=== PATIENT | female | born 2000 | race Caucasian/White ===

== ENCOUNTER 2021-02-17 00:03 | Emergency (ER) | payer OTHER, SELFPAY ==
[2021-02-17 00:04] VITALS: BP 141/77; PULSE 73; RESP 16; TEMP 36.8; O2SAT 99; BMI 32.5
--- NOTE | 2021-02-17 01:02 | CT_ITS ---
STUDY: CT ABDOMEN AND PELVIS WITH CONTRAST REASON FOR EXAM: Female, 20 years old. 3 weeks of abdominal pain, worsening. TECHNIQUE: Transaxial images were obtained from the dome of the diaphragm to the symphysis pubis without oral contrast. IV 100mL Isovue-300 was administered. Sagittal and coronal images were reconstructed. Individualized dose optimization techniques were used for this CT. COMPARISON: None. FINDINGS: Partially visualized lower chest: Lung bases unremarkable. Liver: No concerning lesions. Gallbladder and biliary tree: No visible gallstones. No pericholecystic inflammation. No biliary ductal dilation. Pancreas: No pancreatic lesions or inflammation. Spleen: Normal size, no splenic lesions. Adrenal glands: No concerning masses. Kidneys and ureters: No hydronephrosis or renal stones. No concerning masses. No ureteral dilation. Bowel: Appendix not identified. No evidence of appendicitis. No obstruction or inflammation of the bowel. Urinary bladder: No stones or wall thickening. Reproductive:Normal uterus and ovaries. Vascular: No abdominal aortic aneurysm. Retroperitoneal and peritoneal spaces: No ascites or free air. No retroperitoneal lesions. Osseous: No acute osseous abnormality. Left paracentral disc extrusion with inferior migration narrows the left subarticular zone at L5-S1. Abdominal and pelvic wall: No concerning findings. CT/Abdomen/Pelvis WITH Contrast IMPRESSION: No acute findings. Left paracentral disc extrusion with inferior migration narrows the left subarticular zone at L5-S1. Please correlate for left S1 radiculopathy. Electronically Signed: Arnel Rahman MD at 4:40 EDT Tel , Service support ,
[2021-02-17 01:11] LABS: Bacteria 0 SEEN /hpf (None Seen); Mucous, Urine 0 SEEN /hpf (<or=2+); Red Blood Cells-Urine 0 SEEN /hpf (0-5)
[2021-02-17 01:12] LABS: Absolute Lymphocyte Count 3.12 X10^3/uL (0.83-4.51); Absolute Neutrophil Count 3.3 X10^3/uL (2.0-7.7); Basophil# 0.08 X10^3/uL; Basophil% 1.1 % (0-1); Eosinophil# 0.39 X10^3/uL; Eosinophils% 5.1 % (0-5); Hematocrit 43.4 % (37-47); Hemoglobin 14.3 g/dL (12.0-15.0); Lymphocyte # 3.12 X10^3/ul (0.83-4.51); Lymphocyte % 41.1 % (19-41); Mean Corp Hgb Conc 32.9 g/dL (32-36); Mean Corpuscular Volume 100.2 fL (81-99); Mean Platelet Vol. 9.9 fl (6.2-12.0); Monocyte# 0.74 X10^3/uL; Monocyte% 9.7 % (0-10); NRBC Flagged by Analyzer 0 % (0-5); Neutrophil # 3.26 X10^3/uL (2.7-7.7); Neutrophil % 42.9 % (47-70); Platelet Count 301 K/mm3 (150-450); RBC Distribution Width CV 11.8 % (11.6-14.6); RBC Distribution Width SD 43.9 fl (35.1-43.9); Red Blood Count 4.33 M/mm3 (4.2-5.4); White Blood Count 7.6 K/mm3 (4.4-11.0)
[2021-02-17] MEDS: 0.9% Normal Saline 1,000 ML 1000 ML IV (01:12)
[2021-02-17] MEDS: Morphine 4 MG/ML Syringe IV ×2 (01:12→03:59)
[2021-02-17] MEDS: Ondansetron 4 MG/2 ML Vial IV (01:13)
[2021-02-17 01:18] LABS: Color, Urine Yellow (Yellow); Glucose, Dipstick Normal (Normal); Ketone-Dipstick Negative (Negative); Leukocyte Esterase-Dipstick Negative /ul (Negative); Nitrite-Dipstick Negative (Negative); Occult Blood-Urine 250 /ul (Negative); Protein-Dipstick Negative (Negative); Urine Bilirubin Dipstick Negative (Negative); Urine Clarity Clear (Clear); Urine Urobilinogen Normal (Normal)
[2021-02-17 01:19] LABS: Internal QC Validated? YES +Cl - CLEAR BKGD; Pregnancy, Serum, hCG Quali. NEGATIVE Negative
[2021-02-17 01:25] LABS: AST(SGOT) 18 U/L (15-37); Alanine Aminotransfer ALT/SGPT 27 U/L (13-56); Albumin, Serum 3.6 g/dL (3.2-5.0); Alkaline Phosphatase 63 U/L (45-117); Anion Gap 3 (5-15); BUN 12 mg/dL (7-18); BUN/Creat Ratio 14.4 RATIO (10-20); Calcium,Total 8.8 mg/dL (8.5-10.1); Chloride 111 mmol/L (98-107); Creatinine, Serum 0.84 mg/dL (0.55-1.02); EST Glomerular Filtration Rate 93 mL/min (>60); Est Glom Filt Rate - Afr Amer 113 mL/min (>60); Estimated Creatinine Clearance 93.02 ml/min; Globulin 3.5 g/dL (2.2-4.2); Glucose 91 mg/dL (74-106); Potassium 3.8 mmol/L (3.5-5.1); Protein, Total 7.1 g/dL (6.4-8.2); Sodium Level 143 mmol/L (136-145)
[2021-02-17 01:42] LABS: Squamous Epithelial Cells - UA 0-5 SEEN /hpf (5-10); White Blood Cells 0-5 SEEN /hpf (0-5)
[2021-02-17 04:00] VITALS: BP 133/89; PULSE 75; RESP 18; O2SAT 99
--- NOTE | 2021-02-17 05:31 | US_ITS ---
STUDY: ULTRASOUND TRANSVAGINAL CLINICAL: Female, 20 years old. Pelvic pain -- Possible ovarian torsion TECHNIQUE: Transvaginal COMPARISON: None. FINDINGS: Normal uterine size measuring 6.1 x 4.8 x 3.3 cm in maximal craniocaudal dimension. There are no myometrial masses. Normal endometrial thickness measuring 2 mm. There are no endometrial masses, and there is no fluid in the endometrial cavity. Normal uterine cervix. Normal right ovary, measuring 3.3 x 2.4 x 1.3 cm. There are multiple follicles without a dominant cyst. Normal left ovary, measuring 2.5 x 2.5 x 1.3 cm. There are multiple follicles without a dominant cyst. There is a small amount of free fluid in the pelvis. Polycystic ovary disease: No. US/Transvaginal Non- IMPRESSION: Normal transvaginal pelvic ultrasound. Electronically Signed: [place] MD at 7:52 EDT Tel , Service support ,
[2021-02-17] MEDS: HYDROmorphone 1 MG/ML Syringe 0.5 MG IV (05:51)
--- NOTE | 2021-02-17 06:05 | EDS_ITS ---
HPI HPI - GI History of Present Illness Chief Complaint: Abd Pain Informant: patient Abdominal Pain/Flank Pain Onset: Weeks (2) Context: Gradual Onset Timing: Waxes and wanes Quality: Sharp Location: Diffuse Worsened by: Movement Relieved by: Remaining Still Nausea/Vomiting/Emesis GI Symptom: Positive for Nausea Quality: Negative for Blood streaks, Coffee ground and Hematemesis Diarrhea/Melena/Hematochezia GI Symptom: Negative for Diarrhea, Melena and Hematochezia Narrative Narrative: Patient presents with abdominal pain that has been getting worse over the past 2 weeks. Patient states it has been waxing and waning. Patient states the pain is sharp. Patient states the pain moves around her abdomen. Patient states that currently it is in the right lower quadrant. Patient states it is worse with any movement and better whenever she remains still. Patient admits to some nausea and vomiting. Patient denies any hematemesis or coffee-ground emesis. Patient denies any diarrhea, melena, or hematochezia. Patient denies any dysuria or hematuria. Patient states her last menstrual period was 02/12/2021. [facility] Medical History Bipolar disorder Depression Allergy/AdvReac Type Severity Reaction Status Date / Time Penicillins Allergy Anaphylaxis Verified 02/17/21 00:07 Surgical History History of appendectomy History of tonsillectomy and adenoidectomy Social History Smoking Status: Current every day smoker tobacco type: cigarettes ROS ROS ED Constitutional Constitutional ED: Denies chills or fever(s) Eyes Eyes: Denies blurry vision or change in vision ENT ENT ED: Denies rhinorrhea or sore throat Cardiovascular Cardiovascular: Denies chest pain or palpitations Respiratory/Chest Respiratory/Chest: Denies cough or dyspnea Gastrointestinal Gastrointestinal: Reports abdominal pain, nausea and vomiting Genitourinary Genitourinary ED: Denies dysuria or hematuria Musculoskeletal Musculoskeletal: Reports back pain; Denies neck pain Integumentary Denies abscess or rash Neurologic Neurologic: Reports weakness; Denies headache(s) Allergic/Immunologic Allergic/Immunologic ED: Denies mouth swelling or urticaria EXAM Physical Exam Const Vital Signs: 02/17/21 00:04 02/17/21 04:00 02/17/21 06:10 Temperature 98.2 F Temperature Source Oral Pulse Rate 73 75 78 Respiratory Rate 16 18 18 Blood Pressure 141/77 H 133/89 H 128/65 H Blood Pressure Mean 98 103 86 Pulse Ox 99 99 97 Oxygen Delivery Method Room Air Room Air Room Air 02/17/21 08:42 Temperature Temperature Source Pulse Rate 78 Respiratory Rate 18 Blood Pressure Blood Pressure Mean Pulse Ox 97 Oxygen Delivery Method Positive well nourished, well developed and obese General Appearance ED: well developed Nutritional Appearance: obese HEENT Reports moist mucous membranes Neck supple and no JVD Resp normal respiratory effort and clear to auscultation bilaterally Cardio regular rate, regular rhythm and no murmurs GI normal to inspection, nondistended, normoactive bowel sounds and non-distended Auscultation: normoactive bowel sounds Palpation: soft and tender RLQ; Negative for guarding or rebound tenderness present Extremity normal to inspection General Extremety ED: Negative for edema or tenderness General Extremity: Negative for edema Neuro oriented x3, CN's II-XII intact bilaterally and no sensory deficits noted Sensorium / Orientation: alert Motor Exam: strength 5/5 throughout Psych mental status grossly normal Skin no rashes or lesions noted MDM MDM MDM Narrative Medical decision making narrative: Patient was given IV fluids, morphine, and Zofran initially. CBC and comprehensive metabolic profile were within normal limits. Serum hCG was negative. Urinalysis does not show any evidence of urinary tract infection. Patient was given a repeat dose of morphine here. CT scan of the abdomen and pelvis was obtained. There is no acute intra-abdominal pathology. This was interpreted by the radiologist and reviewed by myself. On reevaluation, patient was still complaining of persistent pain. Because of this, ultrasound of the pelvis was obtained to rule out ovarian torsion. There is no acute abnormality. There is no ovarian torsion. This was interpreted by the radiologist and reviewed by myself. Patient was given a dose of Toradol. Patient was instructed to follow-up with her primary care physician in 3 to 5 days. Patient understood and was agreeable with the plan. All questions were answered. Lab Data Attestation: I reviewed the patient's lab results. Labs: Laboratory Results - last 24 hr 02/17/21 02/17/21 02/17/21 00:50 00:50 00:50 WBC 7.6 RBC 4.33 Hgb 14.3 Hct 43.4 MCV 100.2 H MCH 33.0 H MCHC 32.9 RDW Std Deviation 43.9 RDW Coeff of Al 11.8 Plt Count 301 MPV 9.9 Immature Gran % (Auto) 0.100 Neut % (Auto) 42.9 L Lymph % (Auto) 41.1 H [place] % (Auto) 9.7 Eos % (Auto) 5.1 H Baso % (Auto) 1.1 H Absolute Neuts (auto) 3.3 Absolute Lymphs (auto) 3.12 Nucleated RBC % 0 Sodium 143 Potassium 3.8 Chloride 111 H Carbon Dioxide 29.0 Anion Gap 3 L BUN 12 Creatinine 0.84 Estim Creat Clear Calc 93.02 Est GFR (MDRD) Af Amer 113 Est GFR (MDRD) Non-Af 93 BUN/Creatinine Ratio 14.4 Glucose 91 Calcium 8.8 Total Bilirubin 0.50 AST 18 ALT 27 Alkaline Phosphatase 63 Total Protein 7.1 Albumin 3.6 Globulin 3.5 Albumin/Globulin Ratio 1.0 Serum , Qual NEGATIVE Urine Color Urine Clarity Urine pH Ur Specific [place] Urine Protein Urine Glucose (UA) Urine Ketones Urine Occult Blood Urine Nitrite Urine Bilirubin Urine Urobilinogen Ur Leukocyte Esterase Urine RBC Urine WBC Ur Squamous Epith Cells Urine Bacteria Urine Mucus 02/17/21 00:50 WBC RBC Hgb Hct MCV MCH MCHC RDW Std Deviation RDW Coeff of Al Plt Count MPV Immature Gran % (Auto) Neut % (Auto) Lymph % (Auto) [place] % (Auto) Eos % (Auto) Baso % (Auto) Absolute Neuts (auto) Absolute Lymphs (auto) Nucleated RBC % Sodium Potassium Chloride Carbon Dioxide Anion Gap BUN Creatinine Estim Creat Clear Calc Est GFR (MDRD) Af Amer Est GFR (MDRD) Non-Af BUN/Creatinine Ratio Glucose Calcium Total Bilirubin AST ALT Alkaline Phosphatase Total Protein Albumin Globulin Albumin/Globulin Ratio Serum , Qual Urine Color Yellow Urine Clarity Clear Urine pH 7.0 Ur Specific [place] 1.010 Urine Protein Negative Urine Glucose (UA) Normal Urine Ketones Negative Urine Occult Blood 250 H Urine Nitrite Negative Urine Bilirubin Negative Urine Urobilinogen Normal Ur Leukocyte Esterase Negative Urine RBC 0 SEEN Urine WBC 0-5 SEEN Ur Squamous Epith Cells 0-5 SEEN Urine Bacteria 0 SEEN Urine Mucus 0 SEEN Radiography Diagnostic Testing: Radiology Impression Abdomen/Pelvis CT 02/17/21 01:02 IMPRESSION: No acute findings. Left paracentral disc extrusion with inferior migration narrows the left subarticular zone at L5-S1. Please correlate for left S1 radiculopathy. Electronically Signed: Arnel Rahman MD at 4:40 EDT Tel , Service support , Transvaginal US 02/17/21 05:31 IMPRESSION: Normal transvaginal pelvic ultrasound. Electronically Signed: [place] MD at 7:52 EDT Tel , Service support , Discharge Plan Triage Chief Complaint: Abd Pain ED Provider: Herb Gillette Dx/Rx/DC Orders Clinical Impression: Abdominal pain in female patient Instructions: ED Abdominal Pain Unkn Cause Fem Primary Care Provider: Care Physician,No Primary Referrals: Tarik Carbajal MD [STAFF PHYSICIAN] - 3-5 Days Care Physician,No Primary [Primary Care Provider] - Disposition Disposition: Home, Self Care Discharge Date/Time: 02/17/21 08:58
[2021-02-17 06:10] VITALS: BP 128/65; PULSE 78; RESP 18; O2SAT 97
--- NOTE | 2021-02-17 07:19 | ED.RN ---
pt requesting more pain meds, pt attempting to cry, no tears noted. provider aware.
[2021-02-17] MEDS: Ketorolac 30 MG/ML Syringe IV (08:38)
[2021-02-17 08:42] VITALS: PULSE 78; RESP 18; O2SAT 97
== END 2021-02-17 08:58 | disposition home or self-care (01) ==
PROVIDERS: Emergency Provider Emergency Medicine
DX: R10.31 Right lower quadrant pain (principal); R11.2 Nausea with vomiting, unspecified; E66.9 Obesity, unspecified; F31.9 Bipolar disorder, unspecified; F17.210 Nicotine dependence, cigarettes, uncomplicated
CPT/HCPCS: 74177; 76830; 80053; 81001; 84703; 85025; 93976; 96361; 96374; 96375; 96376; 99283; Q9967; A4216; J2405

== ENCOUNTER → 2022-03-08 | Outpatient (CLI) | payer MEDICAID, SELFPAY ==
[2022-03-08 16:02] LABS: Erythrocyte Sedimentation Rate 3 mm/hr (0-30)
[2022-03-08 16:33] LABS: Vitamin B12 472 pg/mL (211-911)
[2022-03-08 16:40] LABS: ALB/GLOB Ratio 1.2 RATIO (0.9-2.4); AST(SGOT) 26 U/L (15-37); Alanine Aminotransfer ALT/SGPT 37 U/L (13-56); Albumin, Serum 3.8 g/dL (3.2-5.0); Alkaline Phosphatase 48 U/L (45-117); Anion Gap 8 (5-15); BUN 12 mg/dL (7-18); BUN/Creat Ratio 14.9 RATIO (10-20); Calcium,Total 9.4 mg/dL (8.5-10.1); Chloride 107 mmol/L (98-107); EST Glomerular Filtration Rate 97 mL/min (>60); Est Glom Filt Rate - Afr Amer 117 mL/min (>60); Free T3 3.4 pg/mL (2.18-3.98); Globulin 3.3 g/dL (2.2-4.2); Glucose 80 mg/dL (74-106); LDH 244 U/L (84-246); Potassium 3.7 mmol/L (3.5-5.1); Protein, Total 7.1 g/dL (6.4-8.2); Sodium Level 140 mmol/L (136-145); T4 Free Direct 1.14 ng/dL (0.76-1.46); Thyroid Stim Hormone (TSH) 0.64 uIU/mL (0.358-3.74)
[2022-03-11 14:08] LABS: Anti-Centromere B Ab <0.2 AI (0.0-0.9); Anti-Chromatin <0.2 AI (0.0-0.9); Anti-Jo <0.2 AI (0.0-0.9); Anti-Scleroderma-70 AB <0.2 AI (0.0-0.9); RNP Ab <0.2 AI (0.0-0.9); SJOGREN'S Anti-SS-A test < 0.2 AI (0.0-0.9); SJOGREN'S Anti-SS-B test < 0.2 AI (0.0-0.9); Smith Ab <0.2 AI (0.0-0.9)
[2022-03-11 15:08] LABS: Endomysial Antibody IgA Negative (Negative)
[2022-03-12 08:37] LABS: Anti-dsDNA Ab <1 IU/mL (0-9); Vitamin D 1,25-Dihydroxy 34.6 pg/mL (24.8-81.5)
[2022-03-12 09:06] LABS: Immunoglobulin A 39 mg/dL (87-352); t-Transglutaminase IgA <2 U/mL (0-3)
[2022-03-16 17:07] LABS: Alpha-1-Globulins 0.3 g/dL (0.0-0.4); Alpha-2-Globulins 0.8 g/dL (0.4-1.0); Cytoplasmic Ab (C-ANCA) <1:20 titer (Neg:<1:20); Gamma Globulin 0.8 g/dL (0.4-1.8); Immunoglobulin E 10 IU/mL (6-495); Immunoglobulin G 805 mg/dL (586-1602); Immunoglobulin M 95 mg/dL (26-217)
[2022-03-17 08:38] LABS: Immunoglobulin A 39 mg/dL (87-352); Perinuclear Ab (P-ANCA) <1:20 titer (Neg:<1:20)
== END | disposition home or self-care (01) ==
LOC: LAB 15:20
PROVIDERS: Visit Provider Internal Medicine Gastroenterology
DX: R11.0 Nausea (principal)
CPT/HCPCS: 36415; 80053; 82607; 82652; 82784; 82785; 83516; 83615; 84165; 84439; 84443; 84481; 85652; 86225; 86235; 86255; 86256; 86334

== ENCOUNTER 2022-04-16 09:51 | Outpatient (CLI) | payer MEDICAID, SELFPAY ==
--- NOTE | 2022-04-16 09:58 | NM_ITS ---
CLINICAL: 21-year-old female with history of chronic nausea. RADIONUCLIDE HEPATOBILIARY SCINTIGRAPHY COMPARISON: None available FINDINGS: Following the intravenous administration of 5.4 mCi of 99m Tc Mebrofenin, hepatobiliary images reveal: 1. Relatively prompt and homogeneous radiopharmaceutical concentration is noted by a normal sized liver. No parenchymal defects are identified. 2. Gallbladder activity is identified at 10 minutes post radiopharmaceutical administration. 3. Small intestinal tract is observed at 45 minutes following tracer injection. 4. Washout of the radiopharmaceutical by the hepatic parenchyma appears qualitatively normal. Cholecystokinin (0.02 ug/kg) was administered intravenously over a 30-minute period. The post CCK gallbladder ejection fraction calculated at 21 minutes following Cholecystokinin administration was noted to be 85.0 % (normal greater than 35%). During 30 minutes of post CCK imaging, there is no scintigraphic evidence of reflux of the radiotracer into the common hepatic duct or refilling of the gallbladder. NM/Hepatobilliary Img w/Pharm Int IMPRESSION: 1. NORMAL 99m Tc Mebrofenin hepatobiliary imaging examination with Cholecystokinin. A. A gallbladder ejection fraction calculated to be greater than 35% following the administration of Cholecystokinin makes the probability of functional hepatobiliary disease (gallbladder and/or sphincter of Oddi dyskinesia) and/or organic hepatobiliary disease (chronic acalculous cholecystitis and/or cystic duct syndrome) to be low. (Kush Landa et al, Journal of Nuclear Medicine 32:1695, 1991). Electronically Signed: Hnag Mcmahan, at 20:24 EST ,
== END 2022-04-16 23:59 | disposition home or self-care (01) ==
LOC: NM 09:53
PROVIDERS: Referring Provider Internal Medicine Gastroenterology; Visit Provider Internal Medicine Gastroenterology
DX: R11.0 Nausea (principal)
CPT/HCPCS: 78227; A9537; J2805

== ENCOUNTER 2022-05-22 15:12 | Emergency (ER) | payer MEDICAID, SELFPAY ==
[2022-05-22 15:13] VITALS: BP 143/81; PULSE 81; RESP 15; TEMP 36.1; O2SAT 100; BMI 37.8
--- NOTE | 2022-05-22 15:29 | ED.VIS.GI ---
HPI HPI - GI History of Present Illness Chief Complaint: Abd Pain Narrative Narrative: 21-year-old female states that she is a at 8 weeks gestation presents with abdominal pain, nausea, and vomiting that she has had since Friday, over the last 5 days. She states that she felt feverish and had chills. She was nauseated the entire time but yesterday had vomiting and was unable to keep down any food or liquids. She did have an ultrasound that did show that she was at 8 weeks gestation with an intrauterine . She denies any problems with pelvic pain or cramping, or vaginal bleeding and mainly complains of pain in the epigastrium radiating towards the left. No problems with urination. She did states that she began having solid stool which had blood in it. She does not take any blood thinners. [facility] Medical History Allergies Back problem Bipolar disorder control counseling Chronic neck pain Chronic thoracic back pain Depression Epigastric pain GERD (gastroesophageal reflux disease) Intertrigo Macromastia Nausea Shoulder pain UTI (urinary tract infection) Home Medications bqpysoc-pakzyhhrw-[id number] 333 mg-133 mg-5 mg tablet tab PO 01/03/22 [History Last Taken Unknown] drospirenone 3 mg-ethinyl estradiol 0.02 mg tablet (Loryna (28)) 1 tab PO DAILY 01/03/22 [History Last Taken Unknown] omeprazole 20 mg capsule,delayed release 20 mg PO DAILY 01/03/22 [History Last Taken Unknown] pantoprazole 40 mg tablet,delayed release 40 mg PO DAILY 01/03/22 [History Last Taken Unknown] prenat.vits,alphonse,zsx-celk-dvyqp 1 tab PO DAILY 01/03/22 [History Last Taken Unknown] hydroxyzine HCl 25 mg tablet 75 mg PO QHS PRN nausea and vomiting 04/11/22 [History Last Taken Unknown] prazosin 1 mg capsule 1 mg PO QHS 04/11/22 [History Last Taken Unknown] dicyclomine 20 mg tablet 20 mg PO TID PRN abdominal pain #20 tabs 05/22/22 [Rx Last Taken Unknown] Allergy/AdvReac Type Severity Reaction Status Date / Time Penicillins Allergy Anaphylaxis Verified 05/22/22 15:13 Family History Other Heart disease Surgical History History of appendectomy History of tonsillectomy and adenoidectomy [place] teeth removed Social History Smoking Status: Current some day smoker tobacco type: cigarettes alcohol intake: never substance use type: does not use additional social history: Does Take Aspirin As Needed Does Take Ibuprofen As Needed ROS ROS ED ROS Narrative Constitutional: No fever, positive chills. HEENT: No sore throat. No neck pain. No loss of vision. No rhinorrhea. Cardiovascular: No chest pain. No palpitations. No pedal edema. Respiratory: No cough, no shortness of breath. Abdominal: Positive abdominal pain. Positive nausea. Yesterday had multiple episodes of vomiting. Diarrhea that his blood tinged/bloody. Genitourinary: No dysuria. No hematuria. No vaginal bleeding or pelvic pain. Musculoskeletal: No myalgias. No arthralgias. Neurologic: No headaches. No dizziness. No lightheadedness. Skin: No rash. No change in color. Psychiatric: No depression. No anxiety. EXAM Physical Exam Narrative Exam Narrative: Afebrile. Vital signs noted. HEENT: Normocephalic. Atraumatic. PERRL, EOMI. Neck soft and supple. No point tenderness or step off. Cardiovascular: Regular rate and rhythm. No murmurs, rubs, or gallops appreciated. Respiratory: No tachypnea. Lungs clear to auscultation bilaterally. Gastrointestinal: Abdomen soft, minimal diffuse tenderness, but concentrated in epigastrium, with normoactive bowel sounds. No rebound or guarding. No pain over McBurney's point. Negative Bradford sign. Neurological: Awake. Alert. Nonfocal, nonlateralizing. Skin: No rash. Normal color. No pallor. Musculoskeletal: No pedal edema. Full range of motion extremities. Const Vital Signs: 05/22/22 15:13 Temperature 97.0 F L Temperature Source Temporal Pulse Rate 81 Respiratory Rate 15 Blood Pressure 143/81 H Blood Pressure Mean 101 Pulse Ox 100 Oxygen Delivery Method Room Air MDM MDM MDM Narrative Medical decision making narrative: Patient is not tachycardic or febrile. Pulse ox 100% on room air. I do feel that she may have more of a gastrointestinal component to a viral syndrome/upper respiratory infection. I will obtain CBC, CMP, and lipase to make sure that she does not have a pancreatitis. I will also obtain a UA. She will be bolused normal saline 1 L intravenously and administered ondansetron. I do not feel that CT imaging is indicated. She has a nonsurgical abdomen. CBC was obtained she has a normal white count of 7.5, hemoglobin normal at 14.0, hematocrit 41.8. Platelet count normal at 234. Electrolyte panel shows normal BUN of 9 with a creatinine of 0.66. Urinalysis shows 0-5 WBCs. There is 2+ bacteria. However, given her history of this will be sent for culture to look for asymptomatic bacteriuria. Currently, I do not feel that antibiotics are indicated. She is resting comfortably on the cot. She states she has ondansetron at home. I will give her a Bentyl tablet here for her abdominal cramping and a prescription written for #20. I do feel that her reported rectal bleeding may be secondary to an internal hemorrhoid. She can use [id number] remedies, but I suggested that she follow-up with her primary care provider. I feel she can be discharged safely home with follow-up. Return instructions to the emergency department were reviewed. Disposition is discharged home in stable condition. Lab Data Attestation: I reviewed the patient's lab results. Labs: Laboratory Results - last 24 hr 05/22/22 05/22/22 05/22/22 15:35 15:35 15:45 WBC 7.5 RBC 4.41 Hgb 14.0 Hct 41.8 MCV 94.8 MCH 31.7 MCHC 33.5 RDW Std Deviation 40.7 RDW Coeff of Al 11.7 Plt Count 274 MPV 10.1 Immature Gran % (Auto) 0.300 Neut % (Auto) 67.4 Lymph % (Auto) 22.9 [place] % (Auto) 8.6 Eos % (Auto) 0.3 Baso % (Auto) 0.5 Absolute Neuts (auto) 5.1 Absolute Lymphs (auto) 1.73 Nucleated RBC % 0 Sodium 137 Potassium 4.3 Chloride 105 Carbon Dioxide 27.0 Anion Gap 5 BUN 9 Creatinine 0.66 Estim Creat Clear Calc 117.41 Est GFR (MDRD) Af Amer 145 Est GFR (MDRD) Non-Af 120 BUN/Creatinine Ratio 13.5 Glucose 85 Calcium 9.2 Total Bilirubin 1.10 H AST 15 ALT 22 Alkaline Phosphatase 31 L Total Protein 6.8 Albumin 3.5 Globulin 3.3 Albumin/Globulin Ratio 1.1 Lipase 55 L Urine Color Yellow Urine Clarity Sl. Cloudy Urine pH 5.0 Ur Specific [place] 1.020 Urine Protein 15 H Urine Glucose (UA) Normal Urine Ketones 5 H Urine Occult Blood 25 H Urine Nitrite Negative Urine Bilirubin Negative Urine Urobilinogen Normal Ur Leukocyte Esterase 25 H Urine RBC 0-5 SEEN Urine WBC 0-5 SEEN Ur Squamous Epith Cells 0-5 SEEN Urine Bacteria 2+ Urine Mucus 0 SEEN Discharge Plan Triage Chief Complaint: Abd Pain ED Provider: Salvatore Snyder Dx/Rx/DC Orders Clinical Impression: Abdominal pain, Nausea and vomiting, Blood in stool Instructions: ED Abdominal Pain Unkn Cause Fem, ED Vomiting (Adult) Prescriptions: New dicyclomine 20 mg tablet 20 mg PO TID PRN (Reason: abdominal pain) Qty: 20 0RF No Action pantoprazole 40 mg tablet,delayed release (DR/EC) 40 mg PO DAILY omeprazole 20 mg capsule,delayed release(DR/EC) 20 mg PO DAILY drospirenone-ethinyl estradiol [Loryna (28)] 3-0.02 mg tablet 1 tab PO DAILY odoqwtw-qyazeuvuc-tkny 333-133-5 mg tablet PO prenat.vits,alphonse,wva-nbte-srdew Tablet 1 tab PO DAILY prazosin 1 mg capsule 1 mg PO QHS hydroxyzine HCl 25 mg tablet 75 mg PO QHS PRN (Reason: nausea and vomiting) Primary Care Provider: Mi Cee Referrals: Mi Cee PA [Primary Care Provider] - 1-2 Days if not improving Disposition Disposition: Home, Self Care
[2022-05-22 15:47] LABS: Absolute Lymphocyte Count 1.73 X10^3/uL (0.83-4.51); Absolute Neutrophil Count 5.1 X10^3/uL (2.0-7.7); Basophil# 0.04 X10^3/uL; Basophil% 0.5 % (0-1); Eosinophil# 0.02 X10^3/uL; Eosinophils% 0.3 % (0-5); Hematocrit 41.8 % (37-47); Lymphocyte # 1.73 X10^3/ul (0.83-4.51); Lymphocyte % 22.9 % (19-41); Mean Corp Hgb Conc 33.5 g/dL (32-36); Mean Corpuscular Hgb 31.7 pg (27.0-32.0); Mean Corpuscular Volume 94.8 fL (81-99); Mean Platelet Vol. 10.1 fl (6.2-12.0); Monocyte# 0.65 X10^3/uL; Monocyte% 8.6 % (0-10); NRBC Flagged by Analyzer 0 % (0-5); Neutrophil # 5.08 X10^3/uL (2.7-7.7); Neutrophil % 67.4 % (47-70); Platelet Count 274 K/mm3 (150-450); RBC Distribution Width CV 11.7 % (11.6-14.6); RBC Distribution Width SD 40.7 fl (35.1-43.9); Red Blood Count 4.41 M/mm3 (4.2-5.4); White Blood Count 7.5 K/mm3 (4.4-11.0)
[2022-05-22] MEDS: Ondansetron 4 MG/2 ML Vial IV (15:47)
[2022-05-22] MEDS: 0.9% Normal Saline 1,000 ML 1000 ML IV (15:47)
[2022-05-22 15:48] LABS: Mucous, Urine 0 SEEN /hpf (<or=2+)
[2022-05-22 15:49] LABS: Color, Urine Yellow (Yellow); Glucose, Dipstick Normal (Normal); Ketone-Dipstick 5 mg/dl (Negative); Leukocyte Esterase-Dipstick 25 /ul (Negative); Nitrite-Dipstick Negative (Negative); Occult Blood-Urine 25 /ul (Negative); Protein-Dipstick 15 mg/dl (Negative); Urine Bilirubin Dipstick Negative (Negative); Urine Clarity Sl. Cloudy (Clear); Urine Urobilinogen Normal (Normal)
[2022-05-22 15:57] LABS: ALB/GLOB Ratio 1.1 RATIO (0.9-2.4); AST(SGOT) 15 U/L (15-37); Alanine Aminotransfer ALT/SGPT 22 U/L (13-56); Albumin, Serum 3.5 g/dL (3.2-5.0); Alkaline Phosphatase 31 U/L (45-117); Anion Gap 5 (5-15); BUN 9 mg/dL (7-18); BUN/Creat Ratio 13.5 RATIO (10-20); Calcium,Total 9.2 mg/dL (8.5-10.1); Chloride 105 mmol/L (98-107); Creatinine, Serum 0.66 mg/dL (0.55-1.02); EST Glomerular Filtration Rate 120 mL/min (>60); Est Glom Filt Rate - Afr Amer 145 mL/min (>60); Estimated Creatinine Clearance 117.41 ml/min; Globulin 3.3 g/dL (2.2-4.2); Glucose 85 mg/dL (74-106); Lipase 55 U/L (73-393); Potassium 4.3 mmol/L (3.5-5.1); Protein, Total 6.8 g/dL (6.4-8.2); Sodium Level 137 mmol/L (136-145)
[2022-05-22 16:08] LABS: Bacteria 2+ /hpf (None Seen); Red Blood Cells-Urine 0-5 SEEN /hpf (0-5); Squamous Epithelial Cells - UA 0-5 SEEN /hpf (5-10); White Blood Cells 0-5 SEEN /hpf (0-5)
[2022-05-22] MEDS: Dicyclomine 10 MG Capsule 20 MG PO (16:26)
== END 2022-05-22 16:54 | disposition home or self-care (01) ==
PROVIDERS: Emergency Provider Emergency Medicine; Visit Provider Emergency Medicine
DX: O99.891 Other specified diseases and conditions complicating pregnancy (principal); O21.9 Vomiting of pregnancy, unspecified; O99.611 Diseases of the digestive system complicating pregnancy, first trimester; O99.331 Smoking (tobacco) complicating pregnancy, first trimester; R10.9 Unspecified abdominal pain; F17.210 Nicotine dependence, cigarettes, uncomplicated; K92.1 Melena; Z3A.08 8 weeks gestation of pregnancy
CPT/HCPCS: 99281; 80053; 81001; 83690; 85025; 87086; 87088; 96361; 96374; 99282; A4216; J2405

== ENCOUNTER 2024-06-10 05:14 | Day surgery (SDC) | payer MEDICAID, SELFPAY ==
[2024-05-24 13:36] LABS: Hematocrit 41.8 % (37-47); Hemoglobin 14.1 g/dL (12.0-15.0); Mean Corp Hgb Conc 33.7 g/dL (32-36); Mean Corpuscular Hgb 31.9 pg (27.0-32.0); Mean Corpuscular Volume 94.6 fL (81-99); Mean Platelet Vol. 10.4 fl (6.2-12.0); Platelet Count 305 K/mm3 (150-450); RBC Distribution Width CV 11.4 % (11.6-14.6); RBC Distribution Width SD 39.4 fl (35.1-43.9); Red Blood Count 4.42 M/mm3 (4.2-5.4)
[2024-05-24 14:04] LABS: Anion Gap 6 (5-15); BUN 8 mg/dL (7-18); BUN/Creat Ratio 11.6 RATIO (10-20); Calcium,Total 9.1 mg/dL (8.5-10.1); Chloride 110 mmol/L (98-107); Creatinine, Serum 0.69 mg/dL (0.55-1.02); EST Glomerular Filtration Rate 113 mL/min (>60); Est Glom Filt Rate - Afr Amer 136 mL/min (>60); Glucose 88 mg/dL (74-106); Potassium 3.8 mmol/L (3.5-5.1); Sodium Level 141 mmol/L (136-145)
[2024-05-24 14:09] LABS: Amphetamine Urine VISTA NEGATIVE (<1000 ng/mL); Barbiturate Urine VISTA NEGATIVE (< 200 ng/mL); Benzodiazepine Urine VISTA NEGATIVE (< 200 ng/mL); Cocaine Urine VISTA NEGATIVE (< 300 ng/mL); Ecstacy Urine VISTA NEGATIVE (< 500 ng/mL); Methadone Urine VISTA NEGATIVE (< 300 ng/mL); PCP Urine VISTA NEGATIVE (< 25 ng/mL); THC Urine VISTA NEGATIVE (< 50 ng/mL); Vista UDS pH Range 5
[2024-05-31 09:06] LABS: Cotinine Screen Blood 3.3 ng/mL (.); Nicotine Blood <1.0 ng/mL (.)
[2024-06-10] VITALS (14 sets, daily range): BP systolic 81–139; BP diastolic 40–66; PULSE 66–105; RESP 16; TEMP 36.2–37.1; O2SAT 93–99; BMI 45.7
[2024-06-10] MEDS: 0.9% Normal Saline (1000mL) 1,000 ML 15 ML IV (06:18)
--- NOTE | 2024-06-10 06:48 | PRE.ANES_ITS ---
ASA Classification* ASA Classification ASA Classification: 3 (increased BMI) Assessment & Plan Anesthesia* Anesthesia Assessment Anesthesia Assessment: Discussed sedation and/or anesthesia options, risks, benefits, and alternatives with patient/parents/legal guardian/POA. Questions invited. The patient/parents/legal guardian/POA seems to understand and agrees to proceed with anesthesia plan. Reviewed the physical assessment, medical history, allergy history and patient home medications list prior to surgery/procedure/anesthetic and documented any changes. Performed airway and anesthesia risk assessments. Anesthesia Type Anesthesia Type: General Anesthesia Focused Assessment* Temperature: 97.7 F Pulse Rate: 105 Blood Pressure: 139/63 Respiratory Rate: 16 Pulse Ox: 99 Airway Assessment Mouth opens: >3 cm Mallampati Score: II Focused Labs Anesthesia Preop lab: CBC WBC 4.0 K/mm3 (4.4-11.0) L 05/24/24 12:27 RBC 4.42 M/mm3 (4.2-5.4) 05/24/24 12:27 Hgb 14.1 g/dL (12.0-15.0) 05/24/24 12:27 Hct 41.8 % (37-47) 05/24/24 12:27 Plt Count 305 K/mm3 (150-450) 05/24/24 12:27 CHEMISTRY Potassium 3.8 mmol/L (3.5-5.1) 05/24/24 12:27 Sodium 141 mmol/L (136-145) 05/24/24 12:27 BUN 8 mg/dL (7-18) 05/24/24 12:27 Creatinine 0.69 mg/dL (0.55-1.02) 05/24/24 12:27 Glucose 88 mg/dL (74-106) 05/24/24 12:27 TSH 0.64 uIU/mL (0.358-3.74) 03/08/22 15:25 COAG Pre-Assessment Diagnosis/Proposed Procedure Planned Operative Procedure(s): BILAT BREAST REDUCTION Anesthesia History Anesthesia History - delinquency counselor: Anesthesia History - delinquency counselor Hx Hospitalization No 06/04/24 10:52 Any Problems With Anesthesia No 06/04/24 10:52 Cholinesterase deficiency No 06/04/24 10:52 You/Your Family Experience No 06/04/24 10:52 fever (hyperthermia) with Relationship Recent Exposure to Contagious No 06/10/24 06:07 Disease Does patient have nerve No 06/04/24 10:52 stimulator Patient instructed to have device shut off --Does patient have Pacemaker No 06/10/24 06:07 or ICD? When Was Last Pacemaker Check QUESTION #4 FULL TEXT: You/Your Family Experience fever (hyperthermia) with Anesthesia Last Oral Intake Last Oral intake: Last Oral Intake NPO since 00:00 06/10/24 06:07 Meds taken in AM with sips of water? Meds patient instructed to take am of surgery PONV PONV - delinquency counselor: PONV - delinquency counselor Female Yes 06/04/24 10:52 HX of Motion Sickness No 06/04/24 10:52 HX of N/V After Surgery No 06/04/24 10:52 Non-Smoker Yes 06/04/24 10:52 Duration of Surgery greater Yes 06/04/24 10:52 than 60 minutes Number of Risk Factors 3 06/04/24 10:52 PONV Score Moderate Risk 06/04/24 10:52 Height & Weight Height & Weight: Anesthesia: Height & Weight Height 5 ft 06/10/24 06:07 Weight: 106.141 kg 06/10/24 06:07 Body Mass Index (BMI) 45.7 06/10/24 06:07 Respiratory Assessment Respiratory Assessment - delinquency counselor: Respiratory Tract Infection Hx - delinquency counselor Hx Respiratory Tract Infection No 06/04/24 10:52 STOP Sleep Apnea STOP Sleep Apnea - delinquency counselor: STOP Sleep Apnea - delinquency counselor Hx Hypertension No 06/04/24 10:52 Hx Sleep Apnea No 06/04/24 10:52 CPAP BIPAP Do you snore loudly (louder No 06/04/24 10:52 than talking or can be heard Do you often feel tired/ No 06/04/24 10:52 fatigued/ sleepy during daytime? Has anyone observed you stop No 06/04/24 10:52 breathing during sleep? STOP Results Negative 06/04/24 10:52 QUESTION #5 FULL TEXT : Do you snore loudly (louder than talking or can be heard through closed doors)? 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 Specify any problems Hx of Preganancy in last 3 No 06/04/24 10:52 Months Nurse Filling Out Transfusion DSCHRIBER 06/04/24 10:52 & Questions: Date: 06/04/24 06/04/24 10:52 Time: 10:53 06/04/24 10:52 Patient unable to answer at this time (ie. confused, unrespo /Reproduction History /Reproductive History - delinquency counselor: /Reproductive Hx- delinquency counselor Hx Now No 06/04/24 10:52 Gestational Age (in weeks): EDC: Hx Hx Para Hx Section SAB No 06/04/24 10:52 Active Medications Active Medications: Current Medications Generic Name Dose Route Start Last Admin Trade Name Freq PRN Reason Stop Dose Admin Clindamycin Phosphate 900 mg in 50 mls @ 75 mls/hr 06/10/24 07:30 Cleocin IV 06/10/24 08:09 PREOP ONE Sodium Chloride 1,000 mls @ 15 mls/hr 06/10/24 06:00 06/10/24 06:18 IV 06/15/24 19:19 15 mls/hr .Q48H SIMONE Administration Protocol PFSH Medical History Borderline personality disorder Marijuana use Back pain Former smoker Asthma Shortness of breath on exertion Leg cramps History of gastroesophageal reflux (GERD) Chronic pain in left shoulder Chronic pain in right shoulder Striae Gave to child recently Intertrigo Chronic thoracic back pain Chronic neck pain Macromastia GERD (gastroesophageal reflux disease) Back problem Allergies Nausea Depression Home Medications ?Medication ?Instructions ?Recorded ?Last Taken ?Type trazodone 100 mg tablet 100 mg PO QHS 05/04/24 06/09/24 History hydroxyzine pamoate 25 mg capsule 25 mg PO Q6H PRN PRN anxiety 06/04/24 Unknown History oxycodone-acetaminophen 5 mg-325 1 tab PO TID PRN pain 3 days #8 06/08/24 Unknown Rx mg tablet (Percocet) tab-caps sulfamethoxazole 800 1 tab PO BID #14 tabs 06/08/24 Unknown Rx mg-trimethoprim 160 mg tablet (Bactrim DS) Allergy/AdvReac Type Severity Reaction Status Date / Time Penicillins Allergy Anaphylaxis Verified 06/10/24 06:06 Seasonal Allergies: Uncoded Allergy Other Verified 06/10/24 06:06 Family History Mother Heart disease Surgical History History of lumbar laminectomy History of tubal ligation Hx of section [place] teeth removed History of tonsillectomy and adenoidectomy History of appendectomy Social History Smoking Status: Former smoker how long ago did patient quit smoking: quit 1 year ago alcohol intake: never substance use type: does not use additional social history: Does Take Aspirin As Needed Does Take Ibuprofen As Needed denies vaping, denies edibles Uses marijuana-last used 3 weeks ago. Review of Systems (Anesthesia) ROS Narrative System reviewed and no additional complaints, except as documented.
--- NOTE | 2024-06-10 07:17 | PCM.HP.BLA ---
History and Physical Date of Admission: 06/10/24 The pt is examined and there are no changes to the H&P dated 06/07/24. Informed consent obtained Pt marked in the pre-op area. Pt for bilateral breast reduction. Assessment & Plan Assessment/Plan (1) Macromastia: (2) Breast asymmetry: (3) Chronic pain in left shoulder: (4) Chronic pain in right shoulder: PLAN: Plan Pt for bilateral breast reduction
--- NOTE | 2024-06-10 07:30 | BR_PTH ---
PATIENT: IVY CIFUENTES LOC[place] [facility] [place][id number] AGE/SX: 23/F ROOM: RE06/10/[address]: Dr. Glo Lopes MD : [id number] BED: DIS: 06/10/2024 SPEC #: [id number] RECD: 06/10/24 13:21 STATUS: ERNST REArlen #: [id number] CL: 06/10/24 07:[address]: Glo Lopes DEPT: SURGICAL PATHOLOGY RECD BY: Megha Rankin ENTERED: 06/11/24 07:15 SP TYPE: MAMOPLASTY OTHR DR: JENNIFER Torrez Tissues: A - Left breast, NOS B - Right breast, NOS Procedures: Surgery Specimen Level IV HEADER OPERATION: Bilateral breast reduction PRE-OP DIAGNOSIS: Macromastia, breast asymmetry, chronic pain in left and right shoulders TISSUE SUBMITTED: A- Left breast tissue - 270gm, B- Right breast tissue - 500gm MICROSCOPIC DIAGNOSIS A. Left breast tissue, breast reduction mammoplasty: Fragments of benign breast tissue. Skin- no pathologic diagnosis. B. Right breast tissue, breast reduction mammoplasty: Fragments of benign breast tissue. Skin- no pathologic diagnosis. 06/14/2024 MICROSCOPIC DESCRIPTION Slides are reviewed. GROSS DESCRIPTION A - Received in fixative is one container labeled with the patient's name and designated Left breast tissue - 270gm. The specimen consists of multiple pieces of fibroadipose tissue with a few of the pieces showing johnson-white skin measuring in aggregate 17.0 x 15.0 x 5.0 cm. No skin lesion is identified. Sections reveal yellow adipose cut surfaces mixed with scant fibrous areas. No mass lesion is identified. Stained Glass Installer sections are submitted in six cassettes. Cassette 1 contains the skin piece. B - Received in fixative is one container labeled with the patient's name and designated Right breast tissue - 500gm. The specimen consists of multiple pieces of fibroadipose tissue with a few of the pieces showing johnson-white skin and measuring in aggregate 21.0 x 18.0 x 5.0 cm. No skin lesion is identified. Sections reveal yellow adipose cut surfaces mixed with scant fibrous areas. No mass lesion is identified. Stained Glass Installer sections are submitted in six cassettes. Cassette 1 contains the skin piece. / BARRERA: TC:5 06/11/2024 CPT:23537t2
[2024-06-10] MEDS: Clindamycin 900 MG/50 ML BAG 75 MG IV (07:45)
[2024-06-10] MEDS: Methylene Blue 1% 100 MG/10 ML VIAL (08:23)
[2024-06-10] MEDS: EPINEPHrine Nasal 0.1% 30 ML Bottle (08:23)
[2024-06-10] MEDS: Gentamicin 80 MG/2 ML Vial (08:23)
[2024-06-10] MEDS: Bupivacaine 0.25% 30 ML Vial (12:29)
--- NOTE | 2024-06-10 12:44 | EX.PCM.DISCH ---
Discharge Instructions Dressing / Incision Additional Dressing/Incision Instructions:: Follow the instructions given in the office. Use the incentive spirometer during the day. Keep your back elevated (recliner position). Follow Up Care Please Follow Up With: Glo Lopes MD When: Next week Test Results: Test results from this visit will be discussed in further detail at your follow-up appointment, if applicable. Discharge Plan Admission Attending Provider: Glo Lopes Primary Care Provider: Mi Cee Instructions Print Language: Citizen Of [place] Discharge Orders/Prescriptions Prescriptions: No Action trazodone 100 mg tablet 100 mg PO QHS sulfamethoxazole-trimethoprim [Bactrim DS] 800-160 mg tablet 1 tab PO BID Qty: 14 0RF oxycodone-acetaminophen [Percocet] 5-325 mg tablet 1 tab PO TID PRN (Reason: pain) 3 Days Qty: 8 0RF hydroxyzine pamoate 25 mg capsule 25 mg PO Q6H PRN PRN (Reason: anxiety) Referrals / Follow Up: Mi Cee PA [Primary Care Provider] - Disposition Disposition (needs filled in before D/C Order can be placed): Home, Self Care
--- NOTE | 2024-06-10 12:47 | OP.PCM_ITS ---
Problems Associated Problem List Diagnoses (1) Breast asymmetry: (2) Breast ptosis: (3) Chronic pain in left shoulder: (4) Chronic pain in right shoulder: (5) Macromastia: Operative Report (Standard) Operative Information Date of Procedure: 06/10/24 Pre-Operative Diagnosis: Bilateral breast hypertrophy, chronic neck and back pain Post-Operative Diagnosis: Same Surgery/Procedure Performed: Bilateral breast reduction (L?270 g; R?500 g) sandblaster glass: Yes Director Of Residential Services: Coco Ramirez Tasks completed by cardiovascular physician assistant: Closing and Retracting Type of Anesthesia: General RN Documented Start/Stop Times: Operation Date: 06/10/24 07:30 Case Time Into Pre-Op 06/10/24 05:56 Out of Pre-Op 06/10/24 07:26 Anesthesia Start 06/10/24 07:30 Into Room 06/10/24 07:30 Procedure Start 06/10/24 08:23 Procedure End 06/10/24 12:37 Anesthesia End 06/10/24 12:45 Out of Room 06/10/24 12:45 Procedure Start Time: 08:23 Procedure Stop Time: 12:37 Select all DRAINS/GRAFTS/IMPLANTS that apply: None Estimated Blood Loss: 50 cc Specimen collected: Yes Description of specimen(s) removed: Bilateral breast tissue Description of surgery: The patient is a 23-year-old female who presents for bilateral breast reduction. The procedure been thoroughly reviewed with her including the expected pre-, intra-, postoperative course. The potential risk and complications of surgery have been reviewed which include but are not exclusive of bleeding, infection, pain, numbness, asymmetry, scar tissue, skin necrosis, inability to breast-feed, further breast growth in the future, DVT, and even . She is marked in the preop holding area prior to surgery. Informed consent is obtained. The patient is brought to the operating room and placed on the operating room table under a general anesthetic in supine position. The breast and chest are prepped and draped in usual sterile fashion. Care is taken to pad all pressure points, apply a warming blanket, sequential compression stockings, and Quiñonez catheter. We initially began with incising the premarked incisions. The pedicle was then de-epithelialized. Following this, the medial and lateral inferior aspects of the breast are removed using argon coagulation. The pedicle is then from the upper flap and dissection continued cephalad maintaining the upper flap at least 2 cm in thickness. The pedicle is then trimmed in order to allow it to comfortably fit beneath the upper flap. Meticulous hemostasis is performed after irrigation with antibiotic solution. The breast is then infolded and tacked together using silk suture and skin clips. With a satisfactory size and shape noted, would begin to close the wounds. A few Vicryl sutures are placed in the subcutaneous tissue. A 3 oh STRATAFIX suture is used to approximate skin and tissue layers in 3 layers. Approximately 5 cm above the inframammary crease, the nipple areola is brought out through an opening. It is tacked in place initially with interrupted nylon suture. All skin edges are then approximated with a running subcuticular strata fix suture. The identical procedure was performed on the opposite side. All tissue is passed off and weighed during the procedure to be sent to pathology. 1/4% plain Marcaine is injected along the incisions. The incisions are then dressed with Xeroform, and fluff gauze. She is also placed in a surgery bra. She tolerated the procedure well was taken to the recovery area in an awake and stable condition. Needle and sponge counts are correct. Surgical Findings: As above Complications Complications: No Admit VTE Documentation VTE Mechan Device Prophylaxis: SCD's
--- NOTE | 2024-06-10 12:49 | PCM.POST.ANE ---
Anesthesia: Postop Eval I Current Vital Signs Temperature: 98.6 F Pulse Rate: 99 Blood Pressure: 107/62 Respiratory Rate: 16 Pulse Ox: 97 Oxygen Delivery Method: Room Air Assessment Airway patent: Yes Spontaneous unlabored respirations: Yes Mental status: Awake and Calm nausea: Yes Vomiting: No Anesthesia Complication: No Fluid Hydration Crystalloid volume administer (ml): 1,700 Total IV fluid infused: 1,700 Progress Note Anesthesia document: Postop Eval 1 completed: Yes
--- NOTE | 2024-06-10 13:27 | POSTOPAN2_ITS ---
Anesthesia Postop Eval I Sum Postop Eval Completion status Anesthesia document: Postop Eval 1 completed: Yes Anesthesia Postop Eval I Summary Anesthesia Postop Eval I Summary: Anesthesia Postop Eval I: Assessment Summary Airway patent Yes 06/10/24 12:53 [email or web address] Spontaneous unlabored Yes 06/10/24 12:53 [email or web address].[email or web address] respirations Mental status Awake,Calm 06/10/24 12:53 [email or web address] nausea Yes 06/10/24 12:53 [email or web address].GDOTT Vomiting No 06/10/24 12:53 [email or web address].GDOTT Anesthesia Postop Eval I: Fluid Summary Crystalloid volume administer 1,700 06/10/24 12:53 [email or web address].GDOTT (ml) Colloids volume administered ( ml) Blood Product volume administered (ml) Total IV fluid infused 1,700 06/10/24 12:53 [email or web address].GDOTT Anesthesia Postop Eval I: Summary Notes Anesthesia Complication No 06/10/24 12:53 [email or web address].[email or web address] Anesthesia Complication Comment: Post-operative progress note Anesthesia: Postop Eval II Evaluation Mental status: Awake Pain Level: 2 nausea: Yes Vomiting: No
--- NOTE | 2024-06-10 13:27 | PCM.POSTANE2 ---
Anesthesia Postop Eval I Sum Postop Eval Completion status Anesthesia document: Postop Eval 1 completed: Yes Anesthesia Postop Eval I Summary Anesthesia Postop Eval I Summary: Anesthesia Postop Eval I: Assessment Summary Airway patent Yes 06/10/24 12:53 E LEARNING [email or web address].[email or web address] Spontaneous unlabored Yes 06/10/24 12:53 E LEARNING DEVELOPER.GDOTT respirations Mental status Awake,Calm 06/10/24 12:53 E LEARNING DEVELOPER.[email or web address] nausea Yes 06/10/24 12:53 E LEARNING DEVELOPER.GDOTT Vomiting No 06/10/24 12:53 E LEARNING DEVELOPER.GDOTT Anesthesia Postop Eval I: Fluid Summary Crystalloid volume administer 1,700 06/10/24 12:53 E LEARNING DEVELOPER.GDOTT (ml) Colloids volume administered ( ml) Blood Product volume administered (ml) Total IV fluid infused 1,700 06/10/24 12:53 E LEARNING DEVELOPER.GDOTT Anesthesia Postop Eval I: Summary Notes Anesthesia Complication No 06/10/24 12:53 E LEARNING DEVELOPER.GDOTT Anesthesia Complication Comment: Post-operative progress note Anesthesia: Postop Eval II Evaluation Mental status: Awake Pain Level: 2 nausea: Yes Vomiting: No
== END 2024-06-10 16:21 | disposition home or self-care (01) ==
LOC: SDC 05:14 → AC 05:15
PROVIDERS: Referring Provider Plastic Surgery; Visit Provider Plastic Surgery
PROC: 0H0U0ZZ Alteration of Left Breast, Open Approach (ICD-10-PCS; CPT 19318; principal; 2024-06-10 07:15)
DX: N62 Hypertrophy of breast (principal); G89.29 Other chronic pain; M25.512 Pain in left shoulder; N64.81 Ptosis of breast; M54.9 Dorsalgia, unspecified; M25.511 Pain in right shoulder
CPT/HCPCS: 19318; 00402; 80323; 36415; 80048; 80307; 85027; 88305; G0480; J2405

== ENCOUNTER 2024-11-25 19:51 | Emergency (ER) | payer MEDICAID, SELFPAY ==
[2024-11-25 19:51] VITALS: BP 142/84; PULSE 82; RESP 14; TEMP 36.1; O2SAT 98; BMI 39.7
--- OUTSIDE RECORDS SUMMARY | 2024-11-25 22:28 | XMS RPT_ITS | CCD ---
Author Organization [facility] Care Team Providers Care [employer] Name Role Phone Unavailable Primary Care Provider UnavailJessy Moss Attending Unavailable [facility] Unavailable Care Physician, No Primary Primary Care Provider Unavailable Care Physician, No Primary Referring Provider Un available Friend, Dr. Hickey Attending Provider Dr. Clay Flood Attending Provider JENNIFER Khoury Primary Care Provider [phone] JENNIFER Khoury Referring Provider [phone] Dominick Khoury PA-C Unavailable [phone] [facility] Unavailable Room Service Attendant/Gynecology Prov. Unavailable Un available NANCY CHAMBERS DO Unavailable [phone] Gastroenterology Provider Unavailable Unavai anthony Psychiatry Provider Unavailable Unavailable Friend, Dr. Hickey Unavailable [phone] Romy Nolan LPN Unavailable Amanda Adorno MA Unavailable Unavailable Erik Hess PA-C Unavailable Jemima Victoria MA Unavailable Unavailable Manisha Torres LPN Unavailable Unavailable Lucy LE, Eva Irizarry Unavailable Unavaila juliana Fragoso LPN Shruti Unavailable Unavailable Nancy Ortega PA-C Unavailable Manisha Adams MA Unavailable Unavailable Karlee Landers CNM Unavailable Unavailable Unavailable Plastic Surgery Provider Unavailable Unavail able Unavailable Primary Care Provider UnavailNIR Paniagua Attending Unavailable DOMINICK KHOURY Referring Unavailable Bariatric Provider Unavailable Unavailable and Reconstructive Surgery, Mantoloking Plastic Unavailable Queta PT, Jolie Unavailable Unavailable Unavailable Primary Care Provider Unavailabl e BAKDALIEH, YAHYA Attending Unavailable BAKDALIEH, YAHYA Referring Unavailable BAKDALIEH, YAHYA Attending Unavailable BAKDALIEH, YAHYA Referring Unavailable BAKDALIEH, YAHYA Attending Unavailable CEE MUNIZ Referring Unavailable BAKDALIEH, YAHYA Attending Unavailable BAKDALIEH, YAHYA Referring Unavailable BAKDALIEH, YAHYA Attending Unavailable BAKDALIEH, YAHYA Referring Unavailable BAKDALIEH, YAHYA Attending Unavailable BAKDALIEH, YAHYA Referring Unavailable BAKDALIEH, YAHYA Attending Unavailable BAKDALIEH, YAHYA Referring Unavailable BAKDALIEH, YAHYA Attending Unavailable BAKDALIEH, YAHYA Referring Unavailable BAKDALIEH, YAHYA Attending Unavailable BAKDALIEH, YAHYA Referring Unavailable BAKDALIEH, YAHYA Attending Unavailable BAKDALIEH, YAHYA Referring Unavailable BAKDALIEH, YAHYA Attending Unavailable BAKDALIEH, YAHYA Attending Unavailable BAKDALIEH, YAHYA Referring Unavailable BAKDALIEH, YAHYA Attending Unavailable BAKDALIEH, YAHYA Referring Unavailable BAKDALIEH, YAHYA Attending Unavailable BAKDALIEH, YAHYA Referring Unavailable BAKDALIEH, YAHYA Attending Unavailable BAKDALIEH, YAHYA Referring Unavailable BAKDALIEH, YAHYA Attending Unavailable BAKDALIEH, YAHYA Referring Unavailable BAKDALIEH, YAHYA Attending Unavailable BAKDALIEH, YAHYA Referring Unavailable BAKDALIEH, YAHYA Attending Unavailable BAKDALIEH, YAHYA Referring Unavailable BAKDALIEH, YAHYA Attending Unavailable BAKDALIEH, YAHYA Referring Unavailable Ghazoul, Glo Attending Unavailable Khoury, Dominick Referring Unavailable Khoury, Dominick Primary Care Unavailable Ghazoul, Glo Attending Unavailable Khoury, Dominick Referring Unavailable Khoury, Dominick Primary Care Unavailable Friend, Ruperto Attending Unavailable Khoury, Dominick Referring Unavailable Khoury, Dominick Primary Care Unavailable Ghazoul, Glo Attending Unavailable Khoury, Dominick Referring Unavailable Khoury, Dominick Primary Care Unavailable Ghazoul, Glo Attending Unavailable Khoury, Dominick Referring Unavailable Khoury, Dominick Primary Care Unavailable Ghaz[place], Glo Attending Unavailable Khoury, Dominick Referring Unavailable Khoury, Dominick Primary Care Unavailable Ghaz[place], Glo Attending Unavailable Khoury, Dominick Referring Unavailable Khoury, Dominick Primary Care Unavailable Ghazoul, Glo Attending Unavailable Khoury, Dominick Referring Unavailable Khoury, Dominick Primary Care Unavailable Ghazoul, Glo Attending Unavailable Khoury, Dominick Referring Unavailable Khoury, Dominick Primary Care Unavailable Ghaz[place], Glo Attending Unavailable Khoury, Dominick Referring Unavailable Khoury, Dominick Primary Care Unavailable Ghaz[place], Glo Attending Unavailable Ghazoul, Glo Referring Unavailable Khoury, Dominick Primary Care Unavailable Ghaz[place], Glo Consulting Unavailable Ghazoul, Glo Attending Unavailable Khoury, Dominick Primary Care Unavailable Ghazoul, Glo Referring Unavailable Pain Management Provider Unavailable Unavail able Kelsie Reid LPN Unavailable Unavailabl e Khoury, Dominick Primary Care Provider JAYSHREE WELLINGTON, JASON Alejandra Attending UnavailMELVIN De La Garza Attending Unavailable NICK MILLER Referring Unavailable KHOURY, DOMINICK PAC Consulting Unavailable MELVIN MELLO Admitting Unavailable MELVIN MELLO Primary Care Unavailable PROVIDER, UNKNOWN Consulting Unavailable WILEY VANCE Primary Care Unavailable WILEY VANCE Attending Unavailable KHOURY, DOMINICK PAC Consulting Unavailable KHOURY, DOMINICK PAC Referring Unavailable WILEY VANCE Admitting Unavailable PROVIDER, UNKNOWN Consulting Unavailable CLIFTON, NICHOLE T Admitting Unavailable CLIFTON, NICHOLE T Primary Care Unavailable CLIFTON, NICHOLE T Attending Unavailable KHOURY, DOMINICK PAC Consulting Unavailable PROVIDER, UNKNOWN Consulting Unavailable KHOURY, DOMINICK PAC Referring Unavailable KHOURY, DOMINICK PAC Consulting Unavailable MELVIN MELLO Admitting Unavailable MELVIN MELLO Primary Care Unavailable MELVIN MELLO Attending Unavailable PROVIDER, UNKNOWN Consulting Unavailable NATTY PHILLIPS MD Admitting Unavailable NATTY PHILLIPS MD Primary Care Unavailable NATTY PHILLIPS MD Attending Unavailable KHOURY, ODMINICK PAC Consulting Unavailable KHOURY, DOMINICK PAC Referring Unavailable PROVIDER, UNKNOWN Consulting Unavailable MELVIN MELLO III (HIST) Referring Unavailable ANGELICA ROMERO Admitting Unavailable ARMEN GODWIN Consulting Unavailable TERRIE HORTA Attending Unavailable KHOURY, DOMINICK Primary Care Unavailable LULÚ EDMONDS Attending Unavailable KHOURY, DOMINICK Primary Care Unavailable LULÚ EDMONDS Referring Unavailable KHOURY, DOMINICK Primary Care Unavailable TATO ARMEN Admitting Unavailable ALEXANDRA GODWINN Attending Unavailable ALEXANDRA GODWINN Referring Unavailable KHOURY, DOMINICK Primary Care Unavailable CONRY, ARMEN Attending Unavailable KHOURY, DOMINICK Primary Care Unavailable Allergies Allergy Classification Reported Allergen(s) Allergy Type Date of Onset Reaction(s) Facility (15 sources) Penicillins Drug allergy (disorder) 1 [facility] ([place]) Repository (2 sources) Penicillins Allergy to substance 2 Anaphylaxis [facility] Work Phone: (20 sources) Penicillin V Drug Allergy [facility]; [place] (1 source) Penicillins Propensity to adverse reactions 6 [facility], [facility] (1 source) Seasonal Allergies: Uncoded; Translations: [Seasonal Allergies: Uncoded] Propensity to adverse reactions (disorder) 5 [facility] Repository (6 sources) Penicillin G; Translations: [PENICILLIN G] Drug Allergy 1 [facility] (1 source) Amoxicillin Drug Allergy [facility] Repository (1 source) Penicillin Drug Allergy [facility] Repository Medications Current Medications Medication Drug Class(es) Dates Sig (Normalized) Sig (Original) acetaminophen 325 mg oral tablet (4 sources) Start: 10-24-2024 End: 11-23-2024 take 2 tablets by mouth every six hours as needed acetaminophen (TYLENOL) 325 mg tablet Take 2 tablets by mouth every 6 hours as needed for pain. 100 tablet 10/24/2024 11/23/2024 Active Gdixplm-Iglfbwebf-D inc (2 sources) Start: 01-03-2022 Calcium-Magnesium- Zinc Active TABLET PO January 02, 2022 11:00pm dicyclomine hydrochloride 20 mg oral tablet (1 source) Anticholinergic Start: 05-22-2022 take 20 mg by mouth three times daily Dicyclomine Active 20 MG PO THREE TIMES A DAY May 22, 2022 4:22pm doxycycline hyclate 100 mg oral capsule (1 source) Tetracycline-class Drug Start: 10-24-2024 End: 11-03-2024 take 1 capsule by mouth twice daily doxycycline hyclate (VIBRAMYCIN) 100 mg capsule Take 1 capsule by mouth two times a day for 10 days. 20 capsule 10/24/2024 11/03/2024 Active Drospirenone-Ethiny l Estradiol (20 sources) Progestin, Estrogen Start: 01-03-2022 Drospirenone-Ethin yl Estradiol (Loryna (28)) 3-0.02 mg tablet Active 1 TABLET PO DAILY January 02, 2022 11:00pm take 1 tablet by mouth once adrian y Loryna 3-0.02 MG Oral Tablet ; 1 daily (3- 0.02 MG) Status: Inactive hydrOXYzine pamoate 25 mg oral capsule (20 sources) Antihistamine Start: 09-06-2024 hydrOXYzine pa moate 25 mg capsule ; 1 (one) capsule every 6 hours an needed for anxiety for 0 days Quantity: 90 {Capsule} Refills: 1 Ordered: 06-Sep-2024 ANÍBAL Khoury Start: 06-Sep-2024 Start: 12-08-2023 hydrOXYzine pa moate 25 mg capsule ; 1 (one) capsule every 6 hours an needed for anxiety for 0 days Quantity: 90 {Capsule} Refills: 1 Ordered: 08-Dec-2023 ANÍBAL Khoury Start: 08-Dec-2023 Start: 02-25-2023 hydrOXYzine pa moate 25 mg capsule ; 1 (one) capsule every 6 hours an needed for anxiety for 0 days Quantity: 90 {Capsule} Refills: 1 Ordered: 17-Oct-2023 ANÍBAL Khoury Start: 17-Oct-2023 Start: 04-11-2022 take 75 mg by mouth at bedtime Hydroxyzine Hcl Active 75 MG PO AT BEDTIME April 11, 2022 12:00am take 1 capsule by mo [facility] every eight hours as needed hydrOXYzine pamoate (VISTARIL) 25 mg capsule Take 25 mg by mouth three times a day as needed for anxiety. Active take 1 tablet by teto four times daily as needed for anxiety hydrOXYzine (ATARAX) 50 MG tablet Take 1 tablet by mouth 4 times daily as needed for Anxiety. Active Comment on above: new script, tay skelton to 25mg lidocaine 0.04 mg/mg medicated patch (4 sources) Antiarrhythmic, Amide Local Anesthetic Start: apply 1 dose transdermal route once daily lidocaine (SALONPAS) 4 % patch Apply 1 patch as directed once daily. 5 patch 10/06/2024 Active meloxicam 15 mg oral tablet (13 sources) Nonsteroidal Anti-inflammatory Drug Start: take 1 tablet by mouth once daily Meloxicam (MOBIC) 15 MG tablet Take 1 tablet by mouth daily. 30 tablet 12/31/2023 Active methocarbamol 500 mg oral tablet (5 sources) Muscle Relaxant Start: End: take 1 tablet by mouth three times daily methocarbamol (ROBAXIN) 500 mg tablet Take 1 tablet by mouth three times a day. 21 tablet 11/04/2024 Active Multiple Vitamins-Minerals (MULTIVITAMIN ADULT, MINERALS, PO) (1 source) Start: Multiple Vitamins-Minerals (MULTIVITAMIN ADULT, MINERALS, PO) naloxone 4 mg/actuation nasal spray (NARCAN) (4 sources) Start: naloxone 4 mg/actuation nasal spray (NARCAN) Use 1 spray in one nostril as needed for overdose. May repeat every 2 to 3 min in alternating nostrils until medical assistance is available 2 each 10/06/2024 Active omeprazole 20 mg delayed release oral capsule (20 sources) Proton Pump Inhibitor Start: take 20 mg by mouth once daily Omeprazole Active 20 MG PO DAILY January 02, 2022 11:00pm take 1 tablet by mouth once adrian y Omeprazole 20 MG Oral Tablet Delayed Release ; 1 daily (20 MG) Status: Inactive oxyCODONE hydrochloride 5 mg oral tablet (3 sources) Opioid Agonist Start: 11-23-2024 End: 11-30-2024 take 1 tablet by mouth every six hours as needed for pain oxyCODONE IR (ROXICODONE) 5 mg immediate release tablet Indications: Status post discectomy Take 1 tablet by mouth every 6 hours as needed for pain for up to 7 days. 28 tablet 11/23/2024 11/30/2024 Active Start: 11-04-2024 End: 11-11-2024 take 1 tablet by mouth every six hours as needed for pain oxyCODONE IR (ROXICODONE) 5 mg immediate release tablet Indications: Status post discectomy Take 1 tablet by mouth every 6 hours as needed for pain for up to 7 days. 28 tablet 11/04/2024 11/11/2024 Active Start: 10-24-2024 End: 10-31-2024 take 1 tablet by mouth every six hours as needed for pain oxyCODONE IR (ROXICODONE) 5 mg immediate release tablet Indications: Status post discectomy Take 1 tablet by mouth every 6 hours as needed for pain for up to 7 days. 28 tablet 10/24/2024 10/31/2024 Active predniSONE 20 mg oral tablet (20 sources) Start: 09-21-2024 predniSONE 20 mg tablet ; 1 (one) Tablet as directed for 0 days Quantity: 20 {Tablet} Refills: 0 Ordered: 21-Sep-2024 ANÍBAL Khoury Start: 21-Sep-2024 Comments: Take 3tabs qd for 3 days thenTake 2tabs qd for 3 days thenTake 1tab qd for 3 days thenTake 1/2tab qd for 4 days. Start: 03-19-2024 End: 03-30-2024 predniSONE 20 mg tablet ; 1 (one) Tablet as directed for 0 days Quantity: 20 {Tablet} Refills: 0 Ordered: 30-Mar-2024 REY Ayala Start: 19-Mar-2024 End: 30-Mar-2024 Status: Inactive Comments: Take 3tabs qd for 3 days thenTake 2tabs qd for 3 days thenTake 1tab qd for 3 days thenTake 1/2tab qd for 4 days. Comment on above: Take 3tabs qd for 3 days thenTake 2tabs qd for 3 days thenTake 1tab qd for 3 days thenTake 1/2tab qd for 4 days. Prenat.Vits,Prabhakar,Min-Iro n-Folic (2 sources) Start: take 1 tablet by mouth once daily Prenat.Vits,Prabhakar,Min -Iron-Folic Active 1 TABLET PO DAILY January 02, 2022 11:00pm tiZANidine 4 mg oral tablet (13 sources) Central alpha-2 Adrenergic Agonist Start: take 0.5 tablet by mouth twice daily as needed for muscle spasms tiZANidine (ZANAFLEX) 4 MG tablet Take 0.5 tablets by mouth 2 times daily as needed for Muscle spasms. 30 tablet 1 12/31/2023 Active traZODone hydrochloride 100 mg oral tablet (20 sources) Serotonin Reuptake Inhibitor Start: 5 traZODone 100 mg tablet ; 1 (one) tablet daily at bedtime for 0 days Quantity: 30 {Tablet} Refills: 2 Ordered: 06-Aug-2024 ANÍBAL Khoury Start: 06-Aug-2024 Start: 08-03-2024 traZODone 100 mg tablet ; 1 (one) tablet daily at bedtime for 0 days Quantity: 30 {Tablet} Refills: 2 Ordered: 03-Aug-2024 ANÍBAL Khoury Start: 03-Aug-2024 Start: 04-23-2024 traZODone 100 mg tablet ; 1 (one) tablet daily at bedtime for 0 days Quantity: 30 {Tablet} Refills: 2 Ordered: 23-Apr-2024 ANÍBAL Khoury Start: 23-Apr-2024 Start: 03-25-2024 traZODone 50 m g tablet ; 1 (one) tablet daily at bedtime for 0 days Quantity: 30 {Tablet} Refills: 0 Ordered: 25-Mar-2024 REY Ayala Start: 25-Mar-2024 Completed/Discontinued Medications Medication Drug Class(es) Dates Sig (Normalized) Sig (Original) azithromycin 250 mg oral tablet (20 sources) Macrolide Antimicrobial Start: 09-02-2022 End: 09-07-2022 Azithromycin 250 MG Oral Tablet ; 2 (two) Tablet on day 1 then 1 tab daily on days 2-5 for 5 days Quantity: 6 {Tablet} Refills: 0 Ordered: 02-Sep-2022 ANÍBAL Hess Start: 02-Sep-2022 End: 07-Sep-2022 Status: Inactive benzonatate 200 mg oral capsule (20 sources) Non-narcotic Antitussive Start: 06-06-2023 End: 10-17-2023 benzonatate 200 mg capsule ; 1 (one) capsule three times daily, as needed for 0 days Quantity: 30 {Capsule} Refills: 0 Ordered: 17-Oct-2023 GENESIS Adorno Start: 06-Jun-2023 End: 17-Oct-2023 Status: Inactive Comments: Medication taken as needed. Comment on above: Medication taken as needed. Calcium Magnesium Zinc 333-133-5 MG Oral Tablet (20 sources) take 3 tablets by mouth once daily Calcium Magnesium Zinc 333-133-5 MG Oral Tablet ; 3 daily (333-133-5 MG) Status: Inactive cefdinir 300 mg oral capsule (17 sources) Cephalosporin Antibacterial Start: 08-06-2024 End: 08-16-2024 cefdinir 300 mg capsule ; 1 Capsule 2 times per day for 10 days Quantity: 20 {Capsule} Refills: 0 Ordered: 06-Aug-2024 ANÍBAL Khoury Start: 06-Aug-2024 End: 16-Aug-2024 Status: Inactive cetirizine hydrochloride 10 mg oral tablet (20 sources) Histamine-1 Receptor Antagonist Start: 09-16-2023 End: 10-17-2023 Allergy Relief (cetirizine) 10 mg tablet ; 1 (one) Tablet daily for 90 days Quantity: 90 {Tablet} Refills: 3 Ordered: 17-Oct-2023 GENESIS Adorno Start: 16-Sep-2023 End: 17-Oct-2023 Status: Inactive Start: 08-16-2022 take 1 tablet by teto th once daily Allergy Relief Cetirizine 10 MG Oral Tablet ; 1 (one) Tablet daily for 90 days Quantity: 90 {Tablet} Refills: 3 Ordered: 16-Aug-2022 GENESIS Adams Start: 16-Aug-2022 doxylamine succinate 25 mg oral tablet (20 sources) take 1 tablet by mouth at bedtime Sleep Aid 25 MG Oral Tablet ; 1 at bedtime (25 MG) Status: Inactive famotidine 20 mg oral tablet (20 sources) Histamine-2 Receptor Antagonist Start: 3 End: famotidine 20 mg tablet ; 1 (one) Tablet twice a day for 30 days Quantity: 60 {Tablet} Refills: 3 Ordered: 17-Oct-2023 GENESIS Adorno Start: 01-Nov-2022 End: 17-Oct-2023 Status: Inactive melatonin 5 mg sublingual tablet (20 sources) take 1 mg under the tongue once daily melatonin 5 mg sublingual tablet ; daily (5 mg) Status: Inactive ondansetron 8 mg oral tablet (20 sources) Serotonin-3 Receptor Antagonist Start: 2 End: 3 take 1 tablet by mouth every eight hours as needed ondansetron HCL 8 mg tablet ; 1 (one) Tablet every eight hours, as needed for 15 days Quantity: 45 {Tablet} Refills: 3 Ordered: 17-Feb-2023 NIKOLE Torres Start: 17-May-2022 End: 17-Feb-2023 Status: Inactive Comments: Medication taken as needed. Start: 07-23-2021 End: 07-27-2021 take 1 tablet by mouth three times daily as needed Ondansetron HCl 4 MG Oral Tablet ; 1 (one) Tablet three times daily, as needed for 0 days Quantity: 15 {Tablet} Refills: 0 Ordered: 27-Jul-2021 REY Ayala Start: 23-Jul-2021 End: 27-Jul-2021 Status: Inactive Comments: Medication taken as needed. Comment on above: Medication taken as needed. pantoprazole 40 mg delayed release oral tablet (20 sources) Proton Pump Inhibitor Start: 2 End: 2 take 1 tablet by mouth once daily Pantoprazole Sodium 40 MG Oral Tablet Delayed Release ; 1 (one) Tablet daily for 0 days Quantity: 90 {Tablet} Refills: 0 Ordered: 20-May-2022 GENESIS Adams Start: 31-Dec-2021 End: 20-May-2022 Status: Inactive prazosin 1 mg oral capsule (20 sources) alpha-Adrenergic Esther Start: 2 End: 2 take 1 capsule by mouth once daily Prazosin HCl 1 MG Oral Capsule ; 1 (one) Capsule daily for 0 days Quantity: 30 {Capsule} Refills: 1 Ordered: 20-May-2022 GENESIS Adams Start: 01-Jan-2022 End: 20-May-2022 Status: Inactive Oral Tablet (20 sources) take 1 tablet by mouth once daily Oral Tablet ; 1 daily Status: Inactive vits no.179-ferrous fumarate 28 mg-folic acid 800 mcg tablet (20 sources) Start: 3 End: 3 vits no.179-ferrous fumarate 28 mg-folic acid 800 mcg tablet ; 1 (one) Tablet daily for 90 days Quantity: 90 {Tablet} Refills: 1 Ordered: 17-Feb-2023 NIKOLE Torres Start: 16-Aug-2022 End: 17-Feb-2023 Status: Inactive vitamin b6 100 mg oral tablet (20 sources) take 1 tablet by mouth once daily Vitamin B6 100 MG Oral Tablet ; 1 daily (100 MG) Status: Inactive Problems Active Problems Problem Classification Problem Date Documented Da te Episodic/Chronic Abdominal pain (20 sources) Abdominal pain; Translations: [Unspecified abdominal pain] 08-13-2022 Episodic Allergic reactions (20 sources) Allergic condition; Translations: [Allergy, unspecified, initial encounter] 02-17-2023 Episodic Complications of surgical procedures or medical care (1 source) Complication of surgical and medical care, unspecified, initial encounter; Translations: [Adverse effect of treatment, initial encounter] Onset: 5 Episodic Diseases of white blood cells (20 sources) Leukopenia; Translations: [Decreased white blood cell count, unspecified] 09-09-2023 Chronic Disorders of teeth and jaw (20 sources) Temporomandibular joint disorder; Translations: [Unspecified temporomandibular joint disorder, unspecified side] 02-17-2023 Episodic Esophageal disorders (2 sources) Gastroesophageal reflux disease; Translations: [Gastro-esophageal reflux disease without esophagitis] Chronic Gastrointestinal hemorrhage (20 sources) Rectal hemorrhage; Translations: [Hemorrhage of anus and rectum] 12-19-2022 Episodic Comment on above: severe constipation, seen at ED x 2 w/o any dx Genitourinary symptoms and ill-defined conditions (20 sources) Urinary symptoms ; Translations: [Unspecified symptoms and signs involving the genitourinary system] 07-29-2023 Episodic Headache; including migraine (20 sources) Headache; Translations: [Headache] 02-17-2023 Episodic Hypertension complicating ; childbirth and the puerperium (20 sources) Elevated blood pressure; Translations: [Unspecified maternal hypertension, unspecified trimester] 02-17-2023 Chronic Hypertension complicating ; childbirth and the puerperium (20 sources) Hypertension AND/OR vomiting complicating childbirth AND/OR puerperium; Translations: [Gestational [-induced] hypertension without significant proteinuria, unspecified trimester] 02-17-2023 Episodic Comment on above: GHTN, normal labs, 3 9+ weeks Immunizations and screening for infectious disease (20 sources) Immunization due; Translations: [Encounter for immunization] 12-19-2022 Episodic Malaise and fatigue (20 sources) Fatigue; Translations: [Other fatigue] 12-06-2021 Episodic Menstrual disorders (20 sources) Missed period; Translations: [Irregular menstruation, unspecified] 01-11-2022 Chronic Miscellaneous mental health disorders (20 sources) Dream anxiety disorder; 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 Miscellaneous mental health disorders (20 sources) depression; Translations: [ depression] 02-18-2023 Episodic Mood disorders (20 sources) Bipolar disorder; Translations: [Bipolar disorder, unspecified] 02-17-2023 Chronic Nausea and vomiting (20 sources) Nausea; Translations: [Nausea] 12-31-2021 Episodic Nonmalignant breast conditions (20 sources) Large breast; Translations: [Hypertrophy of breast] Onset: Episodic Nutritional deficiencies (20 sources) Vitamin D deficiency; Translations: [Vitamin D deficiency, unspecified] 09-09-2023 Chronic Other complications of (20 sources) Gastroesophageal reflux disease in ; Translations: [Diseases of the digestive system complicating , unspecified trimester] 02-17-2023 Episodic Other complications of (20 sources) Hyperthyroidism in ; Translations: [Endocrine, nutritional and metabolic diseases complicating , unspecified trimester] 02-17-2023 Episodic Other complications of (20 sources) Nausea and vomiting; Translations: [Vomiting of , unspecified] 08-13-2022 Episodic Other complications of (20 sources) Anxiety; Translations: [Other mental disorders complicating the puerperium] 02-25-2023 Episodic Other complications of (20 sources) Vomiting of , unspecified; Translations: [Unspecified vomiting of , unspecified as to episode of care or not applicable] 03-14-2023 Episodic Other complications of (20 sources) Other mental disorders complicating the puerperium; Translations: [Mental disorders of mother, condition or complication] 04-23-2024 Episodic Other ear and sense organ disorders (20 sources) Bilateral earache; Translations: [Otalgia, bilateral] 10-30-2022 Episodic Other gastrointestinal disorders (20 sources) History of rectal bleeding; Translations: [Personal history of other diseases of the digestive system] 02-18-2023 Episodic Comment on above: Episodes of rectal b leeding thought to be related to severe constipation and hemorrhoids during early . Was seen in ED on a couple of occasions with no other diagnosis. Other infections; including parasitic (1 source) Personal history of other infectious and parasitic diseases 09-21-2024 Episodic Other inflammatory condition of skin (2 sources) Intertrigo; Translations: [Erythema intertrigo] Episodic Other inflammatory condition of skin (2 sources) Erythema intertrigo; Translations: [Other specified erythematous conditions] Episodic Other injuries and conditions due to external causes (20 sources) Injury of left ankle; Translations: [Unspecified injury of left ankle, initial encounter] 03-30-2024 Episodic Other nervous system disorders (3 sources) Other chronic pain; Translations: [Other chronic pain] Onset: 4 Chronic Other non-traumatic joint disorders (2 sources) Shoulder pain; Translations: [Pain in unspecified shoulder] Episodic Other non-traumatic joint disorders (2 sources) Pain in unspecified shoulder; Translations: [Pain in joint, shoulder region] Episodic Other non-traumatic joint disorders (2 sources) Pain in left shoulder; Translations: [Pain in left shoulder] Onset: 5 Episodic Other non-traumatic joint disorders (2 sources) Pain in right shoulder; Translations: [Pain in right shoulder] Onset: 5 Episodic Other nutritional; endocrine; and metabolic disorders (20 sources) Morbid obesity; Translations: [Morbid (severe) obesity due to excess calories] 10-17-2023 Chronic Other nutritional; endocrine; and metabolic disorders (5 sources) Obese class II; Translations: [Obesity, Class II, BMI 35-39.9] Onset: 5 10-05-2024 Chronic Other and delivery including normal (20 sources) Primigravida; Translations: [Encounter for supervision of normal first , first trimester] 06-13-2022 Episodic Other screening for suspected conditions (not mental disorders or infectious disease) (20 sources) Patient encounter status; Translations: [Encounter for other general counseling and advice on contraception] Onset: 12-31-2021 Episodic Comment on above: Patient conceived wh ile on control and does not desire more pregnancies Other upper respiratory infections (20 sources) Sore throat symptom; Translations: [Acute pharyngitis, unspecified] 12-31-2021 Episodic Otitis media and related conditions (20 sources) Otitis media of right ear; Translations: [Otitis media, unspecified, right ear] 09-02-2022 Episodic Residual codes; unclassified (20 sources) Daytime somnolence; Translations: [Other hypersomnia] 04-23-2024 Chronic Residual codes; unclassified (20 sources) Gestation period, 16 weeks; Translations: [16 weeks gestation of ] 08-13-2022 Episodic Residual codes; unclassified (20 sources) Gestation period, 35 weeks; Translations: [35 weeks gestation of ] 12-19-2022 Episodic Residual codes; unclassified (20 sources) Gestation period, 37 weeks; Translations: [37 weeks gestation of ] 12-19-2022 Episodic Residual codes; unclassified (20 sources) Gestation period, 38 weeks; Translations: [38 weeks gestation of ] 12-19-2022 Episodic Residual codes; unclassified (20 sources) Gestation period, 39 weeks; Translations: [39 weeks gestation of ] 02-17-2023 Episodic Residual codes; unclassified (20 sources) Up-to-date with immunizations; Translations: [Personal history of other drug therapy] 02-17-2023 Episodic Comment on above: had childhood vaccin es Residual codes; unclassified (20 sources) Gestation period, 32 weeks; Translations: [32 weeks gestation of ] 11-01-2022 Episodic Residual codes; unclassified (20 sources) Gestation period, 29 weeks; Translations: [29 weeks gestation of ] 10-11-2022 Episodic Residual codes; unclassified (20 sources) Gestation period, 24 weeks; Translations: [24 weeks gestation of ] 09-12-2022 Episodic Residual codes; unclassified (20 sources) Gestation period, 20 weeks; Translations: [20 weeks gestation of ] 08-13-2022 Episodic Residual codes; unclassified (20 sources) Gestation period, 11 weeks; Translations: [11 weeks gestation of ] 06-11-2022 Episodic Residual codes; unclassified (20 sources) Gestation period, 8 weeks; Translations: [8 weeks gestation of ] 05-17-2022 Episodic Residual codes; unclassified (20 sources) Insomnia; Translations: [Insomnia, unspecified] 03-09-2024 Episodic Residual codes; unclassified (1 source) History of lumbar discectomy; Translations: [Other specified postprocedural states] 10-05-2024 Episodic Residual codes; unclassified (2 sources) Other specified postprocedural states; Translations: [Other specified postprocedural states] Onset: 4 Episodic Residual codes; unclassified (2 sources) H/O Spinal surgery; Translations: [Other specified postprocedural states] 11-04-2024 Episodic Spondylosis; intervertebral disc disorders; other back problems (20 sources) Chronic thoracic back pain; Translations: [Pain in thoracic spine] Onset: 6 Resolved: 5 Episodic Substance-related disorders (1 source) Nicotine dependence, unspecified, uncomplicated; Translations: [Nicotine dependence, unspecified, uncomplicated] Onset: 4 Chronic Unclassified (20 sources) deliveries 02-17-2023 Comment on above: 1. Unclassified (20 sources) Number of Children 02-17-2023 Comment on above: 1. Unclassified (20 sources) Number of Pregnancies 02-17-2023 Comment on above: 1. Unclassified (20 sources) Fatigue - The onset of the fatigue has been gradual and has been occurring in a persistent pattern for 1 month. The course has been constant. The fatigue occurs all the time, interferes with work/school and interferes with normal daily activities. The symptoms have been associated with abdominal pain, excessive sleeping, headache, history of psychiatric illness (bipolar disorder - patient currently on a wait list to see psych and start medication) and trouble concentrating, while the symptoms have not been associated with chest pain, chills, cough, depression, dyspnea, fever, insomnia, lymphadenopathy, nasal stuffiness, runny nose or sore throat. Note for Fatigue: pt states she had light period last cycle- 2 tests most recent 2 days ago. Both tests negative. Complains of nausea associated with fatigue. States nausea is constant and gets worse at night. Abdominal pain is lower and epigastrium. Bowel movements have been normal and soft. She has been taking pantoprazole daily.pt also has a complaint of tingling in her fingers in both hands. states these symptoms started about a month ago as well.She denies any new stressors at this time.Patient also reports that she is interested in a breast reduction. She reports that her right breast is significantly larger and that she gets chronic back pain. 12-06-2021 Unclassified (2 sources) New Patient; Translations: [New Patient] Onset: Unclassified (1 source) Follow up for chronic condition - The patient is here for follow-up of anxiety. 10-17-2023 Unclassified (1 source) Follow up for chronic condition - The patient is here for follow-up of anxiety. The patient always takes the prescribed medications. No side effects noted. The patient has an active lifestyle but no regular exercise program. The patient's dietary compliance is fairly good usually adhering to recommendations. The patient states that weight is unchanged. Note for Chronic condition follow-up: Pt is struggling to lose weight Pt said she has tried everything 10-17-2023 Unclassified (1 source) Follow up for chronic condition - The patient is here for follow-up of anxiety. The patient always takes the prescribed medications. No side effects noted. The patient has an active lifestyle but no regular exercise program. The patient's dietary compliance is fairly good usually adhering to recommendations. The patient states that there is no recent angina or dyspnea, there are no vision changes or weakness, weight is unchanged and in general mood has improved (Patient feels that she is under more stress with her relationship right now, but that she has good control of her anxiety. She mainly uses the hydroxyzine at night to help her sleep and finds that this works well.). Note for Chronic condition follow-up: Pt is struggling to lose weight Pt said she has tried everything 10-17-2023 Unclassified (20 sources) Follow up for chronic condition - The patient is here for follow-up of anxiety. The patient always takes the prescribed medications. No side effects noted. The patient has an active lifestyle but no regular exercise program. The patient's dietary compliance is fairly good usually adhering to recommendations. The patient states that there is no recent angina or dyspnea, there are no vision changes or weakness, weight is unchanged and in general mood has improved (Patient feels that she is under more stress with her relationship right now, but that she has good control of her anxiety. She mainly uses the hydroxyzine at night to help her sleep and finds that this works well.). Note for Chronic condition follow-up: Patient reports that she has been trying to lose weight for some time and has been having a very hard time. She reports trying many diets over the years without much success. She states that she needs to lose 30 lbs by December to be approved for breast reduction surgery. 10-17-2023 Unclassified (1 source) Ankle pain - The ankle pain has been occurring in a persistent pattern for 4 days (She was walking through a corn maze with her daughter on her shoulders when she stepped on uneven ground and twisted her ankle). The course has been without change. The pain is characterized as a mild to moderate sharp stabbing. The pain is in the left ankle and is described as being located in the posterior ankle (will have a bruised pain that goes down from her ankle to the great toe.). The pain is aggravated by physical activity (the more physically active she is the worse the pain becomes). Relieving factors include rest. There have been no previous diagnostic tests. Note for Ankle pain: She sprained her left ankle back in 6th grade.She took prescription 600mg of Ibuprofen (from back in 2018), this did not seem to help her pain. 03-30-2024 Unclassified (20 sources) Ankle pain - The onset of the ankle pain has been sudden following an incident not at work (Patient was walking in a corn maze with her daughter when she twisted her left ankle) and has been occurring in a persistent pattern for 4 days. The course has been without change. The pain is characterized as a mild to moderate sharp stabbing. The pain is in the left ankle and is described as being located in the anterior ankle (will have a bruised pain that goes down from her ankle to the great toe.). The pain is aggravated by physical activity (the more physically active she is the worse the pain becomes). Relieving factors include rest and medication (Ibuprofen). There have been no previous diagnostic tests. 03-30-2024 Unclassified (1 source) Low back pain, unspecified; Translations: [Low back pain, unspecified] Onset: 4 Unclassified (2 sources) Low back pain, unspecified; Translations: [Low back pain, unspecified] Onset: 4 Viral infection (20 sources) Measles; Translations: [Varicella] 02-17-2023 Episodic Comment on above: 2 MMR, positive tite r childhood, had 2 vac cines Past or Other Problems Problem Classification Problem Date Documented Date Episodic/Chronic Residual codes; unclassified (5 sources) Pain; Translations: [Pain, unspecified] Onset: 09-30-2024 Resolved: 10-06-2024 09-30-2024 Episodic Unclassified (20 sources) Post- visit - The patient is here for a scheduled follow-up visit after an emergent . There were no complications. The patient feels well with no complaints, is sleeping well and has good energy level. There are no urinary problems. There are no bowel problems. Perineum/wound: abdominal wound healing well. There is no lochia. The patient is formula feeding the infant. There are no feeding difficulties. Menstruation: has not resumed. Patient states that sexual activity has not resumed. The patient's current method of control is condoms (pt does want to get her tubes tied, wanted referral). The patient has resumed routine exercise and resumed physical activity. Patient states that she is coping/adjusting to motherhood well and family is interacting well with . 02-18-2023 Unclassified (20 sources) Headache - The headache has been occurring for 4 days. The course has been constant and increasing in severity. The headache is characterized as a dull ache and deep pain (pt said it gets worse with lights and sounds). The headache is experienced any time of the day (no diurnal variation). The headache is described as being located in the entire head and the back of head. The symptoms are aggravated by noise and bright light. The symptoms have been associated with blurring of vision (pt said she is having some dizziness), flashing lights and jaw claudication (pt said it is more jaw pain). 01-10-2023 Unclassified (20 sources) Post- visit - The patient is here for a scheduled follow-up visit after an emergent . There were no complications. The patient feels well with no complaints, is sleeping well and has good energy level. There are no urinary problems. Bowel problems include constipation (getting better). Perineum/wound: abdominal wound healing well. Lochia is moderate. The patient is formula feeding (pumping but dumping and using formula) the . There are no feeding difficulties. Note for Post- visit: not but she is leaking and wants to know how to make it stopbp still high at home 155/76, 160/100wants back on control hari 01-01-2023 Unclassified (20 sources) visit - The patient is here for a 39 week visit. 12-20-2022 Unclassified (20 sources) visit - The patient is here for a 38 week visit. 12-15-2022 Unclassified (20 sources) visit - The patient is here for a 37 week visit. 12-06-2022 Unclassified (20 sources) Jaw pain - The jaw pain has been occurring for 2 weeks. The course has been constant (pt said certain times are worse). The pain is characterized as a moderate stabbing and sharp pain. The pain affects the right side of jaw . It is relieved by rest (pt said leaving her jaw hang open helps it) . There has been associated facial pain (pt said the right side) and headache . Note for Jaw pain: pt said it started in her ear and then went to her jaw 12-05-2022 Unclassified (20 sources) visit - The patient is here for a 35 week visit. 11-22-2022 Unclassified (20 sources) visit - The patient is here for a 32 week visit. 11-01-2022 Unclassified (20 sources) Ear pain - The onset of the pain has been acute and has been occurring in an intermittent pattern for 1 week. The course has been increasing. The pain is described as a moderate pressure and plugged. The pain is described as being located in the inner ear. The pain is felt in both ears (worse in the right). The symptoms have been associated with decreased hearing, inability to 'pop' ear drum and runny nose (Patient has environmental allergies for which she has been taking cetirizine daily), while the symptoms have not been associated with chills, fever, non-purulent discharge from ear, protrusion of ear, purulent discharge from ear, sore throat, cough, tinnitus or vertigo. Medical History includes seasonal allergies, but there is no history of ear infections or recurrent sinusitis. Note for Ear pain: Patient is currently 32 weeks 10-30-2022 Unclassified (20 sources) visit - The patient is here for a 29 week visit. 10-11-2022 Unclassified (20 sources) Ear pain - The onset of the pain has been acute and has been occurring in a persistent pattern for 2 weeks. The course has been constant. The pain is described as a moderate sharp pain, pressure and plugged. The pain is described as being located in the inner ear. The pain is felt in the right ear. There has been no associated fever, runny nose or cough. 09-02-2022 Unclassified (20 sources) visit - The patient is here for a 20 week (4) visit. 08-13-2022 Unclassified (20 sources) visit - The patient is here for a 16 week (4) visit. 07-16-2022 Unclassified (20 sources) visit - The patient is here for a scheduled follow-up visit. Note for visit: 11 weeks, 4 days 06-11-2022 Unclassified (20 sources) Bloody stools - The onset of the bloody stools has been acute , and they have been occurring in a persistent pattern for 4 days. The course has been increasing. The bloody stools are characterized as blood mixed in stools, blood streaking of toilet paper and bloody toilet bowl water. The symptoms have been associated with abdominal pain, dizziness, nausea, painful bowel movements and straining on bowel movements but have not been associated with vomiting, constipation or diarrhea. Note for Bloody stools: Pt is 8 weeks . Initially started after she had a strenuous BM - lots of blood in the toilet bowl. Getting worse - last BM was 20 min ago and even more blood. No blood other than with BMs. Significant abd pain since this started - no improvement of this with BMs. 05-20-2022 Unclassified (20 sources) visit (initial) - The patient suspects she is due to a positive home test, missed menses and morning sickness. Last menstrual period: Date: (has date in January for not exact). - (1) Parity - (0) Abortions - (0). The patient complains of nausea, vomiting, fatigue, abdominal cramps and pelvic pain. Previous evaluation/treatment includes: ultrasound (at [facility] 05/06/22). Habits include caffeine use. 05-17-2022 Unclassified (20 sources) nightmares - pt states she has had nightmares for many years - when she was as young as 13 years oldShe was diagnosed at a young age with bipolar disorder and PTSD.Patient stopped taking her medication for both conditions when she turned 19 and moved out on her own.pt said her depression is much worse which seems to make these worse - nightmares were gone for a time but have returned over the last 3-4 months she has very vivid dreams and will wake up startled, sometimes she struggles to go back to sleep after this, other times she does not.She reports that she will wake 1-4 times a night depending on these nightmares. pt has tried melatonin, this does not helppt got hydroxyzine from the hospital, these do help her relax to sleep, but do not help with the nightmarespt has not tried Benadryl because she said it stays in her system too long and feels the affects for dayspt did say years ago she was on prazosin and it helped her sleep and her nightmares 01-01-2022 Unclassified (20 sources) Sore throat - The onset of the sore throat has been gradual and has been occurring in a persistent pattern for 3 days. The course has been without change. The sore throat is described as mild to moderate. The sore throat was not precipitated by exposure to a person with strep pharyngitis or exposure to a person with a viral illness. Symptoms include sore throat (clearing her throat and has post nasal drainage), fever (yesterday morning was 101.4 F), headache (constant), runny nose (had yesterday morning) and ear pain (if she sleeps on her side that ear will ache some), but do not include nasal congestion or cough. The symptoms are aggravated by coughing, eating, swallowing and talking. Medical history includes seasonal allergies (gets allergy shots) and tonsillectomy, but does not include recurrent sinusitis or recurrent strep pharyngitis. Note for Sore throat: Has tried Ibuprofen, Aleve, Aspirin.Has vomited three times since yesterday morning.would like a refill of pantoprazole (been taking this as needed). Also taking omeprazole OTC daily.Patient has also received a letter from the psych service she was referred to that they are unable to take new patients at this time. 12-31-2021 Unclassified (20 sources) Well adult female - The patient feels well with minor complaints, has good energy level (most days) and is sleeping well. The first day of the last menstrual period was : (10/13-10/23). The current method of contraception is: Depo-Provera shot (Did not tolerate well) and oral contraceptives (Has tried several different formulations). The patient has a balanced diet. The patient exercises none (light activity). The patient sleeps 7 (8) hours per night. Note for Well adult female: Patient presents today with a complaint of moodiness and mood swings since starting her current OCP about six months ago. She reports that there will be times where she cries for no reason or finds herself becoming very irritable. She noticed this change very suddenly after starting her current OCP. She reports having similar issues with other brands of OCP in the past. She denies any new stressors around the time she started this OCP.She has been previously diagnosed with bipolar disorder and was recently in an inpatient psychiatric facility for 5 days. She is currently set up to see both a counselor and psychiatric services through [facility]. She noted less mood swings when she was in the facility and off her control for those 5 days. 11-01-2021 Unclassified (20 sources) Abdominal pain - The onset of the abdominal pain has been sudden and has been occurring in an intermittent pattern for 2 days. The course has been increasing. The pain is described as a moderate sharp pain and cramping. The pain is located in the epigastrium and upper abdomen and radiates to the back. The symptoms have no aggravating factors but are relieved by nothing (states sleeping on back helps). The symptoms have been associated with nausea and vomiting (Vomited once yesterday), while the symptoms have not been associated with bloating, bloody stools, constipation, diarrhea or heartburn. Note for Abdominal pain: LMP one month ago. Due to start tomorrow.Patient has been taking 20 mg omeprazole daily. 10-04-2021 Unclassified (20 sources) Abdominal pain - The abdominal pain has been occurring in a persistent (was intermittent until two days ago then became more of a constant pain) pattern for 8 days. The course has been increasing. The pain is described as a mild (mild to moderate) sharp pain (at times will be a cramp that moves across her upper abdomen). The pain is located in the left upper quadrant and radiates to the right upper quadrant. The symptoms are aggravated by lying down but have no relieving factors. The symptoms have been associated with nausea, while the symptoms have not been associated with bloating, chest pain, fever or vomiting (had dry heaves). Note for Abdominal pain: Patient was seen for viral illness about 4 days ago. She has been taking OTC pain relievers. 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 Patient is wondering if symptoms could be due to a . She is currently taking an OCP. Denies any missed doses. Last period was the start of this month. Will be due to start again July 31. 07-27-2021 Unclassified (20 sources) Cold Symptoms - Symptoms include sore throat, dry cough, chills, general malaise (and weak) and headache, but do not include nasal congestion, runny nose, ear pain, ear fullness, productive cough, wheezing, fever or facial pain. The onset was gradual 4 day(s) ago. The symptoms occur constantly. The patient describes this as moderate in severity and worsening. Current treatment includes rest, acetaminophen and NSAIDs. Risk factors do not include smoking (pt just quit 2 months ago). The patient has not been exposed to an individual with a cough, an individual with an upper respiratory infection, an individual with similar symptoms, an individual with strep or secondhand smoke. Medical history includes seasonal allergies and tonsillectomy, but patient denies history of recurrent sinusitis, recurrent strep pharyngitis, asthma or recurrent ear infections. Note for Upper respiratory infection: w movement or exercise or after she eats she gets extremely tiredno appetitePatient received an influenza vaccine this year, but has not been vaccinated for COVID 07-23-2021 Unclassified (20 sources) Cold Symptoms - Symptoms include sneezing, nasal congestion, runny nose, sore throat, dry cough, fever (101F yesterday), chills, general malaise, headache and facial pain, but do not include ear pain, productive cough or wheezing. The onset was gradual 8 day(s) ago. The symptoms occur constantly. The patient describes this as moderate in severity and worsening. Current treatment includes non-prescription cold medication, cough suppressants and acetaminophen. The patient has been exposed to an individual with similar symptoms (daughter and boyfriend - daughter tested positive for COVID this morning.). Medical history includes seasonal allergies and tonsillectomy, but patient denies history of recurrent sinusitis, recurrent strep pharyngitis or recurrent ear infections. 06-06-2023 Unclassified (20 sources) Pre-operative clearance - Surgical procedure(s) planned: other (Left lumbar 5- sacral 1 laminotomy, discectomy). Date of procedure: (07/22/23) Surgeon: () and Location of procedure: ([facility]) There have been no problems with general anesthesia or blood/blood products. Prosthetics include eye glasses. Note for Pre-operative clearance: Patient reports that she is feeling well at this time.She is requesting a refill of hydroxyzine for her anxiety. She reports that this medication is working well for her. 07-11-2023 Unclassified (20 sources) UTI - Symptoms include dark urine and abdominal pain, but do not include dysuria, urinary frequency, urinary urgency, malodorous urine, flank pain or back pain. The pain is located in the suprapubic area. There is no radiation. The patient describes the pain as stinging. Onset was sudden 1 week(s) ago. There is no known event that preceded symptom onset. The symptoms occur constantly. The patient describes this as mild and unchanged. Associated symptoms include urinary hesitancy (Patient reports that she feels she has to push hard to urinate), but do not include fever, chills, nausea or vomiting. Note for UTI: pt had surgery the on her back - Left lumbar 5- sacral 1 laminotomy, discectomy 07-29-2023 Unclassified (20 sources) Fatigue - The onset of the fatigue has been gradual and has been occurring in a persistent pattern for years. The course has been constant. The fatigue occurs all the time and interferes with normal daily activities (at times). The symptoms have been associated with history of psychiatric illness, while the symptoms have not been associated with abdominal pain, arthralgia, chest pain, chills, cough, depression, dyspnea, edema, excessive sleeping, fever, headache, insomnia, lymphadenopathy, muscle weakness, myalgia, nasal stuffiness, runny nose, sore throat or trouble concentrating. Note for Fatigue: Patient is unsure if she snores. She reports that her sister told her years ago that she did, but no one has since. She reports that she does wake up with headaches most days and wakes up feeling like she did not get any rest.She is interested in having labs drawn to look for possible causes of fatigue. 09-02-2023 Unclassified (1 source) Insect Bite/Sting - The insect causing the bite/sting is thought to be a bee. 10-24-2023 Unclassified (20 sources) Insomnia - The patient typically requires hours to fall asleep (1-3 hours). Symptoms are exacerbated by emotional stress (Patient reports some stress at home with her toddler. She states that her toddler has been fighting sleep at night, which makes it very difficult for her to have a consistent bedtime.). Symptoms are not relieved by sleep medication (Patient was taking hydroxyzine before bed to help turn her mind off. She found this was working well before, but is no longer working for her.) or cool/quiet/dark bedroom. Current treatment includes good sleep hygiene (Apart from not having a scheduled bedtime). Symptoms include difficulty falling asleep, while symptoms do not include difficulty staying asleep, daytime sleepiness, anxiety upon awakening or sleeping at inappropriate times. Onset was gradual 1 month(s) ago (1-2 months ago). The symptoms occur 7 time(s) a week. The insomnia has been unchanged. Associated symptoms do not include snoring, alcohol abuse, drug abuse, nightmares or sleepwalking. 03-09-2024 Unclassified (20 sources) Back pain - The onset of the back pain has been sudden and has been occurring in a persistent pattern for 1 day (Started last night). The course has been constant. The pain is characterized as a dull ache, stabbing and shooting. The pain is located in the lower back (pt said the right side) and radiates to the lateral aspect of right leg. There are no precipitating factors. The symptoms are aggravated by nothing (Pt said any movement) and are relieved by nothing (Patient has tried ice, heat, and Ibuprofen without significant relief). The pain has been associated with hip pain and leg weakness (Pt said last night not now), while there has been no associated dysuria, flank pain, incontinence of stool, incontinence of urine or trauma. Note for Back pain: Patient has been undergoing PT for her back and has a follow up with pain management in the next 1-2 weeks. 03-19-2024 Unclassified (20 sources) Insomnia - The patient typically requires 3 hours to fall asleep (45 minutes to 3 hours). Symptoms are exacerbated by emotional stress and financial stress, while symptoms are not exacerbated by job stress. Symptoms are relieved by sleep medication, but are not relieved by cool/quiet/dark bedroom or stress management. Current treatment includes good sleep hygiene, meditation, antidepressants and trazodone. Since diagnosis the disease has been unchanged. Symptoms include difficulty falling asleep, unrefreshing sleep and daytime sleepiness, while symptoms do not include difficulty staying asleep. Onset was gradual 3 year(s) ago. The symptoms occur 7 time(s) a week. The insomnia has been decreasing (Patient does feel that the trazodone has been helping). Associated symptoms do not include snoring, alcohol abuse, drug abuse, nocturnal leg cramps, nightmares or sleepwalking. By report there is fair compliance with treatment (Patient reports that she remembers to take her medication most nights) and fair symptom control (Patient feels that her medication helps, but does not fully resolve the issue.). Note for Insomnia: Patient reports that her night typically looks like her putting her daughter down for bed at 8:30-9:00. She will go to be herself at 9:30. She will have to get up multiple times during the night to help her daughter. She will sometimes spend 30-60 minutes getting back to sleep after these wakings. She will then be up for the day at 9:00 am when her daughter also gets up for the day. 04-23-2024 Unclassified (1 source) Cold Symptoms - Symptoms include sneezing, nasal congestion, runny nose, ear fullness, sore throat, dry cough, productive cough, chills, general malaise and headache, but do not include fever. The onset was gradual 3 day(s) ago. The symptoms occur constantly. The patient describes this as moderate in severity and unchanged. Current treatment includes non-prescription cold medication. Risk factors do not include smoking. Medical history includes tonsillectomy, but patient denies history of seasonal allergies, recurrent sinusitis, recurrent strep pharyngitis, asthma or recurrent ear infections. 05-05-2024 Unclassified (20 sources) Cold Symptoms - Symptoms include sneezing, nasal congestion, runny nose, ear fullness, sore throat, dry cough, productive cough, chills, general malaise and headache, but do not include fever. The onset was gradual 3 day(s) ago. The symptoms occur constantly. The patient describes this as moderate in severity and unchanged. Current treatment includes non-prescription cold medication. Risk factors do not include smoking. Medical history includes tonsillectomy, but patient denies history of seasonal allergies, recurrent sinusitis, recurrent strep pharyngitis, asthma or recurrent ear infections. 05-05-2024 Unclassified (20 sources) Pre-operative clearance - Surgical procedure(s) planned: other (breast reduction). Date of procedure: (06/10/2024) Surgeon: (Dr.Teresa Lopes) and Location of procedure: ([facility]) There have been no problems with general anesthesia or blood/blood products. Note for Pre-operative clearance: Patient reports that she is feeling well at this time. She had labs completed with the surgeon to be reviewed today. 06-07-2024 Unclassified (17 sources) Cold Symptoms - Symptoms include sneezing, nasal congestion, runny nose, ear pain (pt said both ears), sore throat, dry cough, headache and facial pain, but do not include wheezing, fever, chills or general malaise. The onset was gradual 10 day(s) ago. The symptoms occur constantly. The patient describes this as mild and unchanged. Current treatment includes non-prescription cold medication (dayquil), NSAIDs and home remedies. The patient has been exposed to an individual with similar symptoms. Medical history includes seasonal allergies and tonsillectomy, but patient denies history of recurrent sinusitis, recurrent strep pharyngitis or recurrent ear infections. 08-06-2024 Unclassified (1 source) Back pain - The onset of the back pain has been gradual and has been occurring in a persistent pattern for 2 weeks. The course has been constant. The pain is characterized as stabbing and burning. The pain is located in the lower back and radiates to the right thigh and left thigh. There are no precipitating factors. The symptoms are aggravated by exertion and are relieved by lying down (on stomach). The pain has been associated with back stiffness and history of back surgery. Note for Back pain: Patient states she has a history of back problems but these past 2 weeks have been the worst. 09-21-2024 Unclassified (13 sources) Back pain - The onset of the back pain has been gradual and has been occurring in a persistent pattern for 2 weeks. The course has been constant. The pain is characterized as stabbing and burning. The pain is located in the lower back and radiates to the right thigh and left thigh. The pain is precipitated by nothing (Patient denies any recent injury). The symptoms are aggravated by exertion and are relieved by lying down (on stomach). The pain has been associated with back stiffness and history of back surgery (Patient had a discectomy in July 2023. She reports having chronic, mild, aching pain since before her surgery that do not improve significantly with surgery.), while there has been no associated abdominal pain, bladder dysfunction, fever, flank pain, hip pain, incontinence of stool, incontinence of urine, leg weakness or paresthesias in leg. Note for Back pain: Patient states she has a history of back problems but these past 2 weeks have been the worse. She has completed physical therapy in the past and continues to use her PT exercises daily at home. 09-21-2024 Unclassified (1 source) History of lumbar discectomy 10-05-2024 Unclassified (1 source) Low back pain, unspecified; Translations: [Low back pain, unspecified] Onset: 12-12-2023 Results Test Name Value Interpretation Reference Range Facility [facility] 11-04-2024 [facility] Office Visit ([facility] ) IVY CREWS ([id number]) 2 F Date Time Provider Department 11/04/24 2:00 PM [facility] During your visit today, we recorded the following information about you: Weight Height 99.8 kg 1.626 m Dionna Zuniga MA 11/04/2024 3:11 PM Signed 23 y/o female presents to office for a routine post op after a lumbar microdiscectomy on 10/24/2024. Patient presents for suture removal. The wound is well healed without signs of infection.The sutures were removed. Armen Godwin MD 11/04/2024 3:11 PM Signed Armen Godwin MD Orthopaedic Spine Surgery [address] [place] [address], [address], [place] [address] FAX: [phone] Spine Surgery Post-op Follow-up Service Date: 11/04/2024 Surgery Date: 10/24/2024 Surgery(ies): Revision R L4-5 discectomy Pre-operative Symptoms: Right sided radicular pain, right ankle weakness HPI: Ivy Crews is seen for 2 week post operative follow up. She is doing well. Radicular pain has improved, but not resolved. Numbness has improved. Endorses continued pain in the lumbar spine. Strength has improved. ALLERGIES Allergen Reactions Penicillin G Hives Current Outpatient Medications Medication Sig Dispense Refill oxyCODONE IR (ROXICODONE) 5 mg immediate release tablet Take 1 tablet by mouth every 6 hours as needed for pain for up to 7 days. 28 tablet 0 methocarbamol (ROBAXIN) 500 mg tablet Take 1 tablet by mouth three times a day. 21 tablet 0 acetaminophen (TYLENOL) 325 mg tablet Take 2 tablets by mouth every 6 hours as needed for pain. 100 tablet 0 lidocaine (SALONPAS) 4 % patch Apply 1 patch as directed once daily. 5 patch 0 naloxone 4 mg/actuation nasal spray (NARCAN) Use 1 spray in one nostril as needed for overdose. May repeat every 2 to 3 min in alternating nostrils until medical assistance is available 2 each 0 hydrOXYzine pamoate (VISTARIL) 25 mg capsule Take 25 mg by mouth three times a day as needed for anxiety. traZODone (DESYREL) 100 mg tablet Take 100 mg by mouth daily at bedtime. No current facility-administered medications for this visit. Physical Examination: Vital Signs: Ht 162.6 cm (5' 4) Wt 99.8 kg (220 lb) BMI 37.76 kg/m? General Appearance: Well nourished, well developed, and no apparent distress. Incision: Clean, dry, and intact. No active drainage. No erythema. Sensory: Sensation intact to light touch in L1-S1 dermatomes. Altered in right L5 dermatome. Motor: Lower Extremities Right Left Psoas (L2) 5 5 Quadriceps (L3) 5 5 Dorsiflexion (L4) 5 5 EHL (L5) 5 5 Plantarflexion (S1) 5 5 Long Tract Signs: No clonus. No Hoffmanns. Reflexes: Symmetric, non-brisk. Imaging No new imaging. Assessment 23 year old female who presents 2 weeks status-post revision right L4-5 microdiscectomy: recovering well. Plan Suture removed at today's visit. Pain medication refills provided. Continue with activity restrictions. Follow-up in 4 weeks. Advised to call the office if symptoms worsen or new symptoms develop. Patient expressed understanding and is in agreement with plan. Armen Godwin MD Orthopaedic Spine Surgery This note was generated all or in part using [employer] voice recognition software and [employer] Dictation software. Please excuse any minor errors in spelling, grammar, or punctuation. Allergies As of Date: 11/04/2024 Noted Allergy Reaction PENICILLIN G 04/12/2011 Comments: Hives Date Reviewed: 11/04/2024 Reviewed by: Dionna Zuniga MA - Fully Assessed Reason for Visit: Post Op [174] Cmt: Sx 10/24/24 Visit Diagnosis:Status post discectomy [Z98.890] Order(s):oxyCODONE IR (ROXICODONE) 5 mg immediate release tabletTake 1 tablet by mouth every 6 hours as needed for pain for up to 7 days.Disp: 28 tabletRfl: 0 methocarbamol (ROBAXIN) 500 mg tabletTake 1 tablet by mouth three times a day.Disp: 21 tabletRfl: 0 Prescriptions as of 11/04/2024 - oxyCODONE IR (ROXICODONE) 5 mg immediate release tablet Take 1 tablet by mouth every 6 hours as needed for pain for up to 7 days. - methocarbamol (ROBAXIN) 500 mg tablet Take 1 tablet by mouth three times a day. - acetaminophen (TYLENOL) 325 mg tablet Take 2 tablets by mouth every 6 hours as needed for pain. - lidocaine (SALONPAS) 4 % patch Apply 1 patch as directed once daily. - naloxone 4 mg/actuation nasal spray (NARCAN) Use 1 spray in one nostril as needed for overdose. May repeat every 2 to 3 min in alternating nostrils until medical assistance is available - hydrOXYzine pamoate (VISTARIL) 25 mg capsule Take 25 mg by mouth three times a day as needed for anxiety. - traZODone (DESYREL) 100 mg tablet Take 100 mg by mouth daily at bedtime. Problem List As Of Date 11/04/2024 Noted Resolved Intractable pain [R52] 09/30/2024 10/06/2024 Lumbar radiculopathy [M54.16] 10/01/2024 10/06/2024 Spinal stenosis (more content not included)... [facility] CNPCorrie 10-29-2024 CNPN Telephone (ORSchedulize) IVY CREWS ([id number]) 2 F Date Time Provider Department 10/29/24 ARMEN GODWIN [facility] During your visit today, we recorded the following information about you: Dionna Zuniga MA 10/29/2024 8:48 AM Signed LVM for Ivy to complete xrays prior to her appointment on 11/04/2024 Allergies As of Date: 10/29/2024 Noted Allergy Reaction PENICILLIN G 04/12/2011 Comments: Hives Date Reviewed: 10/24/2024 Reviewed by: Geovanna Baker, RN - Fully Assessed Prescriptions as of 10/29/2024 - oxyCODONE IR (ROXICODONE) 5 mg immediate release tablet Take 1 tablet by mouth every 6 hours as needed for pain for up to 7 days. - acetaminophen (TYLENOL) 325 mg tablet Take 2 tablets by mouth every 6 hours as needed for pain. - methocarbamol (ROBAXIN) 500 mg tablet Take 1 tablet by mouth three times a day. - doxycycline hyclate (VIBRAMYCIN) 100 mg capsule Take 1 capsule by mouth two times a day for 10 days. - lidocaine (SALONPAS) 4 % patch Apply 1 patch as directed once daily. - naloxone 4 mg/actuation nasal spray (NARCAN) Use 1 spray in one nostril as needed for overdose. May repeat every 2 to 3 min in alternating nostrils until medical assistance is available - hydrOXYzine pamoate (VISTARIL) 25 mg capsule Take 25 mg by mouth three times a day as needed for anxiety. - traZODone (DESYREL) 100 mg tablet Take 100 mg by mouth daily at bedtime. Problem List As Of Date 10/29/2024 Noted Resolved Intractable pain [R52] 09/30/2024 10/06/2024 Lumbar radiculopathy [M54.16] 10/01/2024 10/06/2024 Spinal stenosis, lumbar region with neurogenic *10/03/2024 10/06/2024 Obesity, Class II, BMI 35-39.9 [E66.812] 10/05/2024 Lumbar radiculopathy [M54.16] 10/24/2024 Encounter Status:Closed by DIONNA ZUNIGA on 10/29/24 [facility] ANES POSTPROC EVALon 025 ANES POSTPROC EVAL HNO ID: [id number] Author: ANTOINE REYNAGA DO Service: ? Author Type: Anesthesiologist Type: Anesthesia Postprocedure Evaluation Filed: 10/24/2024 16:16 Note Text: POST ANESTHESIA EVALUATION NOTE : 2001 Procedure Summary Date: 10/24/24 Room / Location: OR 05 / MR OR Anesthesia Start: 1232 Anesthesia Stop: 1426 Procedure: Revision R L4-5 microdisc (Right: Spine Lumbar) Diagnosis: Lumbar radiculopathy (Lumbar radiculopathy [M54.16]) Surgeons: Armen Godwin MD Responsible Provider: Antoine Reynaga DO Anesthesia Type: general ASA Status: 2 Anesthesia Type: general Airway Type: ETT Last Vitals Vitals Value Taken Time BP 114/59 10/24/24 1615 Temp 36.9 ?C (98.4 ?F) 10/24/24 1445 Pulse 80 10/24/24 1614 Resp 12 10/24/24 1545 SpO2 98 % 10/24/24 1614 Vitals shown include unfiled device data. Post Anesthesia Patient Status Patient Evaluation: PACU. PACU/ICU Patient Condition: stable. Anticipated Disposition: inpatient floor planned admission. Neurological Status: aware and responsive. Pulmonary Status: breathing comfortably on supplemental oxygen Airway Control: returned to baseline unsupported. Cardiovascular Status: stable. Pain Management: clinically adequate Postoperative Hydration: acceptable. Intraoperative Events: no significant anesthesia events Post Operative Nausea/Vomiting Status: no significant post operative nausea or vomiting Recommendation: continue current plan of care. Anesthesia Observations No Documentation SIGNATURE: Antoine Reynaga DO PATIENT NAME: Ivy Crews DATE: October 24, 2024 TIME: 4:16 PM CSN: [id number] [facility] ANES PRE-OPon 10-24-2024 ANES PRE-OP HNO ID: [id number] Author: ANTOINE REYNAGA DO Service: ? Author Type: Anesthesiologist Type: Anesthesia Preprocedure Evaluation Filed: 10/24/2024 11:27 Note Text: ANESTHESIOLOGY DAY OF SURGERY NOTE : 2001 Procedure Information Date/Time: 10/24/24 1200 Procedure: Revision R L4-5 microdisc (Right: Spine Lumbar) Location: MR OR 05 / MR OR Surgeons: Armen Godwin MD Estimated body mass index is 37.76 kg/m? as calculated from the following: Height as of this encounter: 162.6 cm (5' 4). Weight as of this encounter: 99.8 kg (220 lb). Most recent hematocrit and potassium results: Hematocrit 40.9 10/24/2024 Potassium 4.2 10/06/2024 Relevant Problems No relevant active problems I - PHYSICAL EVALUATION AIRWAY Patient intubated: No. Tracheostomy tube not present Mallampati: II. TM distance: <3 FB. Neck ROM: full ROM without neurological symptoms. Mouth opening: adequate. Short neck: no. Thick neck: no Additional exam findings: no II - ANESTHESIA PLAN ASA Score: 2 Anesthetic Plan: general Airway type: ETT The patient is not a current smoker. NPO Status: adequate Beta Esther Administration of chronic beta esther medication planned. Monitoring Plan Monitoring plan: standard ASA. Post Procedure Analgesic Plan Postoperative analgesic plan: parenteral or oral opioids and multimodal analgesia. Informed Consent Anesthetic risks, benefits, alternatives, personnel and consent discussed: yes. Patient / Responsible Alliance Party agrees to proceed: yes Patient / Surrogate agrees to blood products: Yes DNR status not reviewed with patient and/or family prior to surgery. Significant changes in the patient condition since the History and Physical, not otherwise documented in primary service progress note: no. Vitals Value Taken Time BP 93/66 10/24/24 0947 Pulse 93 10/24/24 0947 Resp 18 10/24/24 0947 Temp 37 ?C (98.6 ?F) 10/24/24 0947 SpO2 96 % 10/24/24 0947 Facility-Administered Medications as of 10/24/2024 Medication Dose Route Frequency [Transfer Hold] traZODone 100 mg tab(s) (DESYREL) 100 mg ORAL AT BEDTIME [Transfer Hold] hydrOXYzine pamoate 25 mg cap(s) (VISTARIL) 25 mg ORAL TID PRN [Transfer Hold] NaCl 0.9% iv flush bag 20 mL INTRAVENOUS PRN [Transfer Hold] clavlnf-ywamsiapm-stqi min D3 500 mg-5 mcg (200 unit) 2 tablet 2 tablet ORAL BID [Transfer Hold] senna 17.2 mg tab(s) (SENOKOT) 17.2 mg ORAL AT BEDTIME [Transfer Hold] acetaminophen 1,000 mg tab(s) (TYLENOL) 1,000 mg ORAL q 8 H [Transfer Hold] oxyCODONE IR 5-10 mg tab(s) (ROXICODONE) 5-10 mg ORAL q 4 H PRN [Transfer Hold] morphine 2 mg injection 2 mg INTRAVENOUS q 2 H PRN [Transfer Hold] diphenhydrAMINE 25 mg injection (BENADRYL) 25 mg INTRAVENOUS q 6 H PRN ceFAZolin iv piggyback 2 g in D5W (iso-osmotic) 100 mL (ANCEF) 2 g INTRAVENOUS ONCE tranexamic acid (CYKLOKAPRON) in NaCl 0.7% 1,000 mg 100 mL 1,000 mg INTRAVENOUS ONCE Outpatient Medications as of 10/24/2024 Medication Sig hydrOXYzine pamoate (VISTARIL) 25 mg capsule Take 25 mg by mouth three times a day as needed for anxiety. traZODone (DESYREL) 100 mg tablet Take 100 mg by mouth daily at bedtime. ibuprofen (MOTRIN) 800 mg tablet TK 1 T PO TID WF OR MILK PRN methylPREDNISolone (MEDROL, USAMA,) 4 mg Dose-Pack Take as prescribed oxyCODONE-acetaminophe n (PERCOCET) 5-325 mg tablet Take 1 tablet by mouth every 8 hours as needed for pain for up to 5 days. for pain. lidocaine (SALONPAS) 4 % patch Apply 1 patch as directed once daily. (Patient not taking: Reported on 10/19/2024) naloxone 4 mg/actuation nasal spray (NARCAN) Use 1 spray in one nostril as needed for overdose. May repeat every 2 to 3 min in alternating nostrils until medical assistance is available (Patient not taking: Reported on 10/19/2024) I have interviewed and examined the patient. I have reviewed the medical record and/or the pre-anesthesia evaluation, pertinent labs, and test results. This contains updated information obtained within 48 hours of Surgery/Procedure. SIGNATURE: Antoine Reynaga DO PATIENT NAME: Ivy Crews DATE: October 24, 2024 TIME: 11:27 AM CSN: [id number] [facility] BRIEF OP NOTon 10-24-2024 BRIEF OP NOT HNO ID: [id number] Author: ARMEN GODWIN MD Service: Orthopaedic Surgery Author Type: Physician Type: Brief Op Note Filed: 10/24/2024 14:24 Note Text: Orthopaedic Surgery Brief Operative Note Log ID: [id number] Surgery/Procedure Date: 10/24/2024 Incision/Procedure Start Time: 1:06 PM Incision Close/Procedure End Time: 2:08 PM Surgeon(s)/Procedurali st(s) and Customs Investigator(s): Surgeons and Role: * Armen Godwin MD - Primary No Additional Staff Procedure(s): Revision right L4-5 microdiscectomy Anesthesia: General Pre-Op/Pre-Procedure Diagnosis: Lumbar radiculopathy, lumbar disc recurrent herniatio Post-Op/Post-Procedure Diagnosis: Same Fluids: 800 mL Estimated Blood Loss: 25 ml Quiñonez: None Specimens: None Drains: None Findings: See operative report. Complications: None Special medications: 2 g Ancef/1 g TXA/1 g Vancomycin powder Assessment: 23 year old female status-post: revision right L4-5 discectomy. Post op plan: Pain control. Neuro checks Q4H. Activity: No bending, twisting, or lifting >15 lbs. Immobilization: LSO brace when upright and ambulatory. Dressing(s): Aquacel - maintain until POD #5. Drain(s): None. PT/OT: Evaluation AND recommendations, home as at last visit. DVT PPx: SCDs. No chemoprophylaxis. Antibiotics: Ancef 2 g Q8H for 24 hours if remains inpatient overnight, okay to discharge before completing. Quiñonez: None. Imaging: None. Anticipated Length of Stay/Disposition: Discharge to home today vs tomorrow. Armen Godwin MD Orthopaedic Spine Surgery [facility] Bacteria Spec Anaerobe Culto n 10-24-2024 Bacteria identified Anaer cx Nom (Unsp spec) CULTURE, ANAEROBE: Anaerobe culture reviewed, negative at day 5. [facility] Comment on above: Performed By: #### [phone] ####[facility] LABORATORYCLIA [id number] [place] [address] [place] Bacteria Wnd Culton 10-25-19 Bacteria identified Cx Nom (Wound) CULTURE, WOUND: No growth 3 days GRAM STAIN: Rare Polymorphonuclear leukocytes No organisms seen [facility] Comment on above: Performed By: #### 6 462-6 635-3 ####[facility] LABORATORYCLIA [id number] [place] [address] [place] Basic metabolic 2000 panelon 10-24-2024 Anion gap [Moles/Vol] 7 mmol/L Normal 5-16 [facility] Comment on above: Order Comment: Speci men Type: BLOOD SPECIMENOrdering Facility: [facility] Address: [address] [place] [address] Performed By: #### 2 4321-2 ####[facility] LABORATORYCLIA [id number] [place] [id number] [place] Calcium [Mass/Vol] 9.5 mg/dL Normal 8.5-10.5 [facility] Comment on above: Order Comment: Speci men Type: BLOOD SPECIMENOrdering Facility: [facility] Address: [address] [place] [address] Performed By: #### 2 4321-2 ####[facility] LABORATORYCLIA [id number] [place] [address] [place] Chloride [Moles/Vol] 107 mmol/L Normal 98-107 [facility] Comment on above: Order Comment: Speci men Type: BLOOD SPECIMENOrdering Facility: [facility] Address: [address] [place] [address] Performed By: #### 2 4321-2 ####[facility]ORATORYCLIA [id number] [place] [address] [place] CO2 [Moles/Vol] 26 mmol/L Normal 21-32 [facility] Comment on above: Order Comment: Speci men Type: BLOOD SPECIMENOrdering Facility: [facility] Address: [address] [place] [address] Performed By: #### 2 4321-2 ####[facility] LABORATORYCLIA [id number] [place] [address] [place] Creatinine [Mass/Vol] 0.68 mg/dL Normal 0.51-0.95 [facility] Comment on above: Order Comment: Speci men Type: BLOOD SPECIMENOrdering Facility: [facility] Address: [address] [place] [address] Result Comment: Holley ents receiving either N-Acetylcysteine (NAC) or Metamizole prior to venipuncture, may have falsely depressed results. Performed By: #### 2 4321-2 ####[facility] LABORATORYCLIA [id number] [place] [address] [place] Creatinine and Glomerular filtration rate.predicted panel (S/P/Bld) 126 mL/min/1.73m??? Normal >=60 [facility] Comment on above: Order Comment: Wilver akhtar Type: BLOOD SPECIMENOrdering Facility: [facility] Address: [address] [place] [address] Result Comment: Jacque mated Glomerular Filtration Rate (eGFR) is calculated using the 2020 CKD-EPI creatinine equation. This equation utilizes serum creatinine, sex, and age as parameters. The creatinine assay has traceable calibration to isotope dilution-mass spectrometry. Refer to KDIGO guidelines for clinical interpretation. In patients with unstable renal function, e.g. those with acute kidney injury, the eGFR may not accurately reflect actual GFR. Performed By: #### 2 4321-2 ####[facility]ORATORYCLIA [id number] [place] [address] [place] Glucose [Mass/Vol] 113 mg/dL High 70-100 [facility] Comment on above: Order Comment: Wilver akhtar Type: BLOOD SPECIMENOrdering Facility: [facility] Address: [address] [place] [address] Result Comment: The [place] Diabetes [employer] (ADA) provides guidance for cutoff values for fasting glucose and random glucose. The ADA defines fasting as no caloric intake for at least 8 hours. Fasting plasma glucose results between 100 to 125 mg/dL indicate increased risk for diabetes (prediabetes). Fasting plasma glucose results greater than or equal to 126 mg/dL meet the criteria for diagnosis of diabetes. In the absence of unequivocal hyperglycemia, results should be confirmed by repeat testing. In a patient with classic symptoms of hyperglycemia or hyperglycemic crisis, random plasma glucose results greater than or equal to 200 mg/dL meet the criteria for diagnosis of diabetes. Reference: Standards of Medical Care in Diabetes 2016, [place] [employer]. Diabetes Care. 2016.39(Suppl 1). Results may be falsely elevated after the administration of Sulfapyridine. Results may be falsely depressed after the administration of Sulfasalazine. Performed By: #### 2 4321-2 ####[facility] LABORATORYCLIA [id number] [place] [id number] [place] Potassium [Moles/Vol] 3.8 mmol/L Normal 3.5-5.1 [facility] Comment on above: Order Comment: Speci men Type: BLOOD SPECIMENOrdering Facility: [facility] Address: [address] [place] [address] Performed By: #### 2 4321-2 ####[facility]ORATORYCLIA [id number] [place] [id number] [place] Sodium [Moles/Vol] 140 mmol/L Normal 136-145 [facility] Comment on above: Order Comment: Speci men Type: BLOOD SPECIMENOrdering Facility: [facility] Address: [address] [place] [address] Performed By: #### 2 4321-2 ####[facility]ORATORYCLIA [id number] [place] [address] [place] Urea nitrogen [Mass/Vol] 10 mg/dL Normal 7-26 [facility] Comment on above: Order Comment: Speci men Type: BLOOD SPECIMENOrdering Facility: [facility] Address: [address] [place] [address] Performed By: #### 2 4321-2 ####[facility]ORATORYCLIA [id number] [place] [address] [place] Anion gap [Moles/Vol] 4 mmol/L Low 5-16 [facility] Comment on above: Order Comment: Speci men Type: BLOOD SPECIMENOrdering Facility: [facility] Address: [address] [place] [address] Performed By: #### 2 4321-2 ####[facility]ORATORYCLIA [id number] [place] [address] [place] Calcium [Mass/Vol] 9.7 mg/dL Normal 8.5-10.5 [facility] Comment on above: Order Comment: Speci men Type: BLOOD SPECIMENOrdering Facility: [facility] Address: [address] [place] [address] Performed By: #### 2 4321-2 ####[facility]ORATORYCLIA [id number] [place] [address] [place] Chloride [Moles/Vol] 110 mmol/L High 98-107 [facility] Comment on above: Order Comment: Speci men Type: BLOOD SPECIMENOrdering Facility: [facility] Address: [address] [place] [address] Performed By: #### 2 4321-2 ####[facility]ORATORYCLIA [id number] [place] [address] [place] CO2 [Moles/Vol] 26 mmol/L Normal 21-32 [facility] Comment on above: Order Comment: Speci men Type: BLOOD SPECIMENOrdering Facility: [facility] Address: [address] [place] [address] Performed By: #### 2 4321-2 ####[facility]ORATORYCLIA [id number] [place] [address] [place] Creatinine [Mass/Vol] Normal [facility] Comment on above: Order Comment: Speci men Type: BLOOD SPECIMENOrdering Facility: [facility] Address: [address] [place] [address] Result Comment: Unab le to assay due to interference from hemolysis. Suggest reorder as clinically indicated. Performed By: #### 2 4321-2 ####[facility]ORATORYCLIA [id number] [address] [place] Creatinine and Glomerular filtration rate.predicted panel (S/P/Bld) Normal [facility] Comment on above: Order Comment: Speci men Type: BLOOD SPECIMENOrdering Facility: [facility] Address: [address] [place] [address] Result Comment: Jacque mated Glomerular Filtration Rate (eGFR) is calculated using the 2020 CKD-EPI creatinine equation. This equation utilizes serum creatinine, sex, and age as parameters. The creatinine assay has traceable calibration to isotope dilution-mass spectrometry. Refer to KDIGO guidelines for clinical interpretation. In patients with unstable renal function, e.g. those with acute kidney injury, the eGFR may not accurately reflect actual GFR. Performed By: #### 2 4321-2 ####[facility]ORATORYCLIA [id number] [place] [address] [place] Glucose [Mass/Vol] 95 mg/dL Normal 70-100 [facility] Comment on above: Order Comment: Wilver akhtar Type: BLOOD SPECIMENOrdering Facility: [facility] Address: [address] [place] [address] Result Comment: The [place] Diabetes Association (ADA) provides guidance for cutoff values for fasting glucose and random glucose. The ADA defines fasting as no caloric intake for at least 8 hours. Fasting plasma glucose results between 100 to 125 mg/dL indicate increased risk for diabetes (prediabetes). Fasting plasma glucose results greater than or equal to 126 mg/dL meet the criteria for diagnosis of diabetes. In the absence of unequivocal hyperglycemia, results should be confirmed by repeat testing. In a patient with classic symptoms of hyperglycemia or hyperglycemic crisis, random plasma glucose results greater than or equal to 200 mg/dL meet the criteria for diagnosis of diabetes. Reference: Standards of Medical Care in Diabetes 2016, [place] [employer]. Diabetes Care. 2016.39(Suppl 1). Results may be falsely elevated after the administration of Sulfapyridine. Results may be falsely depressed after the administration of Sulfasalazine. Performed By: #### 2 4321-2 ####[facility]ORATORYCLIA [id number] [place] [address] [place] Potassium [Moles/Vol] Normal [facility] Comment on above: Order Comment: Wilver akhtar Type: BLOOD SPECIMENOrdering Facility: [facility] Address: [address] [place] [address] Result Comment: Unab le to assay due to interference from hemolysis. Suggest reorder as clinically indicated. &XA&NOTIFIED KEVARISTO, HEMOLYZED K,BUN,AND ECREA Performed By: #### 2 4321-2 ####[facility]ORATORYCLIA [id number] [place] [address] [place] Sodium [Moles/Vol] 140 mmol/L Normal 136-145 [facility] Comment on above: Order Comment: Wilver akhtar Type: BLOOD SPECIMENOrdering Facility: [facility] Address: [address] [place] [address] Performed By: #### 2 4321-2 ####[facility]ORATORYCLIA [id number] [place] [id number] [place] Urea nitrogen [Mass/Vol] Normal [facility] Comment on above: Order Comment: Speci men Type: BLOOD SPECIMENOrdering Facility: [facility] Address: [address] [place] [address] Result Comment: Unab le to assay due to interference from hemolysis. Suggest reorder as clinically indicated. Performed By: #### 2 4321-2 ####[facility]ORATORYCLIA [id number] [address] [place] CBC panel Auto (Bld)on 10-24 Erythrocyte distribution width (RBC) [Ratio] 12.3 % Normal 11.5-15.0 [facility] Comment on above: Order Comment: Speci men Type: BLOOD SPECIMENOrdering Facility: [facility] Address: [address] [place] [address] Performed By: #### 5 8410-2 ####[facility]ORATORYCLIA [id number] [address] [place] Hematocrit (Bld) [Volume fraction] 40.9 % Normal 36.0-46.0 [facility] Comment on above: Order Comment: Speci men Type: BLOOD SPECIMENOrdering Facility: [facility] Address: [address] [place] [address] Performed By: #### 5 8410-2 ####[facility]ORATORYCLIA [id number] [address] [place] Hemoglobin (Bld) [Mass/Vol] 14.1 g/dL Normal 11.5-15.5 [facility] Comment on above: Order Comment: Speci men Type: BLOOD SPECIMENOrdering Facility: [facility] Address: [address] [place] [address] Performed By: #### 5 8410-2 ####[facility]ORATORYCLIA [id number] [place] [id number] [place] MCH (RBC) [Entitic mass] 31.2 pg Normal 26.0-34.0 [facility] Comment on above: Order Comment: Speci men Type: BLOOD SPECIMENOrdering Facility: [facility] Address: [address] [place], [place] [address] Performed By: #### 5 8410-2 ####[facility]ORATORYCLIA [id number] [place] [address] [place] MCHC (RBC) [Mass/Vol] 34.5 g/dL Normal 30.5-36.0 [facility] Comment on above: Order Comment: Speci men Type: BLOOD SPECIMENOrdering Facility: [facility] Address: [address] [place] [address] Performed By: #### 5 8410-2 ####[facility]ORATORYCLIA [id number] [place] [address] [place] MCV (RBC) [Entitic vol] 90.5 fL Normal 80.0-100.0 [facility] Comment on above: Order Comment: Speci men Type: BLOOD SPECIMENOrdering Facility: [facility] Address: [address] [place] [address] Performed By: #### 5 8410-2 ####[facility]ORATORYCLIA [id number] [place] [address] [place] Nucleated RBC (Bld) [#/Vol] 10*3/uL Normal <0.01 [facility] Comment on above: Order Comment: Speci men Type: BLOOD SPECIMENOrdering Facility: [facility] Address: [address] [place] [address] Performed By: #### 5 8410-2 ####[facility]ORATORYCLIA [id number] [place] [address] [place] Platelet mean volume (Bld) [Entitic vol] 10.2 fL Normal 9.0-12.7 [facility] Comment on above: Order Comment: Speci men Type: BLOOD SPECIMENOrdering Facility: [facility] Address: [address] [place] [address] Performed By: #### 5 8410-2 ####[facility]ORATORYCLIA [id number] [place] [id number] [place] Platelets (Bld) [#/Vol] 300 10*3/uL Normal 150-400 [facility] Comment on above: Order Comment: Speci men Type: BLOOD SPECIMENOrdering Facility: [facility] Address: [address] [place] [address] Performed By: #### 5 8410-2 ####[facility]ORATORYCLIA [id number] [place] [id number] [facility] [place] RBC (Bld) [#/Vol] 4.52 10*6/uL Normal 3.90-5.20 [facility] Comment on above: Order Comment: Speci men Type: BLOOD SPECIMENOrdering Facility: [facility] Address: [address] [place] [address] Performed By: #### 5 8410-2 ####[facility]ORATORYCLIA [id number] [address] WBC (Bld) [#/Vol] 4.92 10*3/uL Normal 3.70-11.00 [facility] Comment on above: Order Comment: Speci men Type: BLOOD SPECIMENOrdering Facility: [facility] Address: [address] [place] [address] Performed By: #### 5 8410-2 ####[facility]ORATORYCLIA [id number] [place] [id number] [facility] [place] CNDSon 10-24-2024 CNDS HNO ID: [id number] Author: ARMEN GODIWN MD Service: Orthopaedic Surgery Author Type: Physician Type: Discharge Summary Filed: 10/25/2024 07:11 Note Text: Orthopaedic Surgery Discharge Summary Admission Date: 10/24/2024 Discharge Date: 10/24/2024 Attending Physician: Armen Godwin MD Admitting Diagnosis: Lumbar radiculopathy, recurrent disc herniation Discharge Diagnosis: Same as admitting Additional Diagnoses: ACTIVE PROBLEM LIST Obesity, Class II, Bmi 35-39.9 Lumbar Radiculopathy Surgeries During Hospitalization: Revision right L4-5 discectomy Consultations: None Hospital Course: The patient is a 23 year old female who has been followed by Dr. Armen Godwin MD. It was determined she would benefit from surgery. The procedure, its risks, benefits, and potential complications were discussed in detail with the patient or POA prior to surgery. Understanding of all topics was conveyed by the patient or POA, and consent was given for surgery. The patient was electively admitted to [facility] on 10/24/2024. Surgery was scheduled and on 10/24/2024 she underwent a revision right L4-5 discectomy. The procedure was tolerated well and she was sent to the post operative recovery room in stable condition, where she also did well. She was subsequently sent to her hospital room for postoperative management. Once on the floor her postoperative course was unremarkable and she did well. Her diet was advanced which she tolerated. Her pain was well controlled. She remained afebrile with stable vital signs throughout her stay. She was stable for discharge on POD #0. Complete and comprehensive discharge instructions were provided to the patient as well as necessary prescriptions. The patient had no further questions and was advised to call with any questions, concerns, or problems. Hemodynamics: Patient was hemodynamically stable postoperatively. Relevant Labs Included: Recent Labs 10/24/24 1626 10/24/24 1041 WBC -- 4.92 HB -- 14.1 HCT -- 40.9 PLT -- 300 NA 140 140 K 3.8 -- CHLOR 107 110* CO2 26 26 BUN 10 -- CREAT 0.68 -- GLUC 113* 95 CA 9.5 9.7 Discharge Antibiotics: None. The patient received 24 hours of antibiotic coverage tarun-operatively. DVT Prophylaxis: Sequential Compression Devices Complications: Continued throughout the hospital course without complications. Patient Condition @ Discharge: Stable Discharge Disposition: Home with Self Care The patient was instructed to follow-up in: Future Appointments Date Time Provider Department Center 10/26/2024 2:15 PM Lulú Edmonds, PHARMACY AFFAIRS ASSISTANT.MARY ANNE Acosta Highest Readmission Risk Score: 3 The 30 day readmissions risk score is derived from an internally validated risk model which evaluates patient level characteristics, utilization history, medication orders and lab results up until the day of discharge. Patients with a score of 39 or above are considered highest risk for readmission. Specific patient level drivers will be listed at the bottom of the summary. The 30 day readmissions risk score is derived from an internally validated risk model which evaluates patient level characteristics, utilization history, medication orders and lab results up until the day of discharge. Patients with a score of 40 or above are considered highest risk for readmission. Specific patient level drivers will be listed at the bottom of the summary. Discharge Medications: Medication List START taking these medications acetaminophen 325 mg tablet Commonly known as: TYLENOL Take 2 tablets by mouth every 6 hours as needed for pain. doxycycline hyclate 100 mg capsule Commonly known as: VIBRAMYCIN Take 1 capsule by mouth two times a day for 10 days. methocarbamol 500 mg tablet Commonly known as: ROBAXIN Take 1 tablet by mouth three times a day. oxyCODONE IR 5 mg immediate release tablet Commonly known as: ROXICODONE Take 1 tablet by mouth every 6 hours as needed for pain for up to 7 days. CONTINUE taking these medications hydrOXYzine pamoate 25 mg capsule Commonly known as: VISTARIL lidocaine 4 % patch Commonly known as: SALONPAS Apply 1 patch as directed once daily. naloxone 4 mg/actuation nasal spray Use 1 spray in one nostril as needed for overdose. May repeat every 2 to 3 min in alternating nostrils until medical assistance is available traZODone 100 mg tablet Commonly known as: DESYREL STOP taking these medications ibuprofen 800 mg tablet Commonly known as: MOTRIN methylPREDNISolone 4 mg Dose-Pack Commonly known as: MEDROL (USAMA) oxyCODONE-acetaminophe n 5-325 mg tablet Commonly known as: PERCOCET Where to Get Your Medications These medications were sent to [facility] [address] [place] [id number] [address] [facility] [phone] [place] [address] acetaminophen 325 mg tablet (more content not included)... Normal [facility] HCG Preg Ur Qlon 10-24-2024 HCG ( test) Ql (U) Negative Normal Negative [facility] Comment on above: Order Comment: Speci men Type: URINE SPECIMENOrdering Facility: [facility] Address: [address] [place], [place] [address] [address] Result Comment: This test is intended to aid in the early detection of . Very dilute urine samples, as indicated by a low specific gravity, may not contain telephone service representative levels of hCG. This test detects intact hCG only. This test does not reliably detect hCG degradation products, including free-beta subunit and beta-core fragment. Therefore, this test may show reduced reactivity in urine after 8 weeks gestation. A number of conditions other than , including trophoblastic disease and certain non-trophoblastic neoplasms cause elevated levels of hCG. As with any assay employing mouse antibodies, the possibility exists for interference by human anti-mouse antibodies (HAMA) in the specimen. The test provides a presumptive diagnosis for . Performed By: #### 2 106-3 ####[facility] LABORATORYCLIA [id number] [place] [address] [place] HISTORY PHYSICALon HISTORY PHYSICAL HNO ID: [id number] Author: ARMEN GODWIN MD Service: Orthopaedic Surgery Author Type: Physician Type: H&P Filed: 10/24/2024 10:27 Note Text: Orthopaedic Surgery History and Physical Chief Complaint: Lumbar back pain with radiation to the right lower extremity Date: October 24, 2024 Time: 10:27 AM History of Present Illness Ivy Crews is a 23 year old female who presents with persistent right sided lumbar radiculopathy status-post microdiscectomy. She had excellent relief of symptoms immediately postoperatively and for the few days following, but unfortunately upon presenting to her 2-week follow-up was found to have continued symptoms. These were very similar to the preoperative state. Denies any left-sided symptoms. Repeat MRI was obtained with findings as below. She presents today as a planned admission for revision discectomy. Review of Systems A 10-point review of systems was completed and is otherwise non-contributory to the patient's presenting condition. History No past medical history on file. PAST SURGICAL HISTORY Procedure Laterality Date ADENOIDECTOMY HX APPENDECTOMY TONSILLECTOMY HX HPV Vaccine(1 - 3-dose series) Never done Meningococcal B Vaccine(1 of 2 - Standard) Never done GC (Gonorrhea) Screening (18-) Never done Depression Screening Never done Anxiety Screening Never done Hepatitis C Screening Never done HIV Screening Never done Chlamydia Screening () Never done Cervical Cancer Screening Never done Covid-19 Vaccine( season) Never done Influenza Vaccine(Season Ended) due on 01/31/2025 DTaP,Tdap,Td Vaccine(7 - Td or Tdap) due on 11/22/2032 Hepatitis B Vaccine Completed A review of the patient's history was completed and is otherwise non-contributory to the patient's presenting condition. Medications ibuprofen (MOTRIN) 800 mg tabletTK 1 T PO TID WF OR MILK PRNDisp: Rfl: methylPREDNISolone (MEDROL, USAMA,) 4 mg Dose-PackTake as prescribedDisp: 21 tabletRfl: 0 oxyCODONE-acetaminophe n (PERCOCET) 5-325 mg tabletTake 1 tablet by mouth every 8 hours as needed for pain for up to 5 days. for pain.Disp: 15 tabletRfl: 0 lidocaine (SALONPAS) 4 % patchApply 1 patch as directed once daily.Disp: 5 patchRfl: 0 (Patient not taking: Reported on 10/19/2024) naloxone 4 mg/actuation nasal spray (NARCAN)Use 1 spray in one nostril as needed for overdose. May repeat every 2 to 3 min in alternating nostrils until medical assistance is availableDisp: 2 eachRfl: 0 (Patient not taking: Reported on 10/19/2024) hydrOXYzine pamoate (VISTARIL) 25 mg capsuleTake 25 mg by mouth three times a day as needed for anxiety.Disp: Rfl: traZODone (DESYREL) 100 mg tabletTake 100 mg by mouth daily at bedtime.Disp: Rfl: Allergies Penicillin G Family History No family history on file. Social History Employer And Job Title: None on file Years Of Education Completed: Not specified Marital Status: Single Social History Tobacco Use Smoking status: Never Smokeless tobacco: Never Substance Use Topics Alcohol use: No Drug use: No Physical Examination Vitals There were no vitals taken for this visit. General Alert and oriented. NAD. Skin No rashes or lesions. Appropriate skin turgor. Cardiovascular RRR. Peripheral pulses symmetric. Pulmonary Non-labored breathing on room air. Symmetric chest expansion. GI/Abdomen Abdomen soft, non-tender, and non-distended. Neuro CN II-XII grossly intact. Psych Appropriate mood and affect. Spine Inspection: Well-healing posterior midline lumbar incision. Palpation: Appropriate incisional tenderness to palpation. Sensation: Sensation intact to light touch in C5-T1 and L1-S1 dermatomes, decreased in the right L4-5 dermatomes. Motor: Upper Extremities Right Left Deltoid (C5) 5 5 Biceps (C6) 5 5 Triceps (C7) 5 5 Surgical Nurse Practitioner (C8) 5 5 Interossei (T1) 5 5 Lower Extremities Right Left Psoas (L2) 5 5 Quadriceps (L3) 5 5 Dorsiflexion (L4) 4 5 EHL (L5) 4 5 Plantarflexion (S1) 5 5 Reflexes: Triceps, biceps, and brachioradialis reflexes 2+ bilaterally. Quadriceps and Achilles reflexes 2+ bilaterally. Special Tests: Appiah's absent, Babinski down-going, clonus absent. Components of the patient's physical examination not noted above were not contributory to the present assessment. Labs CBC, BMP, and Hcg pending. Imaging MRI of the lumbar spine post-op demonstrates continued right L4-5 disc herniation with extruded component that has actually increased in size as compared to prior imaging. Post-op changes of right L4 and L3 hemilaminotomy. Assessment Ivy Crews is a 23 year old female with persistent radiculopathy status-post microdiscectomy. Had a long discussion with Ivy regarding treatment options. We did discuss that given her prior discectomies and typical recovery with persistent symptoms on the left side during prior procedure plan was for a top-down (more content not included)... [facility] OPERATIVE NOon 10-24-2024 OPERATIVE NO HNO ID: [id number] Author: ARMEN GODWIN MD Service: Orthopaedic Surgery Author Type: Physician Type: Operative Report Filed: 10/24/2024 14:43 Note Text: Orthopaedic Surgery Operative Report Patient Name: Ivy Crews Log ID: [id number] Surgery/Procedure Date: 10/24/2024 Incision/Procedure Start Time: 1:06 PM Incision Close/Procedure End Time: 2:08 PM Surgeon(s): Armen Godwin MD Customs Investigator(s): Surgeons and Role: * Armen Godwin MD - Primary No Additional Staff Pre-Op/Pre-Procedure Diagnosis: History of right L4-5 microdiscectomy Recurrent right L4-5 disc herniation with extruded component Lumbar radiculopathy Post-Op/Post-Procedure Diagnosis: Same Anesthesia: General Procedure(s) in Summary: Revision right L4-5 microdiscectomy Microscope for microsurgical technique Instrumentation: None Operative Procedure: The patient was identified in the preoperative holding area. Consent and surgical level were verified. The risks, benefits, and alternatives of surgery were reviewed, and the patient accepted and desired to proceed. All questions were answered, and no guarantees were given or implied. The patient voiced an understanding of the surgical plan and postoperative care. The patient was brought into the operating theater where anesthesia was induced. Line access was performed. The patient was positioned prone. Care was taken to pad all bony prominences from the head, upper extremities, trunk, and lower extremities. The patient was prepped and draped in the standard surgical fashion. A time-out was performed with the attending physicians present from both Anesthesia and Surgery, as well as the nursing staff members. Images were reviewed and surgical level and plan confirmed. Antibiotics were administered, and we proceeded with the surgery. The prior surgical incision was sharply opened with 10-blade scalpel. There was egress of seroma fluid which was clear in nature. Culture was obtained. Fascia was found to be intact and was opened with scissors and pick-ups by removing the prior sutures. The plan of deep dissection was again found on the right along the spinous processes and the lamina of L3-5. Prior caudal hemilaminotomy at L3 and cephalad hemilaminotomy at L4 were visualized. The hemilaminotomy site at L4 was found to have a free disc fragment effacing the dura, which was easily removed with pituitary rongeur. The dura was visualized as were the traversing L4 (cephalad) and L5 (caudad) nerve roots. The level was again localized by placement of a [place] #4 at the L4-5 disc level. The hemilaminotomy at L4 was then extended more caudally with a combination of high speed martínez and Kerrison rongeurs. The L5 nerve root was identified and retracted medially. A large disc fragment was identified ventral to the root and was carefully freed with nerve hook and removed with pituitary rongeur. An annulotomy was made in the L4-5 disc space to widen the already existing annular defect. Nerve hook was used to free and remove multiple remaining fragments. After this a nerve hook was again easily passed on the lateral side of the L5 nerve root and ventral to the dura. Valsalva was performed and there was no egress of CSF. Hemostasis was achieved with combination of bipolar cautery and Floseal. Copious irrigation was then undertaken at this point in time including normal saline and a Betadine saline solution. vancomycin powder was placed. The wound was then closed in layers. Deep fascial layer was with interrupted vicryl suture and over sewn with #1 V-lock suture. The space was closed down with 0 Vicryl followed by 2-0 inverted Vicryl dermal stitches and a running 2-0 nylon for skin closure. Soft dressings were then applied, and the patient was awoken from anesthesia without complication. Antibiotics/Special Medications: 2 g Ancef/1 g TXA/1 g Vancomycin (powder) DVT Prophylaxis: Sequential compression devices Fluids: 800 mL Estimated Blood Loss: 25 mL Quiñonez: None Specimens: None Drains: None Complications: None Outcome: Stable to PACU Level of Involvement of Attending: Scrubbed for entirety of procedure Armen Godwin MD Orthopaedic Spine Surgery [facility] XR VERIFY LEVEL [id number]-GFki 10-24-2024 XR VERIFY LEVEL L-SPINE-NB * * *Final Report* * * DATE OF EXAM: Oct 24 2024 1:24PM [id number] [id number] - XR VERIFY LEVEL L-SPINE-NB / PROCEDURE REASON: Other * * * * Physician Interpretation * * * * INTRAOPERATIVE FLUOROSCOPIC EXAMINATION DATE: 10/24/24 COMPARISON: none HISTORY: localization ENCOUNTER: Not applicable TECHNIQUE: Images from fluoroscopic examination of the lumbar spine during operative procedure were submitted for interpretation. Fluoroscopic Radiation Summary: Plane A, Air Kerma: 0.0 mGy Dose Area Product (DAP): Fluoro time: min:sec RESULT: Examination is limited due to fluoroscopic technique. 2 fluoroscopic image(s) Probe overlies the posterior inferior L4 level/superior aspect L4/5 disc space, discussed verbally with agreement with Dr Godwin at time of report IMPRESSION: Localization films Please refer to operative notes for full details. Matzo Forming Machine Operator: DASHAWN Transcribe Date/Time: Oct 24 2024 1:25P Dictated by : SIA AGOSTO MD This examination was interpreted and the report reviewed and electronically signed by: SIA AGOSTO MD on Oct 24 2024 1:28PM EST [id number] [facility] Maria Esther 10-20-2024 MARK Telephone ([facility]) IVY CREWS ([id number]) 2 F Date Time Provider Department 10/20/24 ARMEN GODWIN [facility] During your visit today, we recorded the following information about you: Mary Hutchinson LPN 10/20/2024 2:06 PM Addendum Returned call to patient, left message with direct number to return call. Mary Hutchinson LPN Patient returned call, she stated that she spoke with Dr. Godwin yesterday and would like to proceed with surgery. Explained to patient that Dr. Godwin is in the OR today, but I will send him a message letting him know. Notified patient that I will be out of the office starting tomorrow, and will not return until 10/28/24, but someone should get back to her before then. Patient voiced understanding. NIKOLE Solis Keegan, MD 10/20/2024 4:46 PM Signed Orthopaedic Spine Surgery Progress Note Patient was seen and examined by Lulú Edmonds CNP yesterday for 2-week post-op visit. She initially reported excellent relief of symptoms following surgery and was discharged the following day, but unfortunately had recurrence of symptoms. Due to continued pain and weakness a new MRI of the lumbar spine was obtained. This demonstrated continued right L4-5 disc herniation with extruded component that had increased in size as compared to the prior imaging study despite right sided L3 AND L4 hemilaminotomies and prior removal of extruded fragments. I personally spoke with Ivy yesterday evening and today reviewing these findings. We discussed conservative care versus revision microdiscectomy. She would like to proceed with surgery. Due to childcare constraints she is unable to do so until this weekend. We will plan for direct admission on Tuesday 10/24 with planning revision right L4-5 microdiscectomy on Tuesday 10/24 or Wednesday 10/25 pending OR availability. All questions were answered via the phone. Coordinated direct admission with bed control this evening. Patient will be called on 10/24 when bed available. Armen Godwin MD Orthopaedic Spine Surgery Allergies As of Date: 10/20/2024 Noted Allergy Reaction PENICILLIN G 04/12/2011 Comments: Hives Date Reviewed: 10/19/2024 Reviewed by: Donald Ramirez RT(R) - Fully Assessed Reason for Visit: Returning Patient's Call [[id number]] Prescriptions as of 10/20/2024 - ibuprofen (MOTRIN) 800 mg tablet TK 1 T PO TID WF OR MILK PRN - methylPREDNISolone (MEDROL, USAMA,) 4 mg Dose-Pack Take as prescribed - oxyCODONE-acetaminophe n (PERCOCET) 5-325 mg tablet Take 1 tablet by mouth every 8 hours as needed for pain for up to 5 days. for pain. - lidocaine (SALONPAS) 4 % patch Apply 1 patch as directed once daily. - naloxone 4 mg/actuation nasal spray (NARCAN) Use 1 spray in one nostril as needed for overdose. May repeat every 2 to 3 min in alternating nostrils until medical assistance is available - hydrOXYzine pamoate (VISTARIL) 25 mg capsule Take 25 mg by mouth three times a day as needed for anxiety. - traZODone (DESYREL) 100 mg tablet Take 100 mg by mouth daily at bedtime. Problem List As Of Date 10/20/2024 Noted Resolved Intractable pain [R52] 09/30/2024 10/06/2024 Lumbar radiculopathy [M54.16] 10/01/2024 10/06/2024 Spinal stenosis, lumbar region with neurogenic *10/03/2024 10/06/2024 Obesity, Class II, BMI 35-39.9 [E66.812] 10/05/2024 Encounter Status:Closed by MARY HUTCHINSON on 10/20/24 [facility] CNOVon 10-19-2024 CNOV Office Visit ([facility] ) IVY CREWS ([id number]) 2 F Date Time Provider Department 10/19/24 10:45 AM LULÚ EDMONDS During your visit today, we recorded the following information about you: Pulse Weight Height 87/minute 98.4 kg 1.626 m Lulú Edmonds APRN.E MERCHANT 10/19/2024 12:01 PM Signed Lulú Edmonds APRN Orthopaedic Spine Surgery [address] [place] [address], [address], [place] [address] FAX: [phone] Spine Surgery Post-op Follow-up Service Date: 10/19/2024 Surgery Date: 10/05/24 Surgery(ies): Right L4-5 microdiscectomy Pre-operative Symptoms: lumbar radiculopathy HPI: Ivy Crews is seen for 14 day post operative follow up. She continues to experience pain, numbness, and weakness in her right lower leg. Overall she has experienced minimal relief since surgery. ALLERGIES Allergen Reactions Penicillin G Hives Current Outpatient Medications Medication Sig Dispense Refill ibuprofen (MOTRIN) 800 mg tablet TK 1 T PO TID WF OR MILK PRN hydrOXYzine pamoate (VISTARIL) 25 mg capsule Take 25 mg by mouth three times a day as needed for anxiety. traZODone (DESYREL) 100 mg tablet Take 100 mg by mouth daily at bedtime. lidocaine (SALONPAS) 4 % patch Apply 1 patch as directed once daily. (Patient not taking: Reported on 10/19/2024) 5 patch 0 naloxone 4 mg/actuation nasal spray (NARCAN) Use 1 spray in one nostril as needed for overdose. May repeat every 2 to 3 min in alternating nostrils until medical assistance is available (Patient not taking: Reported on 10/19/2024) 2 each 0 No current facility-administered medications for this visit. Physical Examination: Vital Signs: Pulse 87 Ht 162.6 cm (5' 4.02) Wt 98.4 kg (217 lb) SpO2 97% BMI 37.23 kg/m? General Appearance: Well nourished, well developed, and no apparent distress. Incision: Clean, dry, and intact. No active drainage. No erythema. Sensory: Sensation intact to light touch in C5-T1 and L1-S1 dermatomes. Mildly diminished over L5-S1 dermatone along right leg. Motor: Upper Extremities Right Left Lower Extremities Right Left Psoas (L2) 5 5 Quadriceps (L3) 4 5 Dorsiflexion (L4) 4 5 EHL (L5) 4 5 Plantarflexion (S1) 4 5 Long Tract Signs: No clonus. Reflexes: Symmetric, non-brisk. Imaging No results found for this or any previous visit (from the past 36 hours). Assessment 23 year old female who presents post-op status-post Right L4-5 microdiscectomy : recovering but with persistent radicular symptoms and weakness in right leg. Plan PM will start on medrol dose pack and refill percoset Recommend updating MRI of lumbar spine due to persistent pain and weakness Follow-up once MRI is completed . Advised to call the office if symptoms worsen or new symptoms develop. Patient expressed understanding and is in agreement with plan. Lulú Edmonds APRN Allergies As of Date: 10/19/2024 Noted Allergy Reaction PENICILLIN G 04/12/2011 Comments: Hives Date Reviewed: 10/19/2024 Reviewed by: La Franks MA - Fully Assessed Reason for Visit: Post Op [174] Primary Visit Diagnosis:Radiculopath y of lumbar region [M54.16] Other Visit Diagnoses:Adverse effect of treatment, initial encounter [T88.9XXA] Spinal stenosis of lumbar region without neurogenic claudication [M48.061] Order(s):MRI LUMBAR SPINE WO IVCON [[id number]] Order #: [id number] FUTURE methylPREDNISolone (MEDROL, USAMA,) 4 mg Dose-PackTake as prescribedDisp: 21 tabletRfl: 0 oxyCODONE-acetaminophe n (PERCOCET) 5-325 mg tabletTake 1 tablet by mouth every 8 hours as needed for pain for up to 5 days. for pain.Disp: 15 tabletRfl: 0 Prescriptions as of 10/19/2024 - ibuprofen (MOTRIN) 800 mg tablet TK 1 T PO TID WF OR MILK PRN - methylPREDNISolone (MEDROL, USAMA,) 4 mg Dose-Pack Take as prescribed - oxyCODONE-acetaminophe n (PERCOCET) 5-325 mg tablet Take 1 tablet by mouth every 8 hours as needed for pain for up to 5 days. for pain. - lidocaine (SALONPAS) 4 % patch Apply 1 patch as directed once daily. - naloxone 4 mg/actuation nasal spray (NARCAN) Use 1 spray in one nostril as needed for overdose. May repeat every 2 to 3 min in alternating nostrils until medical assistance is available - hydrOXYzine pamoate (VISTARIL) 25 mg capsule Take 25 mg by mouth three times a day as needed for anxiety. - traZODone (DESYREL) 100 mg tablet Take 100 mg by mouth daily at bedtime. Problem List As Of Date 10/19/2024 Noted Resolved Intractable pain [R52] 09/30/2024 10/06/2024 Lumbar radiculopathy [M54.16] 10/01/2024 10/06/2024 Spinal stenosis, lumbar region with neurogenic *10/03/2024 10/06/2024 Obesity, Class II, BMI 35-39.9 [E66.812] 10/05/2024 Prescriptions ordered this encounter Disp Refills Start End METHYLPREDNISOLONE 4 MG TABLETS IN A* 21 t* 0 10/19/2024 10/25/2024 Sig: Take as prescribed OXYCODONE-ACETAMINOPHE N 5 MG-325 MG * 15 (more content not included)... Normal [facility] MRI LUMBAR SPINE WO IVCONon 10-19-2024 MRI LUMBAR SPINE WO IVCON * * *Final Report* * * DATE OF EXAM: Oct 19 2024 1:31PM RVM [id number] - MRI LUMBAR SPINE WO IVCON / PROCEDURE REASON: multiple diagnoses * * * * Physician Interpretation * * * * RESULT: EXAMINATION: MRI LUMBAR SPINE WO IVCON CLINICAL HISTORY: Radiculopathy of lumbar region. Spinal stenosis of lumbar region without neurogenic claudication. TECHNIQUE: Routine lumbosacral spine MR protocol without gadolinium. MQ: [id number] COMPARISON: MRI lumbar spine 10/01/2024 RESULT: Counting reference: Lumbosacral junction. For the purposes of this report, L4-5 is considered the level of the iliac crest and assume there are 5 lumbar-type vertebrae. Anatomic variant: None. Localizer images: No additional findings. Alignment: Alignment is anatomic. Bone marrow signal/fracture: No evidence of pathologic marrow infiltration. No evidence of prior fracture. Moderate disc space height loss at L5-S1 mild disc space height loss from L3 to L5 with disc desiccation. Conus: The conus is within normal limits of signal intensity and morphology. Paraspinal soft tissues: There is a fluid collection within the subcutaneous soft tissues extending from L3 to L5 measuring 5 cm in transverse dimension, 6 cm in craniocaudal dimension, 3.5 cm in AP dimension most consistent with a postoperative seroma. Lower thoracic spine: Visualized lower thoracic canal and foramina are patent. L1-L2: Canal and foramina are patent. L2-L3: Canal and foramina are patent L3-L4: There are postoperative changes of a right laminotomy. There is mild disc bulge with mild narrowing of the spinal canal and mild narrowing of the neural foramina. L4-L5: There is a large right subarticular disc extrusion with 15 mm of caudal migration that impinges on the right L5 nerve root. Overall there is moderate stenosis of the spinal canal with moderate narrowing of the right neural foramen. The left neural foramen is also moderately narrowed. This level appears worsened from the prior examination. L5-S1: Postoperative changes of a left laminotomy are suggested. There is a left subarticular disc extrusion with caudal migration that abuts the traversing left S1 nerve root sleeve. Overall the spinal canal is patent. There is moderate to severe stenosis of both neural foramina due to disc bulge impinging on the exiting L5 nerve roots. Sacrum and iliac wings: The visualized sacrum and iliac wings are within normal limits. IMPRESSION: Postoperative changes of a right laminotomy at L3-L4 and a left laminotomy at L5-S1. At L4-L5 there is worsening right subarticular disc extrusion with 16 mm of caudal migration that impinges on the right L5 nerve root. Anatomic Lumbar Variant: None. L4-5 is considered the level of the iliac crest and assume there are 5 lumbar-type vertebrae. Transcribe Date/Time: Oct 19 2024 1:44P Dictated by: VERNON PACHECO MD This examination was interpreted and the report reviewed and electronically signed by: VERNON PACHECO MD on Oct 19 2024 1:50PM EST Thank you for allowing us to participate in the care of your patient. Should there be any questions regarding this interpretation, please call . If you are unable to reach us at the number above, please feel free to contact [facility] at [phone]. [id number] Normal [facility] Basic metabolic 2000 panelon 10-06-2024 Anion gap [Moles/Vol] 5 mmol/L Normal 5-16 [facility] Comment on above: Order Comment: Speci men Type: BLOOD SPECIMENOrdering Facility: [facility] Address: [address] [place] [address] Performed By: #### 2 4321-2 ####[facility] LABORATORYCLIA [id number] [place] [address] [place] Calcium [Mass/Vol] 9.0 mg/dL Normal 8.5-10.5 [facility] Comment on above: Order Comment: Speci men Type: BLOOD SPECIMENOrdering Facility: [facility] Address: [address] [place] [address] Performed By: #### 2 4321-2 ####[facility] LABORATORYCLIA [id number] [place] [address] [place] Chloride [Moles/Vol] 108 mmol/L High 98-107 [facility] Comment on above: Order Comment: Speci men Type: BLOOD SPECIMENOrdering Facility: [facility] Address: [address] [place] [address] Performed By: #### 2 4321-2 ####[facility] LABORATORYCLIA [id number] [place] [id number] [place] CO2 [Moles/Vol] 26 mmol/L Normal 21-32 [facility] Comment on above: Order Comment: Speci men Type: BLOOD SPECIMENOrdering Facility: [facility] Address: [address] [place] [address] Performed By: #### 2 4321-2 ####[facility] LABORATORYCLIA [id number] [place] [address] [place] Creatinine [Mass/Vol] 0.57 mg/dL Normal 0.51-0.95 [facility] Comment on above: Order Comment: Wilver akhtar Type: BLOOD SPECIMENOrdering Facility: [facility] Address: [address] [place] [address] Result Comment: Holley ents receiving either N-Acetylcysteine (NAC) or Metamizole prior to venipuncture, may have falsely depressed results. Performed By: #### 2 4321-2 ####[facility] LABORATORYCLIA [id number] [address] [facility] Creatinine and Glomerular filtration rate.predicted panel (S/P/Bld) 132 mL/min/1.73m??? Normal >=60 [facility] Comment on above: Order Comment: Wilver akhtar Type: BLOOD SPECIMENOrdering Facility: [facility] Address: [address] [place] [address] Result Comment: Jacque mated Glomerular Filtration Rate (eGFR) is calculated using the 2020 CKD-EPI creatinine equation. This equation utilizes serum creatinine, sex, and age as parameters. The creatinine assay has traceable calibration to isotope dilution-mass spectrometry. Refer to KDIGO guidelines for clinical interpretation. In patients with unstable renal function, e.g. those with acute kidney injury, the eGFR may not accurately reflect actual GFR. Performed By: #### 2 4321-2 ####[facility] LABORATORYCLIA [id number] [place] [address] [place] Glucose [Mass/Vol] 201 mg/dL High 70-100 [facility] Comment on above: Order Comment: Wilver akhtar Type: BLOOD SPECIMENOrdering Facility: [facility] Address: [address] [place] [address] Result Comment: The [place] Diabetes [employer] (ADA) provides guidance for cutoff values for fasting glucose and random glucose. The ADA defines fasting as no caloric intake for at least 8 hours. Fasting plasma glucose results between 100 to 125 mg/dL indicate increased risk for diabetes (prediabetes). Fasting plasma glucose results greater than or equal to 126 mg/dL meet the criteria for diagnosis of diabetes. In the absence of unequivocal hyperglycemia, results should be confirmed by repeat testing. In a patient with classic symptoms of hyperglycemia or hyperglycemic crisis, random plasma glucose results greater than or equal to 200 mg/dL meet the criteria for diagnosis of diabetes. Reference: Standards of Medical Care in Diabetes 2016, [place] [employer]. Diabetes Care. 2016.39(Suppl 1). Results may be falsely elevated after the administration of Sulfapyridine. Results may be falsely depressed after the administration of Sulfasalazine. Performed By: #### 2 4321-2 ####[facility] LABORATORYCLIA [id number] [place] [address] [place] Potassium [Moles/Vol] 4.2 mmol/L Normal 3.5-5.1 [facility] Comment on above: Order Comment: Speci men Type: BLOOD SPECIMENOrdering Facility: [facility] Address: [address] [place] [address] Performed By: #### 2 4321-2 ####[facility] LABORATORYCLIA [id number] [place] [address] [place] Sodium [Moles/Vol] 139 mmol/L Normal 136-145 [facility] Comment on above: Order Comment: Speci men Type: BLOOD SPECIMENOrdering Facility: [facility] Address: [address] [place] [address] Performed By: #### 2 4321-2 ####[facility] LABORATORYCLIA [id number] [place] [address] [place] Urea nitrogen [Mass/Vol] 8 mg/dL Normal 7-26 [facility] Comment on above: Order Comment: Speci men Type: BLOOD SPECIMENOrdering Facility: [facility] Address: [address] [place] [address] Performed By: #### 2 4321-2 ####[facility] LABORATORYCLIA [id number] [place] [address] [place] CBC W Auto Differential pane l (Bld)on 10-06-2024 Basophils (Bld) [#/Vol] 10*3/uL Normal <0.11 [facility] Comment on above: Order Comment: Speci men Type: BLOOD SPECIMENOrdering Facility: [facility] Address: [address] [place] [address] Performed By: #### 5 7021-8 ####[facility] LABORATORYCLIA [id number] [address] [place] Basophils/100 WBC (Bld) 0.1 % Normal [facility] Comment on above: Order Comment: Speci men Type: BLOOD SPECIMENOrdering Facility: [facility] Address: [address] [place] [address] Performed By: #### 5 7021-8 ####[facility] LABORATORYCLIA [id number] [address] [place] Differential cell count method Nom (Bld) Auto Normal [facility] Comment on above: Order Comment: Speci men Type: BLOOD SPECIMENOrdering Facility: [facility] Address: [address] [place] [address] Performed By: #### 5 7021-8 ####[facility] LABORATORYCLIA [id number] [place] [address] [place] Eosinophils (Bld) [#/Vol] 10*3/uL Normal <0.46 [facility] Comment on above: Order Comment: Speci men Type: BLOOD SPECIMENOrdering Facility: [facility] Address: [address] [place] [address] Performed By: #### 5 7021-8 ####[facility] LABORATORYCLIA [id number] [address] [place] Eosinophils/100 WBC (Bld) 0.0 % Normal [facility] Comment on above: Order Comment: Speci men Type: BLOOD SPECIMENOrdering Facility: [facility] Address: [address] [place] [address] Performed By: #### 5 7021-8 ####[facility] LABORATORYCLIA [id number] [address] [place] Erythrocyte distribution width (RBC) [Ratio] 13.2 % Normal 11.5-15.0 [facility] Comment on above: Order Comment: Speci men Type: BLOOD SPECIMENOrdering Facility: [facility] Address: [address] [place] [address] Performed By: #### 5 7021-8 ####[facility] LABORATORYCLIA [id number] [address] [place] Hematocrit (Bld) [Volume fraction] 37.3 % Normal 36.0-46.0 [facility] Comment on above: Order Comment: Speci men Type: BLOOD SPECIMENOrdering Facility: [facility] Address: [address] [place] [address] Performed By: #### 5 7021-8 ####[facility] LABORATORYCLIA [id number] [place] [address] [place] Hemoglobin (Bld) [Mass/Vol] 12.8 g/dL Normal 11.5-15.5 [facility] Comment on above: Order Comment: Speci men Type: BLOOD SPECIMENOrdering Facility: [facility] Address: [address] [place] [address] Performed By: #### 5 7021-8 ####[facility] LABORATORYCLIA [id number] [address] [place] Immature granulocytes (Bld) [#/Vol] 0.07 10*3/uL Normal <0.10 [facility] Comment on above: Order Comment: Speci men Type: BLOOD SPECIMENOrdering Facility: [facility] Address: [address] [place] [address] Performed By: #### 5 7021-8 ####[facility] LABORATORYCLIA [id number] [address] [place] Immature granulocytes/100 WBC (Bld) 0.4 % Normal [facility] Comment on above: Order Comment: Speci men Type: BLOOD SPECIMENOrdering Facility: [facility] Address: [address] [place] [address] Performed By: #### 5 7021-8 ####[facility] LABORATORYCLIA [id number] [address] [place] Lymphocytes (Bld) [#/Vol] 0.92 10*3/uL Low 1.00-4.00 [facility] Comment on above: Order Comment: Speci men Type: BLOOD SPECIMENOrdering Facility: [facility] Address: [address] [place] [address] Performed By: #### 5 7021-8 ####[facility] LABORATORYCLIA [id number] [place] [address] [place] Lymphocytes/100 WBC (Bld) 5.9 % Normal [facility] Comment on above: Order Comment: Speci men Type: BLOOD SPECIMENOrdering Facility: [facility] Address: [address] [place] [address] Performed By: #### 5 7021-8 ####[facility] LABORATORYCLIA [id number] [place] [address] [place] MCH (RBC) [Entitic mass] 31.9 pg Normal 26.0-34.0 [facility] Comment on above: Order Comment: Speci men Type: BLOOD SPECIMENOrdering Facility: [facility] Address: [address] [place] [address] Performed By: #### 5 7021-8 ####[facility] LABORATORYCLIA [id number] [place] [address] [place] MCHC (RBC) [Mass/Vol] 34.3 g/dL Normal 30.5-36.0 [facility] Comment on above: Order Comment: Speci men Type: BLOOD SPECIMENOrdering Facility: [facility] Address: [address] [place] [address] Performed By: #### 5 7021-8 ####[facility] LABORATORYCLIA [id number] [place] [address] [place] MCV (RBC) [Entitic vol] 93.0 fL Normal 80.0-100.0 [facility] Comment on above: Order Comment: Speci men Type: BLOOD SPECIMENOrdering Facility: [facility] Address: [address] [place] [address] Performed By: #### 5 7021-8 ####[facility] LABORATORYCLIA [id number] [place] [id number] [place] Monocytes (Bld) [#/Vol] 1.19 10*3/uL High <0.87 [facility] Comment on above: Order Comment: Speci men Type: BLOOD SPECIMENOrdering Facility: [facility] Address: [address] [place] [address] Performed By: #### 5 7021-8 ####[facility] LABORATORYCLIA [id number] [place] [address] [place] Monocytes/100 WBC (Bld) 7.6 % Normal [facility] Comment on above: Order Comment: Speci men Type: BLOOD SPECIMENOrdering Facility: [facility] Address: [address] [place] [address] Performed By: #### 5 7021-8 ####[facility] LABORATORYCLIA [id number] [place] [address] [place] Neutrophils (Bld) [#/Vol] 13.41 10*3/uL High 1.45-7.50 [facility] Comment on above: Order Comment: Speci men Type: BLOOD SPECIMENOrdering Facility: [facility] Address: [address] [place] [address] Performed By: #### 5 7021-8 ####[facility] LABORATORYCLIA [id number] [place] [id number] [place] Neutrophils/100 WBC (Bld) 86.0 % Normal [facility] Comment on above: Order Comment: Speci men Type: BLOOD SPECIMENOrdering Facility: [facility] Address: [address] [place] [address] Performed By: #### 5 7021-8 ####[facility] LABORATORYCLIA [id number] [place] [id number] [place] Nucleated RBC (Bld) [#/Vol] 10*3/uL Normal <0.01 [facility] Comment on above: Order Comment: Speci men Type: BLOOD SPECIMENOrdering Facility: [facility] Address: [address] [place] [address] Performed By: #### 5 7021-8 ####[facility] LABORATORYCLIA [id number] [address] [place] Nucleated RBC/100 WBC (Bld) [Ratio] 0.0 /[address] [facility] Comment on above: Order Comment: Speci men Type: BLOOD SPECIMENOrdering Facility: [facility] Address: [address] [place] [address] Performed By: #### 5 7021-8 ####[facility] LABORATORYCLIA [id number] [place] [address] [place] Platelet mean volume (Bld) [Entitic vol] 10.0 fL Normal 9.0-12.7 [facility] Comment on above: Order Comment: Speci men Type: BLOOD SPECIMENOrdering Facility: [facility] Address: [address] [place] [address] Performed By: #### 5 7021-8 ####[facility] LABORATORYCLIA [id number] [place] [address] [place] Platelets (Bld) [#/Vol] 205 10*3/uL Normal 150-400 [facility] Comment on above: Order Comment: Speci men Type: BLOOD SPECIMENOrdering Facility: [facility] Address: [address] [place] [address] Performed By: #### 5 7021-8 ####[facility] LABORATORYCLIA [id number] [place] [address] [place] RBC (Bld) [#/Vol] 4.01 10*6/uL Normal 3.90-5.20 [facility] Comment on above: Order Comment: Speci men Type: BLOOD SPECIMENOrdering Facility: [facility] Address: [address] [place] [address] Performed By: #### 5 7021-8 ####[facility] LABORATORYCLIA [id number] [address] [place] WBC (Bld) [#/Vol] 15.60 10*3/uL High 3.70-11.00 [facility] Comment on above: Order Comment: Speci men Type: BLOOD SPECIMENOrdering Facility: [facility] Address: [address] [place] [address] Performed By: #### 5 7021-8 ####[facility] LABORATORYCLIA [id number] [address] CNDSon 10-06-2024 CNDS HNO ID: [id number] Author: TERRIE HORTA MD Service: Hospital Medicine Author Type: Physician Type: Discharge Summary Filed: 10/06/2024 12:25 Note Text: DISCHARGE SUMMARY PATIENT NAME: Ivy Crews ADMISSION DATE: 09/30/2024 DISCHARGE DATE: 10/06/2024 ATTENDING PHYSICIAN: Terrie Horta MD Code Status: Full Code Highest Readmission Risk Score: 4 The 30 day readmissions risk score is derived from an internally validated risk model which evaluates patient level characteristics, utilization history, medication orders and lab results up until the day of discharge. Patients with a score of 39 or above are considered highest risk for readmission. Specific patient level drivers will be listed at the bottom of the summary. CONSULTING TEAMS DURING HOSPITALIZATION: Ortho CHIEF COMPLAINT: Intractable back pain FINAL DIAGNOSIS: Right sided lumbar radiculopathy OPERATIONS/PROCEDURES DURING HOSPITALIZATION: Right L4-5 microdiscectomy HOSPITAL COURSE: Patient is a 23-year-old female past medical history of anxiety depression obesity presented with intractable back pain secondary to L4-5 paracentral disc extrusion with lateral recess stenosis compression of L5 nerve root causing acute right sided lumbar radiculopathy underwent microdiscectomy. Postop. Uncomplicated. Pain reasonably controlled. Tolerating p.o. well. Afebrile. Leukocytosis suspected reactive. Repeat CBC in a couple days to follow the trend. Patient has been cleared by Ortho for discharge follow-up as an outpatient for further recommendation discharged on Oxy IR, Flexeril, Lidoderm patch for pain control no anti-inflammatory. 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 cyclobenzaprine 5 mg tablet Commonly known as: FLEXERIL Take 1 tablet by mouth three times a day as needed for up to 7 days. lidocaine 4 % patch Commonly known as: SALONPAS Apply 1 patch as directed once daily. naloxone 4 mg/actuation nasal spray Use 1 spray in one nostril as needed for overdose. May repeat every 2 to 3 min in alternating nostrils until medical assistance is available oxyCODONE IR 10 mg Tab Commonly known as: ROXICODONE Take 1 tablet by mouth every 4 hours as needed for up to 7 days. senna-docusate 8.6-50 mg per tablet Commonly known as: SENNA-S Take 1 tablet by mouth two times a day as needed for up to 10 days. CONTINUE taking these medications hydrOXYzine pamoate 25 mg capsule Commonly known as: VISTARIL traZODone 100 mg tablet Commonly known as: DESYREL Where to Get Your Medications These medications were sent to [facility] [address] [place] [address] [id number] - [address] [facility] - [phone] [facility] [address] [facility] [address] bisacodyl EC 5 mg EC tablet cyclobenzaprine 5 mg tablet lidocaine 4 % patch naloxone 4 mg/actuation nasal spray oxyCODONE IR 10 mg Tab senna-docusate 8.6-50 mg per tablet FUTURE APPOINTMENTS: Follow Up with PCP: JENNIFER Torrez Follow Up with Ortho The patient's risk for 30-day readmission is determined using the following contributing factors: Predictive Model Details 4% (Low) Factor Value Calculated 10/06/2024 05:24 -96% Hospital Unit MR 5B MED/SURG [facility] READMISSION RISK Model 19% Current Age 23 -14% Admissions (365d) 1 -11% Diagnosis Count 3 -9% [facility]365d) [facility] App[facility]ments (365d) 0 -6% Observations (365d) 0 -5% RDW (Max) 13.2 -4% Admissions (60d) 1 TIME OF CARE: Discharge Management: I personally spent greater than 30 minutes involved in the discharge management of this patient. SIGNATURE: Terrie Horta MD DATE: October 06, 2024 TIME: 12:[address] [facility] THERAPY NTon 10-06-2024 THERAPY NT HNO ID: [id number] Author: YOLETTE SUH OTR/L Service: ? Author Type: Occupational Therapist Type: Therapy (PT/OT/Speech/Resp) Filed: 10/06/2024 10:14 Note Text: Occupational Therapy Evaluation Summary SERVICE DATE: 10/06/2024 SERVICE TIME: 931 to 0948 ROOM: [place] [address] OT 6 Clicks Score: 24 DISCHARGE RECOMMENDATIONS Home Recommended Discharge Disposition Comments: Pt is at baseline for all ADLs. Denies concerns for home going. Does not require continued skilled OT. OT signing off Anticipated Discharge Needs: Other: See Comment (None) Recommended Discharge Equipment: No equipment needs anticipated ASSESSMENT Response to Therapy Interventions: Good Participation in Activities Pt is at baseline for all ADLs PRECAUTIONS Spine CURRENT HOSPITAL COURSE Admitted for intractable bakc pain, required R L4-[address] 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 Baseline Cognition: Oriented to self, Oriented to place, Oriented to time, Oriented to situation SUBJECTIVE Pt agreeable and pleasant COGNITION Responsiveness: Alert, Awake Follows Commands: 3-step Commands THERAPY DIAGNOSIS No Skilled Need TREATMENT INTERVENTIONS Evaluation Skilled Treatment Time (minutes): 16 TRAINING AND EDUCATION PROVIDED Benefits of In-Hospital Mobility, Lower Extremity Dressing, Precautions/Restrictio ns, Role of Occupational Therapy, Safety/Judgment THERAPEUTIC SKILLS USED Assessment of Tolerance Including Vitals Response to Activity, Therapeutic Use of Self FUNCTIONAL STATUS Activities of Daily Living Assist Level Additional Information Feeding Modified Independent Grooming Modified Independent Bathing Upper Body Modified Independent Bathing Lower Body Modified Independent Dressing Upper Body Modified Independent Dressing Lower Body Modified Independent, Additional Information Donned/doff pants. Educated over director teen post use. Educated to meche LLE first Toileting Modified Independent Mobility Assist Level Additional Information Bed Mobility Sit to Stand Modified Independent Stand to Sit Modified Independent Bed to Chair Toilet/Commode Shower Functional Mobility Modified Independent, Additional Information Functional Mobility Device: None Pt able to mobilize from chair to bathroom to hallway back to chair (~ 40 ft) with mod I throughout. Denied increased pain throughout Hand Dominance: Right Range of Motion: WFL Except (NT due to spine) Strength: WFL Except (NT due to spine) GOALS Patient will demonstrate understanding of importance of mobility during hospital stay and resolve all self-care, cognitive and/or coping needs identified. Progress Toward Goals: Progressing as expected Rehab Potential: Good PLAN OT Frequency: Discontinue Therapy Services Reasons Therapy Services Discontinued: No skilled needs Treatment Interventions: Education SIGNATURE: MAURO Holley/Leandro PATIENT NAME: Ivy Crews DATE: October 06, 2024 TIME: 10:14 AM [facility] ANES POSTPROC EVALon 025 ANES POSTPROC EVAL HNO ID: [id number] Author: MATTHIAS BURGESS DO Service: ? Author Type: Anesthesiologist Type: Anesthesia Postprocedure Evaluation Filed: 10/05/2024 12:54 Note Text: POST ANESTHESIA EVALUATION NOTE : 2001 Procedure Summary Date: 10/05/24 Room / Location: MR OR / MR OR Anesthesia Start: 914 Anesthesia Stop: 1128 Procedure: Right L4-5 microdiscectomy (Right: Spine Lumbar) Diagnosis: Lumbar radiculopathy (Lumbar radiculopathy [M54.16]) Surgeons: Armen Godwin MD Responsible Provider: Matthias Burgess DO Anesthesia Type: general ASA Status: 2 Anesthesia Type: general Airway Type: ETT Last Vitals Vitals Value Taken Time BP 126/60 10/05/24 1215 Temp 36.7 ?C (98.1 ?F) 10/05/24 1215 HR SpO2 83 10/05/24 1230 Resp 16 10/05/24 1215 SpO2 95 % 10/05/24 1230 Vitals shown include unfiled device data. Post Anesthesia Patient Status Patient Evaluation: PACU. PACU/ICU Patient Condition: stable. Anticipated Disposition: inpatient floor planned admission. Neurological Status: aware and responsive. Pulmonary Status: breathing comfortably on room air Airway Control: returned to baseline unsupported. Cardiovascular Status: stable. Pain Management: clinically adequate - multimodal analgesia pain management approach Postoperative Hydration: acceptable. Intraoperative Events: no significant anesthesia events Post Operative Nausea/Vomiting Status: no significant post operative nausea or vomiting Recommendation: further care per PACU/ICU/floor team. Anesthesia Observations No Documentation SIGNATURE: Matthias Burgess DO PATIENT NAME: Ivy Crews DATE: October 05, 2024 TIME: 12:54 PM CSN: [id number] [facility] ANES PRE-OPon 10-05-2024 ANES PRE-OP HNO ID: [id number] Author: MATTHIAS BURGESS DO Service: ? Author Type: Anesthesiologist Type: Anesthesia Preprocedure Evaluation Filed: 10/05/2024 09:12 Note Text: ANESTHESIOLOGY DAY OF SURGERY NOTE : 2001 Procedure Information Date/Time: 10/05/24 09 Procedure: Right L4-5 microdiscectomy (Right: Spine Lumbar) Location: MR OR 09 / MR OR Surgeons: Armen Godwin MD Estimated body mass index is 37.39 kg/m? as calculated from the following: Height as of this encounter: 162.6 cm (5' 4). Weight as of this encounter: 98.8 kg (217 lb 13 oz). Most recent hematocrit and potassium results: Hematocrit 40.3 10/05/2024 Potassium 3.9 10/05/2024 Relevant Problems ANESTHESIA (within normal limits) CARDIO (within normal limits) ENDO (within normal limits) GI (within normal limits) -RENAL (within normal limits) NEURO-PSYCH (within normal limits) PULMONARY (within normal limits) I - PHYSICAL EVALUATION AIRWAY Patient intubated: No. Tracheostomy tube not present Mallampati: I. TM distance: <3 FB. Neck ROM: full ROM without neurological symptoms. Mouth opening: adequate. Short neck: no. Thick neck: no DENTAL Dental findings: teeth intact. II - ANESTHESIA PLAN ASA Score: 2 Anesthetic Plan: general Airway type: ETT NPO Status: adequate Beta Esther Monitoring Plan Monitoring plan: standard ASA. Post Procedure Analgesic Plan Postoperative analgesic plan: parenteral or oral opioids and multimodal analgesia. Informed Consent Anesthetic risks, benefits, alternatives, personnel and consent discussed: yes. Patient / Responsible Alliance Party agrees to proceed: yes Patient / Surrogate agrees to blood products: blood products not planned Vitals Value Taken Time BP 106/71 10/05/24 0904 Pulse 98 10/05/24 0910 Resp 20 10/05/24 0903 Temp 37.1 ?C (98.7 ?F) 10/05/24 0903 SpO2 97 % 10/05/24 0910 Vitals shown include unfiled device data. Facility-Administered Medications as of 10/05/2024 Medication Dose Route Frequency [Transfer Hold] HYDROmorphone 1 mg injection (DILAUDID) 1 mg INTRAVENOUS q 3 H PRN [Transfer Hold] ceFAZolin iv piggyback 2 g in D5W (iso-osmotic) 100 mL (ANCEF) 2 g INTRAVENOUS ONCE [Transfer Hold] bisacodyl EC 10 mg tab(s) (DULCOLAX) 10 mg ORAL DAILY PRN [COMPLETED] lactated ringers 500 mL iv bolus 500 mL INTRAVENOUS ONCE [Transfer Hold] senna-docusate 8.6-50 mg 1 tablet (SENNA-S) 1 tablet ORAL BID PRN [Transfer Hold] acetaminophen 1,000 mg tab(s) (TYLENOL) 1,000 mg ORAL q 8 H [COMPLETED] keTORolac 10 mg tab(s) (Toradol) 10 mg ORAL BID [Transfer Hold] hydrOXYzine pamoate 25 mg cap(s) (VISTARIL) 25 mg ORAL TID PRN [Transfer Hold] traZODone 100 mg tab(s) (DESYREL) 100 mg ORAL AT BEDTIME [Transfer Hold] lidocaine 4 % 1 patch (SALONPAS) 1 patch TRANSDERMAL DAILY AT 9 PM And [Transfer Hold] lidocaine patch - REMOVE OTHER DAILY And [Transfer Hold] lidocaine - VERIFY PATCH OTHER q 8 H [Transfer Hold] ondansetron (PF) 4 mg injection (ZOFRAN) 4 mg INTRAVENOUS q 6 H PRN [Transfer Hold] oxyCODONE IR 10 mg tab(s) (ROXICODONE) 10 mg ORAL q 4 H PRN [Transfer Hold] cyclobenzaprine 5 mg tab(s) (FLEXERIL) 5 mg ORAL TID PRN [Transfer Hold] NaCl 0.9% iv flush bag 20 mL INTRAVENOUS PRN [Transfer Hold] aluminum-magnesium hydroxide-simethicone 200-200-20 mg/5 mL 30 mL 30 mL ORAL DAILY PRN No current outpatient medications on file as of 10/05/2024. I have interviewed and examined the patient. I have reviewed the medical record and/or the pre-anesthesia evaluation, pertinent labs, and test results. This contains updated information obtained within 48 hours of Surgery/Procedure. SIGNATURE: Matthias Burgess DO PATIENT NAME: Ivy Crews DATE: October 05, 2024 TIME: 9:12 AM CSN: [id number] [facility] BRIEF OP NOTon 10-05-2024 BRIEF OP NOT HNO ID: [id number] Author: ARMEN GODWIN MD Service: Orthopaedic Surgery Author Type: Physician Type: Brief Op Note Filed: 10/05/2024 11:06 Note Text: Orthopaedic Surgery Brief Operative Note Log ID: [id number] Surgery/Procedure Date: 10/05/2024 Incision/Procedure Start Time: 9:50 AM Incision Close/Procedure End Time: Surgeon(s)/Procedurali st(s) and Customs Investigator(s): Surgeons and Role: * Armen Godwin MD - Primary Physician Customs Investigator: Tatiana Calero PA-C Heating Fixture Tender: Jose David Maravilla SA Procedure(s): Right L4-5 microdiscectomy Anesthesia: General Pre-Op/Pre-Procedure Diagnosis: Lumbar radiculopathy, lumbar disc herniation Post-Op/Post-Procedure Diagnosis: Same Fluids: 900 mL Estimated Blood Loss: 25 mL Quiñonez: None Specimens: None Drains: None Findings: See operative report. Complications: None Special medications: 2 g Ancef Assessment: 23 year old female status-post: right L4-5 microdiscectomy. Post op plan: Pain control. Neuro checks Q4H. Activity: No bending, twisting, or lifting >15 lbs. Immobilization: None. Dressing(s): Gauze AND Tegaderm - maintain until POD #5. Drain(s): None. PT/OT: Evaluation AND recommendations. DVT PPx: SCDs. No chemoprophylaxis until POD #2. Antibiotics: Ancef 2 g Q8H for 24 hours. Quiñonez: None. Imaging: None. Anticipated Length of Stay/Disposition: 0-1 days/Home. Follow-up: 2 weeks post-op. Armen Godwin MD Orthopaedic Spine Surgery Normal [facility] Basic metabolic 2000 panelon 10-05-2024 Anion gap [Moles/Vol] 4 mmol/L Low 5-16 [facility] Comment on above: Order Comment: Speci men Type: BLOOD SPECIMENOrdering Facility: [facility] Address: [address] [place] [address] Performed By: #### 2 4321-2 ####[facility] LABORATORYCLIA [id number] [place] [address] [place] Calcium [Mass/Vol] 9.2 mg/dL Normal 8.5-10.5 [facility] Comment on above: Order Comment: Speci men Type: BLOOD SPECIMENOrdering Facility: [facility] Address: [address] [place] [address] Performed By: #### 2 4321-2 ####[facility] LABORATORYCLIA [id number] [place] [address] [place] Chloride [Moles/Vol] 104 mmol/L Normal 98-107 [facility] Comment on above: Order Comment: Speci men Type: BLOOD SPECIMENOrdering Facility: [facility] Address: [address] [place] [address] Performed By: #### 2 4321-2 ####[facility] LABORATORYCLIA [id number] [place] [address] [place] CO2 [Moles/Vol] 29 mmol/L Normal 21-32 [facility] Comment on above: Order Comment: Wilver akhtar Type: BLOOD SPECIMENOrdering Facility: [facility] Address: [address] [place] [address] Performed By: #### 2 4321-2 ####[facility] LABORATORYCLIA [id number] [place] [address] [place] Creatinine [Mass/Vol] 0.71 mg/dL Normal 0.51-0.95 [facility] Comment on above: Order Comment: Wilver men Type: BLOOD SPECIMENOrdering Facility: [facility] Address: [address] [place] [address] Result Comment: Holley ents receiving either N-Acetylcysteine (NAC) or Metamizole prior to venipuncture, may have falsely depressed results. Performed By: #### 2 4321-2 ####[facility] LABORATORYCLIA [id number] [address] Creatinine and Glomerular filtration rate.predicted panel (S/P/Bld) 123 mL/min/1.73m??? Normal >=60 [facility] Comment on above: Order Comment: Wilver akhtar Type: BLOOD SPECIMENOrdering Facility: [facility] Address: [address] [place] [address] Result Comment: Jacque mated Glomerular Filtration Rate (eGFR) is calculated using the 2020 CKD-EPI creatinine equation. This equation utilizes serum creatinine, sex, and age as parameters. The creatinine assay has traceable calibration to isotope dilution-mass spectrometry. Refer to KDIGO guidelines for clinical interpretation. In patients with unstable renal function, e.g. those with acute kidney injury, the eGFR may not accurately reflect actual GFR. Performed By: #### 2 4321-2 ####[facility] LABORATORYCLIA [id number] [place] [address] [place] Glucose [Mass/Vol] 108 mg/dL High 70-100 [facility] Comment on above: Order Comment: Wilver akhtar Type: BLOOD SPECIMENOrdering Facility: [facility] Address: [address] [place] [id number] Result Comment: The [place] [employer] (ADA) provides guidance for cutoff values for fasting glucose and random glucose. The ADA defines fasting as no caloric intake for at least 8 hours. Fasting plasma glucose results between 100 to 125 mg/dL indicate increased risk for diabetes (prediabetes). Fasting plasma glucose results greater than or equal to 126 mg/dL meet the criteria for diagnosis of diabetes. In the absence of unequivocal hyperglycemia, results should be confirmed by repeat testing. In a patient with classic symptoms of hyperglycemia or hyperglycemic crisis, random plasma glucose results greater than or equal to 200 mg/dL meet the criteria for diagnosis of diabetes. Reference: Standards of Medical Care in Diabetes 2016, [place] [employer]. Diabetes Care. 2016.39(Suppl 1). Results may be falsely elevated after the administration of Sulfapyridine. Results may be falsely depressed after the administration of Sulfasalazine. Performed By: #### 2 4321-2 ####[facility]ORATORYCLIA [id number] [place] [address] [place] Potassium [Moles/Vol] 3.9 mmol/L Normal 3.5-5.1 [facility] Comment on above: Order Comment: Speci men Type: BLOOD SPECIMENOrdering Facility: [facility] Address: [address] [id number] Performed By: #### 2 4321-2 ####[facility]ORATORYCLIA [id number] [place] [address] [place] Sodium [Moles/Vol] 137 mmol/L Normal 136-145 [facility] Comment on above: Order Comment: Speci men Type: BLOOD SPECIMENOrdering Facility: [facility] Address: [address] [place] [address] Performed By: #### 2 4321-2 ####[facility]ORATORYCLIA [id number] [place] [address] [place] Urea nitrogen [Mass/Vol] 9 mg/dL Normal 7-26 [facility] Comment on above: Order Comment: Speci men Type: BLOOD SPECIMENOrdering Facility: [facility] Address: [address] [place] [address] Performed By: #### 2 4321-2 ####[facility]ORATORYCLIA [id number] [place] [id number] [place] CBC W Auto Differential pane l (Bld)on 10-05-2024 Basophils (Bld) [#/Vol] 10*3/uL Normal <0.11 [facility] Comment on above: Order Comment: Speci men Type: BLOOD SPECIMENOrdering Facility: [facility] Address: [address] [place] [address] Performed By: #### 5 7021-8 ####[facility]ORATORYCLIA [id number] [place] [address] [place] Basophils/100 WBC (Bld) 0.2 % Normal [facility] Comment on above: Order Comment: Speci men Type: BLOOD SPECIMENOrdering Facility: [facility] Address: [address] [place] [address] Performed By: #### 5 7021-8 ####[facility]ORATORYCLIA [id number] [address] [facility] Differential cell count method Nom (Bld) Auto Normal [facility] Comment on above: Order Comment: Speci men Type: BLOOD SPECIMENOrdering Facility: [facility] Address: [address] [place] [address] Performed By: #### 5 7021-8 ####[facility]ORATORYCLIA [id number] [place] [address] [place] Eosinophils (Bld) [#/Vol] 0.25 10*3/uL Normal <0.46 [facility] Comment on above: Order Comment: Speci men Type: BLOOD SPECIMENOrdering Facility: [facility] Address: [address] [place] [address] Performed By: #### 5 7021-8 ####[facility]ORATORYCLIA [id number] [address] [place] Eosinophils/100 WBC (Bld) 2.5 % Normal [facility] Comment on above: Order Comment: Speci men Type: BLOOD SPECIMENOrdering Facility: [facility] Address: [address] [place] [address] Performed By: #### 5 7021-8 ####[facility]ORATORYCLIA [id number] [place] [address] [place] Erythrocyte distribution width (RBC) [Ratio] 13.2 % Normal 11.5-15.0 [facility] Comment on above: Order Comment: Speci men Type: BLOOD SPECIMENOrdering Facility: [facility] Address: [address] [place] [address] Performed By: #### 5 7021-8 ####[facility]ORATORYCLIA [id number] [place] [address] [place] Hematocrit (Bld) [Volume fraction] 40.3 % Normal 36.0-46.0 [facility] Comment on above: Order Comment: Speci men Type: BLOOD SPECIMENOrdering Facility: [facility] Address: [address] [place] [address] Performed By: #### 5 7021-8 ####[facility]ORATORYCLIA [id number] [place] [address] [place] Hemoglobin (Bld) [Mass/Vol] 13.5 g/dL Normal 11.5-15.5 [facility] Comment on above: Order Comment: Speci men Type: BLOOD SPECIMENOrdering Facility: [facility] Address: [address] [place] [address] Performed By: #### 5 7021-8 ####[facility]ORATORYCLIA [id number] [address] [place] Immature granulocytes (Bld) [#/Vol] 0.04 10*3/uL Normal <0.10 [facility] Comment on above: Order Comment: Speci men Type: BLOOD SPECIMENOrdering Facility: [facility] Address: [address] [place] [address] Performed By: #### 5 7021-8 ####[facility]ORATORYCLIA [id number] [place] [address] [place] Immature granulocytes/100 WBC (Bld) 0.4 % Normal [facility] Comment on above: Order Comment: Speci men Type: BLOOD SPECIMENOrdering Facility: [facility] Address: [address] [place] [address] Performed By: #### 5 7021-8 ####[facility]ORATORYCLIA [id number] [place] [address] [place] Lymphocytes (Bld) [#/Vol] 2.11 10*3/uL Normal 1.00-4.00 [facility] Comment on above: Order Comment: Speci men Type: BLOOD SPECIMENOrdering Facility: [facility] Address: [address] [place] [address] Performed By: #### 5 7021-8 ####[facility]ORATORYCLIA [id number] [address] [place] Lymphocytes/100 WBC (Bld) 21.4 % Normal [facility] Comment on above: Order Comment: Speci men Type: BLOOD SPECIMENOrdering Facility: [facility] Address: [address] [place] [address] Performed By: #### 5 7021-8 ####[facility]ORATORYCLIA [id number] [place] [address] [place] MCH (RBC) [Entitic mass] 31.3 pg Normal 26.0-34.0 [facility] Comment on above: Order Comment: Speci men Type: BLOOD SPECIMENOrdering Facility: [facility] Address: [address] [place] [address] Performed By: #### 5 7021-8 ####[facility]ORATORYCLIA [id number] [place] [address] [place] MCHC (RBC) [Mass/Vol] 33.5 g/dL Normal 30.5-36.0 [facility] Comment on above: Order Comment: Speci men Type: BLOOD SPECIMENOrdering Facility: [facility] Address: [address] [place] [address] Performed By: #### 5 7021-8 ####[facility]ORATORYCLIA [id number] [place] [address] [place] MCV (RBC) [Entitic vol] 93.5 fL Normal 80.0-100.0 [facility] Comment on above: Order Comment: Speci men Type: BLOOD SPECIMENOrdering Facility: [facility] Address: [address] [place] [address] Performed By: #### 5 7021-8 ####[facility]ORATORYCLIA [id number] [place] [address] [place] Monocytes (Bld) [#/Vol] 0.93 10*3/uL High <0.87 [facility] Comment on above: Order Comment: Speci men Type: BLOOD SPECIMENOrdering Facility: [facility] Address: [address] [place] [address] Performed By: #### 5 7021-8 ####[facility]ORATORYCLIA [id number] [address] [place] Monocytes/100 WBC (Bld) 9.4 % Normal [facility] Comment on above: Order Comment: Speci men Type: BLOOD SPECIMENOrdering Facility: [facility] Address: [address] [place] [address] Performed By: #### 5 7021-8 ####[facility]ORATORYCLIA [id number] [place] [address] [place] Neutrophils (Bld) [#/Vol] 6.51 10*3/uL Normal 1.45-7.50 [facility] Comment on above: Order Comment: Speci men Type: BLOOD SPECIMENOrdering Facility: [facility] Address: [address] [place] [address] Performed By: #### 5 7021-8 ####[facility]ORATORYCLIA [id number] [place] [address] [place] Neutrophils/100 WBC (Bld) 66.1 % Normal [facility] Comment on above: Order Comment: Speci men Type: BLOOD SPECIMENOrdering Facility: [facility] Address: [address] [place] [address] Performed By: #### 5 7021-8 ####[facility]ORATORYCLIA [id number] [place] [id number] [place] Nucleated RBC (Bld) [#/Vol] 10*3/uL Normal <0.01 [facility] Comment on above: Order Comment: Speci men Type: BLOOD SPECIMENOrdering Facility: [facility] Address: [address] [place] [address] Performed By: #### 5 7021-8 ####[facility]ORATORYCLIA [id number] [place] [address] [place] Nucleated RBC/100 WBC (Bld) [Ratio] 0.0 /[address] [facility] Comment on above: Order Comment: Speci men Type: BLOOD SPECIMENOrdering Facility: [facility] Address: [address] [place] [address] Performed By: #### 5 7021-8 ####[facility]ORATORYCLIA [id number] [place] [address] [place] Platelet mean volume (Bld) [Entitic vol] 10.1 fL Normal 9.0-12.7 [facility] Comment on above: Order Comment: Speci men Type: BLOOD SPECIMENOrdering Facility: [facility] Address: [address] [place] [address] Performed By: #### 5 7021-8 ####[facility]ORATORYCLIA [id number] [place] [address] [place] Platelets (Bld) [#/Vol] 193 10*3/uL Normal 150-400 [facility] Comment on above: Order Comment: Speci men Type: BLOOD SPECIMENOrdering Facility: [facility] Address: [address] [place] [address] Performed By: #### 5 7021-8 ####[facility]ORATORYCLIA [id number] [place] [id number] [place] RBC (Bld) [#/Vol] 4.31 10*6/uL Normal 3.90-5.20 [facility] Comment on above: Order Comment: Speci men Type: BLOOD SPECIMENOrdering Facility: [facility] Address: [address] [place], [place] [address] Performed By: #### 5 7021-8 ####[facility] LABORATORYCLIA [id number] [place] [id number] [place] WBC (Bld) [#/Vol] 9.86 10*3/uL Normal 3.70-11.00 [facility] Comment on above: Order Comment: Speci men Type: BLOOD SPECIMENOrdering Facility: [facility] Address: [address] [place], [place] [address] Performed By: #### 5 7021-8 ####[facility] LABORATORYCLIA [id number] [place] [id number] [facility] OPERATIVE NOon 10-05-2024 OPERATIVE NO HNO ID: [id number] Author: ARMEN GODWIN MD Service: Orthopaedic Surgery Author Type: Physician Type: Operative Report Filed: 10/20/2024 11:43 Note Text: Orthopaedic Surgery Operative Report Patient Name: vIy Crews Log ID: [id number] Surgery/Procedure Date: 10/05/2024 Incision/Procedure Start Time: 9:50 AM Incision Close/Procedure End Time: 11:09 AM Surgeon(s): Armen Godwin MD Customs Investigator(s): Surgeons and Role: * Armen Godwin MD - Primary Physician Customs Investigator: Tatiana Calero PA-C Heating Fixture Tender: Jose David Maravilla SA No qualified resident was available to assist in this procedure. Tatiana Calero PA-C assisted in all aspects of the case including positioning, prepping, draping, exposure, and decompression. Pre-Op/Pre-Procedure Diagnosis: Lumbar disc herniation Lumbar radiculopathy Post-Op/Post-Procedure Diagnosis: Same Anesthesia: General Procedure(s) in Summary: Right L4-5 hemilaminotomy and microdiscectomy Use of operating microscope Instrumentation: None Operative Procedure: The patient was identified in the preoperative holding area. Consent and surgical level were verified. The risks, benefits, and alternatives of surgery were reviewed, and the patient accepted and desired to proceed. All questions were answered, and no guarantees were given or implied. The patient voiced an understanding of the surgical plan and postoperative care. The patient was brought into the operating theater where anesthesia was induced. Line access was performed. The patient was positioned prone. Care was taken to pad all bony prominences from the head, upper extremities, trunk, and lower extremities. The patient was prepped and draped in the standard surgical fashion. A time-out was performed with the attending physicians present from both Anesthesia and Surgery, as well as the nursing staff members. Images were reviewed and surgical level and plan confirmed. Antibiotics were administered, and we proceeded with the surgery. Intraoperative fluoroscopy was used to verify the correct position at the L4-5 levels. The skin was marked, and a small incision was made midline. Dissection was carried out to the fascia which was incised off midline. Dissection was carried out down to the level of the L4 lamina on the right side. The v belt skiver retractor was secured in the wound, and the operating microscope was brought into the field for decompression and microdiscectomy. The remainder of the surgical procedure was conducted under the microscope. Given multiple prior microdiscectomies and scarring on MRI as well as overlap of L3 and L4 lamina I elected to work from cephalad to caudal.Next, the right L3 and L4 lamina was identified and a hemilaminotomy was performed at each (cephalad on L4 and caudal on L3) until the ligamentum flavum was clearly identified. This was then resected using curette and Kerrison rongeur to reveal the thecal sac and its contents, as well as the traversing nerve root. A medial facetectomy was performed. A foraminotomy was achieved with Kerrison rongeurs at this level. The descending nerve and dural sac was retracted medially. The disc was noted to be very tough and fibrous in nature. No annulotomy was made, and free disc was removed at the L4-5 levels. X-ray was again used to confirm the correct level. Bart elevator was used to depress the fibrous tissue ventrally to decompress the thecal sac and traversing nerve root. Once this was completed, a nerve hook could easily be passed along the nerve root and along the medial side of the thecal sac without any residual neural compression. Copious irrigation was then undertaken at this point in time including normal saline and a Betadine saline solution. A deep drain was placed, followed by Vanc powder. The wound was then closed in layers. Deep fascial layer was with interrupted vicryl suture. The space was closed down with 0 Vicryl followed by 2-0 inverted Vicryl dermal stitches and a running subcuticular monocryl was used for skin closure. Soft dressings were then applied, and the patient was awoken from anesthesia without complication. Antibiotics/Special Medications: 2 g Ancef DVT Prophylaxis: Sequential compression devices Fluids: 900 mL Estimated Blood Loss: 25 mL Quiñonez: None Specimens: None Drains: None Complications: None Outcome: Stable to PACU Level of Involvement of Attending: Scrubbed for entirety of procedure Armen Godwin MD Orthopaedic Spine Surgery [facility] THERAPY NTon 10-05-2024 THERAPY NT HNO ID: [id number] Author: JOSH ULLOA OTR/Leandro Service: Occupational Therapy Author Type: Occupational Therapist Type: Therapy (PT/OT/Speech/Resp) Filed: 10/05/2024 09:50 Note Text: OCCUPATIONAL THERAPY MISSED VISIT SERVICE DATE: 10/05/2024 SERVICE TIME: 948 ROOM: MR SURGERY POOL (MR SURGERY) Patient not seen due to Test / Procedure (Pt to undergo right L4-5 microdiscectomy today.). SIGNATURE: REJI Kaur PATIENT NAME: Ivy Crews DATE: October 05, 2024 TIME: 9:49 AM [facility] XR VERIFY LEVEL [id number] 10-05-2024 XR VERIFY LEVEL L-SPINE-NB * * *Final Report* * * DATE OF EXAM: Oct 05 2024 10:02AM [id number] - XR VERIFY LEVEL L-SPINE-NB / PROCEDURE REASON: Other * * * * Physician Interpretation * * * * XR VERIFY LEVEL L-SPINE-NB Ordering Physician: ARMEN GODWIN 10/05/2024 10:02 AM LUMBAR SPINE LOCALIZATION Clinical Statement: Surgical localization FINDINGS: 2 C-arm images of the lumbar spine were obtained. The images reveal a surgical marking device positioned at the L4 level at the level of the right pedicle. IMPRESSION: The surgical marking device is positioned at the right pedicle of L4. Matzo Forming Machine Operator: PSCB Transcribe Date/Time: Oct 05 2024 10:10A Dictated by : MELVIN BHATIA MD This examination was interpreted and the report reviewed and electronically signed by: MELVIN BHATIA MD on Oct 05 2024 10:12AM EST [id number] Normal [facility] Basic metabolic 2000 panelon 10-04-2024 Anion gap [Moles/Vol] 9 mmol/L Normal 5-16 [facility] Comment on above: Order Comment: Speci men Type: BLOOD SPECIMEN [facility] Address: [address] [place] [address] Performed By: #### 2 4321-2 #### [facility] CLIA [id number] [address] [place] [address] [place] Calcium [Mass/Vol] 9.6 mg/dL Normal 8.5-10.5 [facility] Comment on above: Order Comment: Speci men Type: BLOOD SPECIMEN [facility] Address: [address] [place], [place] [address] Performed By: #### 2 4321-2 #### [facility] CLIA [id number] [address] [place] [address] [place] Chloride [Moles/Vol] 103 mmol/L Normal 98-107 [facility] Comment on above: Order Comment: Speci men Type: BLOOD SPECIMEN [facility] Address: [address] [place] [address] Performed By: #### 2 4321-2 #### [facility] CLIA [id number] [address] [place] [address] [place] CO2 [Moles/Vol] 25 mmol/L Normal 21-32 [facility] Comment on above: Order Comment: Speci men Type: BLOOD SPECIMEN [facility] Address: [address] [place] [address] Performed By: #### 2 4321-2 #### [facility] CLIA [id number] [address] [place] [address] [place] Creatinine [Mass/Vol] 0.64 mg/dL Normal 0.51-0.95 [facility] Comment on above: Order Comment: Wilver akhtar Type: BLOOD SPECIMEN [facility] Address: [address] [place] [address] Result Comment: Holley ents receiving either N-Acetylcysteine (NAC) or Metamizole prior to venipuncture, may have falsely depressed results. Performed By: #### 2 4321-2 #### [facility] CLIA [id number] [address] [place] [address] [facility] Creatinine and Glomerular filtration rate.predicted panel (S/P/Bld) 128 mL/min/1.73m??? Normal >=60 [facility] Comment on above: Order Comment: Wilver akhtar Type: BLOOD SPECIMEN [facility] Address: [address] [place] [address] Result Comment: Jacque mated Glomerular Filtration Rate (eGFR) is calculated using the 2020 CKD-EPI creatinine equation. This equation utilizes serum creatinine, sex, and age as parameters. The creatinine assay has traceable calibration to isotope dilution-mass spectrometry. Refer to KDIGO guidelines for clinical interpretation. In patients with unstable renal function, e.g. those with acute kidney injury, the eGFR may not accurately reflect actual GFR. Performed By: #### 2 4321-2 #### [facility] CLIA [id number] [address] [place] [address] [place] Glucose [Mass/Vol] 98 mg/dL Normal 70-100 [facility] Comment on above: Order Comment: Wilevr akhtar Type: BLOOD SPECIMEN Ordering Facility: [facility] Address: [address] [place] [address] Result Comment: The [place] [employer] (ADA) provides guidance for cutoff values for fasting glucose and random glucose. The ADA defines fasting as no caloric intake for at least 8 hours. Fasting plasma glucose results between 100 to 125 mg/dL indicate increased risk for diabetes (prediabetes). Fasting plasma glucose results greater than or equal to 126 mg/dL meet the criteria for diagnosis of diabetes. In the absence of unequivocal hyperglycemia, results should be confirmed by repeat testing. In a patient with classic symptoms of hyperglycemia or hyperglycemic crisis, random plasma glucose results greater than or equal to 200 mg/dL meet the criteria for diagnosis of diabetes. Reference: Standards of Medical Care in Diabetes 2016, [place] [employer]. Diabetes Care. 2016.39(Suppl 1). Results may be falsely elevated after the administration of Sulfapyridine. Results may be falsely depressed after the administration of Sulfasalazine. Performed By: #### 2 4321-2 #### [facility] CLIA [id number] [address] [place] [address] [place] Potassium [Moles/Vol] Normal [facility] Comment on above: Order Comment: Wilver akhtar Type: BLOOD SPECIMEN Ordering Facility: [facility] Address: [address] [place] [address] Result Comment: Unab le to assay due to interference from hemolysis. Suggest reorder as clinically indicated.notified robert Performed By: #### 2 4321-2 #### [facility] CLIA [id number] [address] [place] [address] [place] Sodium [Moles/Vol] 137 mmol/L Normal 136-145 [facility] Comment on above: Order Comment: Wilver akhtar Type: BLOOD SPECIMEN Ordering Facility: [facility] Address: [address] [place] [address] Performed By: #### 2 4321-2 #### [facility] CLIA [id number] [address] [place] [address] [place] Urea nitrogen [Mass/Vol] 8 mg/dL Normal 7-26 [facility] Comment on above: Order Comment: Wilver akhtar Type: BLOOD SPECIMEN Ordering Facility: [facility] Address: [address] [place] [address] Performed By: #### 2 4321-2 #### [facility] CLIA [id number] [address] [place] [address] [place] CBC W Auto Differential pane l (Bld)on 10-04-2024 Basophils (Bld) [#/Vol] 0.04 10*3/uL Normal <0.11 [facility] Comment on above: Order Comment: Speci men Type: BLOOD SPECIMEN Ordering Facility: [facility] Address: [facility] [place] [address] Performed By: #### 2 4321-2 #### [facility] CLIA [id number] [address] [place] [address] [place] Basophils/100 WBC (Bld) 0.3 % Normal [facility] Comment on above: Order Comment: Speci men Type: BLOOD SPECIMEN Ordering Facility: [facility] Address: [address] [place] [address] Performed By: #### 2 4321-2 #### [facility] CLIA [id number] [address] [place] [address] [facility] [place] Differential cell count method Nom (Bld) Auto Normal [facility] Comment on above: Order Comment: Speci men Type: BLOOD SPECIMEN Ordering Facility: [facility] Address: [address] [place] [address] Performed By: #### 2 4321-2 #### [facility] CLIA [id number] [address] [place] [address] [place] Eosinophils (Bld) [#/Vol] 0.12 10*3/uL Normal <0.46 [facility] Comment on above: Order Comment: Speci men Type: BLOOD SPECIMEN Ordering Facility: [facility] Address: [address] [place] [address] Performed By: #### 2 4321-2 #### [facility] CLIA [id number] [address] [place] [address] [place] Eosinophils/100 WBC (Bld) 0.8 % Normal [facility] Comment on above: Order Comment: Speci men Type: BLOOD SPECIMEN Ordering Facility: [facility] Address: [address] [place] [address] Performed By: #### 2 4321-2 #### [facility] CLIA [id number] [address] [place] [address] [place] Erythrocyte distribution width (RBC) [Ratio] 12.4 % Normal 11.5-15.0 [facility] Comment on above: Order Comment: Speci men Type: BLOOD SPECIMEN Ordering Facility: [facility] Address: [address] [place] [address] Performed By: #### 2 4321-2 #### [facility] CLIA [id number] [address] [place] [address] [place] Hematocrit (Bld) [Volume fraction] 44.1 % Normal 36.0-46.0 [facility] Comment on above: Order Comment: Speci men Type: BLOOD SPECIMEN Ordering Facility: [facility] Address: [address] [place] [address] Performed By: #### 2 4321-2 #### [facility] CLIA [id number] [address] [place] [address] [place] Hemoglobin (Bld) [Mass/Vol] 15.0 g/dL Normal 11.5-15.5 [facility] Comment on above: Order Comment: Speci men Type: BLOOD SPECIMEN Ordering Facility: [facility] Address: [address] [place] [address] Performed By: #### 2 4321-2 #### [facility] CLIA [id number] [address] [place] [address] [place] Immature granulocytes (Bld) [#/Vol] 0.07 10*3/uL Normal <0.10 [facility] Comment on above: Order Comment: Speci men Type: BLOOD SPECIMEN Ordering Facility: [facility] Address: [address] [place] [address] Performed By: #### 2 4321-2 #### [facility] CLIA [id number] [address] [place] [address] [place] Immature granulocytes/100 WBC (Bld) 0.5 % Normal [facility] Comment on above: Order Comment: Speci men Type: BLOOD SPECIMEN Ordering Facility: [facility] Address: [address] [place] [address] Performed By: #### 2 4321-2 #### [facility] CLIA [id number] [address] [place] [address] [place] Lymphocytes (Bld) [#/Vol] 1.92 10*3/uL Normal 1.00-4.00 [facility] Comment on above: Order Comment: Speci men Type: BLOOD SPECIMEN Ordering Facility: [facility] Address: [address] [place] [address] Performed By: #### 2 4321-2 #### [facility] CLIA [id number] [address] [place] [address] [place] Lymphocytes/100 WBC (Bld) 13.4 % Normal [facility] Comment on above: Order Comment: Speci men Type: BLOOD SPECIMEN Ordering Facility: [facility] Address: [address] [place] [address] Performed By: #### 2 4321-2 #### [facility] CLIA [id number] [address] [place] [address] [place] MCH (RBC) [Entitic mass] 31.7 pg Normal 26.0-34.0 [facility] Comment on above: Order Comment: Speci men Type: BLOOD SPECIMEN Ordering Facility: [facility] Address: [address] [place] [address] Performed By: #### 2 4321-2 #### [facility] CLIA [id number] [address] [place] [address] [place] MCHC (RBC) [Mass/Vol] 34.0 g/dL Normal 30.5-36.0 [facility] Comment on above: Order Comment: Speci men Type: BLOOD SPECIMEN Ordering Facility: [facility] Address: [address] [place] [address] Performed By: #### 2 4321-2 #### [facility] CLIA [id number] [address] [place] [address] [place] MCV (RBC) [Entitic vol] 93.2 fL Normal 80.0-100.0 [facility] Comment on above: Order Comment: Speci men Type: BLOOD SPECIMEN Ordering Facility: [facility] Address: [address] [place] [address] Performed By: #### 2 4321-2 #### [facility] CLIA [id number] [address] [place] [address] [place] Monocytes (Bld) [#/Vol] 0.51 10*3/uL Normal <0.87 [facility] Comment on above: Order Comment: Speci men Type: BLOOD SPECIMEN Ordering Facility: [facility] Address: [address] [place] [address] Performed By: #### 2 4321-2 #### [facility] CLIA [id number] [address] [place] [address] [place] Monocytes/100 WBC (Bld) 3.5 % Normal [facility] Comment on above: Order Comment: Speci men Type: BLOOD SPECIMEN Ordering Facility: [facility] Address: [address] [place] [address] Performed By: #### 2 4321-2 #### [facility] CLIA [id number] [address] [place] [address] [place] Neutrophils (Bld) [#/Vol] 11.71 10*3/uL High 1.45-7.50 [facility] Comment on above: Order Comment: Speci men Type: BLOOD SPECIMEN Ordering Facility: [facility] Address: [address] [place] [address] Performed By: #### 2 4321-2 #### [facility] CLIA [id number] [address] [place] [address] [place] Neutrophils/100 WBC (Bld) 81.5 % Normal [facility] Comment on above: Order Comment: Speci men Type: BLOOD SPECIMEN Ordering Facility: [facility] Address: [address] [place] [address] Performed By: #### 2 4321-2 #### [facility] CLIA [id number] [address] [place] [address] [place] Nucleated RBC (Bld) [#/Vol] 10*3/uL Normal <0.01 [facility] Comment on above: Order Comment: Speci men Type: BLOOD SPECIMEN Ordering Facility: [facility] Address: [address] [place] [address] Performed By: #### 2 4321-2 #### [facility] CLIA [id number] [address] [place] [address] [place] Nucleated RBC/100 WBC (Bld) [Ratio] 0.0 /[address] [facility] Comment on above: Order Comment: Speci men Type: BLOOD SPECIMEN Ordering Facility: [facility] Address: [address] [place] [address] Performed By: #### 2 4321-2 #### [facility] CLIA [id number] [address] [place] [address] [place] Platelet mean volume (Bld) [Entitic vol] 9.6 fL Normal 9.0-12.7 [facility] Comment on above: Order Comment: Speci men Type: BLOOD SPECIMEN Ordering Facility: [facility] Address: [address] [place] [address] Performed By: #### 2 4321-2 #### [facility] CLIA [id number] [address] [place] [address] [place] Platelets (Bld) [#/Vol] 204 10*3/uL Normal 150-400 [facility] Comment on above: Order Comment: Speci men Type: BLOOD SPECIMEN Ordering Facility: [facility] Address: [address] [place] [address] Performed By: #### 2 4321-2 #### [facility] CLIA [id number] [address] [place] [address] [place] RBC (Bld) [#/Vol] 4.73 10*6/uL Normal 3.90-5.20 [facility] Comment on above: Order Comment: Speci men Type: BLOOD SPECIMEN Ordering Facility: [facility] Address: [address] [place] [address] Performed By: #### 2 4321-2 #### [facility] CLIA [id number] [address] [place] [address] [place] WBC (Bld) [#/Vol] 14.37 10*3/uL High 3.70-11.00 [facility] Comment on above: Order Comment: Wilver akhtar Type: BLOOD SPECIMEN Ordering Facility: [facility] Address: [address] [place] [address] Performed By: #### 2 4321-2 #### [facility] CLIA [id number] [address] [place] [address] [place] HCG Preg Ur Qlon 10-04-2024 HCG ( test) Ql (U) Negative Normal Negative [facility] Comment on above: Order Comment: Wilver akhtar Type: URINE SPECIMENOrdering Facility: [facility] Address: [address] [place] [address] Result Comment: This test is intended to aid in the early detection of . Very dilute urine samples, as indicated by a low specific gravity, may not contain telephone service representative levels of hCG. This test detects intact hCG only. This test does not reliably detect hCG degradation products, including free-beta subunit and beta-core fragment. Therefore, this test may show reduced reactivity in urine after 8 weeks gestation. A number of conditions other than , including trophoblastic disease and certain non-trophoblastic neoplasms cause elevated levels of hCG. As with any assay employing mouse antibodies, the possibility exists for interference by human anti-mouse antibodies (HAMA) in the specimen. The test provides a presumptive diagnosis for . Performed By: #### 2 106-3 ####[facility] [id number] [address] [place] HCG QUALITATIVEon 10-04-2024 HCG, QUALITATIVE Negative Normal Negative [facility] Comment on above: Order Comment: Ijeomai hermilo Type: BLOOD SPECIMEN Ordering Facility: [facility] Address: [address] [place] [address] Performed By: #### 2 4321-2 #### [facility] CLIA [id number] [address] [place] [address] [place] Lactate (Bld) [Moles/Vol]on 10-04-2024 Lactate [Moles/Vol] 1.7 mmol/L Normal 0.4-2.0 [facility] Comment on above: Order Comment: Wilver akhtar Type: BLOOD SPECIMEN Ordering Facility: [facility] Address: [address] [place] [address] Performed By: #### 2 4321-2 #### [facility] CLIA [id number] [address] [place] [address] [facility] Lactate [Moles/Vol] 2.6 mmol/L High 0.4-2.0 [facility] Comment on above: Order Comment: Wilver akhtar Type: BLOOD SPECIMEN Ordering Facility: [facility] Address: [address] [place] [address] Performed By: #### 2 4321-2 #### [facility] CLIA [id number] [address] [place] [address] Procalcitonin SerPl-mCncon 0 10-04-2024 Procalcitonin [Mass/Vol] 0.12 ng/mL Normal 0.00-0.50 [facility] Comment on above: Order Comment: Wilver akhtar Type: BLOOD SPECIMEN Ordering Facility: [facility] Address: [address] [place] [address] Result Comment: PCT Concentration Interpretation PCT <=0.1 ng/mL: Normal range for healthy adults PCT >0.1 ng/mL and <0.5 ng/mL: Systemic infection (sepsis) is possible and may require antibiotic treatment, but other conditions are known to elevate PCT as well. PCT >0.5 ng/mL: Should be considered at risk for developing severe sepsis or septic shock. PCT >2.0 ng/mL: Important systemic inflammatory response. Almost exclusively indicates episode of severe bacterial sepsis or septic shock. Performed By: #### 2 4321-2 #### [facility] CLIA [id number] [address] [place] [address] [place] Urinalysis complete panel (U )on 10-04-2024 Bacteria LM.HPF (Urine sed) [#/Area] Rare Abnormal None Seen [facility] Comment on above: Order Comment: Speci men Type: BLOOD SPECIMEN Ordering Facility: [facility] Address: [address] [place] [address] Performed By: #### 2 4321-2 #### [facility] CLIA [id number] [address] [place] [address] [place] Bilirubin Ql (U) Negative Normal Negative [facility] Comment on above: Order Comment: Speci men Type: BLOOD SPECIMEN Ordering Facility: [facility] Address: [address] [place] [address] Performed By: #### 2 4321-2 #### [facility] CLIA [id number] [address] [place] [address] [place] Clarity (Unsp spec) Clear Normal Clear [facility] Comment on above: Order Comment: Speci men Type: BLOOD SPECIMEN Ordering Facility: [facility] Address: [address] [place] [address] Performed By: #### 2 4321-2 #### [facility] CLIA [id number] [address] [place] [address] [place] Color (U) Yellow Normal Yellow [facility] Comment on above: Order Comment: Speci men Type: BLOOD SPECIMEN Ordering Facility: [facility] Address: [address] [place] [address] Performed By: #### 2 4321-2 #### [facility] CLIA [id number] [address] [place] [address] [place] Epithelial cells LM.HPF (Urine sed) [#/Area] Few Normal [facility] Comment on above: Order Comment: Speci men Type: BLOOD SPECIMEN Ordering Facility: [facility] Address: [address] [place] [address] Performed By: #### 2 4321-2 #### [facility] CLIA [id number] [address] [place] [address] [place] Glucose Test strip (U) [Mass/Vol] Negative Normal Negative [facility] Comment on above: Order Comment: Speci men Type: BLOOD SPECIMEN Ordering Facility: [facility] Address: [address] [place] [address] Performed By: #### 2 4321-2 #### [facility] CLIA [id number] [address] [place], [place] [address] [facility] [place] Hemoglobin Ql (U) Negative Normal Negative [facility] Comment on above: Order Comment: Speci men Type: BLOOD SPECIMEN Ordering Facility: [facility] Address: [address] [place] [address] Performed By: #### 2 4321-2 #### [facility] CLIA [id number] [address] [place] [address] [place] Ketones Ql (U) Negative Normal Negative [facility] Comment on above: Order Comment: Speci men Type: BLOOD SPECIMEN Ordering Facility: [facility] Address: [address] [place] [address] Performed By: #### 2 4321-2 #### [facility] CLIA [id number] [address] [place] [address] [place] Leukocyte esterase Test strip Ql (U) Negative Normal Negative [facility] Comment on above: Order Comment: Speci men Type: BLOOD SPECIMEN Ordering Facility: [facility] Address: [address] [place] [address] Performed By: #### 2 4321-2 #### [facility] CLIA [id number] [address] [place] [address] [place] Nitrite Ql (U) Negative Normal Negative [facility] Comment on above: Order Comment: Speci men Type: BLOOD SPECIMEN Ordering Facility: [facility] Address: [address] [place] [address] Performed By: #### 2 4321-2 #### [facility] CLIA [id number] [address] [place], [place] [address] [place] pH (U) 6.0 [pH] Normal 5.0-8.0 [facility] Comment on above: Order Comment: Speci men Type: BLOOD SPECIMEN Ordering Facility: [facility] Address: [address] [place] [address] Performed By: #### 2 4321-2 #### [facility] CLIA [id number] [address] [place] [address] [place] Protein (U) [Mass/Vol] Negative Normal Negative [facility] Comment on above: Order Comment: Speci men Type: BLOOD SPECIMEN Ordering Facility: [facility] Address: [address] [place] [address] Performed By: #### 2 4321-2 #### [facility] CLIA [id number] [address] [place] [address] [place] RBC LM.HPF (Urine sed) [#/Area] 0-3 /HPF Normal 0-3 /HPF [facility] Comment on above: Order Comment: Speci men Type: BLOOD SPECIMEN Ordering Facility: [facility] Address: [address] [place] [address] Performed By: #### 2 4321-2 #### [facility] CLIA [id number] [address] [place] [address] [facility] Specific gravity (U) [Rel density] 1.015 Normal 1.005-1.030 [facility] Comment on above: Order Comment: Speci men Type: BLOOD SPECIMEN Ordering Facility: [facility] Address: [address] [place] [address] Performed By: #### 2 4321-2 #### [facility] CLIA [id number] [address] [place] [address] Urobilinogen Ql (U) Negative Normal Negative [facility] Comment on above: Order Comment: Speci men Type: BLOOD SPECIMEN Ordering Facility: [facility] Address: [address] [place] [address] Performed By: #### 2 4321-2 #### [facility] CLIA [id number] [address] [place] [address] [place] WBC LM.HPF (Urine sed) [#/Area] 0-5 /HPF Normal 0-5 /HPF [facility] Comment on above: Order Comment: Speci men Type: BLOOD SPECIMEN Ordering Facility: [facility] Address: [facility] [place] [address] Performed By: #### 2 4321-2 #### [facility] CLIA [id number] [address] [place] [address] [place] XR ABDOMEN 1V SUPINEon 10-04 XR ABDOMEN 1V SUPINE * * *Final Report* * * DATE OF EXAM: Oct 04 2024 6:55AM [id number] [id number] - XR ABDOMEN 1V SUPINE / PROCEDURE REASON: Nausea/Vomiting * * * * Physician Interpretation * * * * XR ABDOMEN 1V SUPINE Ordering Physician: JACKY BURNETT 10/04/2024 6:55 AM ABDOMEN Clinical Statement: Nausea and vomiting FINDINGS: 3 images of the abdomen and pelvis were obtained. There were no prior studies available for comparison. There is no abnormal gaseous distention. There is a moderate to large amount of stool in the rectal vault. There is moderate stool in the remaining colon. IMPRESSION: No abnormal gaseous distention. There is moderate stool in the colon with a moderate to large amount in the rectal vault [employer] Operator: PSCB Transcribe Date/Time: Oct 04 2024 7:18A Dictated by : MELVIN BHATIA MD This examination was interpreted and the report reviewed and electronically signed by: MELVIN BHATIA MD on Oct 04 2024 7:19AM EST [id number] Normal [facility] XR CHEST 1V FRONTAL PORTon 0 10-04-2024 XR CHEST 1V FRONTAL PORT * * *Final Repo rt* * * DATE OF EXAM: Oct 04 2024 6:55AM [id number] [id number] - XR CHEST 1V FRONTAL PORT / PROCEDURE REASON: Sepsis * * * * Physician Interpretation * * * * EXAMINATION: CHEST RADIOGRAPH (PORTABLE SINGLE VIEW AP) Exam Date/Time: 10/04/2024 6:55 AM CLINICAL HISTORY: Sepsis MQ: [id number] Comparison: 08/30/2019 RESULT: Lines, tubes, and devices: None. Lungs and pleura: The costophrenic angles are clear. No acute infiltrates or congestion is seen. There is no pneumothorax. Cardiomediastinal silhouette: The heart and mediastinum show no acute abnormalities. Other: There are no acute osseous findings. IMPRESSION: No acute abnormalities. [employer] Operator: DASHAWN Transcribe Date/Time: Oct 04 2024 7:19A Dictated by : MELVIN BHATIA MD This examination was interpreted and the report reviewed and electronically signed by: MELVIN BHATIA MD on Oct 04 2024 7:20AM EST [id number] Normal [facility] STAPHYLOCOCCUS AUREUS AND MR SA SCREEN, PCR, NASALon 10-03-2024 S. aureus and MRSA panel JORDAN+probe (Nose) Not detected Normal Not Detected [facility] Comment on above: Order Comment: Specsekou akhtar Type: BLOOD SPECIMEN Ordering Facility: [facility] Address: [address] [place] [address] Performed By: #### 5 7021-8 #### [facility] CLIA [id number] [address] [place] [address] [place] THERAPY NTon 10-03-2024 THERAPY NT HNO ID: [id number] Author: NAYAN HERNANDEZ OTR/L Service: Occupational Therapy Author Type: Occupational Therapist Type: Therapy (PT/OT/Speech/Resp) Filed: 10/03/2024 07:25 Note Text: OCCUPATIONAL THERAPY MISSED VISIT SERVICE DATE: 10/03/2024 SERVICE TIME: 724 ROOM: [id number] Patient not seen due to Clinical Appropriateness (Per charting pt is considering surgical options, will continue to follow). SIGNATURE: REJI Roberts PATIENT NAME: Ivy Crews DATE: October 03, 2024 TIME: 7:[address] [facility] Basic metabolic 2000 panelon 10-02-2024 Anion gap [Moles/Vol] mmol/L Low 5-16 [facility] Comment on above: Order Comment: Wilver akhtar Type: BLOOD SPECIMEN Ordering Facility: [facility] Address: [address] [place] [address] Performed By: #### 5 7021-8 #### [facility] CLIA [id number] [address] [place], [place] [address] [place] Calcium [Mass/Vol] 8.5 mg/dL Normal 8.5-10.5 [facility] Comment on above: Order Comment: Speci men Type: BLOOD SPECIMEN Ordering Facility: [facility] Address: [address] [place] [address] Performed By: #### 5 7021-8 #### [facility] CLIA [id number] [address] [place] [address] [place] Chloride [Moles/Vol] 109 mmol/L High 98-107 [facility] Comment on above: Order Comment: Speci men Type: BLOOD SPECIMEN Ordering Facility: [facility] Address: [address] [place] [address] Performed By: #### 5 7021-8 #### [facility] CLIA [id number] [address] [place] [address] [place] CO2 [Moles/Vol] 30 mmol/L Normal 21-32 [facility] Comment on above: Order Comment: Speci men Type: BLOOD SPECIMEN Ordering Facility: [facility] Address: [address] [place] [address] Performed By: #### 5 7021-8 #### [facility] CLIA [id number] [address] [place] [address] [place] Creatinine [Mass/Vol] 0.70 mg/dL Normal 0.51-0.95 [facility] Comment on above: Order Comment: Speci men Type: BLOOD SPECIMEN Ordering Facility: [facility] Address: [address] [place] [address] Result Comment: Holley ents receiving either N-Acetylcysteine (NAC) or Metamizole prior to venipuncture, may have falsely depressed results. Performed By: #### 5 7021-8 #### [facility] CLIA [id number] [address] [place] [address] [place] Creatinine and Glomerular filtration rate.predicted panel (S/P/Bld) 126 mL/min/1.73m??? Normal >=60 [facility] Comment on above: Order Comment: Speci men Type: BLOOD SPECIMEN Ordering Facility: [facility] Address: [address] [place] [address] Result Comment: Jacque mated Glomerular Filtration Rate (eGFR) is calculated using the 2020 CKD-EPI creatinine equation. This equation utilizes serum creatinine, sex, and age as parameters. The creatinine assay has traceable calibration to isotope dilution-mass spectrometry. Refer to KDIGO guidelines for clinical interpretation. In patients with unstable renal function, e.g. those with acute kidney injury, the eGFR may not accurately reflect actual GFR. Performed By: #### 5 7021-8 #### [facility] CLIA [id number] [address] [place] [address] [place] Glucose [Mass/Vol] 140 mg/dL High 70-100 [facility] Comment on above: Order Comment: Wilver akhtar Type: BLOOD SPECIMEN Ordering Facility: [facility] Address: [address] [place] [address] Result Comment: The [place] [employer] (ADA) provides guidance for cutoff values for fasting glucose and random glucose. The ADA defines fasting as no caloric intake for at least 8 hours. Fasting plasma glucose results between 100 to 125 mg/dL indicate increased risk for diabetes (prediabetes). Fasting plasma glucose results greater than or equal to 126 mg/dL meet the criteria for diagnosis of diabetes. In the absence of unequivocal hyperglycemia, results should be confirmed by repeat testing. In a patient with classic symptoms of hyperglycemia or hyperglycemic crisis, random plasma glucose results greater than or equal to 200 mg/dL meet the criteria for diagnosis of diabetes. Reference: Standards of Medical Care in Diabetes 2016, [place] [employer]. Diabetes Care. 2016.39(Suppl 1). Results may be falsely elevated after the administration of Sulfapyridine. Results may be falsely depressed after the administration of Sulfasalazine. Performed By: #### 5 7021-8 #### [facility] CLIA [id number] [address] [place] [address] [place] Potassium [Moles/Vol] 4.6 mmol/L Normal 3.5-5.1 [facility] Comment on above: Order Comment: Wilver akhtar Type: BLOOD SPECIMEN Ordering Facility: [facility] Address: [address] [place] [id number] Performed By: #### 5 7021-8 #### [facility] CLIA [id number] [address] [place], [place] [address] [place] Sodium [Moles/Vol] 140 mmol/L Normal 136-145 [facility] Comment on above: Order Comment: Speci men Type: BLOOD SPECIMEN Ordering Facility: [facility] Address: [address] [place] [address] Performed By: #### 5 7021-8 #### [facility] CLIA [id number] [address] [place] [address] [place] Urea nitrogen [Mass/Vol] 13 mg/dL Normal 7-26 [facility] Comment on above: Order Comment: Speci men Type: BLOOD SPECIMEN Ordering Facility: [facility] Address: [address] [place] [address] Performed By: #### 5 7021-8 #### [facility] CLIA [id number] [address] [place] [address] [place] CBC W Auto Differential pane l (Bld)on 10-02-2024 Basophils (Bld) [#/Vol] 0.03 10*3/uL Normal <0.11 [facility] Comment on above: Order Comment: Speci men Type: BLOOD SPECIMEN Ordering Facility: [facility] Address: [address] [place] [address] Performed By: #### 5 7021-8 #### [facility] CLIA [id number] [address] [place] [address] [place] Basophils/100 WBC (Bld) 0.3 % Normal [facility] Comment on above: Order Comment: Speci men Type: BLOOD SPECIMEN Ordering Facility: [facility] Address: [address] [place] [address] Performed By: #### 5 7021-8 #### [facility] CLIA [id number] [address] [place] [address] [place] Differential cell count method Nom (Bld) Auto Normal [facility] Comment on above: Order Comment: Speci men Type: BLOOD SPECIMEN Ordering Facility: [facility] Address: [address] [place] [address] Performed By: #### 5 7021-8 #### [facility] CLIA [id number] [address] [place] [address] [place] Eosinophils (Bld) [#/Vol] 0.05 10*3/uL Normal <0.46 [facility] Comment on above: Order Comment: Speci men Type: BLOOD SPECIMEN Ordering Facility: [facility] Address: [address] [place] [address] Performed By: #### 5 7021-8 #### [facility] CLIA [id number] [address] [place] [address] [place] Eosinophils/100 WBC (Bld) 0.6 % Normal [facility] Comment on above: Order Comment: Speci men Type: BLOOD SPECIMEN Ordering Facility: [facility] Address: [address] [place] [address] Performed By: #### 5 7021-8 #### [facility] CLIA [id number] [address] [place] [address] [place] Erythrocyte distribution width (RBC) [Ratio] 13.2 % Normal 11.5-15.0 [facility] Comment on above: Order Comment: Speci men Type: BLOOD SPECIMEN Ordering Facility: [facility] Address: [address] [place] [address] Performed By: #### 5 7021-8 #### [facility] CLIA [id number] [address] [place] [address] [place] Hematocrit (Bld) [Volume fraction] 42.3 % Normal 36.0-46.0 [facility] Comment on above: Order Comment: Speci men Type: BLOOD SPECIMEN Ordering Facility: [facility] Address: [address] [place] [address] Performed By: #### 5 7021-8 #### [facility] CLIA [id number] [address] [place] [address] [place] Hemoglobin (Bld) [Mass/Vol] 13.9 g/dL Normal 11.5-15.5 [facility] Comment on above: Order Comment: Speci men Type: BLOOD SPECIMEN Ordering Facility: [facility] Address: [address] [place] [address] Performed By: #### 5 7021-8 #### [facility] CLIA [id number] [address] [place] [address] [place] Immature granulocytes (Bld) [#/Vol] 0.06 10*3/uL Normal <0.10 [facility] Comment on above: Order Comment: Speci men Type: BLOOD SPECIMEN Ordering Facility: [facility] Address: [address] [place] [address] Performed By: #### 5 7021-8 #### [facility] CLIA [id number] [address] [place] [address] [place] Immature granulocytes/100 WBC (Bld) 0.7 % Normal [facility] Comment on above: Order Comment: Speci men Type: BLOOD SPECIMEN Ordering Facility: [facility] Address: [address] [place] [address] Performed By: #### 5 7021-8 #### [facility] CLIA [id number] [address] [place] [address] [place] Lymphocytes (Bld) [#/Vol] 4.08 10*3/uL High 1.00-4.00 [facility] Comment on above: Order Comment: Speci men Type: BLOOD SPECIMEN Ordering Facility: [facility] Address: [address] [place] [address] Performed By: #### 5 7021-8 #### [facility] CLIA [id number] [address] [place] [address] [place] Lymphocytes/100 WBC (Bld) 45.2 % Normal [facility] Comment on above: Order Comment: Speci men Type: BLOOD SPECIMEN Ordering Facility: [facility] Address: [address] [place] [address] Performed By: #### 5 7021-8 #### [facility] CLIA [id number] [address] [place] [address] [place] MCH (RBC) [Entitic mass] 31.2 pg Normal 26.0-34.0 [facility] Comment on above: Order Comment: Speci men Type: BLOOD SPECIMEN Ordering Facility: [facility] Address: [address] [place] [address] Performed By: #### 5 7021-8 #### [facility] CLIA [id number] [address] [place] [address] [place] MCHC (RBC) [Mass/Vol] 32.9 g/dL Normal 30.5-36.0 [facility] Comment on above: Order Comment: Speci men Type: BLOOD SPECIMEN Ordering Facility: [facility] Address: [address] [place] [address] Performed By: #### 5 7021-8 #### [facility] CLIA [id number] [address] [place] [address] [place] MCV (RBC) [Entitic vol] 95.1 fL Normal 80.0-100.0 [facility] Comment on above: Order Comment: Speci men Type: BLOOD SPECIMEN Ordering Facility: [facility] Address: [address] [place] [address] Performed By: #### 5 7021-8 #### [facility] CLIA [id number] [address] [place] [address] [place] Monocytes (Bld) [#/Vol] 0.85 10*3/uL Normal <0.87 [facility] Comment on above: Order Comment: Speci men Type: BLOOD SPECIMEN Ordering Facility: [facility] Address: [address] [place] [address] Performed By: #### 5 7021-8 #### [facility] CLIA [id number] [address] [place] [address] Monocytes/100 WBC (Bld) 9.4 % Normal [facility] Comment on above: Order Comment: Speci men Type: BLOOD SPECIMEN Ordering Facility: [facility] Address: [address] [place], [place] [address] Performed By: #### 5 7021-8 #### [facility] CLIA [id number] [address] [place], [place] [address] [place] Neutrophils (Bld) [#/Vol] 3.95 10*3/uL Normal 1.45-7.50 [facility] Comment on above: Order Comment: Speci men Type: BLOOD SPECIMEN Ordering Facility: [facility] Address: [address] [place] [address] Performed By: #### 5 7021-8 #### [facility] CLIA [id number] [address] [place], [place] [address] [place] Neutrophils/100 WBC (Bld) 43.8 % Normal [facility] Comment on above: Order Comment: Speci men Type: BLOOD SPECIMEN Ordering Facility: [facility] Address: [address] [place] [address] Performed By: #### 5 7021-8 #### [facility] CLIA [id number] [address] [place] [address] [place] Nucleated RBC (Bld) [#/Vol] 10*3/uL Normal <0.01 [facility] Comment on above: Order Comment: Speci men Type: BLOOD SPECIMEN Ordering Facility: [facility] Address: [address] [place] [address] Performed By: #### 5 7021-8 #### [facility] CLIA [id number] [address] [place] [address] [place] Nucleated RBC/100 WBC (Bld) [Ratio] 0.0 /[address] [facility] Comment on above: Order Comment: Speci men Type: BLOOD SPECIMEN Ordering Facility: [facility] Address: [address] [place] [address] Performed By: #### 5 7021-8 #### [facility] CLIA [id number] [address] [place] [address] [place] Platelet mean volume (Bld) [Entitic vol] 10.0 fL Normal 9.0-12.7 [facility] Comment on above: Order Comment: Speci men Type: BLOOD SPECIMEN Ordering Facility: [facility] Address: [address] [place] [address] Performed By: #### 5 7021-8 #### [facility] CLIA [id number] [address] [place], [place] [address] [facility] Platelets (Bld) [#/Vol] 230 10*3/uL Normal 150-400 [facility] Comment on above: Order Comment: Speci men Type: BLOOD SPECIMEN Ordering Facility: [facility] Address: [address] [place] [address] Performed By: #### 5 7021-8 #### [facility] CLIA [id number] [address] [place], [place] [address] [facility] RBC (Bld) [#/Vol] 4.45 10*6/uL Normal 3.90-5.20 [facility] Comment on above: Order Comment: Speci men Type: BLOOD SPECIMEN Ordering Facility: [facility] Address: [address] [place] [address] Performed By: #### 5 7021-8 #### [facility] CLIA [id number] [address] [place] [address] [place] WBC (Bld) [#/Vol] 9.02 10*3/uL Normal 3.70-11.00 [facility] Comment on above: Order Comment: Speci men Type: BLOOD SPECIMEN Ordering Facility: [facility] Address: [address] [place] [address] Performed By: #### 5 7021-8 #### [facility] CLIA [id number] [address] [place], [place] [address] [facility] THERAPY NTon 10-02-2024 THERAPY NT HNO ID: [id number] Author: MOUNIKA SHEARER OTR/Leandro Service: Occupational Therapy Author Type: Occupational Therapist Type: Therapy (PT/OT/Speech/Resp) Filed: 10/02/2024 15:20 Note Text: OCCUPATIONAL THERAPY MISSED VISIT SERVICE DATE: 10/02/2024 SERVICE TIME: 1519 ROOM: [place] [address] Patient not seen due to Clinical Appropriateness (Pt now considering inpatient surgical options. Will continue to assess/follow patient.). SIGNATURE: Mounika Shearer, OTR/L PATIENT NAME: Ivy Crews DATE: October 02, 2024 TIME: 3:20 PM [facility] THERAPY NT HNO ID: [id number] Author: ALYX PAGAN, PT, DPT Service: Physical Therapy Author Type: Physical Therapist Type: Therapy (PT/OT/Speech/Resp) Filed: 10/02/2024 11:22 Note Text: PHYSICAL THERAPY MISSED VISIT SERVICE DATE: 10/02/2024 SERVICE TIME: ROOM: [place] [address] Patient not seen due to Test / Procedure (Pt is agreeable now for surgery, Hold PT until post operative). SIGNATURE: Alyx Pagan, PT, DPT PATIENT NAME: Ivy Crews DATE: October 02, 2024 TIME: 11:[address] [facility] Basic metabolic 2000 panelon 10-01-2024 Anion gap [Moles/Vol] 7 mmol/L Normal 5-16 [facility] Comment on above: Order Comment: Speci men Type: BLOOD SPECIMEN Ordering Facility: [facility] Address: [address] [place] [address] Performed By: #### 2 4321-2 #### [facility] CLIA [id number] [address] [place] [address] [place] Calcium [Mass/Vol] 9.8 mg/dL Normal 8.5-10.5 [facility] Comment on above: Order Comment: Speci men Type: BLOOD SPECIMEN Ordering Facility: [facility] Address: [address] [place] [address] Performed By: #### 2 4321-2 #### [facility] CLIA [id number] [address] [place] [address] [place] Chloride [Moles/Vol] 105 mmol/L Normal 98-107 [facility] Comment on above: Order Comment: Speci men Type: BLOOD SPECIMEN Ordering Facility: [facility] Address: [address] [place] [address] Performed By: #### 2 4321-2 #### [facility] CLIA [id number] [address] [place], [place] [address] [place] CO2 [Moles/Vol] 28 mmol/L Normal 21-32 [facility] Comment on above: Order Comment: Speci men Type: BLOOD SPECIMEN Ordering Facility: [facility] Address: [address] [place] [address] Performed By: #### 2 4321-2 #### [facility] CLIA [id number] [address] [place] [address] [place] Creatinine [Mass/Vol] 0.62 mg/dL Normal 0.51-0.95 [facility] Comment on above: Order Comment: Speci men Type: BLOOD SPECIMEN Ordering Facility: [facility] Address: [address] [place] [address] Result Comment: Holley ents receiving either N-Acetylcysteine (NAC) or Metamizole prior to venipuncture, may have falsely depressed results. Performed By: #### 2 4321-2 #### [facility] CLIA [id number] [address] [place] [address] [place] Creatinine and Glomerular filtration rate.predicted panel (S/P/Bld) 129 mL/min/1.73m??? Normal >=60 [facility] Comment on above: Order Comment: Speci men Type: BLOOD SPECIMEN Ordering Facility: [facility] Address: [address] [place] [address] Result Comment: Jacque mated Glomerular Filtration Rate (eGFR) is calculated using the 2020 CKD-EPI creatinine equation. This equation utilizes serum creatinine, sex, and age as parameters. The creatinine assay has traceable calibration to isotope dilution-mass spectrometry. Refer to KDIGO guidelines for clinical interpretation. In patients with unstable renal function, e.g. those with acute kidney injury, the eGFR may not accurately reflect actual GFR. Performed By: #### 2 4321-2 #### [facility] CLIA [id number] [address] [place] [address] [place] Glucose [Mass/Vol] 131 mg/dL High 70-100 [facility] Comment on above: Order Comment: Wilver akhtar Type: BLOOD SPECIMEN Ordering Facility: [facility] Address: [address] [place] [address] Result Comment: The [place] [employer] (ADA) provides guidance for cutoff values for fasting glucose and random glucose. The ADA defines fasting as no caloric intake for at least 8 hours. Fasting plasma glucose results between 100 to 125 mg/dL indicate increased risk for diabetes (prediabetes). Fasting plasma glucose results greater than or equal to 126 mg/dL meet the criteria for diagnosis of diabetes. In the absence of unequivocal hyperglycemia, results should be confirmed by repeat testing. In a patient with classic symptoms of hyperglycemia or hyperglycemic crisis, random plasma glucose results greater than or equal to 200 mg/dL meet the criteria for diagnosis of diabetes. Reference: Standards of Medical Care in Diabetes 2016, [place] [employer]. Diabetes Care. 2016.39(Suppl 1). Results may be falsely elevated after the administration of Sulfapyridine. Results may be falsely depressed after the administration of Sulfasalazine. Performed By: #### 2 4321-2 #### [facility] CLIA [id number] [address] [place] [address] [place] Potassium [Moles/Vol] 4.6 mmol/L Normal 3.5-5.1 [facility] Comment on above: Order Comment: Wilver akhtar Type: BLOOD SPECIMEN Ordering Facility: [facility] Address: [address] [place] [address] Performed By: #### 2 4321-2 #### [facility] CLIA [id number] [address] [place] [address] [place] Sodium [Moles/Vol] 140 mmol/L Normal 136-145 [facility] Comment on above: Order Comment: Wilver akhtar Type: BLOOD SPECIMEN Ordering Facility: [facility] Address: [address] [place], [place] [address] Performed By: #### 2 4321-2 #### [facility] CLIA [id number] [address] [place] [address] [place] Urea nitrogen [Mass/Vol] 12 mg/dL Normal 7-26 [facility] Comment on above: Order Comment: Speci men Type: BLOOD SPECIMEN Ordering Facility: [facility] Address: [address] [place] [address] Performed By: #### 2 4321-2 #### [facility] CLIA [id number] [address] [place] [address] [place] CBC W Auto Differential pane l (Bld)on 10-01-2024 Basophils (Bld) [#/Vol] 10*3/uL Normal <0.11 [facility] Comment on above: Order Comment: Speci men Type: BLOOD SPECIMEN Ordering Facility: [facility] Address: [address] [place] [address] Performed By: #### 5 7021-8 #### [facility] CLIA [id number] [address] [place] [address] [place] Basophils/100 WBC (Bld) 0.1 % Normal [facility] Comment on above: Order Comment: Speci men Type: BLOOD SPECIMEN Ordering Facility: [facility] Address: [address] [place] [address] Performed By: #### 5 7021-8 #### [facility] CLIA [id number] [address] [place] [address] [place] Differential cell count method Nom (Bld) Auto Normal [facility] Comment on above: Order Comment: Speci men Type: BLOOD SPECIMEN Ordering Facility: [facility] Address: [address] [place] [address] Performed By: #### 5 7021-8 #### [facility] CLIA [id number] [address] [place] [address] [place] Eosinophils (Bld) [#/Vol] 10*3/uL Normal <0.46 [facility] Comment on above: Order Comment: Speci men Type: BLOOD SPECIMEN Ordering Facility: [facility] Address: [address] [place] [address] Performed By: #### 5 7021-8 #### [facility] CLIA [id number] [address] [place] [address] [place] Eosinophils/100 WBC (Bld) 0.1 % Normal [facility] Comment on above: Order Comment: Speci men Type: BLOOD SPECIMEN Ordering Facility: [facility] Address: [address] [place] [address] Performed By: #### 5 7021-8 #### [facility] [facility] CLIA [id number] [address] [place] [address] [place] Erythrocyte distribution width (RBC) [Ratio] 13.0 % Normal 11.5-15.0 [facility] Comment on above: Order Comment: Speci men Type: BLOOD SPECIMEN Ordering Facility: [facility] Address: [address] [place] [address] Performed By: #### 5 7021-8 #### [facility] CLIA [id number] [address] [place] [address] [place] Hematocrit (Bld) [Volume fraction] 46.4 % High 36.0-46.0 [facility] Comment on above: Order Comment: Speci men Type: BLOOD SPECIMEN Ordering Facility: [facility] Address: [address] [place] [address] Performed By: #### 5 7021-8 #### [facility] CLIA [id number] [address] [place] [address] [place] Hemoglobin (Bld) [Mass/Vol] 15.8 g/dL High 11.5-15.5 [facility] Comment on above: Order Comment: Speci men Type: BLOOD SPECIMEN Ordering Facility: [facility] Address: [address] [place] [address] Performed By: #### 5 7021-8 #### [facility] CLIA [id number] [address] [place] [address] [place] Immature granulocytes (Bld) [#/Vol] 0.09 10*3/uL Normal <0.10 [facility] Comment on above: Order Comment: Speci men Type: BLOOD SPECIMEN Ordering Facility: [facility] Address: [address] [place], [place] [address] Performed By: #### 5 7021-8 #### [facility] CLIA [id number] [address] [place] [address] [place] Immature granulocytes/100 WBC (Bld) 0.5 % Normal [facility] Comment on above: Order Comment: Speci men Type: BLOOD SPECIMEN Ordering Facility: [facility] Address: [address] [place] [address] Performed By: #### 5 7021-8 #### [facility] CLIA [id number] [address] [place] [address] [place] Lymphocytes (Bld) [#/Vol] 1.16 10*3/uL Normal 1.00-4.00 [facility] Comment on above: Order Comment: Speci men Type: BLOOD SPECIMEN Ordering Facility: [facility] Address: [address] [place] [address] Performed By: #### 5 7021-8 #### [facility] CLIA [id number] [address] [place] [address] [place] Lymphocytes/100 WBC (Bld) 6.7 % Normal [facility] Comment on above: Order Comment: Speci men Type: BLOOD SPECIMEN Ordering Facility: [facility] Address: [address] [place] [address] Performed By: #### 5 7021-8 #### [facility] CLIA [id number] [address] [place] [address] [place] MCH (RBC) [Entitic mass] 31.4 pg Normal 26.0-34.0 [facility] Comment on above: Order Comment: Speci men Type: BLOOD SPECIMEN Ordering Facility: [facility] Address: [address] [place] [address] Performed By: #### 5 7021-8 #### [facility] CLIA [id number] [address] [place] [address] [place] MCHC (RBC) [Mass/Vol] 34.1 g/dL Normal 30.5-36.0 [facility] Comment on above: Order Comment: Speci men Type: BLOOD SPECIMEN Ordering Facility: [facility] Address: [address] [place] [address] Performed By: #### 5 7021-8 #### [facility] CLIA [id number] [address] [place] [address] [place] MCV (RBC) [Entitic vol] 92.2 fL Normal 80.0-100.0 [facility] Comment on above: Order Comment: Speci men Type: BLOOD SPECIMEN Ordering Facility: [facility] Address: [address] [place] [address] Performed By: #### 5 7021-8 #### [facility] CLIA [id number] [address] [place] [address] [place] Monocytes (Bld) [#/Vol] 1.03 10*3/uL High <0.87 [facility] Comment on above: Order Comment: Speci men Type: BLOOD SPECIMEN Ordering Facility: [facility] Address: [address] [place] [address] Performed By: #### 5 7021-8 #### [facility] CLIA [id number] [address] [place] [address] [place] Monocytes/100 WBC (Bld) 5.9 % Normal [facility] Comment on above: Order Comment: Speci men Type: BLOOD SPECIMEN Ordering Facility: [facility] Address: [address] [place] [address] Performed By: #### 5 7021-8 #### [facility] CLIA [id number] [address] [place] [address] [place] Neutrophils (Bld) [#/Vol] 15.07 10*3/uL High 1.45-7.50 [facility] Comment on above: Order Comment: Speci men Type: BLOOD SPECIMEN Ordering Facility: [facility] Address: [address] [place] [address] Performed By: #### 5 7021-8 #### [facility] CLIA [id number] [address] [place] [address] [place] Neutrophils/100 WBC (Bld) 86.7 % Normal [facility] Comment on above: Order Comment: Speci men Type: BLOOD SPECIMEN Ordering Facility: [facility] Address: [address] [place] [address] Performed By: #### 5 7021-8 #### [facility] CLIA [id number] [address] [place] [address] [place] Nucleated RBC (Bld) [#/Vol] 10*3/uL Normal <0.01 [facility] Comment on above: Order Comment: Speci men Type: BLOOD SPECIMEN Ordering Facility: [facility] Address: [address] [place] [address] Performed By: #### 5 7021-8 #### [facility] CLIA [id number] [address] [place] [address] [place] Nucleated RBC/100 WBC (Bld) [Ratio] 0.0 /[address] [facility] Comment on above: Order Comment: Speci men Type: BLOOD SPECIMEN Ordering Facility: [facility] Address: [address] [place], [place] [address] Performed By: #### 5 7021-8 #### [facility] CLIA [id number] [address] [place] [address] [place] Platelet mean volume (Bld) [Entitic vol] 10.1 fL Normal 9.0-12.7 [facility] Comment on above: Order Comment: Speci men Type: BLOOD SPECIMEN Ordering Facility: [facility] Address: [address] [place] [address] Performed By: #### 5 7021-8 #### [facility] CLIA [id number] [address] [place] [address] [place] Platelets (Bld) [#/Vol] 301 10*3/uL Normal 150-400 [facility] Comment on above: Order Comment: Speci men Type: BLOOD SPECIMEN Ordering Facility: [facility] Address: [address] [place] [address] Performed By: #### 5 7021-8 #### [facility] CLIA [id number] [address] [place], [place] [address] [place] RBC (Bld) [#/Vol] 5.03 10*6/uL Normal 3.90-5.20 [facility] Comment on above: Order Comment: Speci men Type: BLOOD SPECIMEN Ordering Facility: [facility] Address: [address] [place] [address] Performed By: #### 5 7021-8 #### [facility] CLIA [id number] [address] [place] [address] [facility] WBC (Bld) [#/Vol] 17.39 10*3/uL High 3.70-11.00 [facility] Comment on above: Order Comment: Speci men Type: BLOOD SPECIMEN Ordering Facility: [facility] Address: [address] [place] [address] Performed By: #### 5 7021-8 #### [facility] CLIA [id number] [address] [place], [place] [address] [facility] CONSULTon 10-01-2024 CONSULT HNO ID: [id number] Author: ARMEN GODWIN MD Service: Orthopaedic Surgery Author Type: Physician Type: Consults Filed: 10/01/2024 18:18 Note Text: Orthopaedic Spine Surgery Attending Addendum I personally saw and evaluated the patient. I agree with the history, physical examination, assessment, and plan as documented in the resident's note with the following additions/changes: 23 year old female with history as below presenting with lumbar back pain with radiation to the right lower extremity. She reports history of lumbar radiculopathy with discectomy [place] [address] Muniz. She has had episodes of pain since that time. Reports that current episode began yesterday. Denies inciting event. Endorses pain in the right side of the lumbar spine that radiates down the right lower extremity with numbness and paresthesias. No pain on the left. Examination as below. Well-healed posterior midline surgical incision. Sensation intact to light touch C5-T1 and L1-S1. Motor function 5/5 except for right DF and EHL which are 4/5. No long tract signs. Reviewed imaging including MRI of the lumbar spine. Imaging demonstrates right L4-5 paracentral disc extrusion with lateral recess stenosis and compression of the traversing L5 nerve root. Moderate left L5-S1 foraminal stenosis. Radiology reports also reviewed. Patient would prefer to avoid surgery. Continue with pain medication and PT/OT. If she does not improve will plan for DANIELA next week. Right L4-5 microdiscectomy if needed based on above. Please call/page with questions. Armen Godwin MD Orthopaedic Spine Surgery Consultation requested by Noemi Milner MD. A summary of my findings and recommendations will be communicated back to the requesting physician via the shared electronic medical record. Orthopaedic Surgery Consultation Note Reason for Consultation: intractable low back pain Requesting Provider: MD Neha Date: October 01, 2024 Time: 9:29 AM History of Present Illness 23 year old female being evaluated today regarding intractable low back pain. No significant PMH. She reports that she suddenly experienced acute low back pain described as vicki horse when she awoke the day before last. It was associated with radicular pain down her entire right leg with increasing weakness and numbness. No known trauma or injury. Hx. Of prior laminectomy sometime around 2021 or . For similar symptoms. Right leg pain resolved, but she has always had residual mild low back pain. She presented to the [facility] yesterday even due to pain that recommended transfer for ortho spine evaluation due to intractable pain. She is found sitting up at the side of bed without any acute distress, but does report that pain is increasing. Requesting more pain medication. Overall since admission her symptoms have not resolved. Denies any new saddle anesthesia, bowel/bladder dysfunction. Prior to acute pain she denies any issues with falls, balance, or dexterity. History No past medical history on file. PAST SURGICAL HISTORY Procedure Laterality Date ADENOIDECTOMY HX APPENDECTOMY TONSILLECTOMY HX HPV Vaccine(1 - 3-dose series) Never done Meningococcal B Vaccine(1 of 2 - Standard) Never done GC (Gonorrhea) Screening (18-) Never done Depression Screening Never done Anxiety Screening Never done Hepatitis C Screening Never done HIV Screening Never done Chlamydia Screening () Never done Cervical Cancer Screening Never done Covid-19 Vaccine( season) Never done Influenza Vaccine(Season Ended) due on 01/31/2025 DTaP,Tdap,Td Vaccine(7 - Td or Tdap) due on 11/22/2032 Hepatitis B Vaccine Completed A review of the patient's history was completed and is otherwise non-contributory to the patient's presenting condition. Medications hydrOXYzine pamoate (VISTARIL) 25 mg capsuleTake 25 mg by mouth three times a day as needed for anxiety.Disp: Rfl: traZODone (DESYREL) 100 mg tabletTake 100 mg by mouth daily at bedtime.Disp: Rfl: Allergies Penicillin G Family History No family history on file. Social History Employer And Job Title: None on file Years Of Education Completed: Not specified Marital Status: Single Social History Tobacco Use Smoking status: Never Smokeless tobacco: Never Substance Use Topics Alcohol use: No Drug use: No Physical Examination Vitals BP (!) 112/49 Pulse 74 Temp 36.8 ?C (98.3 ?F) Resp 17 Ht 162.6 cm (5' 4) Wt 98.8 kg (217 lb 13 oz) SpO2 96% BMI 37.39 kg/m? General AANDO. NAD. Cooperative throughout entire interview. Appropriate mood and affect. Spine Inspection: No open wounds or lacerations. No ecchymosis. Palpation: no midline but right sided paraspinal tenderness to palpation. No palpable step-offs. Sensation: Sensation intact to light touch in C5-T1 and L1-S1 dermatomes with diffuse diminished sensation from L1-S1 in right le (more content not included)... Normal [facility] MRI LUMBAR SPINE WO IVCONon 10-01-2024 MRI LUMBAR SPINE WO IVCON * * *Final Report* * * DATE OF EXAM: Oct 01 2024 12:35PM [facility] 0303 - MRI LUMBAR SPINE WO IVCON / PROCEDURE REASON: Lumbar radiculopathy, symptoms persist with conservative treatment * * * * Physician Interpretation * * * * EXAMINATION: MRI LUMBAR SPINE WO IVCON CLINICAL HISTORY: Lumbar radiculopathy, symptoms persist with conservative treatment TECHNIQUE: Routine lumbosacral spine MR protocol without gadolinium. MQ: [id number] COMPARISON: None. RESULT: Counting reference: Lumbosacral junction. For the purposes of this report, L4-5 is considered the level of the iliac crest and assume there are 5 lumbar-type vertebrae. Anatomic variant: None. Localizer images: No additional findings. Alignment: Alignment is anatomic. Bone marrow signal/fracture: No evidence of pathologic marrow infiltration. No evidence of prior fracture. Conus: The conus is within normal limits of signal intensity and morphology. Paraspinal soft tissues: Paraspinal soft tissues are within normal limits. Lower thoracic spine: Visualized lower thoracic canal and foramina are patent. L1-L2: Canal and foramina are patent. L2-L3: Canal and foramina are patent L3-L4: Disc bulge with small superimposed left paracentral extrusion resulting in mild spinal canal stenosis. Foramina are patent bilaterally. L4-L5: Disc bulge with superimposed central and paracentral disc extrusion contributing to moderate spinal canal narrowing as well as effacement of the symphysis recesses bilaterally, right greater than left. Likely significant involvement of the descending right L5 nerve roots. Mild bilateral foraminal stenosis. L5-S1: Left hemilaminotomy changes. Disc bulge and facet hypertrophy as well as superimposed left paracentral extrusion contributing to moderate-severe left foraminal stenosis as well as partial effacement of the left subarticular recess. Mild right foraminal narrowing. Sacrum and iliac wings: The visualized sacrum and iliac wings are within normal limits. IMPRESSION: Degenerative changes of the lumbar spine as discussed level by level in the body of the report. Findings are most pronounced at L4-5 with moderate spinal canal stenosis as well as effacement of the subarticular recesses bilaterally, right greater than left. Likely significant involvement of the descending right L5 nerve roots. Moderate-severe left foraminal stenosis at L5-S1. Anatomic Lumbar Variant: None. L4-5 is considered the level of the iliac crest and assume there are 5 lumbar-type vertebrae. [employer] Machine Operator: PSCB Transcribe Date/Time: Oct 01 2024 1:14P Dictated by : GIANLUCA GONZALEZ MD This examination was interpreted and the report reviewed and electronically signed by: GIANLUCA GONZALEZ MD on Oct 01 2024 1:17PM EST [id number] [facility] NUTRITIONon 10-01-2024 NUTRITION HNO ID: [id number] Author: SHARIF BAILEY RD Service: ? Author Type: Registered Dietitian Type: Nutrition Filed: 10/01/2024 12:43 Note Text: NUTRITION THERAPY INITIAL ASSESSMENT SERVICE DATE: 10/01/2024 SERVICE TIME: Start Time: 1112 Nutrition Assessment: Recommended Malnutrition Diagnosis: No Malnutrition Identified Nutrition Diagnosis: PES Statement: No diagnosis at this time Care Plan: Continue current diet Monitor and Evaluation: Meet greater than 75% of estimated needs, Monitor labs, I/Os, vital signs, weight, Monitor fluid/electrolyte balance, Monitor bowel function Discharge Recommendations: Diet Diet: regular diet HPI: Pt admitted w/lower back pain. MRI ordered Hx discectomy Intake History: Nutrition Intake Prior to Admission: Greater than 75% estimated energy needs (2 meals a day plus snacks) greater than or equal to 3 months Current Nutrition Intake: Greater than 75% estimated energy needs Current Intake Over time: (x 1 day LOS) Dosing Weight: 98.4 kg (217 lb) Dosing Weight Type: Admit weight Estimated kilocalorie needs: 7549-8587 Calorie Calculation Method: [place]-St. Jeor (with activity factor) (1.1-1.3) Estimated protein needs (grams): 110-125 Grams protein determined by: Welch body weight (2.0-2.3) Diet Orders (From admission, onward) Start Ordered 09/30/24 2300 DIET REGULAR START NOW Question: Tray Precautions Answer: TRAY PRECAUTIONS NOT REQUIRED 09/30/242246 Anthropometrics: Height: 162.6 cm (5' 4) Weight: 98.8 kg (217 lb 13 oz) Usual Weight: 105.2 kg (232 lb) 10/03/2023 Usual Weight Obtained From: Care Everywhere Body mass index is 37.39 kg/m?. Weight change percentage over time: 6.4% wt loss x 1 year, pt reports intentional wt loss Weight Change: Not clinically significant weight loss Physical Exam: Subcutaneous fat loss: No Subcutaneous Fat Loss Muscle loss: No Muscle Loss Potential micronutrient deficiency: No deficiency identified Edema/Ascites: No edema, No ascites GI Symptoms: None Functional Status: No Change Potential Signs of Inflammation: Hyperglycemia, Leukocytosis, Imaging studies Lines, Drains, and Airways None MNT Billing: $ Routine Care : 1 unit Time Spent (mins): 4 SIGNATURE: Sharif Bailey RD PATIENT NAME: Ivy Crews DATE: October 01, 2024 TIME: 12:42 PM [facility] THERAPY NTon 10-01-2024 THERAPY NT HNO ID: [id number] Author: ALYX PAGAN PT DPT Service: Physical Therapy Author Type: Physical Therapist Type: Therapy (PT/OT/Speech/Resp) Filed: 10/01/2024 10:08 Note Text: PHYSICAL THERAPY MISSED VISIT SERVICE DATE: 10/01/2024 SERVICE TIME: ROOM: [place] [address] Patient not seen due to Incomplete Orders (Awaiting spine consult). SIGNATURE: Alyx Pagan, YOUSUF, DPT PATIENT NAME: Ivy Crews DATE: October 01, 2024 TIME: 10:08 AM [facility] THERAPY NT HNO ID: [id number] Author: JOSE RAUL NOLEN OTR/Leandro Service: Occupational Therapy Author Type: Occupational Therapist Type: Therapy (PT/OT/Speech/Resp) Filed: 10/01/2024 07:48 Note Text: OCCUPATIONAL THERAPY MISSED VISIT SERVICE DATE: 10/01/2024 SERVICE TIME: 0748 ROOM: [place] [address] Patient not seen due to Clinical Appropriateness (await spine consult). SIGNATURE: Jose Raul Nolen OTR/L PATIENT NAME: Ivy Crews DATE: October 01, 2024 TIME: 7:48 AM [facility] CBC + DIFFon 09-30-2024 Baso # 0.03 x10EE3/UL Normal 0.00 - 0.10 [facility] Comment on above: Performed By: #### 2 29076 #### [facility],[address] [place] [address] Basophils/100 WBC (Bld) 0.4 % Normal 0.0 - 2.0 [facility] Comment on above: Performed By: #### 2 46891 #### [facility],[address] [place] [address] CBC + DIFF Normal [facility] Comment on above: Result Comment: CBC- COMPLETE BLOOD COUNT Performed By: #### 2 91906 #### [facility],[address] [place] [address] EO # 0.12 x10EE3/UL Normal 0.00 - 0.50 [facility] Comment on above: Performed By: #### 2 48644 #### [facility],[address] [place] [address]21 Eosinophils/100 WBC (Bld) 1.8 % Normal 0.0 - 7.0 [facility] Comment on above: Performed By: #### 2 23131 #### [facility],[address] [place], [place] [id number] Erythrocyte distribution width (RBC) [Ratio] 13.8 % Normal 12.0 - 15.6 [facility] Comment on above: Performed By: #### 2 82652 #### [facility],[address] [place] [address] Hematocrit (Bld) [Volume fraction] 45.8 % Normal 34.0 - 46.0 [facility] Comment on above: Performed By: #### 2 74824 #### [facility],[address] [place] [address] Hemoglobin (Bld) [Mass/Vol] 15.6 g/dL Normal 12.0 - 16.0 [facility] Comment on above: Performed By: #### 2 56154 #### [facility],[address] [place] [address] 16868 Lymph # 1.84 x10EE3/UL Normal 0.80 - 2.80 [facility] Comment on above: Performed By: #### 2 50495 #### [facility],[address] [place] [address]37 Lymphocytes/100 WBC (Bld) 27.7 % Normal 20.0 - 45.0 [facility] Comment on above: Performed By: #### 2 47782 #### [facility],[address] [place] [address] 29541 MANUAL DIFF N/A Normal [facility] Comment on above: Performed By: #### 2 71120 #### [facility],[address] [place] [address] MCH (RBC) [Entitic mass] 32 pg Normal 27 - 33 [facility] Comment on above: Performed By: #### 2 03487 #### [facility],[address] [place] [address] MCHC 34 X10 3 Normal 32 - 36 [facility] Comment on above: Performed By: #### 2 91602 #### [facility],[address] [place] [address] MCV (RBC) [Entitic vol] 93 fL Normal 80 - 99 [facility] Comment on above: Performed By: #### 2 38851 #### [facility],[address] [place] [address] Mckinley # 0.39 x10EE3/UL Normal 0.20 - 1.00 [facility] Comment on above: Performed By: #### 2 31863 #### [facility],[address] [place], [place] [id number] MONOS % 5.8 % Normal 0.0 - 10.0 [facility] Comment on above: Performed By: #### 2 68701 #### [facility],[address] [place] [address] Morphology Peña (Bld) [Interp] N/A Normal [facility] Comment on above: Performed By: #### 2 58110 #### [facility],[address] [place] [address] Neut # 4.27 x10EE3/UL Normal 1.50 - 7.10 [facility] Comment on above: Performed By: #### 2 10650 #### [facility],[address] [place] [address] Neutrophils/100 WBC (Bld) 64.3 % Normal 46.0 - 76.0 [facility] Comment on above: Performed By: #### 2 78260 #### [facility],[address] [place] [address] 71861 PLATELET 189 x10EE3/UL Normal 150 - 450 [facility] Comment on above: Performed By: #### 2 29594 #### [facility],[address] [place] [address] 61451 Platelet mean volume (Bld) [Entitic vol] 9.0 fL Normal 6.6 - 10.5 [facility] Comment on above: Result Comment: AUTO MATED DIFFERENTIAL Performed By: #### 2 21470 #### [facility],[address] [place] [address] 90686 RBC 4.93 x 10EE6/UL Normal 4.10 - 5.30 [facility] Comment on above: Performed By: #### 2 83958 #### [facility],[address] [place] [address] 33462 WBC 6.7 x 10EE3/UL Normal 4.5 - 10.8 [facility] Comment on above: Performed By: #### 2 25883 #### [facility],[address] [place] [address] 29680 CMP with eGFRon 09-30-2024 AGE 23 years Normal [facility] Comment on above: Performed By: #### 2 23444 ####[facility],[address] [place] [address] 24754 Albumin [Mass/Vol] 3.9 g/dL Normal 3.4 - 5.0 [facility] Comment on above: Performed By: #### 2 59144 ####[facility],[address] [place] [address] 11233 Albumin/Globulin [Mass ratio] 1.3 {ratio} Normal 0.9 - 1.6 [facility] Comment on above: Performed By: #### 2 71155 ####[facility],[address] [place] [address] 79694 ALK PHOS 50 U/L Normal 46 - 116 [facility] Comment on above: Performed By: #### 2 78799 ####[facility],[address] [place] [address] 48166 ALT [Catalytic activity/Vol] 27 U/L Normal 16 - 63 [facility] Comment on above: Performed By: #### 2 [id number] ####[facility],[address] [place] [address] 25926 Anion gap [Moles/Vol] 14 mmol/L Normal 10 - 20 [facility] Comment on above: Performed By: #### 2 [id number] ####[facility],[address] [place] [address] 60629 AST [Catalytic activity/Vol] 17 U/L Normal 13 - 39 [facility] Comment on above: Performed By: #### 2 [id number] ####[facility],[address] [place] [address] 92548 B/C RATIO 21 ratio Normal 0 - 30 [facility] Comment on above: Performed By: #### 2 25803 ####[facility],[address] [place] [address] 03585 Bilirubin [Mass/Vol] 0.8 mg/dL Normal 0.2 - 1.0 [facility] Comment on above: Performed By: #### 2 00431 ####[facility],[address] [place] [address] 41925 Calcium [Mass/Vol] 9.3 mg/dL Normal 8.5 - 10.1 [facility] Comment on above: Performed By: #### 2 55827 ####[facility],[address] [place] [address] 43734 Chloride [Moles/Vol] 103 mmol/L Normal 98 - 107 [facility] Comment on above: Performed By: #### 2 17531 ####[facility],[address] [place] [address] 68859 CMP with eGFR Normal [facility] Comment on above: Result Comment: COMP REHENSIVE METABOLIC PANEL Performed By: #### 2 51293 ####[facility],[address] [place] [address] 06294 CO2 [Moles/Vol] 24.8 mmol/L Normal 21.0 - 32.0 [facility] Comment on above: Performed By: #### 2 44162 ####[facility],[address] [place] [address] 95726 Creatinine [Mass/Vol] 0.84 mg/dL Normal 0.55 - 1.02 [facility] Comment on above: Performed By: #### 2 84353 ####[facility],[address] [place] [address] 15608 GFR/1.73 sq M.predicted among non-blacks MDRD (S/P/Bld) [Vol rate/Area] mL/min/{1.73_m2} Normal 60 - 999 [facility] Comment on above: Performed By: #### 2 07755 ####[facility],[address] [place] [address] 22002 Result Comment: ACCO RDING TO THE NATIONAL KIDNEY DISEASE EDUCATION PROGRAM(NKDE), A NORMAL eGFR IS A VALUE GREATER THAN OR EQUAL TO 60 ML/MIN/1.73 SQ METERS. CHRONIC KIDNEY DISEASE: <60mL/MIN/1.73 SQ METERS KIDNEY FAILURE: <15mL/MIN/1.73 SQ METERS THIS TEST SHOULD ONLY BE USED FOR PATIENTS 18 YEARS OF AGE AND OLDER. Globulin (S) [Mass/Vol] 3.1 g/dL Normal 1.5 - 3.8 [facility] Comment on above: Performed By: #### 2 66105 ####[facility],[address] [place] [address] 90536 Glucose [Mass/Vol] 98 mg/dL Normal 74 - 106 [facility] Comment on above: Performed By: #### 2 58723 ####[facility],[address] [place] [address] 63012 Potassium [Moles/Vol] 4.7 mmol/L Normal 3.5 - 5.1 [facility] Comment on above: Performed By: #### 2 63633 ####[place] [address] Protein [Mass/Vol] 7.0 g/dL Normal 6.4 - 8.2 [facility] Comment on above: Performed By: #### 2 95364 ####[facility],[address] [place] [address] Sodium [Moles/Vol] 137 mmol/L Normal 136 - 145 [facility] Comment on above: Performed By: #### 2 39828 ####[place] [address] Urea nitrogen [Mass/Vol] 18 mg/dL Normal 7 - 18 [facility] Comment on above: Performed By: #### 2 62500 ####[facility],[address] [place] [address] CORONAVIRUS (SARS) ANTIGEN T ESTon 09-30-2024 EXTERNAL QC DONE? YES Normal [facility] Comment on above: Performed By: #### 2 [id number] #### [facility],[address] [place] [address] INTERNAL CONTROL PASS Normal [facility] Comment on above: Performed By: #### 2 51725 #### [place] [address] SARS ANTIGEN Negative Normal NORMAL: NEGATIVE [facility] Comment on above: Performed By: #### 2 59341 #### [place] [address] SEND TO ? NO Normal [facility] Comment on above: Result Comment: SARS -CoV-2 THIS TEST IS BEING USED UNDER THE FDA EUA PROCEDURE. THIS ASSAY HAS BEEN VALIDATED AT [facility] FOR USE WITH NASAL AND NASOPHARYNGEAL SWAB SPECIMENS. INTERPRETIVE DATA TEST RESULTS SHOULD ALWAYS BE CONSIDERED IN THE CONTEXT OF CLINICAL OBSERVATIONS AND EPIDEMIOLOGICAL DATA IN MAKING FINAL DIAGNOSIS AND PATIENT MANAGEMENT DECISIONS. PATIENT MANAGEMENT SHOULD FOLLOW CURRENT CDC GUIDELINES. THE ODILIA SARS ANTIGEN HELIO DOES NOT DIFFERENTIATE BETWEEN SARS-CoV & SARS-CoV-2. A POSITIVE TEST RESULT INDICATES THE PRESENCE OF SARS-CoV-2 NUCLEOCAPSID PROTEIN ANTIGEN, AND THE PATIENT IS INFECTED WITH THE VIRUS AND PRESUMED TO BE CONTAGIOUS. A NEGATIVE TEST RESULT FOR THIS TEST MEANS THAT SARS-CoV-2 NUCLEOCAPSID PROTEIN ANTIGEN WAS NOT PRESENT IN THE SPECIMEN ABOVE THE LIMIT OF DETECTION. HOWEVER, A NEGATIVE RESULT DOES NOT RULE OUT COVID-19 AND SHOULD NOT BE USED THE SOLE BASIS FOR TREATMENT OR PATIENT MANAGEMENT DECISIONS. A NEGATIVE RESULT DOES NOT EXCLUDE THE POSSIBILITY OF COVID-19. NEGATIVE RESULTS, FROM PATIENTS WITH SYMPTOM ONSET BEYOND FIVE DAYS, SHOULD BE TREATED PRESUMPTIVE AND CONFIRMATION WITH A MOLECULAR ASSAY, IF NECESSARY, FOR PATIENT MANAGEMENT, MAY BE PERFORMED. WHEN DIAGNOSTIC TESTING IS NEGATIVE, THE POSSIBLILTY OF A FALSE NEGATIVE RESULT SHOULD BE CONSIDERED IN THE CONTEXT OF A PATIENT'S RECENT EXPOSURES AND THE PRESENCE OF CLINICAL SIGNS AND SYMPTOMS CONSISTENT WITH COVID-19. THE POSSIBILITY OF A FALSE NEGATIVE RESULT SHOULD ESPECIALLY BE CONSIDERED IF THE PATIENT'S RECENT EXPOSURES OR CLINICAL PRESENTATION INDICATE THAT COVID-19 IS LIKELY, AND DIAGNOSTIC TESTS FOR OTHER CAUSES OF ILLNESS (e.g., OTHER RESPIRATORY ILLNESS) ARE NEGATIVE. IF COVID-19 IS STILL SUSPECTED BASED ON EXPOSURE HISTORY TOGETHER WITH OTHER CLINICAL FINDINGS, RE-TESTING SHOULD BE CONSIDERED BY HEALTHCARE PROVIDERS IN CONSULTATION WITH PUBLIC HEALTH AUTHORITIES. Performed By: #### 2 [id number] #### [place] [address] CT ABDOMEN/PELVIS [facility] 2024 CT ABDOMEN/PELVIS [place] [address] Patient: IVY CREWS Phone#: : [phone] Age: 23 Gender: F Pt. Type: ER Account: [id number] Location: [facility] Ordering: MELVIN MELLO Exam Date: 09/30/2024/13:37 Family Phys: DOMINICK KHOURY Charge Code: [id number] Physician: [place] Order #: [id number] Dose#: 24.2 mGy PROCEDURE: CT ABDOMEN/PELVIS WITH CONTRAST COMPARISON: [facility], CT, ABDOMEN/PELVIS W CON, 10/09/2021, 8:22. INDICATIONS: Pelvic pain. TECHNIQUE: After obtaining the patient's consent, CT images were created with non-ionic intravenous contrast material. All CT scans at this facility use dose modulation, iterative reconstruction, and/or weight based dosing when appropriate to reduce radiation dose to as low as reasonably achievable. IV CONTRAST: Omnipaque 350,80ml TOTAL DOSE: 24.2 CTDIvol(mGy) FINDINGS: Study limited by patient motion. LIVER: Normal. No enlargement, atrophy, abnormal density, or significant focal lesion. BILIARY: Gallbladder is present. PANCREAS: Normal. No lesion, fluid collection, ductal dilatation, or atrophy. SPLEEN: Normal. No enlargement or focal lesion. Splenule adjacent to the lower pole. KIDNEYS: Kidneys enhance and excrete contrast symmetrically. No hydronephrosis. ADRENALS: Normal. No mass or enlargement. AORTA/VASCULAR: No aortic aneurysm. RETROPERITONEUM: Normal. No mass or adenopathy. BOWEL/MESENTERY: No bowel obstruction or dilatation. Moderate stool burden. Appendix is not visualized. ABDOMINAL WALL: Fat containing umbilical hernia URINARY BLADDER: Urinary bladder is fluid-filled. PELVIC NODES: Normal. No adenopathy. PELVIC ORGANS: Uterus is present. No adnexal mass. Surgical clips in the adnexa consistent with tubal ligation. Continued Report - Page 2 of 2 Patient: IVY CREWS Phone#: : 2000 Age: 23 Gender: F Pt. Type: ER Account: [id number] Location: [id number] Ordering: MELVIN MELLO Exam Date: 09/30/2024/13:37 Family Phys: DOMINICK PENG Charge Code: [id number] Physician: [place] Order #: [id number] Dose#: 24.2 mGy BONES: Surgical changes of prior L5 and S1 left hemilaminectomy. L5-S1 disc height loss and posterior disc osteophyte complex resulting in osseous foraminal narrowing on the left. LUNG BASES: No focal parenchymal abnormality. OTHER: Negative. CONCLUSION: 1. L5-S1 disc height loss and left osseous foraminal narrowing 2. No acute intra-abdominal or pelvic abnormality. Dictated by: Armida Thorpe MD on 09/30/2024 at 13:58 Approved by: Armida Thorpe MD on 09/30/2024 at 14:10 Normal [facility] CULTURE BLOOD [JULIA]on Microscopic examination of blood, culture CULTURE BLOOD [JULIA] _BLOOD CULTURE_ GO TO C[employer]I REPORTS AND ATTACHMENTS FOR SCANNED REPORT 10/07/24.1015.DNP.[facility] Comment on above: Performed By: #### 2 [id number] #### [facility],[address] [place] [address] Microscopic examination of blood, culture CULTURE BLOOD [JULIA] _BLOOD CULTURE_ GO TO CPSI REPORTS AND ATTACHMENTS FOR SCANNED REPORT 10/06/24.1015.DNP.[facility] Comment on above: Performed By: #### 2 [id number] ####[facility],[address] [place], [place] [address] ED MED ADMINISTRATION DETAIL on 09-30-2024 ED MED ADMINISTRATION DETAIL Spiral Tube Winder [place] [address] [phone] 09/30/2024 Patient: IYV CREWS Sex: Female : 2000 Age: 23y MEASUREMENTS: Wt: 99.8 kg, Ht/Dakotah: 64.0 in, BMI: 37.76 ALLERGIES: Penicillins Medication Ordered Medication Administration Date/Time IV NS 0.9 % 1000 10:04 09/30 IV NS 0.9 % 1000 mL started in bag#1 1000 mL at Started mL at 500 mL/hr 500 mL/hr via Site# 1. Allergies verified and confirmed 5 rights. IV 10:04 09/30/2024 (NOW x1) patency established. IV site checked: no pain, redness, or swelling. Wiley Fierro IV flushed thoroughly pre-medication administration. Information R.N. reviewed with patient. - 10:08 Wiley Fieror R.N. Stopped 11:14 09/30/2024 11:14 05/ Medication Discontinued: bag #1 infused. Total Francisca [place] R.N. amount infused: 1000 mL. IV patency established. IV site checked: Scanned no pain, redness, or swelling. IV flushed thoroughly post-medication administration. - 20:15 Francisca [place] R.N. HYDROmorphone 10:03 05 HYDROmorphone (Dilaudid) IVP 0.5 mg given via Given (Dilaudid) IVP 0.5 Site# 1. - 10:03 Wiley Fierro R.N. 10:03 09/30/2024 mg (NOW x1, HIGH Wiley Fierro ALERT R.N. MEDICATION) Scanned Zofran IVP 4 mg 10:09/30 Zofran IVP 4 mg given via Site# 1. Confirmed 5 rights. Given (NOW x1) IV patency established. IV site checked: no pain, redness, or 10:03 09/30/2024 swelling. IV flushed thoroughly pre-medication administration. Wiley Fierro, Information reviewed with patient. - 10:03 Wiley Fierro R.N. R.N. Scanned 1 of 3 Spiral Tube Winder Helper Medication Ordered Medication Administration Date/Time MethylPREDNISolo 10:04 05 MethylPREDNISolone Sodium Succ (Solu-Medrol) IVP Given ne Sodium Succ 125 mg given via Site# 1. Allergies verified and confirmed 5 rights. 10:04 09/30/2024 (Solu-Medrol) IVP IV patency established. IV site checked: no pain, redness, or Wiley Fierro, 125 mg (NOW x1) swelling. IV flushed thoroughly pre-medication administration. R.N. Information reviewed with patient. - 10:04 Wiley Fierro R.N. Scanned LORazepam 11:19 09/30 LORazepam (Ativan) IVP 0.5 mg given via Site# 1. Given (Ativan) IVP 0.5 mg Allergies verified. IV patency established. IV site checked: no pain, 11:19 09/30/2024 (NOW x1) redness, or swelling. IV flushed thoroughly pre-medication Francisca [place] R.N. administration. IVP given by nurse. Information reviewed with Scanned patient. Verbalizes understanding. Medication Wastage: 1.5 mg wasted. - 11:19 Francisca [place] R.N. HYDROmorphone 11:43 05 HYDROmorphone (Dilaudid) IVP 0.5 mg given via Given (Dilaudid) IVP 0.5 Site# 1. IV patency established. IV site checked: no pain, redness, 11:43 09/30/2024 mg (NOW x1, HIGH or swelling. IV flushed thoroughly pre-medication administration. Francisca Smith R.N. ALERT IVP given by nurse. - 11:45 Francisca [place] R.N. Scanned MEDICATION) Valium IVP 5 mg 12:24 05 Valium IVP 5 mg given via Site# 1. Allergies verified Given (NOW x1) and confirmed 5 rights. IV patency established. IV site checked: no 12:24 09/30/2024 pain, redness, or swelling. IV flushed thoroughly pre-medication Francisca [place] R.N. administration. IVP given by nurse. Information reviewed with Not Scanned patient. Verbalizes understanding. (verified by Sujit LE and pharmacy). - 12:24 Francisca [place] R.N. KetorOLAC 12:50 05 KetorOLAC (Toradol) IVP 15 mg given via Site# 1. Given (Toradol) IVP 15 mg Allergies verified and confirmed 5 rights. IV patency established. IV 12:50 09/30/2024 (NOW x1) site checked: no pain, redness, or swelling. IV flushed thoroughly Francisca [place] R.N. pre-medication administration. IVP given by nurse. Information Scanned reviewed with patient. Verbalizes understanding. Medication Wastage: 15 mg wasted. - 12:50 Francisca Smith R.N. HYDROmorphone 14:13 05 HYDROmorphone (Dilaudid) IVP 0.5 mg given via Given (Dilaudid) IVP 0.5 Site# 1. Allergies verified and confirmed 5 rights. IV patency 14:13 09/30/2024 mg (NOW x1, HIGH established. IV site checked: no pain, redness, or swelling. IV Francisca [place] R.N. ALERT flushed thoroughly pre-medication administration. IVP given by Scanned MEDICATION) nurse. Information reviewed with patient. Verbalizes understanding. - 14:15 Francisca Smith R.N. 2 of 3 Spiral Tube Winder Helper Medication Ordered Medication Administration Date/Time MORPHine IVP 4 16:50 05 MORPHine IVP 4 mg given via Site# 1. Allergies Given mg (NOW x1, HIGH verified and confirmed 5 rights. IV patency established. IV site 16:50 09/30/2024 ALERT checked: no pain, redness, or swelling. IV flushed thoroughly Francisca [place] R.N. MEDICATION) pre-medication administration. IVP given by nurse. Information Scanned reviewed with patient. Verbalizes understanding. - 16:53 Francisca [place] R.N. MethylPREDNISolo (more content not included)... Normal [facility] ED NURSES CLINICAL NOTEon ED NURSES CLINICAL NOTE Nurse Narrative Nurse Clinical [address] [place] [address] [phone] 09/30/2024 09:37:00 Patient: IVY CREWS Sex: Female : 2000 Age: 23y Disposition: Transfer to [facility] Disposition Decision Time: 12:35 09/30/2024 Departure Time: 20:48 09/30/2024 TRIAGE Arrived by private vehicle. Historian: (patient). Primary physician (khoury). Triage time: 09:39 09/30/2024. Acuity: LEVEL 3. Chief Complaint: BACK PAIN. This started today. ( has hx of chronic back pain). The patient has had weakness, tingling,, trouble walking and extremity pain. SEPSIS SCREEN: NEGATIVE. SIRS criteria negative. No possible sources of infection. -- 09:44 09/30/24 EDT Pipo Trejo R.N. 09:43 09/30/24. BP: 119/87 MAP: 98. HR: 96. RR: 22. O2 saturation: 98% Temperature: 97 F. Pain level now 10/10. -- 09:43 09/30/24 EDT Pipo Trejo R.N. Measurements: 09:43 09/30/24 Wt: 99.8 kg, Ht/Dakotah: 64.0 in, BMI: 37.76 -- 09:43 09/30/24 CLEMENCIA Trejo R.N. Medications: trazodone 100 mg tablet: 1 tablet every night at bedtime. -- 09:49 09/30/24 CLEMENCIA Trejo R.N. hydroxyzine pamoate 25 mg capsule: 1 capsule every six hours as needed. -- 09:49 09/30/24 CLEMENCIA Trejo R.N. 1 of 6 Nurse Narrative Allergies: Penicillins -- 09:41 09/30/24 CLEMENCIA Trejo R.N. Problems: Anxiety disorder -- 09:41 09/30/24 CLEMENCIA Terjo R.N. ADDITIONAL SURGERIES: Back Surgery -- 09:41 09/30/24 CLEMENCIA Trejo R.N. Appendectomy -- 09:41 09/30/24 CLEMENCIA Trejo R.N. -- 09:41 09/30/24 CLEMENCIA Trejo R.N. Tonsillectomy -- 09:41 09/30/24 CLEMENCIA Trejo R.N. History 09:39 09/30/24. SOCIAL HX: Never smoker. No alcohol use or drug use. The patient has not traveled outside the [place] Infectious disease exposure: No infectious disease exposure. ABUSE ASSESSMENT: The patient answered yes to the question(s) Do you feel safe in your home? and no to the question(s) Are you afraid to go home?. SELF HARM ASSESSMENT: Self harm assessment was performed. The patient answered no to the question(s) Have you recently felt down, depressed, or hopeless? and Do you have thoughts of harming or killing yourself?. FALL RISK ASSESSMENT: Fall risk assessment completed. No risk factors identified. -- 09:44 09/30/24 CLEMENCIA Trejo R.N. 09:09/30/24. PAST MEDICAL HX: Denies current : LNMP:1 weeks ago. -- 09:49 09/30/24 CLEMENCIA Trejo R.N. Interventions 09:39 09/30/24. To room. -- 09:44 09/30/24 CLEMENCIA Trejo R.N. 2 of 6 Nurse Narrative PHYSICAL ASSESSMENT 09:59 09/30/24. ( Pt ambulated into the department. C/O severe back pain d/t spasm. That started with AM around 0630. Pain is radiating down her legs.). GENERAL / NEURO / PSYCH: Alert. Oriented X 4. Appears in pain. RESPIRATORY: Respirations not labored. Breath sounds within normal limits. CVS: Capillary refill less than 2 seconds. GI / : Bowel sounds within normal limits. -- 09:59 09/30/24 EDT Wiley Fierro R.N. NURSING PROGRESS NOTES 09:48 09/30/24. Site #1 started via IV with a 20g angiocath; 2 attempts. Blood drawn: rainbow set tube(s). Saline lock flushed with 5 mL saline. -- 10:09/30/24 EDT Wiley Fierro R.N. 10:09/30/24. HYDROmorphone (Dilaudid) IVP 0.5 mg given via Site# 1. -- 10:09/30/24 EDT Wiley Fierro R.N. 10:09/30/24. Zofran IVP 4 mg given via Site# 1. Confirmed 5 rights. IV patency established. IV site checked: no pain, redness, or swelling. IV flushed thoroughly pre-medication administration. Information reviewed with patient. -- 10:09/30/24 EDT Wiely Fierro R.N. 10:09/30/24. MethylPREDNISolone Sodium Succ (Solu-Medrol) IVP 125 mg given via Site# 1. Allergies verified and confirmed 5 rights. IV patency established. IV site checked: no pain, redness, or swelling. IV flushed thoroughly pre-medication administration. Information reviewed with patient. -- 10:09/30/24 EDT Wiley Fierro R.N. 10:09/30/24. IV NS 0.9 % 1000 mL started in bag#1 1000 mL at 500 mL/hr via Site# 1. Allergies verified and confirmed 5 rights. IV patency established. IV site checked: no pain, redness, or swelling. IV flushed thoroughly pre-medication administration. Information reviewed with patient. -- 10:08 09/30/24 EDT Wiley Fierro R.N. 10:10 09/30/24. Patient identifiers checked. Call light placed in reach. Side rails up x 2. Bed placed in lowest position. Brakes of chair on. -- 10:10 09/30/24 EDT Wiley Fierro R.N. 11:14 09/30/24. IV NS 0.9 %: Medication Discontinued. bag #1 infused. Total amount infused: 1000 mL. IV patency established. IV site checked: no pain, redness, or swelling. IV flushed thoroughly post-medication administration. -- 20:15 09/30/24 EDT Francisca Smith R.N. 11:19 09/30/24. LORazepam (Ativan) IVP 0.5 mg given via Site# 1. Triston (more content not included)... Normal [facility] ED ORDER SHEET (CPOE ONLY)on 09-30-2024 ED ORDER SHEET (CPOE ONLY) Order Sheet Order Sheet [address] [place] [address] [phone] 09/30/2024 Patient: IVY CREWS Sex: Female : 2000 Age: 23y MEASUREMENTS: Wt: 99.8 kg, Ht/Dakotah: 64.0 in, BMI: 37.76 ALLERGIES: Penicillins MEDICATION/IV/DRIP/FLU ID ORDERS Order Description Priority Entered Acknowledged Completed IV NS 0.9 %1000 mL at 500 09:50 09/30/2024 10:00 10:08 mL/hr (NOW x1) Melvin Mello, 09/30/2024 09/30/2024 Wiley Montenegro R.N. R.N. HYDROmorphone (Dilaudid) 09:50 09/30/2024 10:00 10:03 IVP0.5 mg (NOW x1, HIGH Melvin Mello, 09/30/2024 09/30/2024 ALERT MEDICATION) Wiley Montenegro R.N. RrBianN. Zofran IVP4 mg (NOW x1) 09:50 09/30/2024 10:00 10:03 Melvin Mello, 09/30/2024 09/30/2024 Wiley [place], R.N. R.N. Reason for ordering with alerts: Benefits outweigh risks --09:50 09/30/2024 Melvin Mello D.O. MethylPREDNISolone Sodium 09:59 09/30/2024 10:00 10:04 Succ (Solu-Medrol) [id number] mg Melvin Mello, 09/30/2024 09/30/2024 (NOW x1) Wiley Monten[place]ro, 1 of 5 Order Sheet R.N. R.N. LORazepam (Ativan) IVP0.5 mg 10:51 09/30/2024 11:19 (NOW x1) Melvin Mello, 09/30/2024 Rowena [place], R.NBrian Reason for ordering with alerts: Benefits outweigh risks --10:51 09/30/2024 Melvin Mello D.O. HYDROmorphone (Dilaudid) 11:37 09/30/2024 11:41 11:45 IVP0.5 mg (NOW x1, HIGH Melvin Mello, 09/30/2024 09/30/2024 ALERT MEDICATION) Francisca Bryan R.N. R.N. Reason for ordering with alerts: Benefits outweigh risks --11:37 09/30/2024 Melvin Mello D.O. Valium IVP5 mg (NOW x1) 11:46 09/30/2024 12:11 12:24 Melvin Mello, 09/30/2024 09/30/2024 Francisca Bryan R.N. R.N. Reason for ordering with alerts: Benefits outweigh risks --11:46 09/30/2024 Melvin Mello D.O. KetorOLAC (Toradol) IVP15 mg 12:45 09/30/2024 12:48 12:50 (NOW x1) Melvin Mello, 09/30/2024 09/30/2024 D.O. Francisca Lovell R.N. R.NBrian Reason for ordering with alerts: Benefits outweigh risks --12:45 09/30/2024 Melvin Mello D.O. HYDROmorphone (Dilaudid) 14:10 09/30/2024 14:11 14:15 IVP0.5 mg (NOW x1, HIGH Melvin Mello 09/30/2024 09/30/2024 ALERT MEDICATION) Francisca Bryan R.N. R.NBrian Reason for ordering with alerts: Benefits outweigh risks --14:10 09/30/2024 Melvin Mello D.O. MORPHine IVP4 mg (NOW x1, 16:41 09/30/2024 16:49 16:53 HIGH ALERT MEDICATION) Melvin Mello 09/30/2024 09/30/2024 2 of 5 Order Sheet Francisca Bryan R.N. R.NBrian Reason for ordering with alerts: Benefits outweigh risks --16:41 09/30/2024 Melvin Mello D.O. MethylPREDNISolone Sodium 18:17 09/30/2024 18:21 18:33 Succ (Solu-Medrol) [id number] mg Melvin Mello 09/30/2024 09/30/2024 (NOW x1) Francisca Bryan R.N. R.NBrian Reason for ordering with alerts: Benefits outweigh risks --18:17 09/30/2024 Melvin Mello D.O. LAB ORDERS Order Description Priority Entered Acknowledged Collected Completed CBC w Diff Stat Stat 10:51 09/30/2024 11:04 09/30/2024 11:21 09/30/2024 Wiley Hernandez Alisha Whytsell, D.O. R.N. R.N. CMP Stat Stat 10:51 09/30/2024 11:04 09/30/2024 11:21 09/30/2024 Wiley Hernandez Alisha Whytsell, D.O. R.N. R.N. Blood Culture Stat 10:51 09/30/2024 11:04 09/30/2024 11:45 09/30/2024 [Julia] # 1 Stat Wiley Hernandez Alisha Whytsell, D.O. R.N. R.NBrian Blood Culture Stat 10:51 09/30/2024 11:04 09/30/2024 11:45 09/30/2024 [Julia] # 2 Stat Wiley Hernandez Alisha Whytsell, D.O. R.NBrian RTej. Flu Swab (Influenzae Stat 10:51 09/30/2024 11:04 09/30/2024 11:21 09/30/2024 AAg) Stat Wiley Hernandez Alisha Whytsell, D.O. R.NBrian RSung 3 of 5 Order Sheet Rapid COVID (SARS) Stat 10:51 09/30/2024 11:05 09/30/2024 11:21 09/30/2024 ANTIGEN TEST Stat Wiley Hernandez Alisha Whytsell, D.O. R.NBrian RBrianNBrian Lactate, Serum Stat Stat 10:51 09/30/2024 11:04 09/30/2024 11:21 09/30/2024 Wiley Hernandez Alisha Whytsell, D.O. R.N. R.NBrian Urinalysis Stat Stat 13:02 09/30/2024 13:03 09/30/2024 13:03 09/30/2024 Francisca Hernandez Alisha Whytsell, D.O. R.NBrian RBrianNBrian DIAGNOSTIC STUDY ORDERS Order Description Priority Entered Acknowledged Completed MRI Lumbar Spine wo Cont Stat Stat 12:59 09/30/2024 Cancelled: Other Melvin Mello, 13:21 EDT Melvin Mello D.O. D.O. Reason for Study: Lower Back Pain CT ABD/PEL w Cont Stat Stat 13:22 09/30/2024 13:29 14:08 Melvin Mello, 09/30/2024 09/30/2024 Delfino Bryana Whytse (more content not included)... Normal [facility] ED PHYSICIAN CLINICAL REPORT on 09-30-2024 ED PHYSICIAN CLINICAL REPORT Narrative Physician Clinical Narrative [facility] [address] [place] [address] [phone] 09/30/2024 09:37:00 Patient: IVY CREWS Sex: Female : 2000 Age: 23y Disposition: Transfer to [facility] Disposition Decision Time: 12:35 09/30/2024 Measurements Wt: 99.8 kg, Ht/Dakotah: 64.0 in, BMI: 37.76 Initial Vital Sign Measured Time BP MAP HR RR O2Sat ETCO2 Temp Pain GCS RTS 09:43 09/30/2024 119/87 98 96 22 98% 97.0 F 10 Time Seen: 09:44 09/30/2024. Arrived- By private vehicle. Historian- patient. Independent historian- family. HISTORY OF PRESENT ILLNESS Chief Complaint: BACK PAIN. Onset was just prior to arrival patient has had a history of back problems since has a laminectomy [address] Muniz. Today she was waking up and she has had intense pain in her back felt like spasms more in the right side of her back so it is 10/10 it is worse with movement nothing makes it better it is cramping stabbing sharp burning dull pressure tightness throbbing she states. She presents emergency department with a family member. he has denies any falls or trauma. and it is still present. It is described as being in the area of the right lower lumbar spine. No bladder dysfunction, bowel dysfunction or motor loss. Sensory loss involving the right foot and lower leg (Tingling in her right leg especially in her foot. She said she had numbness but she does have sensation in his just not normal she states). Patient denies an injury. REVIEW OF SYSTEMS Narrative RESPIRATORY: No cough. GI: No abdominal pain. CONSTITUTIONAL: No fever. : No difficulty with urination. NEUROLOGICAL: No headache. THROAT: No sore throat. PAST HISTORY See nurses notes. The patient has had prior back pain. Anxiety disorder Surgeries: Appendectomy Back Surgery Tonsillectomy Medications: hydroxyzine pamoate 25 mg capsule: 1 capsule every six hours as needed. trazodone 100 mg tablet: 1 tablet every night at bedtime. Allergies: Penicillins SOCIAL HISTORY Never smoker. No alcohol use or drug use. ADDITIONAL NOTES The nursing notes have been reviewed. PHYSICAL EXAM Appearance: Alert. No acute distress. HEENT: Normal external inspection. Eyes: Pupils equal, round and reactive to light. ENT: Ears normal. Neck: Normal inspection. Neck nontender. CVS: Heart sounds normal. Pulses normal. Respiratory: No respiratory distress. Painless inspiration. 2 of 16 Narrative Abdomen: No visible injury. Soft. Skin: Skin warm. Normal skin color. Normal skin turgor. Neuro: Oriented X 3. Mood/affect normal. LABS, X-RAYS, AND EKG Laboratory Tests: CBC + DIFF Final CL: 09/30/2024 09:52:00 EDT MsgRcvd: 09/30/2024 11:00 EDT Lab Test Result Reference Status Received Comments 09/30/2024 11:00 CBC-COMPLETE CBC + DIFF Final EDT BLOOD COUNT 09/30/2024 11:00 WBC 6.7 x 10/UL 4.5 - 10.8 Final EDT 09/30/2024 11:00 RBC 4.93 x 10/UL 4.10 - 5.30 Final EDT 09/30/2024 11:00 HEMOGLOBIN 15.6 g/dl 12.0 - 16.0 Final EDT 09/30/2024 11:00 HEMATOCRIT 45.8 % 34.0 - 46.0 Final EDT 09/30/2024 11:00 MCV 93 fl 80 - 99 Final EDT 09/30/2024 11:00 MCH 32 pg 27 - 33 Final EDT 09/30/2024 11:00 MCHC 34 X10 3 32 - 36 Final EDT 09/30/2024 11:00 RDW/CV 13.8 % 12.0 - 15.6 Final EDT 3 of 16 Narrative Lab Test Result Reference Status Received Comments 09/30/2024 11:00 PLATELET 189 x10/UL 150 - 450 Final EDT 09/30/2024 11:00 AUTOMATED MPV 9.0 fl 6.6 - 10.5 Final EDT DIFFERENTIAL 09/30/2024 11:00 NEUT % 64.3 % 46.0 - 76.0 Final EDT 09/30/2024 11:00 LYMPH % 27.7 % 20.0 - 45.0 Final EDT 09/30/2024 11:00 MONOS % 5.8 % 0.0 - 10.0 Final EDT 09/30/2024 11:00 EO % 1.8 % 0.0 - 7.0 Final EDT 09/30/2024 11:00 BASO % 0.4 % 0.0 - 2.0 Final EDT 09/30/2024 11:00 Lymph # 1.84 x10/UL 0.80 - 2.80 Final EDT 09/30/2024 11:00 Neut # 4.27 x10/UL 1.50 - 7.10 Final EDT 09/30/2024 11:00 Mckinley # 0.39 x10/UL 0.20 - 1.00 Final EDT 09/30/2024 11:00 EO # 0.12 x10/UL 0.00 - 0.50 Final EDT 09/30/2024 11:00 Baso # 0.03 x10/UL 0.00 - 0.10 Final EDT 09/30/2024 11:00 MANUAL DIFF N/A New Order EDT 4 of 16 Narrative Lab Test Result Reference Status Received Comments 09/30/2024 11:00 MORPHOLOGY N/A New Order EDT CMP with eGFR Final CL: 09/30/2024 09:52:00 EDT MsgRcvd: 09/30/2024 11:07 EDT Lab Test Result Reference Status Received Comments COMPREHENSIVE 09/30/2024 CMP with eGFR Final METABOLIC 11:07 EDT PANEL 09/30/2024 SODIUM 137 mmol/l 136 - 145 Final 11:07 EDT 09/30/2024 POTASSIUM 4.7 mmol/L 3.5 - 5.1 Final 11:07 EDT 09/30/2024 CHLORIDE 103 mmol/L 98 - 107 Final 11:07 EDT (more content not included)... Normal [facility] ED SUPER BILLon 09-30-2024 ED SUPER BILL [facility] [address] [place] [address] [id number] 09/30/2024 Patient: IVY CREWS Sex: Female : 2000 Age: 23y Facility Professional Category Item Description Code Code Quantity Fee Total Drugs Normal Saline 675911 1 $0.00 $0.00 1000cc (079605) Nurse/E/M EMERGENCY 167709 1 $0.00 $0.00 DEPT VISIT HIGH SEVERITYFUNCJ (71201-81) Nurse/IV/IM/Infusions Hydration 059584 1 $0.00 $0.00 additional hour (15243) Nurse/IV/IM/Infusions IVP additional 145041 6 $0.00 $0.00 push (36443) Nurse/IV/IM/Infusions IVP initial (00068) 350219 1 $0.00 $0.00 Nurse/IV/IM/Infusions IVP same med 631321 3 $0.00 $0.00 (31 min apart) (70495) Grand $0.00 Total Providers 1 of [address] [facility] Melvin Mello D.O. Chief Complaint BACK PAIN. Principal Diagnosis Acute pain. Acute nontraumatic lumbar back pain. ICD-10 Codes R52: Pain, unspecified M54.50: Low back pain, unspecified M54.9: Dorsalgia, unspecified 2 of 2 Normal [facility] ED VISIT SUMMARYon ED VISIT SUMMARY Visit Overview Visit Overview [address] [address] [id number] 09/30/2024 Patient: IVY CREWS Sex: Female : 2000 Age: 23y 09/30/2024 08:59 PM EDT ED Arrival:09:37 09/30/2024 EDT Status:not Recent Travel:no Language:eng Adv Directive: Isolation Status: Ethnicity:N Fall Risk:no risk Infectious Disease Exposure:no Measurements:5'4 / 162.6 Self-Harm Status:risk Sepsis Screen:negative cm 220.0 lb / 99.8 kg Chief Complaint:BACK PAIN, (khoury), and (has hx of chronic back pain) ALLERGIES Penicillins HOME MEDICATIONS hydroxyzine pamoate 25 mg capsule: 1 capsule every six hours as needed. trazodone 100 mg tablet: 1 tablet every night at bedtime. PAST MEDICAL HISTORY / PROBLEMS Anxiety disorder 1 of 3 Visit Overview See nurses notes The patient has had prior back pain PAST SURGICAL HISTORY Appendectomy Back Surgery Tonsillectomy SOCIAL HISTORY Smoking status: No Alcohol use: No Drug use: No ED COURSE MEDICATIONS GIVEN IN EMERGENCY DEPARTMENT 10:03 09/30/24 HYDROmorphone (Dilaudid) IVP 0.5 mg 10:03 09/30/24 Zofran IVP 4 mg 10:04 09/30/24 MethylPREDNISolone Sodium Succ (Solu-Medrol) IVP 125 mg 10:04 09/30/24 IV NS 0.9 % 1000 mL 500 mL/hr 11:19 09/30/24 LORazepam (Ativan) IVP 0.5 mg 11:43 09/30/24 HYDROmorphone (Dilaudid) IVP 0.5 mg 12:24 09/30/24 Valium IVP 5 mg 12:50 09/30/24 KetorOLAC (Toradol) IVP 15 mg 14:13 09/30/24 HYDROmorphone (Dilaudid) IVP 0.5 mg 16:50 09/30/24 MORPHine IVP 4 mg 18:32 09/30/24 MethylPREDNISolone Sodium Succ (Solu-Medrol) IVP 125 mg IV SITE INFORMATION 09:48 09/30/24 Site #1 right, 20g. Saline lock. INTAKE OUTPUT REASSESMENT (most recent) 2 of 3 Visit Overview 09:59 09/30/24. ( Pt ambulated into the department. C/O severe back pain d/t spasm. That started with AM around 0630. Pain is radiating down her legs.). GENERAL / NEURO / PSYCH: Alert. Oriented X 4. Appears in pain. RESPIRATORY: Respirations not labored. Breath sounds within normal limits. CVS: Capillary refill less than 2 seconds. GI / : Bowel sounds within normal limits. VITAL SIGNS First Vitals Last Vitals Temp 09:09/30/24 97.0 F Temp 19:09/30/24 BP 09:09/30/24 119/87 BP 19:09/30/24 125/69 HR 09:09/30/24 96 HR 19:09/30/24 72 RR 09:09/30/24 22 RR 19:26 09/30/24 O2 Sat 09:43 09/30/24 98% O2 Sat 19:26 09/30/24 Pain 09:43 09/30/24 10 Pain 19:26 09/30/24 ETCO2 09:43 09/30/24 ETCO2 19:26 09/30/24 GCS 09:43 09/30/24 GCS 19:26 09/30/24 RTS 09:43 09/30/24 RTS 19:26 09/30/24 PROCEDURES NURSING INTERVENTIONS LABS / STUDIES LABS / STUDIES ORDERED Blood Culture [Julia] # 1 Blood Culture [Julia] # [address] w Diff CMP [address] ABD/PEL w Cont Flu Swab (Influenzae AAg) Lactate, Serum Rapid COVID (SARS) ANTIGEN TEST Urinalysis CLINICAL IMPRESSION ACUTE NONTRAUMATIC LUMBAR BACK PAIN ACUTE PAIN 3 of 3 Normal [facility] ED VITALS FLOW SHEETon 09-30 ED VITALS FLOW SHEET Vitals Vital Sign Flow Sheet [address] [place] [address] [phone] 09/30/2024 Patient: IVY CREWS Sex: Female : 2000 Age: 23y Measurements Wt: 99.8 kg, Ht/[place]: 64.0 in, BMI: 37.76 Measured Time BP MAP HR RR O2Sat ETCO2 Temp Pain GCS RTS 19:26 09/30/2024 125/69 90 72 19:11 09/30/2024 130/65 82 68 18:56 09/30/2024 119/60 78 61 18:41 09/30/2024 125/69 85 68 18:31 09/30/2024 6 18:26 09/30/2024 116/67 83 60 18:17 09/30/2024 121/80 92 82 17:58 09/30/2024 63 96% 17:53 09/30/2024 73 96% 17:48 09/30/2024 100 88% 17:43 09/30/2024 98 97% 17:38 09/30/2024 75 97% 17:33 09/30/2024 68 96% 17:28 09/30/2024 81 98% 17:23 09/30/2024 81 94% 1 of 4 Vitals Measured Time BP MAP HR RR O2Sat ETCO2 Temp Pain GCS RTS 17:18 09/30/2024 72 96% 17:13 09/30/2024 82 97% 17:08 09/30/2024 66 95% 17:03 09/30/2024 66 96% 16:58 09/30/2024 58 93% 16:57 09/30/2024 8 16:53 09/30/2024 86 96% 16:48 09/30/2024 67 96% 16:43 09/30/2024 69 98% 16:41 09/30/2024 113/58 79 69 16:38 09/30/2024 88 98% 16:37 09/30/2024 133/64 87 94 16:33 09/30/2024 74 98% 16:28 09/30/2024 59 94% 16:23 09/30/2024 64 96% 16:18 09/30/2024 57 94% 16:13 09/30/2024 59 94% 16:08 09/30/2024 57 93% 16:03 09/30/2024 55 91% 15:58 09/30/2024 59 96% 15:53 09/30/2024 66 98% 15:08 09/30/2024 83 95% 15:03 09/30/2024 83 93% 14:58 09/30/2024 62 94% 14:53 09/30/2024 80 95% 2 of 4 Vitals Measured Time BP MAP HR RR O2Sat ETCO2 Temp Pain GCS RTS 14:48 09/30/2024 76 95% 14:46 09/30/2024 10 14:43 09/30/2024 86 100% 14:38 09/30/2024 77 92% 14:33 09/30/2024 75 95% 14:28 09/30/2024 68 96% 14:23 09/30/2024 75 93% 14:18 09/30/2024 85 96% 14:16 09/30/2024 8 14:13 09/30/2024 68 95% 14:08 09/30/2024 73 97% 14:03 09/30/2024 80 96% 13:58 09/30/2024 77 96% 13:53 09/30/2024 78 97% 13:50 09/30/2024 94 97% 13:45 09/30/2024 83 95% 13:40 09/30/2024 93 98% 13:35 09/30/2024 109 98% 13:32 09/30/2024 73 97% 13:27 09/30/2024 83 97% 13:22 09/30/2024 84 94% 13:17 09/30/2024 77 97% 13:12 09/30/2024 73 96% 13:07 09/30/2024 73 96% 13:05 09/30/2024 8 3 of 4 Vitals Measured Time BP MAP HR RR O2Sat ETCO2 Temp Pain GCS RTS 13:02 09/30/2024 74 96% 12:57 09/30/2024 62 96% 12:52 09/30/2024 70 98% 12:47 09/30/2024 76 97% 12:42 09/30/2024 87 98% 09:43 09/30/2024 119/87 98 96 22 98% 97.0 F 10 4 of 4 Normal [facility] HISTORY PHYSICALon HISTORY PHYSICAL HNO ID: [id number] Author: NOEMI MILNER MD Service: General Internal Medicine Author Type: Physician Type: H&P Filed: 09/30/2024 22:56 Note Text: DEPARTMENT OF HOSPITAL MEDICINE HISTORY AND PHYSICAL EXAM SERVICE DATE: 09/30/2024 SERVICE TIME: 10:53 PM Primary Care Physician: SAMANTHA MARIA MD, DO Subjective CHIEF COMPLAINT: Back pain HPI: This is a 23 year old female with past medical history of anxiety/depression presented to [facility] ED for back pain. Patient reportedly has a history of prior discectomy, this morning she woke up and reportedly twisted her back after which she developed intractable lower back pain with radiation down her right leg. Presented to the ER for further evaluation and despite multiple doses of pain medications she continues to be in extreme discomfort. ER provider discussed the case with Ortho surgery at [facility] who recommended transfer for further evaluation although they do not believe she will be a surgical candidate. She was reportedly hemodynamically stable with no acute lab abnormalities. Patient evaluated bedside following transfer. She is currently complaining of pain which will be addressed. Discussed plan of care including evaluation by Ortho, PT OT and pain management. Patient verbalized understanding and agreement with the plan as outlined above, all questions answered at this time. No past medical history on file. PAST SURGICAL HISTORY Procedure Laterality Date ADENOIDECTOMY HX APPENDECTOMY TONSILLECTOMY HX No family history on file. Social History Tobacco Use Smoking status: Never Smokeless tobacco: Never Substance Use Topics Alcohol use: No Drug use: No MEDICATIONS: Reviewed Prior to Admission Medications Prescriptions Last Dose Informant Patient Reported? Taking? hydrOXYzine pamoate (VISTARIL) 25 mg capsule Yes Yes Sig: Take 25 mg by mouth three times a day as needed for anxiety. traZODone (DESYREL) 100 mg tablet Yes Yes Sig: Take 100 mg by mouth daily at bedtime. Facility-Administered Medications: None ALLERGIES Allergen Reactions Penicillin G Hives REVIEW OF SYSTEM: PAIN ASSESSMENT: CURRENTLY HAVING PAIN; see HPI GENERAL: No weight loss, malaise or fevers HEENT: Negative for frequent or significant headaches, No changes in hearing or vision, no nose bleeds or other nasal problems RESPIRATORY: Negative for cough, hemoptysis, wheezing, COPD, dyspnea or shortness of breath CARDIOVASCULAR: Negative for chest pain, leg swelling, hypertension, CHF or palpitations GI: No nausea, vomiting, or diarrhea MUSCULOSKELETAL: back pain SKIN: Negative for lesions, rash, and itching Objective PHYSICAL EXAM: BP 120/85 Pulse 67 Temp (Src) 98 (Oral) Resp 20 Ht 5' 4 (1.63m) Wt 217 lb 13 oz (98.8kg) SpO2 98% BMI 37.37 kg/(m2). O2 Therapy: Room Air Physical Exam Performed: GENERAL: Obese, Moderate Distress, Cooperative SKIN: Skin color, texture, turgor normal. No rashes or lesions. HEAD/SINUSES: No significant findings LUNGS: Lungs clear to auscultation, Good diaphragmatic excursion CARDIAC: Normal S1 and S2; no rubs, murmurs, or gallops ABDOMEN: Abdomen soft, non-tender, BS normal, No masses or organomegaly EXTREMITIES: Extremities normal, no deformities, edema, clubbing or skin discoloration. Good capillary refill., No ulcers The remainder of the physical exam is noncontributory. Lines, Drains, and Airways None Reviewed lines and needs to be continued: REASONS: Difficulty in obtaining/maintaining access DATA: Diagnostic tests reviewed for today's visit: Most recent labs and imaging results. Assessment/Plan Intractable back pain History of discectomy Patient presented with intractable back pain for 1 day radiating down leg Imaging is currently being uploaded from ER Admit to surgical floor Ortho surgery consulted Multimodal pain regimen PT OT consult Chronic conditions: Anxiety/depression Obesity Resume home medications once verified Exogenous Class 2 Obesity Medication and Non-Pharmacologic VTE Prophylaxis/Anticoagul ants 09/30/24 2300 activity - mobilize patient (al,fl) VTE Prophylaxis: VTE prophylaxis appropriate Disposition: Home Plan of care discussed with: Provider, RN, Patient SIGNATURE: Noemi Milner MD PATIENT NAME: Ivy Crews DATE: September 30, 2024 TIME: 10:53 PM etx [id number] Normal [facility] INFLUENZA VIRUS RAPID A/Bon 09-30-2024 INFLUENZA VIRUS RAPID A/B INFLUENZA A NEGATIVE INFLUENZA B NEGATIVE INTERNAL NEG QC PASS INTERNAL POS QC PASS EXTERNAL QC DONE? YES SEND TO IC? NO A NEGATIVE TEST RESULT DOES NOT EXCLUDE INFECTION WITH INFLUENZA A OR B. THEREFORE, THE RESULTS OBTAINED FROM THIS FLU TEST SHOULD BE USED IN CONJUCTION WITH CLINICAL FINDINGS TO MAKE AN ACCURATE DIAGNOSIS. A POSITIVE RESULT DOES NOT RULE OUT CO-INFECTIONS WITH OTHER PATHOGENS OR IDENTIFY ANY SPECIFIC INFLUENZA A VIRUS SUBTYPE.CO-INFECTION WITH INFLUENZA A AND B IS RARE. IT IS RECOMMENDED THAT DUAL POSITIVE RESULTS BE CONFIRMED BY VIRAL CULTURE OR AN FDA-CLEARED INFLUENZA A AND B MOLECULAR ASSAY. INDIVIDUALS WHO HAVE RECEIVED NASALLY ADMINISTERED INFLUENZA A VACCINE MAY TEST POSITIVE IN COMMERCIALLY AVAILABLE INFLUENZA RAPID DIAGNOSTIC TESTS FOR UP TO THREE DAYS. RESULT CRITICAL? NO Normal [facility] Comment on above: Performed By: #### 2 [id number] #### [facility],[address] [place], [place] [id number] LACTATEon 09-30-2024 Lactate [Moles/Vol] 1.9 mmol/L Normal 0.4 - 2.0 [facility] Comment on above: Performed By: #### 2 [id number] #### [facility],[address] [place], [place] [id number] Lactate [Moles/Vol] 2.2 mmol/L High 0.4 - 2.0 [facility] Comment on above: Result Comment: LACT ATE 3 HR NOTIFIED TO: _[id number] 09/30/24.1229.JLN. LACTATE 3 HR NOTIFIED BY: _SUMA 09/30/24.1229.JLN. Performed By: #### 2 [id number] #### [facility],[address] [place], [place] [id number] URINALYSISon 09-30-2024 Bilirubin Ql (U) Negative Normal NORMAL: NEGATIVE [facility] Comment on above: Performed By: #### 2 [id number] #### [facility],[address] [place] [address] Clarity (U) clear Normal NORMAL: CLEAR [facility] Comment on above: Performed By: #### 2 [id number] #### [facility],[address] [place] [address] Color (U) p.yel Normal NORMAL: YELLOW [facility] Comment on above: Performed By: #### 2 01825 #### [facility],[address] [place] [id number] Glucose Ql (U) NORM Normal NORMAL: NORMAL [facility] Comment on above: Performed By: #### 2 96344 #### [facility],[address] [place] [id number] Hemoglobin Ql (U) Negative Normal NORMAL: NEGATIVE [facility] Comment on above: Performed By: #### 2 65004 #### [facility],[address] [place] [id number] Ketone Negative Normal NORMAL: NEGATIVE [facility] Comment on above: Performed By: #### 2 15807 #### [facility],[address] [place] [address] Leukocytes Negative Normal NORMAL: NEGATIVE [facility] Comment on above: Performed By: #### 2 04664 #### [facility],[address] [place] [address] Nitrite Ql (U) Negative Normal NORMAL: NEGATIVE [facility] Comment on above: Performed By: #### 2 05465 #### [facility],[address] [place] [address] pH (U) 7 [pH] Normal NORMAL: 5.0-8.0 [facility] Comment on above: Performed By: #### 2 46019 #### [facility],[address] [place] [address] Protein Ql (U) Negative Normal NORMAL: NEGATIVE [facility] Comment on above: Performed By: #### 2 17455 #### [facility],[address] [place] [address] Sp [place] 1.010 Normal NORMAL: 1.010-1.030 [facility] Comment on above: Performed By: #### 2 64101 #### [facility],[address] [place] [address] Specimen Type R Normal [facility] Comment on above: Performed By: #### 2 [id number] #### [facility],[address] [place] [address] Urinalysis dipstick W Reflex Microscopic panel (U) NOT INDICATED Normal [facility] Comment on above: Performed By: #### 2 [id number] #### [facility],[address] [place] [address] Urobilinog NORM Normal NORMAL: NORMAL [facility] Comment on above: Performed By: #### 2 [id number] #### [facility],[address] [place] [address] Plastic Surgery Visit Report on 07-20-2024 Plastic Surgery Visit Report [facility] Plastic Reconstructive Surgery [address], [address] [place] [address] OFFICE VISIT Date of Service: 07/20/24 MR#: [id number] Acct: [id number] Name: IVY CREWS Rep #: [id number] : 2000 Provider: Dr. Glo mcnamara MD Age/Sex: 23/F Location: [facility] Status: Signed Intake Vital Signs 07/07/24 13:04 07/20/24 14:42 Height 5 ft 5 ft Weight: 234 lb 233 lb BMI 45.7 45.5 BP 114/69 125/82 H Blood Pressure Location Lt brachial Lt brachial Position Sitting Sitting Respiration 18 18 Pulse 84 67 Temp 98.0 F 97.6 F L Temp Source Oral Temporal Pulse Oximetry (%) 99 97 Oxygen Delivery Method room air room air Intake Visit Reasons: 2 W FU Chief Complaint: post op craig breast reduction Accompanied by: spouse Is patient in pain?: Yes (07/12) Allergies Penicillins Allergy (Verified 07/20/24 14:43) Anaphylaxis Seasonal Allergies: Uncoded Allergy (Verified 07/20/24 14:43) Other Medications ???Medication ???Instructions ???Recorded ???Confirmed ???Type trazodone 100 mg tablet 100 mg PO QHS 05/04/24 07/20/24 Hi story hydroxyzine pamoate 25 mg capsule 25 mg PO Q6H PRN PRN anxiety 08/2407/20/24 History tizanidine 4 mg tablet 4 mg PO QHS 06/15/24 07/20/24 Hist ory silver sulfadiazine 1 % topical 1 applic topical DAILY #20 grams 0 07/07/24 07/20/24 Rx cream (Silvadene) Nurse's Note: pt here with spouse for post craig breast reduction, issues/concerns at T zone left breast Subjective Details: Cyndie comes in for recheck of the breast reduction was done in June. She states that she has noticed some greenish drainage on the left breast on the open area. Objective Details: The right breast is healing satisfactorily. There are few small open areas at the base of the right breast. The left breast has a larger open area at the base. There is evidence of Pseudomonas on the dressing. I debrided this with dry gauze. I have asked her to not apply the Silvadene to the open area and just apply dry gauze. I have cautioned her that the gauze will stick but it will debride the wound when this is removed. She is to do this once a day. 1 small suture was removed from the areola area on the left. Coding Level of Care Code Global Post Op Diagnoses Status post breast reduction Z98.890 [facility] Medical History Borderline personality disorder Marijuana use Back pain Former smoker Asthma Shortness of breath on exertion Leg cramps History of gastroesophageal reflux (GERD) Chronic pain in left shoulder Chronic pain in right shoulder Striae Gave to child recently Intertrigo Chronic thoracic back pain Chronic neck pain Macromastia GERD (gastroesophageal reflux disease) Back problem Allergies Nausea Depression Surgical History History of lumbar laminectomy History of tubal ligation Hx of section [place] teeth removed History of tonsillectomy and adenoidectomy History of appendectomy Family History Mother Heart disease Social History Smoking Status: Former smoker how long ago did patient quit smoking: quit 1 year ago alcohol intake: never substance use type: does not use additional social history: Does Take Aspirin As Needed Does Take Ibuprofen As Needed denies vaping, denies edibles Uses marijuana-last used 3 weeks ago. Assessment and Plan (No Qualifiers) Assessment and Plan (1) Status post breast reduction: Status: Acute Plan Details Additional Comments: She has to follow-up in 1 week for recheck 07/20/24 1640 Date Glo Lopes MD Cosigner Signature: Date (if applicable) CC: Normal [facility] Plastic Surgery Visit Report on 07-07-2024 Plastic Surgery Visit Report [facility] Plastic Reconstructive Surgery [address], [address] [place] [address] OFFICE VISIT Date of Service: 07/07/24 MR#: [id number] Acct: [id number] Name: IVY CREWS Rep #: [id number] : 2000 Provider: Dr. Glo mcnamara MD Age/Sex: 23/F Location: [facility] Status: Signed Intake Vital Signs 06/23/24 09:55 07/07/24 13:04 Height 5 ft 5 ft Weight: 238 lb 6 oz 234 lb BMI 46.5 45.7 BP 105/48 L 114/69 Blood Pressure Location Lt brachial Lt brachial Position Sitting Sitting Respiration 18 18 Pulse 89 84 Temp 98.0 F 98.0 F Temp Source Oral Oral Pulse Oximetry (%) 98 99 Oxygen Delivery Method room air room air Intake Visit Reasons: 2 W F/U Chief Complaint: post op craig breast reduction Is patient in pain?: No Allergies Penicillins Allergy (Verified 07/07/24 13:05) Anaphylaxis Seasonal Allergies: Uncoded Allergy (Verified 07/07/24 13:05) Other Medications ???Medication ???Instructions ???Recorded ???Confirmed ???Type trazodone 100 mg tablet 100 mg PO QHS 05/04/24 06/23/24 Hi story hydroxyzine pamoate 25 mg capsule 25 mg PO Q6H PRN PRN anxiety /08/2406/23/24 History tizanidine 4 mg tablet 4 mg PO QHS 06/15/24 06/23/24 Hist ory silver sulfadiazine 1 % topical 1 applic topical DAILY #20 grams 0 07/07/24 07/07/24 Rx cream (Silvadene) Nurse's Note: pt here for craig breast reduction, concern with T zone healing Subjective Details: Ivy comes in for recheck of the bilateral breast reduction. She stated approximately 5 days ago she noticed openings in the wounds bilaterally. She has been applying antibiotic ointment and gauze for dressings. Objective Details: There is a small open area at the base of the right breast and a larger open area at the base of the left breast. There is no evidence of infection. Some suture material is exposed. No debridement was required. The wounds are dressed with Silvadene and type VII gauze. Of asked her to do the same once a day. She is observed during the appointment to use extreme extension of her arms when getting her garments on and I reminded her that she needs to use caution when moving her arms to avoid the wounds opening. Coding Level of Care Code Global Post Op Diagnoses Status post breast reduction Z98[facility]890 [facility] Medical History Borderline personality disorder Marijuana use Back pain Former smoker Asthma Shortness of breath on exertion Leg cramps History of gastroesophageal reflux (GERD) Chronic pain in left shoulder Chronic pain in right shoulder Striae Gave to child recently Intertrigo Chronic thoracic back pain Chronic neck pain Macromastia GERD (gastroesophageal reflux disease) Back problem Allergies Nausea Depression Surgical History History of lumbar laminectomy History of tubal ligation Hx of section [place] teeth removed History of tonsillectomy and adenoidectomy History of appendectomy Family History Mother Heart disease Social History Smoking Status: Former smoker how long ago did patient quit smoking: quit 1 year ago alcohol intake: never substance use type: does not use additional social history: Does Take Aspirin As Needed Does Take Ibuprofen As Needed denies vaping, denies edibles Uses marijuana-last used 3 weeks ago. Assessment and Plan (No Qualifiers) Assessment and Plan (1) Status post breast reduction: Status: Acute Plan Details Additional Comments: Follow-up in 2 weeks. 07/07/24 1701 Date Glo Lovettignracheal Signature: Date (if applicable) CC: Normal [facility] Plastic Surgery Visit Report on 06-23-2024 Plastic Surgery Visit Report [facility] Plastic Reconstructive Surgery [address], [address] [place], [place] [address] OFFICE VISIT Date of Service: 06/23/24 MR#: [id number] Acct: [id number] Name: IVY CREWS Rep #: [id number] : 2000 Provider: Dr. Glo mcnamara MD Age/Sex: 23/F Location: [facility] Status: Signed Intake Vital Signs 05/04/24 14:03 06/15/24 13:28 06/23/24 09:55 Height 5 ft 5 ft 5 ft Weight: 238 lb 6 oz BMI 46.5 BP 105/48 L Blood Pressure Location Lt brachial Position Sitting Respiration 18 Pulse 89 Temp 98.0 F Temp Source Oral Pulse Oximetry (%) 98 Oxygen Delivery Method room air Intake Visit Reasons: post #2 craig breast reduction Chief Complaint: post op craig breast reduction Is patient in pain?: No Allergies Penicillins Allergy (Verified 06/23/24 09:56) Anaphylaxis Seasonal Allergies: Uncoded Allergy (Verified 06/23/24 09:56) Other Medications ???Medication ???Instructions ???Recorded ???Confirmed ???Type trazodone 100 mg tablet 100 mg PO QHS 05/04/24 06/23/24 History hydroxyzine pamoate 25 mg capsule 25 mg PO Q6H PRN PRN anxiety 06/04/24 06/23/24 History sulfamethoxazole 800 1 tab PO BID #14 tabs 06/08/24 06/23/24 Rx mg-trimethoprim 160 mg tablet (Bactrim DS) tizanidine 4 mg tablet 4 mg PO QHS 06/15/24 06/23/24 History Nurse's Note: pt here post op craig breast reduction, concern with itching at incision Subjective Details: Cyndie comes for recheck of the breast reduction that was done approximately 2 weeks ago. She denies any problems. Objective Details: The incisions are well-approximated. There is no evidence of infection. The wounds were redressed with antibiotic ointment and dry gauze. She is placed back in her surgery bra. Restrictions were reviewed with her. She is to continue sleeping in a recliner position. She can begin to shower and drive. I will see her back in 2 weeks for recheck and she is encouraged to call with any problems Coding Level of Care Code Global Post Op Diagnoses Status post breast reduction Z98.890 [facility] Medical History Borderline personality disorder Marijuana use Back pain Former smoker Asthma Shortness of breath on exertion Leg cramps History of gastroesophageal reflux (GERD) Chronic pain in left shoulder Chronic pain in right shoulder Striae Gave to child recently Intertrigo Chronic thoracic back pain Chronic neck pain Macromastia GERD (gastroesophageal reflux disease) Back problem Allergies Nausea Depression Surgical History History of lumbar laminectomy History of tubal ligation Hx of section [place] teeth removed History of tonsillectomy and adenoidectomy History of appendectomy Family History Mother Heart disease Social History Smoking Status: Former smoker how long ago did patient quit smoking: quit 1 year ago alcohol intake: never substance use type: does not use additional social history: Does Take Aspirin As Needed Does Take Ibuprofen As Needed denies vaping, denies edibles Uses marijuana-last used 3 weeks ago. Assessment and Plan (No Qualifiers) Assessment and Plan (1) Status post breast reduction: Status: Acute Plan Details Additional Comments: Follow-up 2-week 06/23/24 2025 Date Glo Lopes MD Cosign Signature: Date (if applicable) CC: Normal [facility] Plastic Surgery Visit Report on 06-15-2024 Plastic Surgery Visit Report [facility] Plastic Reconstructive Surgery [address], [address] [place] [address] OFFICE VISIT Date of Service: 06/15/24 MR#: [id number] Acct: [id number] Name: IVY CREWS Rep #: [id number] : 2000 Provider: Dr. Glo mcnamara MD Age/Sex: 23/F Location: [facility] Status: Signed Intake Vital Signs 05/24/24 12:03 06/10/24 06:07 06/15/24 13:28 Height 5 ft 5 ft 5 ft BP 114/54 L Blood Pressure Location Lt brachial Position Sitting Respiration 18 Pulse 89 Temp 98.3 F Temp Source Oral Pulse Oximetry (%) 98 Oxygen Delivery Method room air Intake Visit Reasons: POST OP 1 Chief Complaint: post op craig breast reduction Is patient in pain?: Yes (09/09) Allergies Penicillins Allergy (Verified 06/15/24 13:29) Anaphylaxis Seasonal Allergies: Uncoded Allergy (Verified 06/15/24 13:29) Other Medications ???Medication ???Instructions ???Recorded ???Confirmed ???Type trazodone 100 mg tablet 100 mg PO QHS 05/04/24 06/15/24 History hydroxyzine pamoate 25 mg capsule 25 mg PO Q6H PRN PRN anxiety 06/04/24 06/15/24 History sulfamethoxazole 800 1 tab PO BID #14 tabs 06/08/24 06/15/24 Rx mg-trimethoprim 160 mg tablet (Bactrim DS) oxycodone-acetaminophe n 5 mg-325 tab PO 06/15/24 06/15/24 History mg tablet tizanidine 4 mg tablet 4 mg PO QHS 06/15/24 06/15/24 History Nurse's Note: pt here for post craig breast reduction, 09/09 pain Subjective Details: Cyndie comes in for recheck of the breast reduction done last week. She denies any problems. Objective Details: The dressing is changed. The incisions are well-approximated. The N/A are pink with good capillary refill. Periareola aligning sutures are removed. The incisions are redressed with Xeroform and dry gauze. The pathology was reviewed with her which demonstrates no pathologic abnormality. I will see her back in a week for recheck. She is encouraged to call with any problems. Coding Level of Care Code Global Post Op Diagnoses Breast asymmetry N64.89 Breast hypertrophy N62 Status post breast reduction Z98.890 [facility] Medical History Borderline personality disorder Marijuana use Back pain Former smoker Asthma Shortness of breath on exertion Leg cramps History of gastroesophageal reflux (GERD) Chronic pain in left shoulder Chronic pain in right shoulder Striae Gave to child recently Intertrigo Chronic thoracic back pain Chronic neck pain Macromastia GERD (gastroesophageal reflux disease) Back problem Allergies Nausea Depression Surgical History History of lumbar laminectomy History of tubal ligation Hx of section [place] teeth removed History of tonsillectomy and adenoidectomy History of appendectomy Family History Mother Heart disease Social History Smoking Status: Former smoker how long ago did patient quit smoking: quit 1 year ago alcohol intake: never substance use type: does not use additional social history: Does Take Aspirin As Needed Does Take Ibuprofen As Needed denies vaping, denies edibles Uses marijuana-last used 3 weeks ago. Assessment and Plan (No Qualifiers) Assessment and Plan (1) Breast asymmetry: Status: Acute (2) Breast hypertrophy: Status: Acute (3) Status post breast reduction: Status: Acute Plan Details Additional Comments: Follow-up 1 week 06/15/24 1620 Date Glo Lopes MD Cosigner Signature: Date (if applicable) CC: Normal [facility] Discharge Instructionon Discharge Instruction [facility] Medical Records Department [address] [place] [address] Instructions for Home/Discharge Instructions 06/10/24 1244 MR#: [id number] Acct: [id number] Name: IVY CREWS Rep #: [id number] : 2000 23 From: Glo Lopes MD PCP: JENNIFER Torrez Status:REG SDC Discharge Instructions Dressing / Incision Additional Dressing/Incision Instructions:: Follow the instructions given in the office. Use the incentive spirometer during the day. Keep your back elevated (recliner position). Follow Up Care Please Follow Up With: Glo Lopes MD When: Next week Test Results: Test results from this visit will be discussed in further detail at your follow-up appointment, if applicable. Discharge Plan Admission Attending Provider: Glo Lopes Primary Care Provider: Dominick Khoury Print Language: Tongan Discharge Orders/Prescriptions Prescriptions: No Action trazodone 100 mg tablet 100 mg PO QHS sulfamethoxazole-trime thoprim [Bactrim DS] 800-160 mg tablet 1 tab PO BID Qty: 14 0RF oxycodone-acetaminophe n [Percocet] 5-325 mg tablet 1 tab PO TID PRN (Reason: pain) 3 Days Qty: 8 0RF hydroxyzine pamoate 25 mg capsule 25 mg PO Q6H PRN PRN (Reason: anxiety) Referrals / Follow Up: Dominick Khoury PA [Primary Care Provider] - Disposition Disposition (needs filled in before D/C Order can be placed): Home, Self Care 06/10/24 1247 Gol Lopes MD CC: JENNIFER Torrez Signed Normal [facility] MR/POSTOP.Sai 06-10-2024 MR/POSTOP.[facility] Medical Records Department [address] [place] [address] Anesthesia Postop Eval I 06/10/24 1249 MR#: [id number] Acct: [id number] Name: IVY CREWS Rep #: [id number] : 2000 23 From: Tanja Oropeza PCP: JENNIFER Torrez Status:REG SDC Y Race: C Location: [place] [address] Anesthesia: Postop Eval I Current Vital Signs Temperature: 98.6 F Pulse Rate: 99 Blood Pressure: 107/62 Respiratory Rate: 16 Pulse Ox: 97 Oxygen Delivery Method: Room Air Assessment Airway patent: Yes Spontaneous unlabored respirations: Yes Mental status: Awake and Calm nausea: Yes Vomiting: No Anesthesia Complication: No Fluid Hydration Crystalloid volume administer (ml): 1,700 Total IV fluid infused: 1,700 Progress Note Anesthesia document: Postop Eval 1 completed: Yes 06/10/24 1253 Date Tanja Dotterer Cosigner Signature: Date CC: Signed Normal [facility] MR/[id number] [facility]-10-2024 [facility] Medical Records Department [address] [place] [address] Anesthesia Postop Eval II 06/10/24 1327 MR#: [id number] Acct: [id number] Name: IVY CREWS Rep #: [id number] : 2000 23 From: Arturo Albright MD PCP: JENNIFER Torrez Status:REG [facility] Y Race: C Location: [place] [address] Anesthesia Postop Eval I Sum Postop Eval Completion status Anesthesia document: Postop Eval 1 completed: Yes Anesthesia Postop Eval I Summary Anesthesia Postop Eval I Summary: Anesthesia Postop Eval I: Assessment Summary Airway patent Yes 06/10/24 12:53 FISH BIN TENDER.GDOTT Spontaneous unlabored Yes 06/10/24 12:53 FISH BIN TENDER.GDOTT respirations Mental status Awake,Calm 06/10/24 12:53 FISH BIN TENDER.GDOTT nausea Yes 06/10/24 12:53 FISH BIN TENDER.GDOTT Vomiting No 06/10/24 12:53 FISH BIN TENDER.GDOTT Anesthesia Postop Eval I: Fluid Summary Crystalloid volume administer 1,700 06/10/24 12:53 FISH BIN TENDER.GDOTT (ml) Colloids volume administered ( ml) Blood Product volume administered (ml) Total IV fluid infused 1,700 06/10/24 12:53 FISH BIN TENDER.GDOTT Anesthesia Postop Eval I: Summary Notes Anesthesia Complication No 06/10/24 12:53 FISH BIN TENDER.GDOTT Anesthesia Complication Comment: Post-operative progress note Anesthesia: Postop Eval II Evaluation Mental status: Awake Pain Level: 2 nausea: Yes Vomiting: No 06/10/24 1327 Date Arturo Delaney Signature: Date CC: Signed Normal [facility] Operative Reporton 5 Operative Report [facility] Medical Records Department [address] [place] [address] Operative Report 06/10/24 1247 MR#: [id number] Acct: [id number] Name: IVY CREWS Rep #: [id number] : 2000 23 From: Glo Lopes MD PCP: JENNIFER Torrez Status:[facility] Location: [place] [address] Problems Associated Problem List Diagnoses (1) Breast asymmetry: (2) Breast ptosis: (3) Chronic pain in left shoulder: (4) Chronic pain in right shoulder: (5) Macromastia: Operative Report (Standard) Operative Information Date of Procedure: 06/10/24 Pre-Operative Diagnosis: Bilateral breast hypertrophy, chronic neck and back pain Post-Operative Diagnosis: Same Surgery/Procedure Performed: Bilateral breast reduction (L???270 g; R???500 g) brazer induction: Yes Records Management Technician: Coco Ramirez Tasks completed by email marketing assistant: Closing and Retracting Type of Anesthesia: General RN Documented Start/Stop Times: Operation Date: 06/10/24 07:30 Case Time Into Pre-Op 06/10/24 05:56 Out of Pre-Op 06/10/24 07:26 Anesthesia Start 06/10/24 07:30 Into Room 06/10/24 07:30 Procedure Start 06/10/24 08:23 Procedure End 06/10/24 12:37 Anesthesia End 06/10/24 12:45 Out of Room 06/10/24 12:45 Procedure Start Time: 08:23 Procedure Stop Time: 12:37 Select all DRAINS/GRAFTS/IMPLANTS that apply: None Estimated Blood Loss: 50 cc Specimen collected: Yes Description of specimen(s) removed: Bilateral breast tissue Description of surgery: The patient is a 23-year-old female who presents for bilateral breast reduction. The procedure been thoroughly reviewed with her including the expected pre-, intra-, postoperative course. The potential risk and complications of surgery have been reviewed which include but are not exclusive of bleeding, infection, pain, numbness, asymmetry, scar tissue, skin necrosis, inability to breast- feed, further breast growth in the future, DVT, and even . She is marked in the preop holding area prior to surgery. Informed consent is obtained. The patient is brought to the operating room and placed on the operating room table under a general anesthetic in supine position. The breast and chest are prepped and draped in usual sterile fashion. Care is taken to pad all pressure points, apply a warming blanket, sequential compression stockings, and Quiñonez catheter. We initially began with incising the premarked incisions. The pedicle was then de-epithelialized. Following this, the medial and lateral inferior aspects of the breast are removed using argon coagulation. The pedicle is then from the upper flap and dissection continued cephalad maintaining the upper flap at least 2 cm in thickness. The pedicle is then trimmed in order to allow it to comfortably fit beneath the upper flap. Meticulous hemostasis is performed after irrigation with antibiotic solution. The breast is then infolded and tacked together using silk suture and skin clips. With a satisfactory size and shape noted, would begin to close the wounds. A few Vicryl sutures are placed in the subcutaneous tissue. A 3 oh STRATAFIX suture is used to approximate skin and tissue layers in 3 layers. Approximately 5 cm above the inframammary crease, the nipple areola is brought out through an opening. It is tacked in place initially with interrupted nylon suture. All skin edges are then approximated with a running subcuticular strata fix suture. The identical procedure was performed on the opposite side. All tissue is passed off and weighed during the procedure to be sent to pathology. 1/4% plain Marcaine is injected along the incisions. The incisions are then dressed with Xeroform, and fluff gauze. She is also placed in a surgery bra. She tolerated the procedure well was taken to the recovery area in an awake and stable condition. Needle and sponge counts are correct. Surgical Findings: As above Complications Complications: No Admit VTE Documentation VTE Mechan Device Prophylaxis: SCD's 06/10/24 1254 Cosigner Signature (if applicable): CC: Dr. Glo Lopes MD; JENNIFER Torrez Signed Normal [facility] Surgery Specimen Level Susannah 06-10-2024 Surgery Specimen Level IV ---- Patient Age/Sex Location Account Attending Physician ---- IVY CREWS / [facility] [id number] Dr. Glo Lopes MD ---- Specimen: [id number] Received: 06/10/24-132 Status: ERNST Becker Num: [id number] Spec Type: MAMOPLASTY Subm Dr: Dr. Glo Lopes MD HEADER OPERATION: Bilateral breast reduction PRE-OP DIAGNOSIS: Macromastia, breast asymmetry, chronic pain in left and right shoulders TISSUE SUBMITTED: A- Left breast tissue - 270gm, B- Right breast tissue - 500gm ---- MICROSCOPIC DIAGNOSIS A. Left breast tissue, breast reduction mammoplasty: Fragments of benign breast tissue. Skin- no pathologic diagnosis. B. Right breast tissue, breast reduction mammoplasty: Fragments of benign breast tissue. Skin- no pathologic diagnosis. 06/14/2024 MICROSCOPIC DESCRIPTION Slides are reviewed. GROSS DESCRIPTION A - Received in fixative is one container labeled with the patient's name and designated Left breast tissue - 270gm. The specimen consists of multiple pieces of fibroadipose tissue with a few of the pieces showing johnson-white skin measuring in aggregate 17.0 x 15.0 x 5.0 cm. No skin lesion is identified. Sections reveal yellow adipose cut surfaces mixed with scant fibrous areas. No mass lesion is identified. Crm Technical Lead sections are submitted in six cassettes. Cassette 1 contains the skin piece. B - Received in fixative is one container labeled with the patient's name and designated Right breast tissue - 500gm. The specimen consists of multiple pieces of fibroadipose tissue with a few of the pieces showing johnson-white skin and measuring in aggregate 21.0 x 18.0 x 5.0 cm. No skin lesion is identified. Sections reveal yellow adipose cut surfaces mixed with scant fibrous areas. No mass lesion is identified. Crm Technical Lead sections are submitted in six cassettes. Cassette 1 contains the skin piece. / BARRERA: TC:5 06/11/2024 CPT:77871y1 ---- Patient Age/Sex Location Account Attending Physician ---- IVY CREWS [facility] [id number] Dr. Glo Lopes MD ---- Signed (signature on file) Dr. Justus Strauss MD 06/14/24 1348 ---- Normal [facility] Comment on above: Performed By: #### P SUIV #### [facility] [address] [place], [address] Plastic Surgery Visit Report on 06-08-2024 Plastic Surgery Visit Report [facility] Plastic Reconstructive Surgery [address], [address] [place] [address] OFFICE VISIT Date of Service: 06/08/24 MR#: [id number] Acct: [id number] Name: IVY CREWS Rep #: [id number] : 2000 Provider: Dr. Glo mcnamara MD Age/Sex: 23/F Location: [facility] Status: Signed Intake Vital Signs 05/04/24 14:03 05/24/24 12:03 06/08/24 12:57 Height 5 ft 5 ft 5 ft Weight: 236 lb 236 lb 237 lb BMI 46.0 46.0 46.3 BP 112/68 116/65 102/54 L Blood Pressure Location Lt brachial Lt brachial Rt brachial Position Sitting Sitting Sitting Respiration 18 18 18 Pulse 86 76 91 Temp 98.3 F 97.5 F L 97.7 F L Temp Source Oral Oral Temporal Pulse Oximetry (%) 97 96 96 Oxygen Delivery Method room air room air room air Intake Visit Reasons: pre #2 craig breast reduction Chief Complaint: pre op # 2 craig breast reduction Allergies Penicillins Allergy (Verified 06/08/24 12:58) Anaphylaxis Seasonal Allergies: Uncoded Allergy (Verified 06/08/24 12:58) Other Medications ???Medication ???Instructions ???Recorded ???Confirmed ???Type trazodone 100 mg tablet 100 mg PO QHS 05/04/24 06/08/24 History hydroxyzine pamoate 25 mg capsule 25 mg PO Q6H PRN PRN anxiety 06/04/24 06/08/24 History oxycodone-acetaminophe n 5 mg-325 1 tab PO TID PRN pain 3 days #8 06/08/24 06/08/24 Rx mg tablet (Percocet) tab-caps sulfamethoxazole 800 1 tab PO BID #14 tabs 06/08/24 06/08/24 Rx mg-trimethoprim 160 mg tablet (Bactrim DS) Nurse's Note: pt here for craig breast reduction, pre op #2 PFSH Medical History (Updated 06/04/24 @ 10:59 by Sangeeta Godoy) Borderline personality disorder Marijuana use Back pain Former smoker Asthma Shortness of breath on exertion Leg cramps History of gastroesophageal reflux (GERD) Chronic pain in left shoulder Chronic pain in right shoulder Striae Gave to child recently Intertrigo Chronic thoracic back pain Chronic neck pain Macromastia GERD (gastroesophageal reflux disease) Back problem Allergies Nausea Depression Surgical History (Updated 06/04/24 @ 10:59 by Sangeeta Godoy) History of lumbar laminectomy History of tubal ligation Hx of section [place] teeth removed History of tonsillectomy and adenoidectomy History of appendectomy Family History (Updated 02/03/24 @ 13:50 by Rachelle Jones) Mother Heart disease Social History (Updated 02/03/24 @ 13:51 by Rachelle Jones) Smoking Status: Former smoker how long ago did patient quit smoking: quit 1 year ago alcohol intake: never substance use type: does not use additional social history: Does Take Aspirin As Needed Does Take Ibuprofen As Needed denies vaping, denies edibles Uses marijuana-last used 3 weeks ago. HPI pre #2 craig breast reduction Details: Ivy comes in today for preop preparation regarding the upcoming breast reduction surgery. She has received her medical clearance however we are awaiting the H P. She has also had her preop labs. She has obtained her front fastening bras and is making arrangements for a recliner to have at home following the surgery. She also has help at home. Exam Details The procedure breast reduction was thoroughly reviewed with her including the incisions and scars as well as limitations after surgery. The expected pre-, intra, and postoperative course were reviewed. The pre and postop instructions were reviewed item by item. She was given scripts for Percocet and Bactrim. The risks and instructions for use were reviewed. The potential risk and complications of surgery were reviewed which include but are not exclusive of bleeding, infection, pain, numbness, asymmetry, scar tissue, skin necrosis, the need for further surgery, DVT, and even . No guarantees were made as to the final size. The limited ability to breast-feed in the future is also reviewed. She is aware that she will have a Quiñonez catheter during surgery. She is aware that she will be discharged later that day. She has arrangements for help at home. The length of the procedure was also reviewed. She is aware that the tissue will be sent to pathology for evaluation. Coding Level of Care Code Off vis,est,level 4 Diagnoses Breast ptosis N64.81 Chronic pain in left shoulder M25.512; G89.29 Chronic pain in right shoulder M25.511; G89.29 Assessment and Plan (No Qualifiers) Assessment and Plan (1) Breast ptosis: Status: Acute (2) Chronic pain in left shoulder: Status: Chronic Comment: bilateral shoulder pain from shoulder grooving from the weight of her breasts on her bra straps (3) Chronic pain in right shoulder: Status: Chronic Comment: bilateral shoulder pain from shoulder grooving from the weight of her breasts on he (more content not included)... Normal [facility] Nicotine Screen Bloodon 05-04 COTININE BLOOD 3.3 ng/mL Normal . [facility] Comment on above: Order Comment: Comme nts: pre surg labs Result Comment: This test was developed and its performance characteristics determined by [facility]. It has not been cleared or approved by the Food and Drug Administration. Cotinine levels greater than 20.0 are consistent with the use of tobacco or tobacco cessation products. Performed at: [address] [id number] Rn Discharge: Sergio Christine MD, Phone: [phone] Performed By: #### L 500.2500, L3600.3400, L100.0500 ####[facility] [address] [place], [address] NICOTINE BLOOD <1.0 Normal . [facility] Comment on above: Order Comment: Comme nts: pre surg labs Result Comment: This test was developed and its performance characteristics determined by [facility]. It has not been cleared or approved by the Food and Drug Administration. Nicotine levels greater than 2.0 are consistent with the use of tobacco or tobacco cessation products. Performed By: #### L 500.2500, L3600.3400, L100.0500 ####[facility] [address] [place], [address] Basic Metabolic Profile (BMP )on 05-24-2024 BUN/CRE 11.6 RATIO Normal 10-20 [facility] Comment on above: Order Comment: pre s urg labs Performed By: #### L 500.2500, L3600.3400, L100.0500 ####[facility] [address] [place], [address] CA,Total 9.1 mg/dL Normal 8.5-10.1 [facility] Comment on above: Order Comment: pre s urg labs Performed By: #### L 500.2500, L3600.3400, L100.0500 ####[facility] [address] [place], [address] Chloride [Moles/Vol] 110 mmol/L High 98-107 [facility] Comment on above: Order Comment: pre s urg labs Performed By: #### L 500.2500, L3600.3400, L100.0500 ####[facility] [address] [place], [address] CO2 [Moles/Vol] 25.0 mmol/L Normal 21.0-32.0 [facility] Comment on above: Order Comment: pre s urg labs Performed By: #### L 500.2500, L3600.3400, L100.0500 ####[facility] [address] [place], [address] Creatinine [Mass/Vol] 0.69 mg/dL Normal 0.55-1.02 [facility] Comment on above: Order Comment: pre s urg labs Result Comment: The validity of the calculated GFR GFRAA in patients over 70 years has not been determined. Clinical correlation is essential. Performed By: #### L 500.2500, L3600.3400, L100.0500 ####[facility] [address] [place], [address] EST GFR - AA 136 mL/min Normal >60 [facility] Comment on above: Order Comment: pre s urg labs Result Comment: Afri can [place] GFR Calc Performed By: #### L 500.2500, L3600.3400, L100.0500 ####[facility] [address] [place], [address] GAP 6 Normal 5-15 [facility] Comment on above: Order Comment: pre s urg labs Performed By: #### L 500.2500, L3600.3400, L100.0500 ####[facility] [address] [place], [address] GFR/1.73 sq M.predicted among non-blacks MDRD (S/P/Bld) [Vol rate/Area] 113 mL/min/{1.73_m2} Normal >60 [facility] Comment on above: Order Comment: pre s urg labs Result Comment: Non- GFR Calc Performed By: #### L 500.2500, L3600.3400, L100.0500 ####[facility] [address] [place], [address] Glucose [Mass/Vol] 88 mg/dL Normal 74-106 [facility] Comment on above: Order Comment: pre s urg labs Performed By: #### L 500.2500, L3600.3400, L100.0500 ####[facility] [address] [place], [address] Potassium [Moles/Vol] 3.8 mmol/L Normal 3.5-5.1 [facility] Comment on above: Order Comment: pre s urg labs Performed By: #### L 500.2500, L3600.3400, L100.0500 ####[facility] [address] [place], [address] Sodium [Moles/Vol] 141 mmol/L Normal 136-145 [facility] Comment on above: Order Comment: pre s urg labs Performed By: #### L 500.2500, L3600.3400, L100.0500 ####[facility] [address] [place], [address] Urea nitrogen [Mass/Vol] 8 mg/dL Normal 7-18 [facility] Comment on above: Order Comment: pre s urg labs Performed By: #### L 500.2500, L3600.3400, L100.0500 ####[facility] [address] [place], [address] CBC-Complete Blood Cnt No Di ffon 12-23-2024 Erythrocyte distribution width (RBC) [Ratio] 11.4 % Low 11.6-14.6 [facility] Comment on above: Order Comment: Brenda nts: pre surgery labs Performed By: #### L 500.2500, L3600.3400, L100.0500 ####[facility] [address] [place], [address] Hematocrit (Bld) [Volume fraction] 41.8 % Normal 37-47 [facility] Comment on above: Order Comment: Brenda nts: pre surgery labs Performed By: #### L 500.2500, L3600.3400, L100.0500 ####[facility] [address] [place], [address] Hemoglobin (Bld) [Mass/Vol] 14.1 g/dL Normal 12.0-15.0 [facility] Comment on above: Order Comment: Brenda nts: pre surgery labs Performed By: #### L 500.2500, L3600.3400, L100.0500 ####[facility] [address] [place], [address] MCH (RBC) [Entitic mass] 31.9 pg Normal 27.0-32.0 [facility] Comment on above: Order Comment: Brenda nts: pre surgery labs Performed By: #### L 500.2500, L3600.3400, L100.0500 ####[facility] [address] [place], [address] MCHC (RBC) [Mass/Vol] 33.7 g/dL Normal 32-36 [facility] Comment on above: Order Comment: Brenda nts: pre surgery labs Performed By: #### L 500.2500, L3600.3400, L100.0500 ####[facility] [address] [place], [address] MCV (RBC) [Entitic vol] 94.6 fL Normal 81-99 [facility] Comment on above: Order Comment: Commvishal nts: pre surgery labs Performed By: #### L 500.2500, L3600.3400, L100.0500 ####[facility] [address] [place], [address] Platelet mean volume (Bld) [Entitic vol] 10.4 fL Normal 6.2-12.0 [facility] Comment on above: Order Comment: Brenda nts: pre surgery labs Performed By: #### L 500.2500, L3600.3400, L100.0500 ####[facility] [address] [place], [address] Platelets (Bld) [#/Vol] 305 10*3/uL Normal 150-450 [facility] Comment on above: Order Comment: Brenda nts: pre surgery labs Performed By: #### L 500.2500, L3600.3400, L100.0500 ####[facility] [address] [place], [address] RBC (Bld) [#/Vol] 4.42 10*6/uL Normal 4.2-5.4 [facility] Comment on above: Order Comment: Brenda nts: pre surgery labs Performed By: #### L 500.2500, L3600.3400, L100.0500 ####[facility] [address] [place], [address] RDW SD 39.4 fl Normal 35.1-43.9 [facility] Comment on above: Order Comment: Brenda nts: pre surgery labs Performed By: #### L 500.2500, L3600.3400, L100.0500 ####[facility] [address] [place], [address] WBC (Bld) [#/Vol] 4.0 10*3/uL Low 4.4-11.0 [facility] Comment on above: Order Comment: Brenda nts: pre surgery labs Performed By: #### L 500.2500, L3600.3400, L100.0500 ####[facility] [address] [place], [address] Plastic Surgery Visit Report on 05-24-2024 Plastic Surgery Visit Report [facility] Plastic Reconstructive Surgery [address], [address] [place] [address] OFFICE VISIT Date of Service: 05/24/24 MR#: [id number] Acct: [id number] Name: IVY CREWS Rep #: [id number] : 2000 Provider: Dr. Glo mcnamara MD Age/Sex: 23/F Location: [facility] Status: Signed Intake Vital Signs 05/04/24 14:03 05/24/24 12:03 Height 5 ft 5 ft Weight: 236 lb 236 lb BMI 46.0 46.0 BP 112/68 116/65 Blood Pressure Location Lt brachial Lt brachial Position Sitting Sitting Respiration 18 18 Pulse 86 76 Temp 98.3 F 97.5 F L Temp Source Oral Oral Pulse Oximetry (%) 97 96 Oxygen Delivery Method room air room air Intake Visit Reasons: pre op #1 craig breast reduction Chief Complaint: pre op #1 craig breast reduction Is patient in pain?: Yes (11/09 back ) Allergies Penicillins Allergy (Verified 05/24/24 12:04) Anaphylaxis Seasonal Allergies: Uncoded Allergy (Verified 05/24/24 12:04) Other Medications ???Medication ???Instructions ???Recorded ???Confirmed ???Type trazodone 100 mg tablet 100 mg PO QHS 05/04/24 05/24/24 History Nurse's Note: pt here for bilateral breast reduction pre op #1 PFSH Medical History (Updated 02/03/24 @ 14:[address] Glo Lopes MD) History of gastroesophageal reflux (GERD) History of borderline personality disorder History of back problems History of seasonal allergies Chronic pain in left shoulder Chronic pain in right shoulder Striae Gave to child recently Intertrigo Chronic thoracic back pain Chronic neck pain Macromastia GERD (gastroesophageal reflux disease) UTI (urinary tract infection) Back problem Allergies control counseling Nausea Epigastric pain Bipolar disorder Depression Surgical History (Updated 02/03/24 @ 13:49 by Rachelle Jones) History of tubal ligation Hx of section History of tonsillectomy [place] teeth removed History of tonsillectomy and adenoidectomy History of appendectomy Family History (Updated 02/03/24 @ 13:50 by Rachelle Jones) Mother Heart disease Social History (Updated 02/03/24 @ 13:51 by Rachelle Jones) Smoking Status: Former smoker how long ago did patient quit smoking: quit 1 year ago alcohol intake: never substance use type: does not use additional social history: Does Take Aspirin As Needed Does Take Ibuprofen As Needed denies vaping, denies edibles Uses marijuana-last used 3 weeks ago. HPI pre op #1 craig breast reduction Details: Ivy comes in today for preop preparation regarding the upcoming breast reduction surgery. Her procedure has been approved. She assures me she has help at home, especially since she has a young child, as well as the ability to sleep in a recliner position. She currently does not work and therefore does not have commitments for return to work. Exam Details The procedure breast reduction was reviewed with her including the incisions and scars as well as limitations after surgery. The length of the procedure being 4 to 5 hours was reviewed. She is aware that she will have a Quiñonez in place during the procedure. She is aware that this is an outpatient surgery. She was given a packet of information to review prior to the next appointment. The contents of the packet was reviewed with her. She is aware that I will be providing prescriptions for pain medicine and an oral antibiotic. As a young person having breast reduction, she is aware that further breast growth could occur and that breast reduction can limit her ability to breast-feed in the future. Coding Level of Care Code Off vis,est,level 3 Diagnoses Breast asymmetry N64.89 Breast ptosis N64.81 Chronic pain in left shoulder M25.512; G89.29 Chronic pain in right shoulder M25.511; G89.29 Assessment and Plan (No Qualifiers) Assessment and Plan (1) Breast asymmetry: Status: Acute (2) Breast ptosis: Status: Acute (3) Chronic pain in left shoulder: Status: Chronic Comment: bilateral shoulder pain from shoulder grooving from the weight of her breasts on her bra straps (4) Chronic pain in right shoulder: Status: Chronic Comment: bilateral shoulder pain from shoulder grooving from the weight of her breasts on her bra straps Plan Details Additional Comments: I will be seeing her back for further preop preparation. 05/24/24 1423 Date Glo Lopes MD Cosigner Signature: Date (if applicable) CC: Normal [facility] Urine Drug Screen (VISTA)on 05-24-2024 AMPHETAMINES Negative Normal <1000 ng/mL [facility] Comment on above: Order Comment: pre s urgery labsUNK Performed By: #### L 505.5000 ####[facility] [address] [place] [address] BARBITIURATES Negative Normal < 200 ng/mL [facility] Comment on above: Order Comment: pre s urgery labsUNK Performed By: #### L 505.5000 ####[facility] [address] [place] [address] BENZODIAZIPINE Negative Normal < 200 ng/mL [facility] Comment on above: Order Comment: pre s urgery labsUNK Performed By: #### L 505.5000 ####[facility] [address] [place] [address] COCAINE Negative Normal < 300 ng/mL [facility] Comment on above: Order Comment: pre s urgery labsUNK Performed By: #### L 505.5000 ####[facility] [address] [place] [address] ECSTACY Negative Normal < 500 ng/mL [facility] Comment on above: Order Comment: pre s urgery labsUNK Performed By: #### L 505.5000 ####[facility] [address] [place] [id number] METHADONE Negative Normal < 300 ng/mL [facility] Comment on above: Order Comment: pre s urgery labsUNK Performed By: #### L 505.5000 ####[facility] [address] [place], [address] OPIATES Negative Normal < 300 ng/mL [facility] Comment on above: Order Comment: pre s urgery labsUNK Performed By: #### L 505.5000 ####[facility] [address] [place], [address] PCP Negative Normal < 25 ng/mL [facility] Comment on above: Order Comment: pre s urgery labsUNK Performed By: #### L 505.5000 ####[facility] [address] [place], [address] THC Negative Normal < 50 ng/mL [facility] Comment on above: Order Comment: pre s urgery labsUNK Performed By: #### L 505.5000 ####[facility] [address] [place], [address] VISTA UDS PH 5 Normal [facility] Comment on above: Order Comment: pre s urgery labsUNK Performed By: #### L 505.5000 ####[facility] [address] [place], [address] Plastic Surgery Visit Report on 05-04-2024 Plastic Surgery Visit Report [facility] Plastic Reconstructive Surgery [address] [place] [address] OFFICE VISIT Date of Service: 05/04/24 MR#: [id number] Acct: [id number] Name: IVY CREWS Rep #: [id number] : 2000 Provider: Dr. Glo mcnamara MD Age/Sex: 23/F Location: [facility] [place] Status: Signed Intake Vital Signs 02/03/24 13:51 05/04/24 14:03 Height 5 ft 5 ft Weight: 225 lb 236 lb BMI 43.9 46.0 BP 115/64 112/68 Blood Pressure Location Rt brachial Lt brachial Position Sitting Sitting Respiration 16 18 Pulse 88 86 Temp 98.3 F 98.3 F Temp Source Oral Oral Pulse Oximetry (%) 97 97 Oxygen Delivery Method room air room air Intake Visit Reasons: 3 M FU- BREAST REDUCTION Chief Complaint: breast reduction consult-3 month follow up Is patient in pain?: No Allergies Penicillins Allergy (Verified 05/04/24 14:05) Anaphylaxis Seasonal Allergies: Uncoded Allergy (Verified 05/04/24 14:05) Other Medications ???Medication ???Instructions ???Recorded ???Confirmed ???Type trazodone 100 mg tablet 100 mg PO QHS 05/04/24 05/04/24 History Nurse's Note: pt here for 3 month follow up, for breast reduction consult. pt reports no marijuana since week before last appointment. pt has support letter from pcp. [facility] Medical History (Updated 02/03/24 @ 14:[address] Glo Lopes MD) History of gastroesophageal reflux (GERD) History of borderline personality disorder History of back problems History of seasonal allergies Chronic pain in left shoulder Chronic pain in right shoulder Striae Gave to child recently Intertrigo Chronic thoracic back pain Chronic neck pain Macromastia GERD (gastroesophageal reflux disease) UTI (urinary tract infection) Back problem Allergies control counseling Nausea Epigastric pain Bipolar disorder Depression Surgical History (Updated 02/03/24 @ 13:49 by Rachelle Jones) History of tubal ligation Hx of section History of tonsillectomy [place] teeth removed History of tonsillectomy and adenoidectomy History of appendectomy Family History (Updated 02/03/24 @ 13:50 by Rachelle Jones) Mother Heart disease Social History (Updated 02/03/24 @ 13:51 by Rachelle Jones) Smoking Status: Former smoker how long ago did patient quit smoking: quit 1 year ago alcohol intake: never substance use type: does not use additional social history: Does Take Aspirin As Needed Does Take Ibuprofen As Needed denies vaping, denies edibles Uses marijuana-last used 3 weeks ago. HPI 3 M FU- BREAST REDUCTION Details: Ivy comes in for further discussion regarding breast reduction surgery. She states that she had discontinued marijuana at the week following our last appointment on 02/02. She has had a long history of back issues requiring back surgery (07/26). He has also been seen in the ER multiple times for back problems. She was diagnosed with herniated disks in 2020. She has been seeing a chiropractor since that time. She currently is also in physical therapy. She denies having had a mammogram in the past. There is a possible family history of breast cancer in an aunt. She has 1 child which she did not breast-feed. She stopped smoking 1 year ago (06/03 PPD). She currently does not work and does admit to lots of support at home especially with the new baby. She has had a tubal ligation and has no plans on having more children. 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 She has otherwise been in good health in the interim since the last appointment. Exam Details She is noted to have breast asymmetry--her left breast is smaller than her right. She has rounding of the shoulders and hypertrophy of the trapezius muscle. There are no palpable breast masses or axillary adenopathy. Sternal Notch to N/A R-35.5cm; L-35cm. I estimate a minimum of the 200 to 250 g removal bilaterally. The procedure was reviewed with her. The incisions and scars as well as limitations after surgery were reviewed. The expected pre-, intra-, postoperative course were reviewed. She is aware that no guarantees can be made as to the final size. She is aware that because of her young age, she could have further breast growth in the future which is hormone mediated. Additionally, this can limit her ability to breast-feed in the future if she would have a reversal of her tubal ligation. The potential for permanent nipple numbness was also reviewed. She is aware then in the event we get an approval, I will be seeing her back for further preoperative preparation. Coding Level of Care Code Off vis,est,level 4 Diagnoses Breast asymmetry N64.89 Breast ptosis N64.81 Chronic pain (more content not included)... Normal [facility] CNOVon 02-24-2024 CNOV Office Visit (AGGENS 4) IVY CREWS ([id number]) 2 F Date Time Provider Department 02/24/24 1:00 PM SB MADRID Mark AGGENS4 During your visit today, we recorded the following information about you: Referring Provider: [facility] [[id number]] Allergies As of Date: 02/24/2024 Noted Allergy Reaction PENICILLIN G 04/12/2011 Comments: Hives Date Reviewed: Never Reviewed Reason for Visit: No Show [[id number]] Cmt: No show Primary Visit Diagnosis:NO SHOW Problem List As Of Date: 02/24/2024 (None) Level of Service: UNLISTED EVALUATION AND MANAGEMENT SERVICE [98836] Encounter Status:Closed by SB MADRID on 03/09/24 Normal [facility] Plastic Surgery Visit Report on 02-03-2024 Plastic Surgery Visit Report [facility] Plastic Reconstructive Surgery [address], [address] [place] [id number] OFFICE VISIT Date of Service: 02/03/24 MR#: [id number] Acct: [id number] Name: IVY CREWS Rep #: [id number] : 2000 Provider: Dr. Glo mcnamara MD Age/Sex: 23/F Location: [facility] Status: Signed Intake Vital Signs 04/15/23 09:32 02/03/24 13:51 Height 5 ft 4 in 5 ft Weight: 241 lb 225 lb BMI 41.3 43.9 Body Surface Area 2.12 BP 134/78 H 115/64 Blood Pressure Location Lt brachial Rt brachial Position Sitting Sitting Respiration 16 16 Pulse 112 H 88 Pulse Source Monitor Temp 98.6 F 98.3 F Temp Source Temporal Oral Pulse Oximetry (%) 98 97 Oxygen Delivery Method room air room air Intake Visit Reasons: Breast Reduction Chief Complaint: breast reduction consult Is patient in pain?: Yes (610-back pain) Allergies Penicillins Allergy (Verified 02/03/24 13:52) Anaphylaxis Seasonal Allergies: Uncoded Allergy (Verified 02/03/24 13:52) Other Have you fallen in the past year?: Yes (fell follow up with chiropractor) Nurse's Note: pt here for evaluation of breast reduction [facility] Medical History (Updated 02/03/24 @ 14:[address] Glo Lopes MD) History of gastroesophageal reflux (GERD) History of borderline personality disorder History of back problems History of seasonal allergies Chronic pain in left shoulder Chronic pain in right shoulder Striae Gave to child recently Intertrigo Chronic thoracic back pain Chronic neck pain Macromastia GERD (gastroesophageal reflux disease) UTI (urinary tract infection) Back problem Allergies control counseling Nausea Epigastric pain Bipolar disorder Depression Surgical History (Updated 02/03/24 @ 13:49 by Rachelle Jones) History of tubal ligation Hx of section History of tonsillectomy [place]ann[place] teeth removed History of tonsillectomy and adenoidectomy History of appendectomy Family History (Updated 02/03/24 @ 13:50 by Rachelle Jones) Mother Heart disease Social History (Updated 02/03/24 @ 13:51 by Rachelle Jones) Smoking Status: Former smoker how long ago did patient quit smoking: quit 1 year ago alcohol intake: never substance use type: does not use additional social history: Does Take Aspirin As Needed Does Take Ibuprofen As Needed denies vaping, denies edibles Uses marijuana-last used 3 weeks ago. HPI Breast Reduction Details: Ivy is a 23-year-old female patient who presents for consideration of bilateral breast reduction. She has had a long history of back issues requiring back surgery (07/26). He has also been seen in the ER multiple times for back problems. She was diagnosed with herniated disks in 2020. She has been seeing a chiropractor since that time. She currently is also in physical therapy. She denies having had a mammogram in the past. There is a possible family history of breast cancer in an aunt. She has 1 child which she did not breast-feed. She stopped smoking 1 year ago (06/03 PPD). She does admit to smoking marijuana?the last time 3 weeks ago. She currently does not work and does admit to lots of support at home especially with the new baby. ROS General General: Yes good health; No fatigue, fever(s) or weight loss HENMT HENMT: No rhinitis, sore throat/mouth sore, nasal congestion, contacts or glaucoma Endo Endocrine: No thyroid disease, polydipsia, heat intolerance, cold intolerance, hepatitis or excessive urine Skin Skin: No Bleeding, bruising, changing moles or suspicious lesion Musc Musculoskeletal: Yes back pain; No joint pain, joint stiffness, muscle weakness, osteoarthritis or Muscle aches/ myalgia Neuro Neurological: No headache(s), No lightheadedness and No numbness Cardio Cardiovascular: No chest pain, pacemaker, fatigue or shortness of breat with exertion Psych Psychiatric: No depression, claustrophobia or anxiety Resp Respiratory: No spitting up, shortness of breath, sleep apnea, asthma, emphysema, TB, Cough or Smoker Gastro Gastrointestinal: No diarrhea, constipation, blood in stool, nausea, vomiting or abdominal bloating Vasyl Hematologic: No anemia, No bleeding and No abnormal bleeding Genitourinary: No urinary frequency, blood in urine or incontinence Exam Details Patient with bilateral mammary hypertrophy and ptosis. The right breast is bigger than the left breast. There are no palpable masses or axillary adenopathy. She would be a good candidate for breast reduction surgery. She is aware that she would need to get supporting documentation to support her claim of chronic back pain to submit to the insurance. The incisions and scars as well as limitations after surgery were reviewed. The pre-, i (more content not included)... Normal [facility] XR LUMBAR SPINE AP AND LAT W ITH FLEX AND EXTENon 01-05-2024 XR LUMBAR SPINE AP AND LAT WITH FLEX AND EXTEN EXAM: XR LUMBAR SPINE AP AND LAT WITH FLEX AND EXTEN HISTORY: Low back pain, unspecified:Other chronic pain: COMPARISON: None. FINDINGS/ 1. No acute fracture or dislocation. 2. Fallopian tube occlusion clips. 3. Overlying bowel gas pattern is nonspecific and nonobstructive. 4. Sacroiliac joints are normal. 5. Overlying bowel gas pattern is nonspecific and nonobstructive. 6. No instability on flexion and extension views. Diagnosis: Chronic bilateral low back pain without sciatica [M54.50, G89.29 (ICD-10-CM)] Tech Notes: Pt states chronic lower back pain, hx of sx. No injury. Order Comments: Ordering Physician: Sonny Quesada MD Dose: Normal [facility] CBC (INCLUDES DIFF/PLT)on Basophils (Bld) [#/Vol] 0.041 10*3/uL Normal 0-200 [facility] Comment on above: Performed By: #### 6 399 #### [facility] [place] [address] Fishing Tool Operator: Jani Nelson MD Basophils/100 WBC (Bld) 0.9 % Normal [facility] Comment on above: Performed By: #### 6 399 #### [facility] [place] [address] Fishing Tool Operator: Jani Nelson MD Eosinophils (Bld) [#/Vol] 0.161 10*3/uL Normal 15-500 [facility] Comment on above: Performed By: #### 6 399 #### [facility] [place] [address] Fishing Tool Operator: Jani Nelson MD Eosinophils/100 WBC (Bld) 3.5 % Normal [facility] Comment on above: Performed By: #### 6 399 #### [facility] [place] [address] Fishing Tool Operator: Jani Nelson MD Erythrocyte distribution width (RBC) [Ratio] 12.3 % Normal 11.0-15.0 [facility] Comment on above: Performed By: #### 6 399 #### [facility] [place] [address] Fishing Tool Operator: Jani Nelson MD Hematocrit (Bld) [Volume fraction] 44.2 % Normal 35.0-45.0 [facility] Comment on above: Performed By: #### 6 399 #### [facility] [place] [address] Fishing Tool Operator: Jani Nelson MD Hemoglobin (Bld) [Mass/Vol] 14.8 g/dL Normal 11.7-15.5 [facility] Comment on above: Performed By: #### 6 399 #### [facility] of [place] [address] Fishing Tool Operator: Jani Nelson MD Lymphocytes (Bld) [#/Vol] 1.978 10*3/uL Normal 850-3900 [facility] Comment on above: Performed By: #### 6 399 #### [facility] [place] [address] Fishing Tool Operator: Jani Nelson MD Lymphocytes/100 WBC (Bld) 43.0 % Normal [facility] Comment on above: Performed By: #### 6 399 #### [facility] [place] [address] Fishing Tool Operator: Jani Nelson MD MCH (RBC) [Entitic mass] 31.8 pg Normal 27.0-33.0 [facility] Comment on above: Performed By: #### 6 399 #### [facility] [place] [address] Fishing Tool Operator: Jani Nelson MD MCHC (RBC) [Mass/Vol] 33.5 g/dL Normal 32.0-36.[address] [facility] Comment on above: Performed By: #### 6 399 #### [facility] [place] [address] Fishing Tool Operator: Jani Nelson MD MCV (RBC) [Entitic vol] 94.8 fL Normal 80.0-100.0 [facility] Comment on above: Performed By: #### 6 399 #### [facility] [place] [address] Fishing Tool Operator: Jani Nelson MD Monocytes (Bld) [#/Vol] 0.474 10*3/uL Normal 200-950 [facility] Comment on above: Performed By: #### 6 399 #### [facility] [place] [address] Fishing Tool Operator: Jani Nelson MD Monocytes/100 WBC (Bld) 10.3 % Normal [facility] Comment on above: Performed By: #### 6 399 #### [facility] of [address], [address] [place] [address] Fishing Tool Operator: Jani Nelson MD Neutrophils (Bld) [#/Vol] 1.946 10*3/uL Normal 4207-1010 [facility] Comment on above: Performed By: #### 6 399 #### [facility] [place] [address] Fishing Tool Operator: Jani Nelson MD Neutrophils/100 WBC (Bld) 42.3 % Normal [facility] Comment on above: Performed By: #### 6 399 #### [facility] [place] [address] Fishing Tool Operator: Jani Nelson MD Platelet mean volume (Bld) [Entitic vol] 10.4 fL Normal 7.5-12.5 [facility] Comment on above: Performed By: #### 6 399 #### [facility] [place] [address] Fishing Tool Operator: Jani Nelson MD Platelets (Bld) [#/Vol] 298 10*3/uL Normal 140-400 [facility] Comment on above: Performed By: #### 6 399 #### [facility] [place] [address] Fishing Tool Operator: Jani Nelson MD RBC (Bld) [#/Vol] 4.66 10*6/uL Normal 3.80-5.10 [facility] Comment on above: Performed By: #### 6 399 #### [facility] of [address], [address] [place] [address] Fishing Tool Operator: Jani Nelson MD WBC (Bld) [#/Vol] 4.6 10*3/uL Normal 3.8-10.8 [facility] Comment on above: Performed By: #### 6 399 #### [facility] of [address], [address] [place] [address] Fishing Tool Operator: Jani Nelson MD VITAMIN D,25-OH,TOTAL,IAon 0 11-25-2023 VITAMIN D,25-OH,TOTAL,IA 38 ng/mL Normal 30-100 [facility] Comment on above: Result Comment: Lou min D Status 25-OH Vitamin D: Deficiency: <20 ng/mL Insufficiency: 20 - 29 ng/mL Optimal: > or = 30 ng/mL For 25-OH Vitamin D testing on patients on D2-supplementation and patients for whom quantitation of D2 and D3 fractions is required, the [facility](TM) 25-OH VIT D, (D2,D3), LC/MS/MS is recommended: order code 90324 (patients >2yrs). See Note 1 Note 1 For additional information, please refer to http://education.[employer]/faq/JHE962 (This link is being provided for informational/ educational purposes only.) Performed By: #### 6 399 #### [facility] [address], [address] [place] [id number] Fishing Tool Operator: Jani Nelson MD Laboratory - Hematology and Cell countson 11-24-2023 Basophils (Bld) [#/Vol] 0.041 10*3/uL Normal 0 - 200 {cells/uL} [employer] across [employer] [facility], [facility].; [employer], [employer]. Basophils/100 WBC (Bld) 0.9 % Normal [facility], [facility].; [employer] [facility], [facility] Eosinophils (Bld) [#/Vol] 0.161 10*3/uL Normal 15 - 500 {cells/uL} [facility], [facility].; [employer] [facility], [facility]. Eosinophils/100 WBC (Bld) 3.5 % Normal [place] [employer] [facility], [facility].; [employer], [facility]. Erythrocyte distribution width (RBC) [Ratio] 12.3 % Normal 11.0 - 15.0 % [employer] [facility], [facility].; [employer], [employer]. Hematocrit (Bld) [Volume fraction] 44.2 % Normal 35.0 - 45.0 % [employer] [facility], [facility].; [employer], [facility] Hemoglobin (Bld) [Mass/Vol] 14.8 g/dL Normal 11.7 - 15.5 g/dL [employer] [facility].; [employer]. Lymphocytes (Bld) [#/Vol] 1.978 10*3/uL Normal 850 - 3900 {cells/uL} [facility].; [place] [employer], [facility]. Lymphocytes/100 WBC (Bld) 43.0 % Normal [facility].; [place] [employer], [facility]. MCH (RBC) [Entitic mass] 31.8 pg Normal 27. 0 - 33.0 pg [facility].; [place] [employer], [facility]. MCHC (RBC) [Mass/Vol] 33.5 g/dL Normal 32.0 - 36.0 g/dL [facility], [facility].; [place] [employer], [facility]. MCV (RBC) [Entitic vol] 94.8 fL Normal 80.0 - 100.0 fL [facility].; [place] [employer], [facility]. Monocytes (Bld) [#/Vol] 0.474 10*3/uL Normal 200 - 950 {cells/uL} [facility] [employer] [facility].; [employer], [facility]. Monocytes/100 WBC (Bld) 10.3 % Normal [facility].; [place] [employer] [facility], [facility]. Neutrophils (Bld) [#/Vol] 1.946 10*3/uL Normal 1500 - 7800 {cells/uL} [facility].; [place] [employer], [facility]. Neutrophils/100 WBC (Bld) 42.3 % Normal [facility].; [place] [employer], [facility]. Platelet mean volume (Bld) [Entitic vol] 10.4 fL Normal 7.5 - 12.5 fL [place] [employer] [facility].; [employer] Platelets (Bld) [#/Vol] 298 10*3/uL Normal 140 - 400 [place] [employer] [facility].; [place] [employer] RBC (Bld) [#/Vol] 4.66 10*6/uL Normal 3.80 - 5.1 0 {Million/uL } [place] [employer], [facility].; [place] [employer] WBC (Bld) [#/Vol] 4.6 10*3/uL Normal 3.8 - 10.8 [place] [employer].; [facility] No Panel Informationon 11-23 VITAMIN D,25-OH,TOTAL,IA 38 ng/mL Normal 30 - 100 ng/mL [facility], [facility].; [facility], [facility]. Office Visiton 10-03-2023 Follow-up visit [id number] Ivy Crews 2000 F Date Provider Department Center 10/03/2023 [id number], NIR [employer] P[employer] None No family history on file Level of Service:28554 [place] OFFICE/OUTPATIENT NEW LOW MDM 30 MINUTES Reason for Visit and Comments: New Patient [542] Normal [facility] Progress Noteon 10-03-2023 Progress Note Family History of Cancer [] Breast Cancer: [] Ovarian Cancer: [x] Colon Cancer: Grandfather may have - Patient unsure [] Pancreatic Cancer: [] Prostate Cancer: [] Other Cancer: [x] Children: 1 [] Future Pregnancies: [] Breast Feeding: No [x] Weight Stability: currently [] Last Mammogram: Breast Measurements: Right Left Sternal Notch to Nipple 35.5 35 IMF to Nipple 15 11 Midline to Nipple 13.5 14.5 Areolar Diameter 8.5 8.5 Ptosis Grade Breast Base 30 cm bilaterally New Nipple Location 27 bilaterally Current Bra Size Right is 36 DDD Left is smaller in size and width. Patient claims C cup Larger Breast Right breast Additional Comments: Back problems, Rash under breast managed by diaper creams, baby powders. Inverted nipples bilaterally. Major asymmetry noted. Right: [x] Dense fibronodular tissue [] Masses [x] No Masses [] Lumps [x] No Lumps [] Palpable lymph nodes in axilla [x] No palpable lymph nodes in axilla Left: [x] Dense fibronodular tissue [] Masses [x] No Masses [] Lumps [x] No Lumps [] Palpable lymph nodes in axilla [x] No palpable lymph nodes in axilla Gilma López LPN Normal [facility] Progress Note Reduction Mammaplast y: Chief Complaint: Chief Complaint Patient presents with New Patient HPI: Ms. Crews is a very pleasant 22 y.o. 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 She also reports a discrepancy in size of the breasts with the right breast being significantly larger than the left (at least 1 cup size larger). She has a significant history of lower back pain. She recently had surgery on her back few months ago. She She states that her bra size is 36 DDD She is No obstetric history on file. Ms. Christian denies any personal or family history of breast cancer. She endorses family history of colon cancer in her paternal grandfather/uncle. ROS: The Review of Systems is per the electronic chart and patient information sheet. Review of Systems Constitutional: Negative. HENT: Negative. Eyes: Negative. Respiratory: Negative. Cardiovascular: Negative. Gastrointestinal: Negative. Endocrine: Negative. Genitourinary: Negative. Musculoskeletal: Positive for back pain, neck pain and neck stiffness. Skin: Negative. Allergic/Immunologic: Negative. Neurological: Negative. Hematological: Negative. Psychiatric/Behavioral : Negative. Past Medical and Surgical History: History reviewed. No pertinent past medical history. History reviewed. No pertinent surgical history. Medications: No current outpatient medications ALLERGIES: Allergies Allergen Reactions Penicillins Hives Social History: Social History Socioeconomic History Marital status: Single Social History Tobacco Use Smoking Status Not on file Smokeless Tobacco Not on file Family History: No family history on file. The Medication, Surgical, Medical, Allergies, Social and Family histories were reviewed with the patient during this visit. Physical Examination: BP 114/82 Pulse 88 Ht 5' 4 (1.626 m) Wt 232 lb 12.8 oz (106 kg) BMI 39.96 kg/m? Body mass index is 39.96 kg/m?. General Appearance: Obese Eyes: conjunctiva/corneas clear, PERRLA, EOMI ENT: ENT exam normal, no neck nodes or sinus tenderness Respiratory: appears well, vitals normal, no respiratory distress, acyanotic, normal RR, ear and throat exam is normal, neck free of mass or lymphadenopathy, chest clear, no wheezing, crepitations, rhonchi, normal symmetric air entry Lymphatic: No abnormally enlarged lymph nodes. Musculoskeletal: negative Breasts: A comprehensive breast exam was performed and is as follows: On exam, she had grade 3 ptosis on the right and grade 3 ptosis on the left. Her right breast was significantly larger than her left breast. This discrepancy is pretty significant to the extent that the patient does not have any chance being symmetrical in her bra. Examination of bilateral breasts reveals dense fibronodular tissue with no palpable masses or lumps. Examination of bilateral axilla reveals no palpable lymphadenopathy. Breast measurements: Family History of Cancer [] Breast Cancer: [] Ovarian Cancer: [x] Colon Cancer: Grandfather may have - Patient unsure [] Pancreatic Cancer: [] Prostate Cancer: [] Other Cancer: [x] Children: 1 [] Future Pregnancies: [] Breast Feeding: No [x] Weight Stability: currently [] Last Mammogram: Breast Measurements: Right Left Sternal Notch to Nipple 35.5 35 IMF to Nipple 15 11 Midline to Nipple 13.5 14.5 Areolar Diameter 8.5 8.5 Ptosis Grade Breast Base 30 cm bilaterally New Nipple Location 27 bilaterally Current Bra Size Right is 36 DDD Left is smaller in size and width. Patient claims C cup Larger Breast Right breast Additional Comments: Back problems, Rash under breast managed by diaper creams, baby powders. Inverted nipples bilaterally. Major asymmetry noted. Right: [x] Dense fibronodular tissue [] Masses [x] No Masses [] Lumps [x] No Lumps [] Palpable lymph nodes in axilla [x] No palpable lymph nodes in axilla Left: [x] Dense fibronodular tissue [] Masses [x] No Masses [] Lumps [x] No Lumps [] Palpable lymph nodes in axilla [x] No palpable lymph nodes in axilla Estimated weight of tissue to be removed per breast is 750 g. Technique used will be vertical reduction technique. Impression and Plan: I think that Ms. Crews certainly would benefit from breast reduction surgery from a symptomatic standpoint. We also discussed at length some of the risks of surgery including wound complications, nipple-areolar complex numbness, and loss changes that can happen to the breast postoperatively in the event of and/or as well as weight change. In general, breast feeding is possible in approximately 60% of patients after breast reduction. or weight gain (more content not included)... Normal [facility] Laboratory - Chemistry and C hemistry - challengeon 09-04-2023 25-hydroxyvitamin D3 [Mass/Vol] 22.10 ng/mL Abnormal 30.00 - 100 ng/mL [facility] Albumin [Mass/Vol] 3.8 g/dL Normal 3.4 - 5.0 g/dL [facility].; [facility], [facility] Albumin [Mass/Vol] 1.3 g/dL Normal 0.9 - 1.6 [facility].; [facility]. ALP [Catalytic activity/Vol] 48 U/L Normal 46 - 116 U/L [facility].; [facility]. ALT [Catalytic activity/Vol] 31 U/L Normal 16 - 63 U/L [facility]; [facility] Anion gap [Moles/Vol] 16 mmol/L Normal 10 - 2 0 mmol/L [facility]; [facility] AST [Catalytic activity/Vol] 23 U/L Normal 13 - 39 U/L [facility].; [facility], [facility] Average glucose Estimated from glycated hemoglobin (Bld) [Mass/Vol] 102.5 mg/dL Abnormal 0.0 - 0.0 mg/dL [facility]; [facility]. Bilirubin [Mass/Vol] 0.9 mg/dL Normal 0.2 - 1 .0 mg/dL [facility]; [facility], [facility] Calcium [Mass/Vol] 9.1 mg/dL Normal 8.5 - 10. 1 mg/dL [facility].; [facility], [facility]. Chloride [Moles/Vol] 108 mmol/L Abnormal 98 - 10 7 mmol/L [facility].; [facility], [facility]. CO2 [Moles/Vol] 24.4 mmol/L Normal 21.0 - 32.0 mmol/L [facility]; [facility], [facility] Cobalamin (Vitamin B12) [Mass/Vol] 409 pg/mL Normal 193 - 986 pg/mL [facility].; [facility], [facility] Comprehensive metabolic 2000 panel CMP with eGFR Normal [facility]; [facility] Creatinine [Mass/Vol] 0.81 mg/dL Normal 0.55 - 1.02 mg/dL [facility].; [place] [employer]. Ferritin [Mass/Vol] 58 ng/mL Normal 8 - 388 ng/mL [facility].; [employer]. Work Phone: GFR/1.73 sq M.predicted among blacks MDRD (S/P/Bld) [Vol rate/Area] mL/min/{1.73_m2} Normal 60 - 999 {ML/MINUTE} [facility] [place] [employer]. GFR/1.73 sq M.predicted MDRD (S/P/Bld) [Vol rate/Area] mL/min/{1.73_m2} Normal 60 - 999 {ML/MINUTE} [facility] [employer] Globulin (S) [Mass/Vol] 3.0 g/dL Normal 1.5 - 3.8 g/dL [facility].; [employer]. Glucose [Mass/Vol] 88 mg/dL Normal 74 - 106 mg/dL [place] [employer].; [employer]. Iron [Mass/Vol] 131 ug/dL Normal 50 - 170 ug/dL [place] [facility].; [place] [employer]. Iron binding capacity [Mass/Vol] 307 ug/dL Normal 250 - 450 ug/dL [place] [facility].; [employer]. Potassium [Moles/Vol] 4.0 mmol/L Normal 3.5 - 5.1 mmol/L [place] [employer].; [employer]. Protein [Mass/Vol] 6.8 g/dL Normal 6.4 - 8.2 g/dL [place] [employer] [facility] [employer]. Sodium [Moles/Vol] 144 mmol/L Normal 136 - 145 mmol/L [place] [employer].; [employer]. TSH Qn 0.67 m[IU]/L Normal 0.34 - 5.60 {uIU/ml} [place] [facility].; [employer]. Urea nitrogen [Mass/Vol] 10 mg/dL Normal 7 - 18 mg/dL [facility].; [place] [facility] [facility] Urea nitrogen/Creatinine [Mass ratio] 12 {ratio} Normal 0 - 30 {ratio} [facility].; [facility] Laboratory - Drug toxicology on 09-04-2023 Vancomycin peak [Mass/Vol] 176 ug/dL Normal 155 - 355 ug/dL [facility].; [facility]. Laboratory - Hematology and Cell countson 09-04-2023 Basophils (Bld) [#/Vol] 0.01 {3/UL} Normal 0.00 - 0.10 {3/UL} [facility].; [facility], [facility] Basophils/100 WBC (Bld) 0.3 % Normal 0.0 - 2.0 % [facility].; [place] [employer] [facility], [facility]. CBC W Auto Differential panel (Bld) CBC + DIFF Normal [facility].; [place] [employer] [facility] Eosinophils (Bld) [#/Vol] 0.27 {3/UL} Normal 0.00 - 0.50 {3/UL} [facility].; [place] [employer]. Eosinophils/100 WBC (Bld) 6.6 % Normal 0.0 - 7.0 % [facility].; [place] [employer] [facility]. Erythrocyte distribution width (RBC) [Ratio] 13.0 % Normal 12.0 - 15.6 % [facility].; [place] [employer] [facility], [facility]. HbA1c (Bld) [Mass fraction] 5.2 % Normal 0.0 - 6.5 % [facility].; [place] [employer], [facility]. Hematocrit (Bld) [Volume fraction] 44.0 % Normal 34.0 - 46.0 % [facility], [facility].; [place] [employer], [facility]. Hemoglobin (Bld) [Mass/Vol] 14.8 g/dL Normal 12.0 - 16.0 g/dL [facility], [facility].; [place] [employer], [facility] Lymphocytes (Bld) [#/Vol] 1.74 {3/UL} Normal 0.80 - 2.80 {3/UL} [place] [employer] [facility].; [facility]. Lymphocytes/100 WBC (Bld) 42.5 % Normal 20.0 - 45.0 % [employer].; [employer]. MCH (RBC) [Entitic mass] 32 pg Normal 27 - 33 pg [facility] [employer].; [employer], [employer]. MCHC (RBC) [Mass/Vol] 34 {X10_3} Normal 32 - 3 6 {X10_3} [employer].; [employer], [employer]. MCV (RBC) [Entitic vol] 94 fL Normal 80 - 99 fL [facility] [employer], [employer]. Monocytes (Bld) [#/Vol] 0.38 {3/UL} Normal 0.20 - 1.00 {3/UL} [employer], [employer]. Monocytes/100 WBC (Bld) 9.3 % Normal 0.0 - 10.0 % [employer].; [facility]. Morphology Peña (Bld) [Interp] N/A Normal [facility] [employer].; [employer], [employer]. Neutrophils (Bld) [#/Vol] 1.69 {3/UL} Normal 1.50 - 7.10 {3/UL} [employer], [employer]. Neutrophils/100 WBC (Bld) 41.4 % Abnormal 46.0 - 76.0 % [employer], [employer]. Platelet mean volume (Bld) [Entitic vol] 9.1 fL Normal 6.6 - 10.5 fL [employer], [employer]. Platelets (Bld) [#/Vol] 225 {3/UL} Normal 150 - 450 {3/UL} [facility] [employer], [employer]. RBC (Bld) [#/Vol] 4.67 {6/UL} Normal 4.10 - 5.3 0 {6/UL} [employer], [employer], [employer]. WBC (Bld) [#/Vol] 4.1 {3/UL} Abnormal 4.5 - 10.8 {3/UL} [facility]. No Panel Informationon 09-03 %SATURATION 43 % Normal [facility]. AGE 22 {years} Normal [employer] [facility]. MANUAL DIFF N/A Normal [employer].; [facility]. CULTURE, URINE, ROUTINEon CULTURE, URINE, ROUTINE SEE NOTE Normal [facility] Comment on above: Result Comment: CULTURE, URINE, ROUTINE Micro Number: [id number] Test Status: Final Specimen Source: Urine Specimen Quality: Adequate Result: Mixed genital najma isolated. These superficial bacteria are not indicative of a urinary tract infection. No further organism identification is warranted on this specimen. If clinically indicated, recollect clean-catch, mid-stream urine and transfer immediately to Urine Culture Transport Tube. Performed By: #### 3 [id number] #### [facility] [address], [address] [place] [id number] Fishing Tool Operator: Jani Nelson MD Laboratory - Chemistry and C hemistry - challengeon 07-29-2023 Bilirubin Ql (U) Negative Normal [facility]. Ketones Ql (U) Negative Normal [facility] [employer]. pH (U) 6.0 [pH] Normal [facility] [employer]. Specific gravity (U) [Rel density] 1.020 Normal [facility]. Urobilinogen Qn (U) 0.2 mg/dL Normal [employer].; [facility]. Laboratory - Hematology and Cell countson 07-29-2023 Hemoglobin Ql (U) Negative Normal [facility]. Laboratory - Specimen inform ationon 07-29-2023 Appearance (U) cloudy Abnormal [facility] [employer]. Color (U) yellow Normal [facility] Laboratory - Urinalysison Glucose Test strip (U) [Mass/Vol] Negative Normal [facility].; [facility]. Leukocyte esterase Test strip Ql (U) Negative Normal [facility]; [facility] Nitrite Ql (U) Negative Normal [facility].; [place] [facility] Protein Ql (U) Negative Normal [facility].; [place] [facility]. No Panel Informationon 07-29 CULTURE, URINE, ROUTINE SEE NOTE Normal [facility].; [place] [facility]. Laboratory - Microbiology an d Antimicrobial susceptibilityon 06-06-2023 FLUAV Ag IA Ql (Throat) Negative Normal [facility]; [facility] SARS-CoV-2 (COVID-19) RNA JORDAN+probe Ql (Unsp spec) postivie Normal [facility]; [facility]. T3, FREEon 02-19-2023 Free T3 [Mass/Vol] 3.4 pg/mL Normal 2.3-4.2 [facility] Comment on above: Performed By: #### 3 [id number], 5081 #### [facility] [place] [address] [employer] Operator: Jani Nelson MD THYROID PEROXIDASE ANTIBODIE Son 02-19-2023 THYROID PEROXIDASE ANTIBODIES 20 IU/mL High <9 [facility] Comment on above: Performed By: #### 3 [id number], 5081 #### [facility] [place] [address] [employer]ishing [employer] Operator: Jani Nelson MD TSH W/REFLEX TO FT4on 2022 TSH W/REFLEX TO FT4 0.77 mIU/L Normal [facility] Comment on above: Result Comment: Refe rence Range > or = 20 Years 0.40-4.50 Ranges First trimester 0.26-2.66 Second trimester 0.55-2.73 Third trimester 0.43-2.91 Performed By: #### 3 [id number] #### [facility] [place] [address] [employer]ishing [employer] Operator: Jani Nelson MD Laboratory - Chemistry and C hemistry - challengeon 02-17-2023 Free T3 [Mass/Vol] 3.4 pg/mL Normal 2.3 - 4.2 pg/mL [facility]; [facility] No Panel Informationon 02-17 THYROID PEROXIDASE ANTIBODIES 20 {IU/mL} Abnormal [facility]; [facility] TSH W/REFLEX TO FT4 0.77 {mIU/L} Normal [facility]; [facility] Laboratory - Chemistry and C hemistry - challengeon 12-24-2022 Bilirubin [Mass/Vol] Negative Normal [facility]; [facility] Work Phone: Glucose [Mass/Vol] NORM Normal [facility]; [facility] Work Phone: pH (Bld) 6 [pH] Normal [facility]; [facility] Work Phone: Protein [Mass/Vol] 30 g/dL Abnormal [facility]; [facility] Work Phone: Laboratory - Hematology and Cell countson 12-24-2022 WBC (Bld) [#/Vol] 25 10*3/uL Abnormal [facility]; [facility] Work Phone: Laboratory - Microbiology an d Antimicrobial susceptibilityon 12-24-2022 Bacteria identified Cx Nom (Unsp spec) 3+ Normal [facility]; [facility] Work Phone: Laboratory - Specimen inform ationon 12-24-2022 Clarity (U) sl.cloudy Normal [facility]; [facility] Work Phone: Color (U) brown Normal [facility]; [facility] Work Phone: Specimen type Nom (Spec) Quiñonez Normal [facility]; [facility] Work Phone: Laboratory - Urinalysison Crystals LM Nom (Urine sed) NONE Normal [facility]; [facility] Work Phone: Nitrite Ql (U) Negative Normal [facility]; [facility] Work Phone: Urinalysis dipstick W Reflex Microscopic panel (U) URINALYSIS WITH MICROSCOPY Normal [facility]; [facility] Work Phone: Yeast LM Ql (Urine sed) NONE Normal [facility]; [facility] Work Phone: No Panel Informationon 12-24 Amorphous NONE Normal [facility]; [place] [facility]. Work Phone: Blood 10 Abnormal [facility]; [facility]. Work Phone: Casts NONE Normal [facility]; [facility] Work Phone: Epi Cells MODERATE Normal [facility]; [facility] Work Phone: Ketone 5 Abnormal [facility]; [facility]. Work Phone: Mucous 3+ Normal [facility]; [facility] Work Phone: Rbc 0-5 Normal 0 - 3 [facility]; [place] [facility] Work Phone: Sp [place] 1.020 Normal [facility]; [facility] Work Phone: Urobilinog 1 Abnormal [facility]; [place] [facility] Work Phone: Wbc 1-5 Normal 0 - 5 [facility]; [facility]. Work Phone: Laboratory - Blood bankon ABO group Nom (Bld) O Normal [facility]; [facility] Work Phone: Blood group antibody screen Ql Negative Normal [facility]; [facility] Work Phone: Blood type and Indirect antibody screen panel (Bld) Normal [facility]; [facility] Work Phone: Rh Nom (Bld) Positive Normal [facility]; [facility] Work Phone: Laboratory - Chemistry and C hemistry - challengeon 12-23-2022 Albumin [Mass/Vol] 2.8 g/dL Abnormal 3.4 - 5.0 g/dL [facility]; [facility] Work Phone: Albumin [Mass/Vol] 0.7 g/dL Abnormal 0.9 - 1.6 [facility]; [facility] Work Phone: ALP [Catalytic activity/Vol] 211 U/L Abnormal 46 - 116 U/L [facility]; [facility] Work Phone: ALT [Catalytic activity/Vol] 8 U/L Abnormal 14 - 59 U/L [facility]; [facility] Work Phone: Anion gap [Moles/Vol] 18 mmol/L Normal 10 - 2 0 mmol/L [facility]; [facility] Work Phone: AST [Catalytic activity/Vol] 19 U/L Normal 13 - 39 U/L [facility]; [facility] Work Phone: Bilirubin [Mass/Vol] 0.8 mg/dL Normal 0.2 - 1 .0 mg/dL [facility]; [facility] Work Phone: Bilirubin [Mass/Vol] Negative Normal [facility]; [facility] Work Phone: Calcium [Mass/Vol] 8.5 mg/dL Normal 8.5 - 10. 1 mg/dL [facility]; [facility] Work Phone: Chloride [Moles/Vol] 104 mmol/L Normal 98 - 10 7 mmol/L [facility]; [facility] Work Phone: CO2 [Moles/Vol] 18.9 mmol/L Abnormal 21.0 - 32.0 mmol/L [facility]; [facility], [facility] Work Phone: Comprehensive metabolic 2000 panel CMP with eGFR Normal [facility]; [facility] Work Phone: Creatinine [Mass/Vol] 0.47 mg/dL Abnormal 0.55 - 1.02 mg/dL [facility]; [facility], [facility] Work Phone: Creatinine [Mass/Vol] 339.89 mg/dL Normal [facility]; [facility], [facility] Work Phone: GFR/1.73 sq M.predicted among blacks MDRD (S/P/Bld) [Vol rate/Area] mL/min/{1.73_m2} Normal 60 - 999 {ML/MINUTE} [facility], [facility]. Work Phone: GFR/1.73 sq M.predicted MDRD (S/P/Bld) [Vol rate/Area] mL/min/{1.73_m2} Normal 60 - 999 {ML/MINUTE} [facility].; [facility], [facility]. Work Phone: Globulin (S) [Mass/Vol] 3.9 g/dL Abnormal 1.5 - 3.8 g/dL [facility]; [facility] Work Phone: [phone] Glucose [Mass/Vol] 71 mg/dL Abnormal 74 - 106 mg/dL [facility]; [facility] Work Phone: [phone] Glucose [Mass/Vol] NORM Normal [facility]; [facility] Work Phone: pH (Bld) 6 [pH] Normal [facility]; [facility] Work Phone: Potassium [Moles/Vol] 3.8 mmol/L Normal 3.5 - 5.1 mmol/L [facility]; [facility] Work Phone: Protein (24H U) [Mass/Vol] 44.80 mg/dL Abnormal 0.00 - 10.00 mg/dL [facility]; [facility] Work Phone: Protein [Mass/Vol] 6.7 g/dL Normal 6.4 - 8.2 g/dL [facility]; [facility] Work Phone: [phone] Protein [Mass/Vol] 30 g/dL Abnormal [facility]; [facility] Work Phone: Sodium [Moles/Vol] 137 mmol/L Normal 136 - 145 mmol/L [facility]; [facility] Work Phone: Urea nitrogen [Mass/Vol] 7 mg/dL Normal 7 - 18 mg/dL [facility]; [facility] Work Phone: Urea nitrogen/Creatinine [Mass ratio] 15 {ratio} Normal 0 - 30 {ratio} [facility]; [facility] Work Phone: [phone] Urobilinogen (U) [Mass/Vol] 1 mg/dL Abnormal 0.2 - 1.0 [facility]; [place] [facility] Work Phone: Laboratory - Hematology and Cell countson 12-23-2022 Basophils (Bld) [#/Vol] 0.10 {3/UL} Normal 0.00 - 0.10 {3/UL} [facility]; [place] [employer] Work Phone: Basophils/100 WBC (Bld) 0.8 % Normal 0.0 - 2.0 % [facility]; [place] [employer] Work Phone: CBC W Auto Differential panel (Bld) CBC + DIFF Normal [facility]; [place] [facility] Work Phone: Eosinophils (Bld) [#/Vol] 0.00 {3/UL} Normal 0.00 - 0.50 {3/UL} [facility]; [place] [employer] Work Phone: Eosinophils/100 WBC (Bld) 0.4 % Normal 0.0 - 7.0 % [facility]; [place] [employer] Work Phone: Erythrocyte distribution width (RBC) [Ratio] 14.3 % Normal 12.0 - 15.6 % [facility]; [place] [employer] Work Phone: Hematocrit (Bld) [Volume fraction] 40.0 % Normal 34.0 - 46.0 % [facility]; [place] [employer] Work Phone: Hemoglobin (Bld) [Mass/Vol] 13.3 g/dL Normal 12.0 - 16.0 g/dL [facility]; [place] [employer] Work Phone: Lymphocytes (Bld) [#/Vol] 1.70 {3/UL} Normal 0.80 - 2.80 {3/UL} [facility]; [place] [employer] Work Phone: Lymphocytes/100 WBC (Bld) 18.7 % Abnormal 20.0 - 45.0 % [facility]; [facility] Work Phone: MCH (RBC) [Entitic mass] 30 pg Normal 27 - 33 pg [facility]; [place] [facility]. Work Phone: [phone] MCHC (RBC) [Mass/Vol] 33 {X10_3} Normal 32 - 3 6 {X10_3} [facility]; [facility]. Work Phone: [phone] MCV (RBC) [Entitic vol] 90 fL Normal 80 - 99 fL H [facility]; [facility] Work Phone: Monocytes (Bld) [#/Vol] 0.70 {3/UL} Normal 0.20 - 1.00 {3/UL} [facility].; [place] [employer]. Work Phone: Monocytes/100 WBC (Bld) 7.5 % Normal 0.0 - 10.0 % [facility]; [place] [facility]. Work Phone: Morphology Peña (Bld) [Interp] N/A Normal [facility]; [place] [employer]. Work Phone: [phone] Neutrophils (Bld) [#/Vol] 6.80 {3/UL} Normal 1.50 - 7.10 {3/UL} [facility]; [place] [employer] Work Phone: [phone] Neutrophils/100 WBC (Bld) 72.6 % Normal 46.0 - 76.0 % [facility].; [place] [employer]. Work Phone: Platelet mean volume (Bld) [Entitic vol] 9.3 fL Normal 6.6 - 10.5 fL [facility]; [place] [employer] Work Phone: Platelets (Bld) [#/Vol] 278 {3/UL} Normal 150 - 450 {3/UL} [facility].; [facility]. Work Phone: RBC (Bld) [#/Vol] 4.43 {6/UL} Normal 4.10 - 5.3 0 {6/UL} [facility].; [facility]. Work Phone: WBC (Bld) [#/Vol] 9.3 {3/UL} Normal 4.5 - 10.8 {3/UL} [facility].; [facility]. Work Phone: WBC (Bld) [#/Vol] 25 10*3/uL Abnormal [facility].; [facility]. Work Phone: Laboratory - Specimen inform ationon 12-23-2022 Clarity (U) sl.cloudy Normal [facility]; [place] [employer]. Work Phone: Color (U) nestor Normal [facility]; [facility] Work Phone: Laboratory - Urinalysison Nitrite Ql (U) Negative Normal [facility].; [place] [facility]. Work Phone: No Panel Informationon 12-23 AGE 22 {years} Normal [facility]; [facility]. Work Phone: Blood Negative Normal [facility]; [facility] Work Phone: Ketone 5 Abnormal [facility]; [facility] Work Phone: MANUAL DIFF N/A Normal [facility]; [place] [employer]. Work Phone: PC RATIO 0.13 mg/dL Normal 0.00 - 10.00 mg/dL [facility]; [facility] Work Phone: Sp [place] 1.020 Normal [facility]; [facility] Work Phone: Urinalysis dipstick test status [facility] URINALYSIS WITHOUT MICROSCOPY Normal [facility] [place] [facility] Work Phone: CBC (INCLUDES DIFF/PLT)on Basophils (Bld) [#/Vol] 0.041 10*3/uL Normal 0-200 [facility] Comment on above: Performed By: #### 1 0231, 6399 #### [facility] [place] [address] [employer]: Jani Nelson MD Basophils/100 WBC (Bld) 0.5 % Normal [facility] Comment on above: Performed By: #### 1 0231, 6399 #### [facility] [place] [address] [employer]ishing [employer] Operator: Jani Nelson MD Eosinophils (Bld) [#/Vol] 0.033 10*3/uL Normal 15-500 [facility] Comment on above: Performed By: #### 1 0231, 6399 #### [facility] [place] [address] [employer]ishing [employer] Operator: Jani Nelson MD Eosinophils/100 WBC (Bld) 0.4 % Normal [facility] Comment on above: Performed By: #### 1 0231, 6399 #### [facility] [place] [address] [employer] Operator: Jani Nelson MD Erythrocyte distribution width (RBC) [Ratio] 13.3 % Normal 11.0-15.0 [facility] Comment on above: Performed By: #### 1 0231, 6399 #### [facility] [place] [address] [employer]ishing [employer] Operator: Jani Nelson MD Hematocrit (Bld) [Volume fraction] 38.7 % Normal 35.0-45.0 [facility] Comment on above: Performed By: #### 1 0231, 6399 #### [facility] of [place] [address] [employer]ishing [employer] Operator: Jani Nelson MD Hemoglobin (Bld) [Mass/Vol] 13.1 g/dL Normal 11.7-15.5 [facility] Comment on above: Performed By: #### 1 0231, 6399 #### [facility] of [place] [address] [employer] Operator: Jani Nelson MD Lymphocytes (Bld) [#/Vol] 1.435 10*3/uL Normal 850-3900 [facility] Comment on above: Performed By: #### 1 023, 6399 #### [facility] of [place] [address] [employer] Operator: Jani Nelson MD Lymphocytes/100 WBC (Bld) 17.5 % Normal [facility] Comment on above: Performed By: #### 1 023, 6399 #### [facility] of [place] [address] [employer] Operator: Jani Nelson MD MCH (RBC) [Entitic mass] 30.5 pg Normal 27.0-33.0 [facility] Comment on above: Performed By: #### 1 230, 6399 #### [facility] of [place] [address] [employer] Operator: Jani Nelson MD MCHC (RBC) [Mass/Vol] 33.9 g/dL Normal 32.0-36.[address] [facility] Comment on above: Performed By: #### 1 0231, 6399 #### [facility] of [place] [address] [employer] Operator: Jani eNlson MD MCV (RBC) [Entitic vol] 90.0 fL Normal 80.0-100.0 [facility] Comment on above: Performed By: #### 1 0231, 6399 #### [facility] of [address], [address] [place] [address] [employer] Operator: Jani Nelson MD Monocytes (Bld) [#/Vol] 0.558 10*3/uL Normal 200-950 [facility] Comment on above: Performed By: #### 1 0231, 6399 #### [facility] of [address], [address] [place] [address] [employer] Operator: Jani Nelson MD Monocytes/100 WBC (Bld) 6.8 % Normal [facility] Comment on above: Performed By: #### 1 0231, 6399 #### [facility] of [address], [address] [place] [address] [employer] Operator: Jani Nelson MD Neutrophils (Bld) [#/Vol] 6.134 10*3/uL Normal 0852-5817 [facility] Comment on above: Performed By: #### 1 0231, 6399 #### [facility] of [address], [address] [place] [address] [employer] Operator: Jani Nelson MD Neutrophils/100 WBC (Bld) 74.8 % Normal [facility] Comment on above: Performed By: #### 1 0231, 6399 #### [facility] of [address], [address] [place] [address] [employer] Operator: Jani Nelson MD Platelet mean volume (Bld) [Entitic vol] 11.2 fL Normal 7.5-12.5 [facility] Comment on above: Performed By: #### 1 0231, 6399 #### [facility] of [address], [address] [place] [address] [employer] Operator: Jani Nelson MD Platelets (Bld) [#/Vol] 263 10*3/uL Normal 140-400 [facility] Comment on above: Performed By: #### 1 0231, 6399 #### [facility] of [address], [address] [place] [address] [employer] Operator: Jani Nelson MD RBC (Bld) [#/Vol] 4.30 10*6/uL Normal 3.80-5.10 [facility] Comment on above: Performed By: #### 1 0231, 6399 #### [facility] of [place] [address] [employer]ishing [employer] Operator: Jani Nelson MD WBC (Bld) [#/Vol] 8.2 10*3/uL Normal 3.8-10.8 [facility] Comment on above: Performed By: #### 1 0231, 6399 #### [facility] of [place] [address] [employer]ishing [employer] Operator: Jani Nelson MD [facility] 12-21-2022 Albumin [Mass/Vol] 3.4 g/dL Low 3.6-5.1 [facility] Comment on above: Performed By: #### 1 230, 6399 #### [facility] [place] [address] [employer] Operator: Jani Nelson MD Albumin/Globulin [Mass ratio] 1.4 {ratio} Normal 1.0-2.5 [facility] Comment on above: Performed By: #### 1 0231, 6399 #### [facility] [place] [address] [employer]ishing [employer] Operator: Jani Nelson MD ALP [Catalytic activity/Vol] 196 U/L High 31-125 [facility] Comment on above: Performed By: #### 1 0231, 6399 #### [facility] [place] [address] [employer]ishing [employer] Operator: Jani Nelson MD ALT [Catalytic activity/Vol] 7 U/L Normal 6-29 [facility] Comment on above: Performed By: #### 1 0231, 6399 #### [facility] [place] [address] [employer] Operator: Jani Nelson MD AST [Catalytic activity/Vol] 12 U/L Normal 10-30 [facility] Comment on above: Performed By: #### 1 1, 6399 #### [facility] of [address], [address] [place] [address] [employer] Operator: Jani Nelson MD Bilirubin [Mass/Vol] 0.5 mg/dL Normal 0.2-1.2 [facility] Comment on above: Performed By: #### 1 0231, 6399 #### [facility] of [address], [address] [place] [address] [employer] Operator: Jani Nelson MD BUN/CREATININE RATIO NOT APPLICABLE Normal 6-22 [facility] Comment on above: Performed By: #### 1 0231, 6399 #### [facility] of [address], [address] [place] [address] [employer] Operator: Jani Nelson MD Calcium [Mass/Vol] 8.7 mg/dL Normal 8.6-10.2 [facility] Comment on above: Performed By: #### 1 0231, 6399 #### [facility] of [address], [address] [place] [address] [employer] Operator: Jani Nelson MD Chloride [Moles/Vol] 109 mmol/L Normal 98-110 [facility] Comment on above: Performed By: #### 1 0231, 6399 #### [facility] of [address], [address] [place] [address] [employer]ishing [employer] Operator: Jani Nelson MD CO2 [Moles/Vol] 18 mmol/L Low 20-32 [facility] Comment on above: Performed By: #### 1 0231, 6399 #### [facility] of [address], [address] [place] [address] [employer]ishing [employer] Operator: Jani Nelson MD Creatinine [Mass/Vol] 0.60 mg/dL Normal 0.50-0.[address] [facility] Comment on above: Performed By: #### 1 0231, 6399 #### [facility] of [address], [address] [place] [address] [employer]ishing [employer] Operator: Jani Nelson MD GFR/1.73 sq M.predicted among non-blacks MDRD (S/P/Bld) [Vol rate/Area] 131 mL/min/{1.73_m2} Normal > OR = 60 [facility] Comment on above: Result Comment: The eGFR is based on the CKD-EPI 2020 equation. To calculate the new eGFR from a previous Creatinine or Cystatin C result, go to [email or web address] Performed By: #### 1 [id number], [id number] #### [facility] [address], [address] [place] [address] Fishing Tool Operator: Jani Nelson MD Globulin (S) [Mass/Vol] 2.5 g/dL Normal 1.9-3.7 [facility] Comment on above: Performed By: #### 1 [id number], [id number] #### [facility] [place] [address] Fishing Tool Operator: Jani Nelson MD Glucose [Mass/Vol] 130 mg/dL High 65-99 [facility] Comment on above: Result Comment: Fasting reference interval For someone without known diabetes, a glucose value >125 mg/dL indicates that they may have diabetes and this should be confirmed with a follow-up test. Performed By: #### 1 [id number], [id number] #### [facility] [place] [address] Fishing Tool Operator: Jani Nelson MD Potassium [Moles/Vol] 4.2 mmol/L Normal 3.5-5.[address] [facility] Comment on above: Performed By: #### 1 [id number], [id number] #### [facility] [place] [address] Fishing Tool Operator: Jani Nelson MD Protein [Mass/Vol] 5.9 g/dL Low 6.1-8.1 [facility] Comment on above: Performed By: #### 1 023, [id number] #### [facility] [place] [address] Fishing Tool Operator: Jani Nelson MD Sodium [Moles/Vol] 138 mmol/L Normal 135-146 [facility] Comment on above: Performed By: #### 1 [id number], [id number] #### [facility] [address] [place] [address], [address] [place], [place] [id number] Fishing Tool Operator: Jani Nelson MD Urea nitrogen [Mass/Vol] 7 mg/dL Normal 7-25 [facility] Comment on above: Performed By: #### 1 [id number], [id number] #### [facility] [address] [place] [address] Fishing Tool Operator: Jani Nelson MD Laboratory - Chemistry and C hemistry - challengeon 12-20-2022 Albumin [Mass/Vol] 3.4 g/dL Abnormal 3.6 - 5.1 g/dL [place] [facility] [employer] Albumin/Globulin [Mass ratio] 1.4 {ratio} Normal 1.0 - 2.5 [place] [employer] ALP [Catalytic activity/Vol] 196 U/L Abnormal 31 - 125 U/L [place] [employer] ALT [Catalytic activity/Vol] 7 U/L Normal 6 - 29 U/L [employer] AST [Catalytic activity/Vol] 12 U/L Normal 10 - 30 U/L [place] [employer] Bilirubin [Mass/Vol] 0.5 mg/dL Normal 0.2 - 1 .2 mg/dL [employer] Calcium [Mass/Vol] 8.7 mg/dL Normal 8.6 - 10. 2 mg/dL [employer] Chloride [Moles/Vol] 109 mmol/L Normal 98 - 11 0 mmol/L [employer] CO2 [Moles/Vol] 18 mmol/L Abnormal 20 - 32 mmol/L [employer] Creatinine [Mass/Vol] 186.78 mg/dL Normal H [facility], [facility].; [facility] Creatinine [Mass/Vol] 0.60 mg/dL Normal 0.50 - 0.96 mg/dL [facility], [facility].; [facility], [facility]. GFR/1.73 sq M.predicted among non-blacks MDRD (S/P/Bld) [Vol rate/Area] 131 mL/min/{1.73_m2} Normal [facility].; [facility], [facility] Glucose [Mass/Vol] 130 mg/dL Abnormal 65 - 99 mg/dL [facility].; [facility], [facility]. Potassium [Moles/Vol] 4.2 mmol/L Normal 3.5 - 5.3 mmol/L [facility], [facility].; [facility], [facility]. Protein (24H U) [Mass/Vol] 35.20 mg/dL Abnormal 0.00 - 10.00 mg/dL [facility].; [facility], [facility] Protein [Mass/Vol] 5.9 g/dL Abnormal 6.1 - 8.1 g/dL [facility], [facility].; [facility], [facility]. Sodium [Moles/Vol] 138 mmol/L Normal 135 - 146 mmol/L [facility].; [facility], [facility] Urea nitrogen [Mass/Vol] 7 mg/dL Normal 7 - 25 mg/dL [facility].; [place] [facility], [facility]. Laboratory - Hematology and Cell countson 12-20-2022 Basophils (Bld) [#/Vol] 0.041 10*3/uL Normal 0 - 200 {cells/uL} [facility].; [facility], [facility]. Basophils/100 WBC (Bld) 0.5 % Normal [facility]; [facility], [facility] Eosinophils (Bld) [#/Vol] 0.033 10*3/uL Normal 15 - 500 {cells/uL} [facility].; [facility], [facility]. Eosinophils/100 WBC (Bld) 0.4 % Normal [facility]; [facility], [facility] Erythrocyte distribution width (RBC) [Ratio] 13.3 % Normal 11.0 - 15.0 % [facility].; [facility], [facility]. Hematocrit (Bld) [Volume fraction] 38.7 % Normal 35.0 - 45.0 % [facility].; [facility], [facility]. Hemoglobin (Bld) [Mass/Vol] 13.1 g/dL Normal 11.7 - 15.5 g/dL [facility], [facility].; [facility], [facility]. Lymphocytes (Bld) [#/Vol] 1.435 10*3/uL Normal 850 - 3900 {cells/uL} [facility].; [facility], [facility]. Lymphocytes/100 WBC (Bld) 17.5 % Normal [facility].; [place] [facility], [facility]. MCH (RBC) [Entitic mass] 30.5 pg Normal 27. 0 - 33.0 pg [facility].; [place] [employer], [facility]. MCHC (RBC) [Mass/Vol] 33.9 g/dL Normal 32.0 - 36.0 g/dL [facility].; [place] [employer], [facility]. MCV (RBC) [Entitic vol] 90.0 fL Normal 80.0 - 100.0 fL [facility].; [place] [employer], [facility]. Monocytes (Bld) [#/Vol] 0.558 10*3/uL Normal 200 - 950 {cells/uL} [facility], [facility].; [place] [employer], [facility]. Monocytes/100 WBC (Bld) 6.8 % Normal [facility].; [facility], [facility]. Neutrophils (Bld) [#/Vol] 6.134 10*3/uL Normal 1500 - 7800 {cells/uL} [facility].; [place] [employer], [facility]. Neutrophils/100 WBC (Bld) 74.8 % Normal [facility].; [place] [employer], [facility]. Platelet mean volume (Bld) [Entitic vol] 11.2 fL Normal 7.5 - 12.5 fL [place] [facility], [facility].; [employer], [facility]. Platelets (Bld) [#/Vol] 263 10*3/uL Normal 140 - 400 [facility] [employer] [facility].; [place] [employer], [facility]. RBC (Bld) [#/Vol] 4.30 10*6/uL Normal 3.80 - 5.1 0 {Million/uL } [employer].; [employer]. WBC (Bld) [#/Vol] 8.2 10*3/uL Normal 3.8 - 10.8 [place] [employer].; [employer], [employer]. Laboratory - Urinalysison Glucose Test strip (U) [Mass/Vol] Negative Normal [employer].; [employer]. Protein Ql (U) 30 mg/dL Abnormal [facility] [employer], [employer]. No Panel Informationon 12-20 BUN/CREATININE RATIO NOT APPLICABLE Normal 6 - 22 [place] [employer].; [employer]. GLOBULIN 2.5 Normal 1.9 - 3.7 [place] [employer].; [employer], [employer]. PC RATIO 0.19 mg/dL Normal 0.00 - 10.00 mg/dL [place] [employer].; [employer], [employer]. Laboratory - Urinalysison Glucose Test strip (U) [Mass/Vol] Negative Normal [employer].; [employer], [employer]. Protein Ql (U) trace Normal [facility] [employer].; [employer], [employer]. Laboratory - Urinalysison Glucose Test strip (U) [Mass/Vol] Negative Normal [employer].; [employer], [employer]. Protein Ql (U) Negative Normal [facility] [employer].; [employer], [employer]. Laboratory - Urinalysison Glucose Test strip (U) [Mass/Vol] Negative Normal [employer].; [employer], [employer]. Protein Ql (U) trace Normal [facility] [employer].; [employer], [employer]. No Panel Informationon 11-22 STREPTOCOCCUS, GROUP B CULTURE SEE NOTE Normal [employer].; [employer], [employer]. Laboratory - Urinalysison Glucose Test strip (U) [Mass/Vol] Negative Normal [employer].; [employer]. Protein Ql (U) Negative Normal [facility].; [place] [employer] [facility]. Laboratory - Chemistry and C hemistry - challengeon 10-11-2022 Free T4 [Mass/Vol] 1.0 ng/dL Normal 0.8 - 1.4 ng/dL [facility].; [place] [employer], [employer]. Work Phone: Laboratory - Urinalysison Glucose Test strip (U) [Mass/Vol] Negative Normal [facility].; [place] [employer], [facility]. Protein Ql (U) trace Normal [facility].; [place] [employer], [facility]. No Panel Informationon 10-11 TSH W/REFLEX TO FT4 0.22 {mIU/L} Abnormal [facility].; [place] [employer], [facility]. Laboratory - Chemistry and C hemistry - challengeon 09-12-2022 Free T4 [Mass/Vol] 1.0 ng/dL Normal 0.8 - 1.4 ng/dL [facility].; [place] [employer] [facility]. Work Phone: Glucose [Mass/Vol] 78 mg/dL Normal [facility].; [place] [facility], [facility]. TSH Qn 0.17 m[IU]/L Abnormal [facility].; [place] [employer], [facility]. Laboratory - Hematology and Cell countson 09-12-2022 Hemoglobin (Bld) [Mass/Vol] 11.9 g/dL Normal 11.7 - 15.5 g/dL [facility].; [place] [employer] [facility]. Laboratory - Urinalysison Glucose Test strip (U) [Mass/Vol] Negative Normal [facility].; [place] [employer], [employer]. Protein Ql (U) Negative Normal [facility].; [place] [employer], [employer]. Laboratory - Urinalysison Glucose Test strip (U) [Mass/Vol] Negative Normal [facility].; [place] [employer], [employer]. Protein Ql (U) Negative Normal [facility].; [employer]. Laboratory - Urinalysison Glucose Test strip (U) [Mass/Vol] Negative Normal [place] [employer]; [employer]. Protein Ql (U) trace Normal [facility].; [employer]. Laboratory - Blood bankon ABO group Nom (Bld) O Normal [facility] HospitalJ[facility]; [employer]. Rh Nom (Amn fld) Positive Normal [facility].; [employer]. Laboratory - Chemistry and C hemistry - challengeon 06-11-2022 Bilirubin Ql (U) Negative Normal [facility] [employer]; [employer]. Free T4 [Mass/Vol] 1.2 ng/dL Normal 0.8 - 1.4 ng/dL [place] [employer].; [employer]. Work Phone: Ketones Ql (U) Negative Normal [facility] [employer].; [employer]. pH (U) 6.5 [pH] Normal [employer].; [employer]. Specific gravity (U) [Rel density] >=1.030 Normal [employer].; [employer]. Urobilinogen Qn (U) 0.2 mg/dL Normal [facility] [facility].; [employer]. Laboratory - Hematology and Cell countson 06-11-2022 Basophils (Bld) [#/Vol] 0.033 10*3/uL Normal 0 - 200 {cells/uL} [employer]. Basophils/100 WBC (Bld) 0.5 % Normal [facility].; [employer]. Eosinophils (Bld) [#/Vol] 0.02 10*3/uL Normal 15 - 500 {cells/uL} [employer].; [employer]. Eosinophils/100 WBC (Bld) 0.3 % Normal [employer].; [employer]. Erythrocyte distribution width (RBC) [Ratio] 11.8 % Normal 11.0 - 15.0 % [facility].; [facility] Hematocrit (Bld) [Volume fraction] 39.1 % Normal 35.0 - 45.0 % [facility]; [facility], [facility] Hemoglobin (Bld) [Mass/Vol] 13.5 g/dL Normal 11.7 - 15.5 g/dL [facility]; [facility], [facility] Hemoglobin Ql (U) Negative Normal [facility]; [facility], [facility] Lymphocytes (Bld) [#/Vol] 1.333 10*3/uL Normal 850 - 3900 {cells/uL} [facility]; [facility], [facility] Lymphocytes/100 WBC (Bld) 20.2 % Normal [facility]; [facility], [facility] MCH (RBC) [Entitic mass] 32.1 pg Normal 27. 0 - 33.0 pg [facility].; [facility], [facility] MCHC (RBC) [Mass/Vol] 34.5 g/dL Normal 32.0 - 36.0 g/dL [facility].; [facility], [facility]. MCV (RBC) [Entitic vol] 92.9 fL Normal 80.0 - 100.0 fL [facility]; [facility], [facility] Monocytes (Bld) [#/Vol] 0.469 10*3/uL Normal 200 - 950 {cells/uL} [facility].; [facility], [facility] Monocytes/100 WBC (Bld) 7.1 % Normal [facility].; [facility] Neutrophils (Bld) [#/Vol] 4.745 10*3/uL Normal 1500 - 7800 {cells/uL} [facility].; [facility], [facility] Neutrophils/100 WBC (Bld) 71.9 % Normal [facility]; [facility], [facility] Platelet mean volume (Bld) [Entitic vol] 11.3 fL Normal 7.5 - 12.5 fL [facility]; [employer]. Platelets (Bld) [#/Vol] 237 10*3/uL Normal 140 - 400 [facility] [employer].; [place] [employer]. RBC (Bld) [#/Vol] 4.21 10*6/uL Normal 3.80 - 5.1 0 {Million/uL } [facility] [employer].; [place] [employer], [employer]. WBC (Bld) [#/Vol] 6.6 10*3/uL Normal 3.8 - 10.8 [facility] [employer].; [employer]. Laboratory - Specimen inform ationon 06-11-2022 Appearance (U) clear Normal [facility] [employer].; [place] [employer] Color (U) yellow Normal [facility] [employer].; [employer]. Laboratory - Urinalysison Glucose Test strip (U) [Mass/Vol] Negative Normal [facility] [employer].; [employer]. Leukocyte esterase Test strip Ql (U) Negative Normal [facility] [employer].; [employer], [employer]. Nitrite Ql (U) Negative Normal [facility] [employer].; [employer]. Protein Ql (U) Negative Normal [facility] [employer].; [employer]. No Panel Informationon 06-11 ANTIBODY SCREEN, RBC W/REFL ID, TITER AND AG Detected Normal [facility] [employer].; [employer]. HEPATITIS B SURFACE ANTIGEN Non-Reactive Normal [facility] [employer].; [employer]. RPR (DX) W/REFL TITER AND CONFIRMATORY TESTING Non-Reactive Normal [facility] [employer] [facility].; [employer]. RUBELLA AB (IGG), IMMUNE STATUS 1.14 {Index} Normal [facility].; [place] [employer], [employer]. TSH W/REFLEX TO FT4 0.04 {mIU/L} Abnormal [facility].; [employer]. Absolute lymphocyte counton 05-22-2022 Lymphocytes Auto (Unsp spec) [#/Vol] 1.73 10*3/uL 0.83-4.51 [facility] Work Phone: Basophil percentageon 2021 Basophil percentage 0-5 SEEN /hpf 0-5 Wo [facility] Work Phone: Basophils/100 WBC (Bld) 0.5 % 0-1 [facility] Work Phone: Bilirubin [Mass/Vol] 1.10 mg/dL 0.20-1.00 [facility] Work Phone: Comment on above: For patients on eltr ombopag therapy, use of Dimension [place] TBIL is not recommended. Chloride [Moles/Vol] 105 mmol/L 98-107 [facility] Work Phone: Eosinophils/100 WBC (Bld) 0.3 % 0-5 [facility] Work Phone: Glucose [Mass/Vol] 85 mg/dL 74-106 [facility] Work Phone: Neutrophils (Bld) [#/Vol] 5.1 10*3/uL 2.0-7.7 [facility] Work Phone: Neutrophils/100 WBC (Bld) 67.4 % 47-70 [facility] Work Phone: Potassium [Moles/Vol] 4.3 mmol/L 3.5-5.1 [facility] Work Phone: Protein [Mass/Vol] 6.8 g/dL 6.4-8.2 [facility] Work Phone: Sodium [Moles/Vol] 137 mmol/L 136-145 [facility] Work Phone: [phone] WBC (Bld) [#/Vol] 7.5 10*3/uL 4.4-11.0 [facility] Work Phone: Bilirubin Test strip Ql (U)o n 05-22-2022 Bilirubin Ql (U) Negative Negative [facility] Work Phone: Blood erythrocytes count (nu mber/volume)on 05-22-2022 RBC (Bld) [#/Vol] 4.41 10*6/uL 4.2-5.4 [facility] Work Phone: Blood hemoglobin measurement (mass/volume)on 05-22-2022 Hemoglobin (Bld) [Mass/Vol] 14.0 g/dL 12.0-15.0 [facility] Work Phone: Blood lymphocytes/100 leukoc yteson 05-22-2022 Lymphocytes/100 WBC (Bld) 22.9 % 19-41 [facility] Work Phone: Blood monocytes/100 leukocyt eson 05-22-2022 Monocytes/100 WBC (Bld) 8.6 % 0-10 [facility] Work Phone: Blood platelet mean volumeon 05-22-2022 Platelet mean volume (Bld) [Entitic vol] 10.1 fL 6.2-12.0 [facility] Work Phone: Determination of erythrocyte mean corpuscular volume (MCV)on 05-22-2022 MCV (RBC) [Entitic vol] 94.8 fL 81-99 [facility] Work Phone: Hematocrit Auto (Bld) [Volum e fraction]on 05-22-2022 Hematocrit (Bld) [Volume fraction] 41.8 % 37-47 [facility] Work Phone: Ketones Test strip Ql (U)on 05-22-2022 Ketones Ql (U) 5 mg/dl Negative [facility] Work Phone: Laboratory - Chemistry and C hemistry - challengeon 05-22-2022 ALP [Catalytic activity/Vol] 31 U/L 45-117 [facility] Work Phone: ALT [Catalytic activity/Vol] 22 U/L 13-56 [facility] Work Phone: CO2 [Moles/Vol] 27.0 mmol/L 21.0-32.0 [facility] Work Phone: Globulin (S) [Mass/Vol] 3.3 g/dL 2.2-4.2 [facility] Work Phone: Lipase [Catalytic activity/Vol] 55 U/L 73-393 [facility] Work Phone: Urea nitrogen/Creatinine [Mass ratio] 13.5 mg/mg 10-20 [facility] Work Phone: Laboratory - Hematology and Cell countson 05-22-2022 Erythrocyte distribution width (RBC) [Entitic vol] 40.7 fL 35.1-43.9 [facility] Work Phone: Erythrocyte distribution width (RBC) [Ratio] 11.7 % 11.6-14.6 [facility] Work Phone: Immature granulocytes/100 WBC (Bld) 0.300 % 0.0-0.9 [facility] Work Phone: Comment on above: IG% - Immature Granu locytes (promyelocytes, myelocytes and metamyelocytes) > 1% indicates that a LEFT SHIFT is Present. MCH (RBC) [Entitic mass] 31.7 pg 27.0-32.0 [facility] Work Phone: Nucleated RBC/100 WBC (Bld) [Ratio] 0 % 0-5 [facility] Work Phone: MCHC Auto (RBC) [Mass/Vol]on 05-22-2022 MCHC (RBC) [Mass/Vol] 33.5 g/dL 32-36 [facility] Work Phone: Mucus LM Ql (Urine sed)on Mucus Ql (Urine sed) 0 SEEN /hpf [facility] Work Phone: Nitrite Test strip Ql (U)on 05-22-2022 Nitrite Ql (U) Negative Negative [facility] Work Phone: No Panel Informationon 05-22 Estimated Creatinine Clearance Calc 117.41 ml/min [facility] Work Phone: Estimated GFR (MDRD) Amer 145 mL/min >60 [facility] Work Phone: Comment on above: GFR Calc Estimated GFR (MDRD) Non-Af Amer 120 mL/min >60 [facility] Work Phone: Comment on above: Non- GFR Calc Platelets bldon 05-22-2022 Platelets (Bld) [#/Vol] 274 10*3/uL 150-450 [facility] Work Phone: Protein Test strip Ql (U)on 05-22-2022 Protein Ql (U) 15 mg/dl Negative [facility] Work Phone: Serum or plasma albumin echo urement (mass/volume)on 05-22-2022 Albumin [Mass/Vol] 3.5 g/dL 3.2-5.0 [facility] Work Phone: Serum or plasma albumin/glob ulin mass ratioon 05-22-2022 Albumin/Globulin [Mass ratio] 1.1 {ratio} 0.9-2.4 [facility] Work Phone: Serum or plasma calcium echo urement (mass/volume)on 05-22-2022 Calcium [Mass/Vol] 9.2 mg/dL 8.5-10.1 [facility] Work Phone: Serum or plasma creatinine m easurement (mass/volume)on 05-22-2022 Creatinine [Mass/Vol] 0.66 mg/dL 0.55-1.02 [facility] Work Phone: Comment on above: The validity of the calculated GFR & GFRAA in patients over 70 years has not been determined. Clinical correlation is essential. Serum or plasma urea nitroge n measurement (mass/volume)on 05-22-2022 Urea nitrogen [Mass/Vol] 9 mg/dL 7-18 [facility] Work Phone: Squamous epithelial cells de tection in urine sediment by light microscopyon 05-22-2022 Epithelial cells.squamous LM Ql (Urine sed) 0-5 SEEN /hpf 5-10 [facility] Work Phone: Thin prep Papanicolaou smear with manual screeningon 05-22-2022 Thin prep Papanicolaou smear with manual screening 15 U/L 15-37 [facility] Work Phone: Thin prep Papanicolaou smear with manual screening 5 5-15 [facility] Work Phone: Urine blood detectionon 12-2 RBC Ql (U) 25 /ul Negative [facility] Work Phone: RBC Ql (U) 0-5 SEEN /hpf 0-5 [facility] Work Phone: Urine clarityon 05-22-2022 Clarity (U) Sl. Cloudy Clear [facility] Work Phone: Urine color determinationon 05-22-2022 Color (U) Yellow Yellow [facility] Work Phone: Urine glucose detectionon Glucose Ql (U) Normal mg/dl Normal [facility] Work Phone: Urine leukocyte esterase det ection by dipstickon 05-22-2022 Leukocyte esterase Test strip Ql (U) 25 /ul Negative [facility] Work Phone: Urine pHon 05-22-2022 pH (U) 5.0 [pH] 5.0 - 8.0 [facility] Work Phone: Urine sediment bacteria coun t by microscopy (number/high power field)on 05-22-2022 Bacteria LM.HPF (Urine sed) [#/Area] 2 /[HPF] None Seen [facility] Work Phone: Urine specific gravity measu rementon 05-22-2022 Specific gravity (U) [Rel density] 1.020 1.002-1.030 [facility] Work Phone: Urobilinogen Auto test strip Ql (U)on 05-22-2022 Urobilinogen Ql (U) Normal mg/dl Normal [facility] Work Phone: Albumin Elph [Mass/Vol]on Albumin [Mass/Vol] 4.0 g/dL 2.9-4.4 [facility] Work Phone: Atypical perinuclear antineu trophil cytoplasmic antibodies measurementon 03-08-2022 Neutrophil cytoplasmic Ab.perinuclear.atypical IF (S) [Titer] <1:20 titer Neg:<1:20 [facility] Work Phone: Comment on above: The atypical pANCA p attern has been observed in asignificant percentage of patients with ulcerative colitis,primary sclerosing cholangitis and autoimmune hepatitis.Performed at: [facility] [id number] Director: Cale Blackmon PhD, Phone: [phone] at: [facility] [id number] Director: Sergio Christine MD, Phone: [phone] Basophil percentageon 2021 Basophil percentage < 0.2 AI 0.0-0.9 [facility] Work Phone: Bilirubin [Mass/Vol] 0.80 mg/dL 0.20-1.00 [facility] Work Phone: Comment on above: For patients on eltr ombopag therapy, use of Dimension [place] TBIL is not recommended. Chloride [Moles/Vol] 107 mmol/L 98-107 [facility] Work Phone: Glucose [Mass/Vol] 80 mg/dL 74-106 [facility] Work Phone: [phone] Potassium [Moles/Vol] 3.7 mmol/L 3.5-5.1 [facility] Work Phone: Protein [Mass/Vol] 7.1 g/dL 6.4-8.2 [facility] Work Phone: [phone] Sodium [Moles/Vol] 140 mmol/L 136-145 [facility] Work Phone: Erythrocyte sedimentation ra domenico 03-08-2022 ESR (Bld) [Velocity] 3 mm/h 0-30 [facility] Work Phone: Interpretation of serum or p lasma protein pattern by immunofixation (narrative resulton 03-08-2022 Protein Fractions Immunofixation Peña [Interp] See comment [facility] Work Phone: Comment on above: Result: Not Observed Laboratory - Chemistry and C hemistry - challengeon 03-08-2022 ALP [Catalytic activity/Vol] 48 U/L 45-117 [facility] Work Phone: ALT [Catalytic activity/Vol] 37 U/L 13-56 [facility] Work Phone: CO2 [Moles/Vol] 25.0 mmol/L 21.0-32.0 [facility] Work Phone: Cobalamin (Vitamin B12) [Mass/Vol] 472 pg/mL 211-911 [facility] Work Phone: Free T4 [Mass/Vol] 1.14 ng/dL 0.76-1.46 [facility] Work Phone: Urea nitrogen/Creatinine [Mass ratio] 14.9 mg/mg 10-20 [facility] Work Phone: No Panel Informationon 03-08 Addendum Document Comment . [facility] Work Phone: Comment on above: Protein electrophore sis scan will follow via computer,mail, or supervisor component assembler delivery. Centromere B Antibody <0.2 AI 0.0-0.9 [facility] Work Phone: Endomysial IgA Antibody Negative Negative [facility] Work Phone: Estimated GFR (MDRD) Amer 117 mL/min >60 [facility] Work Phone: Comment on above: GFR Calc Estimated GFR (MDRD) Non-Af Amer 97 mL/min >60 [facility] Work Phone: Comment on above: Non- GFR Calc Free Triiodothyronine (T3) pg/dL 3.4 pg/mL 2.18-3.98 [facility] Work Phone: Immunoglobulin E 10 IU/mL 6-495 [facility] Work Phone: EXHAUST TENDER Antibody <0.2 AI 0.0-0.9 [facility] Work Phone: Thyroid Stimulating Hormone (TSH) 0.64 uIU/mL 0.358-3.74 [facility] Work Phone: Serum DNA double strand anti body assay (units/volume)on 03-08-2022 DNA double strand Ab Qn (S) [IU]/mL 0-9 [facility] Work Phone: Comment on above: Negative <5 Equivoca l 5 - 9 Positive >9 Serum Cristina-1 antibody assay (u nits/volume)on 03-08-2022 Cristina-1 extractable nuclear Ab Qn (S) <0.2 AI 0.0-0.9 [facility] Work Phone: Serum Scl-70 extractable nuc lear antibody assay (units/volume)on 03-08-2022 SCL-70 extractable nuclear Ab Qn (S) <0.2 AI 0.0-0.9 [facility] Work Phone: Serum Castillo extractable nucl ear antibody detectionon 03-08-2022 Castillo extractable nuclear Ab Ql (S) <0.2 AI 0.0-0.9 [facility] Work Phone: Serum [id number] measu rement by electrophoresison 03-08-2022 Alpha 1 globulin Elph [Mass/Vol] 0.3 g/dL 0.0-0.4 [facility] Work Phone: Alpha 1 globulin Elph [Mass/Vol] 0.8 g/dL 0.4-1.0 [facility] Work Phone: Serum classic neutrophil cyt oplasmic antibody assay (units/volume)on 03-08-2022 Neutrophil cytoplasmic Ab.classic Qn (S) <1:20 titer Neg:<1:20 [facility] Work Phone: Serum globulin measurement ( mass/volume)on 03-08-2022 Globulin (S) [Mass/Vol] 3.0 g/dL 2.2-3.9 [facility] Work Phone: Serum or plasma IgA measurem ent (mass/volume)on 03-08-2022 IgA [Mass/Vol] 39 mg/dL 87-352 [facility] Work Phone: Comment on above: Result confirmed on concentration. Serum or plasma IgG measurem ent (mass/volume)on 03-08-2022 IgG [Mass/Vol] 805 mg/dL [phone] [facility] Work Phone: Serum or plasma IgM measurem ent (mass/volume)on 03-08-2022 IgM [Mass/Vol] 95 mg/dL 26-217 [facility] Work Phone: Serum or plasma albumin echo urement (mass/volume)on 03-08-2022 Albumin [Mass/Vol] 3.8 g/dL 3.2-5.0 [facility] Work Phone: Serum or plasma albumin/glob ulin mass ratioon 03-08-2022 Albumin/Globulin [Mass ratio] 1.2 {ratio} 0.9-2.4 [facility] Work Phone: Serum or plasma beta globuli n measurement by electrophoresis (mass/volume)on 03-08-2022 Beta globulin Elph [Mass/Vol] 1.1 g/dL 0.7-1.3 [facility] Work Phone: Serum or plasma calcitriol m easurement (mass/volume)on 03-08-2022 1,25-dihydroxyvitamin D3 [Mass/Vol] 34.6 pg/mL 24.8-81.5 [facility] Work Phone: Comment on above: Please note refere nce interval changePerformed at: [address] [address] [place], [place] [id number] Director: Cale Blackmon PhD, Phone: [phone] at: [facility]Ste[facility] [address] [place], [place] [id number] Director: Sergio Christine MD, Phone: [phone] Serum or plasma calcium echo urement (mass/volume)on 03-08-2022 Calcium [Mass/Vol] 9.4 mg/dL 8.5-10.1 [facility] Work Phone: Serum or plasma creatinine m easurement (mass/volume)on 03-08-2022 Creatinine [Mass/Vol] 0.80 mg/dL 0.55-1.02 [facility] Work Phone: Comment on above: The validity of the calculated GFR & GFRAA in patients over 70 years has not been determined. Clinical correlation is essential. Serum or plasma gamma globul in measurement by electrophoresis (mass/volume)on 03-08-2022 Gamma globulin Elph [Mass/Vol] 0.8 g/dL 0.4-1.8 [facility] Work Phone: Serum or plasma immunoelectr ophoresis interpretation (nominal result)on 03-08-2022 Interpretation IEP [Interp] Comment . [facility] Work Phone: Comment on above: No monoclonality det ected. Serum or plasma urea nitroge n measurement (mass/volume)on 03-08-2022 Urea nitrogen [Mass/Vol] 12 mg/dL 7-18 [facility] Work Phone: Serum perinuclear neutrophil cytoplasmic antibody titer by immunofluorescenceon 03-08-2022 Neutrophil cytoplasmic Ab.perinuclear IF (S) [Titer] <1:20 titer Neg:<1:20 [facility] Work Phone: Comment on above: The presence of posi tive fluorescence exhibiting P-ANCA orC-ANCA patterns alone is not specific for the diagnosis ofWegener's Granulomatosis (WG) or microscopic polyangiitis.Decisions about treatment should not be based solely onANCA IFA results. The International ANCA Group Consensusrecommends follow up testing of positive sera with both WV-3 and MPO-ANCA enzyme immunoassays. As many as 5% serumsamples are positive only by EIA. Ref. AM J Clin [id number];111:507-513. Serum tissue transglutaminas e IgA antibody assay (units/volume)on 03-08-2022 tTG IgA Qn (S) <2 U/mL 0-3 [facility] Work Phone: Comment on above: Negative 0 - 3 Weak Positive 4 - 10 Positive >10 Tissue Transglutaminase (tTG) has been identified as the endomysial antigen. Studies have demonstr- ated that endomysial IgA antibodies have over 99% specificity for gluten sensitive enteropathy. Thin prep Papanicolaou smear with manual screeningon 03-08-2022 Thin prep Papanicolaou smear with manual screening 26 U/L 15-37 [facility] Work Phone: Thin prep Papanicolaou smear with manual screening 8 5-15 [facility] Work Phone: Thin prep Papanicolaou smear with manual screening 244 U/L 84-246 [facility] Work Phone: Thin prep Papanicolaou smear with manual screening 1.4 0.7-1.7 [facility] Work Phone: Total protein bloodon 2021 Protein [Mass/Vol] 7.0 g/dL 6.0-8.5 [facility] Work Phone: No Panel Informationon 01-14 HCG, TOTAL, QN <3 Normal [facility], [facility].; [facility], [facility]. Laboratory - Chemistry and C hemistry - challengeon 12-06-2021 Albumin [Mass/Vol] 4.3 g/dL Normal 3.6 - 5.1 g/dL [facility], [facility].; [facility], [facility]. Albumin/Globulin [Mass ratio] 1.8 {ratio} Normal 1.0 - 2.5 [facility], [facility]. ALP [Catalytic activity/Vol] 34 U/L Normal 31 - 125 U/L [facility].; [facility], [facility]. ALT [Catalytic activity/Vol] 12 U/L Normal 6 - 29 U/L [facility].; [facility], [facility]. AST [Catalytic activity/Vol] 13 U/L Normal 10 - 30 U/L [facility], [facility].; [facility], [facility]. Bilirubin [Mass/Vol] 0.4 mg/dL Normal 0.2 - 1 .2 mg/dL [facility].; [facility], [facility]. Calcium [Mass/Vol] 9.0 mg/dL Normal 8.6 - 10. 2 mg/dL [facility], [facility].; [facility], [facility]. Chloride [Moles/Vol] 112 mmol/L Abnormal 98 - 11 0 mmol/L [facility].; [facility], [facility]. CO2 [Moles/Vol] 19 mmol/L Abnormal 20 - 32 mmol/L [facility], [facility].; [facility], [facility]. Creatinine [Mass/Vol] 0.74 mg/dL Normal 0.50 - 1.10 mg/dL [facility], [facility].; [facility], [facility]. GFR/1.73 sq M.predicted among blacks MDRD (S/P/Bld) [Vol rate/Area] 135 mL/min/{1.73_m2} Normal [facility].; [facility], [facility]. Glucose [Mass/Vol] 86 mg/dL Normal 65 - 99 mg/dL [facility], [facility].; [facility], [facility]. Potassium [Moles/Vol] 4.8 mmol/L Normal 3.5 - 5.3 mmol/L [facility].; [facility], [facility]. Protein [Mass/Vol] 6.7 g/dL Normal 6.1 - 8.1 g/dL [facility], [facility].; [facility], [facility]. Sodium [Moles/Vol] 143 mmol/L Normal 135 - 146 mmol/L [facility], [facility].; [facility], [facility]. TSH Qn 0.60 m[IU]/L Normal [facility]; [facility], [facility]. Urea nitrogen [Mass/Vol] 12 mg/dL Normal 7 - 25 mg/dL [facility].; [place] [facility], [facility] Laboratory - Hematology and Cell countson 12-06-2021 Basophils (Bld) [#/Vol] 0.039 10*3/uL Normal 0 - 200 {cells/uL} [facility], [facility].; [facility], [facility] Basophils/100 WBC (Bld) 1.0 % Normal H [facility], [facility] Eosinophils (Bld) [#/Vol] 0.059 10*3/uL Normal 15 - 500 {cells/uL} [facility], [facility].; [facility], [facility] Eosinophils/100 WBC (Bld) 1.5 % Normal [facility].; [place] [employer], [facility] Erythrocyte distribution width (RBC) [Ratio] 12.5 % Normal 11.0 - 15.0 % [facility], [facility].; [place] [employer], [facility] Hematocrit (Bld) [Volume fraction] 43.6 % Normal 35.0 - 45.0 % [facility].; [place] [employer], [facility] Hemoglobin (Bld) [Mass/Vol] 14.7 g/dL Normal 11.7 - 15.5 g/dL [facility].; [place] [facility], [facility]. Lymphocytes (Bld) [#/Vol] 1.833 10*3/uL Normal 850 - 3900 {cells/uL} [facility], [facility].; [place] [employer], [facility] Lymphocytes/100 WBC (Bld) 47.0 % Normal [facility].; [place] [employer], [facility] MCH (RBC) [Entitic mass] 32.0 pg Normal 27. 0 - 33.0 pg [facility].; [place] [employer], [facility]. MCHC (RBC) [Mass/Vol] 33.7 g/dL Normal 32.0 - 36.0 g/dL [facility], [facility].; [place] [employer], [facility]. MCV (RBC) [Entitic vol] 94.8 fL Normal 80.0 - 100.0 fL [facility].; [place] [employer], [facility] Monocytes (Bld) [#/Vol] 0.3 10*3/uL Normal 200 - 950 {cells/uL} [facility].; [facility] Monocytes/100 WBC (Bld) 7.7 % Normal H [facility]; [facility] Neutrophils (Bld) [#/Vol] 1.669 10*3/uL Normal 1500 - 7800 {cells/uL} [facility].; [facility] [employer] [facility] Neutrophils/100 WBC (Bld) 42.8 % Normal [facility]; [facility] Platelet mean volume (Bld) [Entitic vol] 10.7 fL Normal 7.5 - 12.5 fL [facility]; [facility] Platelets (Bld) [#/Vol] 271 10*3/uL Normal 140 - 400 [facility]; [place] [employer] [facility] RBC (Bld) [#/Vol] 4.60 10*6/uL Normal 3.80 - 5.1 0 {Million/uL } [facility].; [place] [employer] [facility] WBC (Bld) [#/Vol] 3.9 10*3/uL Normal 3.8 - 10.8 [facility]; [place] [employer] [facility] No Panel Informationon 12-06 BUN/CREATININE RATIO NOT APPLICABLE Normal 6 - 22 [facility]; [place] [employer] [facility] eGFR NON-AFR. BRITISH [address] [facility]; [place] [employer], [facility] GLOBULIN 2.4 Normal 1.9 - 3.7 [facility]; [place] [employer] [facility] Laboratory - Chemistry and C hemistry - challengeon 07-27-2021 Albumin [Mass/Vol] 4.4 g/dL Normal 3.6 - 5.1 g/dL [facility]; [place] [facility], [facility] Albumin/Globulin [Mass ratio] 2.0 {ratio} Normal 1.0 - 2.5 [facility]; [place] ALP [Catalytic activity/Vol] 47 U/L Normal 36 - 128 U/L [facility]; [facility]. ALT [Catalytic activity/Vol] 27 U/L Normal 5 - 32 U/L [facility].; [facility], [facility]. AST [Catalytic activity/Vol] 22 U/L Normal 12 - 32 U/L [facility].; [facility], [facility]. Bilirubin [Mass/Vol] 1.1 mg/dL Normal 0.2 - 1 .1 mg/dL [facility].; [facility], [facility] Calcium [Mass/Vol] 9.6 mg/dL Normal 8.9 - 10. 4 mg/dL [facility].; [facility], [facility] Chloride [Moles/Vol] 108 mmol/L Normal 98 - 11 0 mmol/L [facility].; [facility], [facility]. CO2 [Moles/Vol] 25 mmol/L Normal 20 - 32 mmol/L [facility].; [facility], [facility]. Creatinine [Mass/Vol] 0.65 mg/dL Normal 0.50 - 1.00 mg/dL [facility], [facility].; [facility], [facility]. GFR/1.73 sq M.predicted among blacks MDRD (S/P/Bld) [Vol rate/Area] 149 mL/min/{1.73_m2} Normal [facility].; [facility], [facility] Glucose [Mass/Vol] 71 mg/dL Normal 65 - 99 mg/dL [facility], [facility].; [facility], [facility]. Potassium [Moles/Vol] 4.1 mmol/L Normal 3.8 - 5.1 mmol/L [facility].; [facility], [facility]. Protein [Mass/Vol] 6.6 g/dL Normal 6.3 - 8.2 g/dL [facility], [facility].; [facility], [facility]. Sodium [Moles/Vol] 142 mmol/L Normal 135 - 146 mmol/L [facility], [facility].; [facility], [facility]. Urea nitrogen [Mass/Vol] 9 mg/dL Normal 7 - 20 mg/dL [facility], [facility].; [facility], [facility] No Panel Informationon 07-27 BUN/CREATININE RATIO NOT APPLICABLE Normal - [facility].; [facility] eGFR NON-AFR. BRITISH 129 Normal [facility].; [facility]. GLOBULIN 2.2 Normal 2.0 - 3.8 [facility]; [facility], [facility] Laboratory - Microbiology an d Antimicrobial susceptibilityon 07-23-2021 FLUAV Ag IA Ql (Throat) Negative Normal H [facility]; [facility]. B-HCG Preg Ur Qlon Beta HCG ( test) Ql (U) Negative Normal Negative [facility] ([place]) Comment on above: Order Comment: Urine Collect Clean Catch Performed By: #### U , 2111-06 #### [facility] [address] [place] [address] CBC W Auto Differential pane l (Bld)on 04-28-2021 Basophils (Bld) [#/Vol] 0.0 10*3/uL Normal 0.00-0.20 [facility] ([place]) Comment on above: Performed By: #### 5 7021-8 #### [facility] [address] [place] [address] Basophils/100 WBC (Bld) 0.9 % Normal 0.0-1.5 [facility] ([place]) Comment on above: Performed By: #### 5 7021-8 #### [facility] [address] [place] [address] Eosinophils (Bld) [#/Vol] 0.1 10*3/uL Normal 0.00-0.33 [facility] ([place]) Comment on above: Performed By: #### 5 7021-8 #### [facility] [address] [place] [address] Eosinophils/100 WBC (Bld) 1.6 % Normal 0.0-3.0 [facility] ([place]) Comment on above: Performed By: #### 5 7021-8 #### [facility] [address] [place] [address] Erythrocyte distribution width (RBC) [Ratio] 12.2 % Normal 10.9-14.3 [facility] ([place]) Comment on above: Performed By: #### 5 7021-8 #### [facility] [address] [place] [address] Hematocrit (Bld) [Volume fraction] 44.4 % High 36.0-44.0 [facility] ([place]) Comment on above: Performed By: #### 5 7021-8 #### [facility] [address] [place] [address] Hemoglobin (Bld) [Mass/Vol] 15.1 g/dL High 12.0-15.0 [facility] ([place]) Comment on above: Performed By: #### 5 7021-8 #### [facility] [address] [place] [address] Lymphocytes Auto (Unsp spec) [#/Vol] 1.4 10*3/uL Normal 1.10-4.80 [facility] ([place]) Comment on above: Performed By: #### 5 7021-8 #### [facility] [address] [place] [address] Lymphocytes/100 WBC (Bld) 25.4 % Normal 24.0-44.0 [facility] ([place]) Comment on above: Performed By: #### 5 7021-8 #### [facility] [address] [place] [address] MCH (RBC) [Entitic mass] 32.8 pg Normal 28.0-34.0 [facility] ([place]) Comment on above: Performed By: #### 5 7021-8 #### [address] [address] MCHC (RBC) [Mass/Vol] 34.0 g/dL Normal 33.0-37.0 [facility] ([place]) Comment on above: Performed By: #### 5 7021-8 #### [address] [address] MCV (RBC) [Entitic vol] 96.3 fL Normal 80.0-100.0 [facility] ([place]) Comment on above: Performed By: #### 5 7021-8 #### [facility] [address] [place] [address] Monocytes (Bld) [#/Vol] 0.4 10*3/uL Normal 0.20-0.70 [facility] ([place]) Comment on above: Performed By: #### 5 7021-8 #### [address] [address] Monocytes/100 WBC (Bld) 7.2 % Normal 3.4-9.0 [facility] ([place]) Comment on above: Performed By: #### 5 7021-8 #### [address] [address] Neutrophils (Bld) [#/Vol] 3.5 10*3/uL Normal 1.83-8.70 [facility] ([place]) Comment on above: Performed By: #### 5 7021-8 #### [address] [address] Neutrophils/100 WBC (Bld) 64.9 % Normal 40.0-74.0 [facility] ([place]) Comment on above: Performed By: #### 5 7021-8 #### [address] [address] Platelet mean volume (Bld) [Entitic vol] 8.2 fL Normal 7.4-10.4 [facility] ([place]) Comment on above: Performed By: #### 5 7021-8 #### [address] [address] Platelets (Bld) [#/Vol] 283 10*3/uL Normal 150-450 [facility] ([place]) Comment on above: Performed By: #### 5 7021-8 #### [facility] [address] [place] [address] RBC (Bld) [#/Vol] 4.61 10*6/uL Normal 4.00-4.90 [facility] ([place]) Comment on above: Performed By: #### 5 7021-8 #### [facility] [address] [place] [address] WBC (Bld) [#/Vol] 5.3 10*3/uL Normal 4.5-11.0 [facility] ([place]) Comment on above: Performed By: #### 5 7021-8 #### [facility] [address] [place] [address] CT lumbar spine wo conon CT lumbar spine wo con [facility] [address] [place] [address] CT Scan Report Signed Patient: IVY CREWS MR#: [id number] : 2000 Acct:[id number] Age/Sex: 20 / F Admit Date: 04/28/21 Loc: ER Attending Dr: Ordering Physician: Janice Zarco MD Date of Service: 04/28/21 Procedure(s): CT lumbar spine wo con Accession Number(s): [id number] cc: Janice Zarco MD HISTORY: Low back pain. TECHNIQUE: High-resolution axial images with sagittal coronal reconstructions. FINDINGS: There is mild disc space narrowing L5 - S1 with discogenic endplate changes and bony spurring. No fracture or subluxation. L1 - L2: No significant bulging. No facet hypertrophy. No neural foraminal narrowing. No spinal stenosis. L2 - L3: No significant bulging. No facet hypertrophy. No neural foraminal narrowing. No spinal stenosis. L3 - L4: 5 mm left paracentral herniated disc impressing on the left L4 nerve root. No facet hypertrophy. No neural foraminal narrowing. No spinal stenosis. L4 - L5: Moderate bulging. No facet hypertrophy. No neural foraminal narrowing. No spinal stenosis. L5 - S1: 7 mm left paracentral herniated disc impressing on the left S1 nerve root. No facet hypertrophy. Moderate left-sided neural foraminal narrowing. No spinal stenosis. Impression CT lumbar spine: 1. 5 mm left paracentral herniated disc L3 - L4 impressing on the left L4 nerve root. 2. 7 mm left paracentral herniated disc L5 - S1 impressing on the left S1 nerve root. By report, the patient has right-sided symptoms. Clinical and neurologic evaluation is suggested. Consider outpatient MRI if surgery is contemplated. Dictated By: Matthew Villasenor MD DD/ 3 Signed By: Matthew Villasenor MD 04/28/21923 [employer] Operator: ANDRES Loja [facility] ([place]) Comprehensive metabolic 2000 panelon 04-28-2021 Albumin [Mass/Vol] 4.3 g/dL Normal 3.4-4.8 [facility]) Comment on above: Performed By: #### 2 4323-8, 3040-3 #### [facility] [address] [place] [address] Albumin/Globulin [Mass ratio] 1.4 {ratio} Normal 1.1-2.2 [facility]) Comment on above: Performed By: #### 2 4323-8, 3040-3 #### [facility] [address] [place] [address] ALP [Catalytic activity/Vol] 35 U/L Low 42-121 [facility]) Comment on above: Performed By: #### 2 4323-8, 3040-3 #### [facility] [address] [place] [address] ALT [Catalytic activity/Vol] 18 U/L Normal 10-54 [facility]) Comment on above: Performed By: #### 2 4323-8, 3040-3 #### [facility] [address] [place] [address] Anion gap [Moles/Vol] 9.0 mmol/L Normal 3-11 [facility] ([place]) Comment on above: Performed By: #### 2 4323-8, 3040-3 #### [facility] [address] [place] [address] AST [Catalytic activity/Vol] 20 U/L Normal 10-41 [facility] ([place]) Comment on above: Performed By: #### 2 432-8, 3040-3 #### [facility] [address] [place] [address] Bilirubin [Mass/Vol] 1.1 mg/dL Normal 0.3-1.5 [facility] ([place]) Comment on above: Performed By: #### 2 8, 0-3 #### [facility] [address] [place] [address] Calcium [Mass/Vol] 9.5 mg/dL Normal 8.5-10.5 [facility] ([place]) Comment on above: Performed By: #### 2 4328, 0-3 #### [address] [address] Chloride [Moles/Vol] 105 mmol/L Normal 98-107 [facility] ([place]) Comment on above: Performed By: #### 2 4328, 0-3 #### [facility] [address] [place] [address] CO2 [Moles/Vol] 25 mmol/L Normal 21-31 [facility] ([place]) Comment on above: Performed By: #### 2 432-8, 0-3 #### [facility] [address] [place] [address] Creatinine [Moles/Vol] 0.7 mg/dL Normal 0.4-1.0 [facility] ([place]) Comment on above: Performed By: #### 2 432-8, 3040-3 #### [address] [address] Creatinine and Glomerular filtration rate.predicted panel (S/P/Bld) 130 mL/min Normal >60 [facility] ([place]) Comment on above: Performed By: #### 2 432-8, 0-3 #### [facility] [address] [place] [address] GFR/1.73 sq M.predicted among non-blacks MDRD (S/P/Bld) [Vol rate/Area] 108 mL/min/{1.73_m2} Normal >60 [facility] ([place]) Comment on above: Performed By: #### 2 4322-8, 0-3 #### [facility] [address] [place] [address] Globulin (S) [Mass/Vol] 3.0 g/dL Normal 1.9-3.9 [facility] ([place]) Comment on above: Performed By: #### 2 8, 0-3 #### [address] [address] Glucose [Mass/Vol] 90 mg/dL Normal 70-99 [facility] ([place]) Comment on above: Performed By: #### 2 432-8, 0-3 #### [facility] [address] [place] [address] Potassium [Moles/Vol] 3.9 mmol/L Normal 3.6-5.0 [facility] ([place]) Comment on above: Performed By: #### 2 4322-8, 0-3 #### [address] [address] Protein [Mass/Vol] 7.3 g/dL Normal 5.9-7.8 [facility] ([place]) Comment on above: Performed By: #### 2 432-8, 0-3 #### [address] [address] Sodium [Moles/Vol] 139 mmol/L Normal 135-145 [facility] ([place]) Comment on above: Performed By: #### 2 4323-8, 3040-3 #### [facility] [address] [place] [address] Urea nitrogen [Mass/Vol] 10 mg/dL Normal 8-21 [facility] ([place]) Comment on above: Performed By: #### 2 4323-8, 3040-3 #### [facility] [address] [place] [address] Lipaseon 04-28-2021 Lipase [Catalytic activity/Vol] 29 U/L Normal 25-51 [facility] ([place]) Comment on above: Performed By: #### 2 4323-8, 3040-3 #### [facility] [address] [place] [address] Urinalysison 04-28-2021 Appearance (U) HAZY Normal [facility] ([place]) Comment on above: Order Comment: Urine Collect Clean Catch Performed By: #### U , 2111-06 #### [address] [address] Bilirubin+Urobilinogen Ql (U) Negative Normal NEGATIVE [facility] ([place]) Comment on above: Order Comment: Urine Collect Clean Catch Performed By: #### U , 2111-06 #### [facility] [address] [place] [address] Color (U) YELLOW Normal [facility] ([place]) Comment on above: Order Comment: Urine Collect Clean Catch Performed By: #### U , 2111-06 #### [facility] [address] [place] [address] Glucose Auto test strip (U) [Mass/Vol] Negative Normal NEGATIVE [facility] ([place]) Comment on above: Order Comment: Urine Collect Clean Catch Performed By: #### U , 2111-06 #### [address] [address] Ketones Ql (U) Negative Normal NEGATIVE [facility] ([place]) Comment on above: Order Comment: Urine Collect Clean Catch Performed By: #### U , 2111-06 #### [facility] [address] [place] [address] Nitrate Ql (U) Negative Normal NEGATIVE [facility] ([place]) Comment on above: Order Comment: Urine Collect Clean Catch Performed By: #### U , 2111-06 #### [facility] [address] [place] [address] pH (U) 7.0 [pH] Normal 4.6-8.0 [facility] ([place]) Comment on above: Order Comment: Urine Collect Clean Catch Performed By: #### U , 2111-06 #### [facility] [address] [place] [address] Protein Auto test strip Ql (U) Negative Normal NEGATIVE [facility] ([place]) Comment on above: Order Comment: Urine Collect Clean Catch Performed By: #### U , 2111-06 #### [address] [address] RBC Ql (U) Negative Normal NEGATIVE [facility] ([place]) Comment on above: Order Comment: Urine Collect Clean Catch Performed By: #### U , 2111-06 #### [facility] [address] [place] [address] Specific gravity (U) [Rel density] 1.027 Normal 1.001-1.035 [facility] ([place]) Comment on above: Order Comment: Urine Collect Clean Catch Performed By: #### U , 2111-06 #### [facility] [address] [place] [address] Urobilinogen (U) [Mass/Vol] Negative Normal NEGATIVE [facility] ([place]) Comment on above: Order Comment: Urine Collect Clean Catch Performed By: #### U , 2111-06 #### [address] [address] WBC Visual Ql (U) Negative Normal NEGATIVE [facility] ([place]) Comment on above: Order Comment: Urine Collect Clean Catch Performed By: #### U , 1 #### [facility] [address] [place] [address] [facility] 09-01-2019 Cholesterol [Mass/Vol] 141 mg/dL 0 - 2 00 mg/dL [facility] Cholesterol in HDL [Mass/Vol] 46 mg/dL 40 - 60 mg/dL [facility] Cholesterol in LDL [Mass/Vol] 82 mg/dL 0.0 - 130.0 mg/dL [facility] Triglyceride [Mass/Vol] 67 mg/dL 0 - 150 mg/dL [facility] Metabolic Panelon 09-01-2019 Glucose [Mass/Vol] 92 mg/dL [facility] HbA1c (Bld) [Mass fraction] 4.8 % 4.2 - 6.3 % [facility] Otheron 09-01-2019 CARDIO RISK 3.1 [facility] Vital Signs Date Time Vital Sign Value Performing Clinician Facility 11-04-2024 14:17040 Body height 162.6 cm Armen Godwin MD Work Phone: [facility] 11-04-2024 14:17-0400 Body mass index (BMI) [Ratio] 37.76 kg/m2 Armen Godwin MD Work Phone: [facility] 11-04-2024 14:17-040 Body weight 99.79 kg Armen Godwin MD Work Phone: [facility] 09-21-2024 10:28040 Body height 162.56 cm Kelsie Reid LPN [facility] [employer] [facility] 09-21-2024 10:28-0400 Body mass index (BMI) [Ratio] 37.93 kg/m2 Kelsie Reid LPN [facility] 09-21-2024 10:28-0400 Body surface area Derived from formula 2.04 m2 Kelsie Reid LPN [facility] [employer] [facility] 09-21-2024 10:28-040 Body weight 100.25 kg Kelsie Reid LPN [facility], [facility]. 09-21-2024 10:28-0400 Diastolic blood pressure 60 mm[Hg] Kelsielynnette Reid NIKOLE [facility].; [place] [employer]. Comment on above: Patient Position: Sitting; Cuff Location : Left Arm; Cuff Size: Standard 09-21-2024 10:28-0400 Heart rate 74 /min Kelsie Reid LPN [facility], [facility].; [place] [employer]. Comment on above: Pattern: Regular 09-21-2024 10:28-0400 Systolic blood pressure 110 mm[Hg] Kelsie Reid NIKOLE [facility].; [employer]. Comment on above: Patient Position: Sitting; Cuff Location : Left Arm; Cuff Size: Standard 08-06-2024 13:25-0500 Body height 162.56 cm Amanda Adorno MA [facility], [facility].; [facility] [employer] [facility]. 08-06-2024 13:25-0500 Body mass index (BMI) [Ratio] 39.31 kg/m2 Amanda Adorno MA [facility].; [place] [employer] 08-06-2024 13:25-0500 Body surface area Derived from formula 2.07 m2 Amanda Adorno MA [facility].; [place] [employer] [facility]. 08-06-2024 13:25-0500 Body temperature 98.2 [degF] [facility].; [employer]. Comment on above: Method: Tympanic 08-06-2024 13:25-0500 Body weight 103.87 kg Amanda Adorno MA [facility].; [employer] 08-06-2024 13:25-0500 Diastolic blood pressure 58 mm[Hg] Amanda Adorno MA [facility].; [employer]. Comment on above: Patient Position: Sitting; Cuff Location : Left Arm; Cuff Size: Standard 08-06-2024 13:25-0500 Heart rate 87 /min Amanda Adorno MA [facility].; [employer]. Comment on above: Pattern: Regular 08-06-2024 13:25-0500 Inhaled oxygen concentration 21 % Amanda [facility]orno MA [facility] [place] [employer] [facility] Comment on above: Room air 08-06-2024 13:25-0500 SaO2% (BldA) [Mass fraction] 98 % Amanda Adorno MA [facility].; [place] [employer] [facility] 08-06-2024 13:25-0500 Systolic blood pressure 122 mm[Hg] Amanda Adorno MA [facility].; [place] [employer]. Comment on above: Patient Position: Sitting; Cuff Location : Left Arm; Cuff Size: Standard 06-07-2024 09:24-0500 Body height 162.56 cm Jemima Victoria MA [facility] [place] [employer] [facility] 06-07-2024 09:24-0500 Body mass index (BMI) [Ratio] 40.51 kg/m2 Jemima Victoria MA [facility].; [place] [employer] [facility]. 06-07-2024 09:24-0500 Body surface area Derived from formula 2.1 m2 Jemima Victoria MA [facility].; [place] [employer] [facility] 06-07-2024 09:24-0500 Body weight 107.05 kg Jemima Victoria MA [facility].; [place] [employer] [facility] 06-07-2024 09:24-0500 Diastolic blood pressure 75 mm[Hg] Jemima Victoria MA [facility] [employer]. Comment on above: Patient Position: Sitting; Cuff Location : Left Arm; Cuff Size: Standard 06-07-2024 09:24-0500 Heart rate 89 /min Jemima Victoria MA [facility] [employer]. Comment on above: Pattern: Regular 06-07-2024 09:24-0500 Systolic blood pressure 108 mm[Hg] Jemima Victoria MA [facility] [employer]. Comment on above: Patient Position: Sitting; Cuff Location : Left Arm; Cuff Size: Standard 05-05-2024 14:38-0500 Body height 162.56 cm Manisha Torres LPN [facility], [facility]. 05-05-2024 14:38-0500 Body mass index (BMI) [Ratio] 40.51 kg/m2 Manisha Torres LPN [facility], [facility]. 05-05-2024 14:38-0500 Body surface area Derived from formula 2.1 m2 Manisha Torres LPN [facility], [facility].; [facility], [facility]. 05-05-2024 14:38-0500 Body temperature 98.6 [degF] Manisha Torres LPN [facility]. Comment on above: Method: Tympanic 05-05-2024 14:38-0500 Body weight 107.05 kg Manisha Torres LPN [facility].; [facility], [facility]. 05-05-2024 14:38-0500 Diastolic blood pressure 82 mm[Hg] Manisha Torres LPN [facility], [employer]. Comment on above: Patient Position: Sitting; Cuff Location : Left Arm; Cuff Size: Standard 05-05-2024 14:38-0500 Heart rate 92 /min Manisha Torres LPN [facility].; [facility]. Comment on above: Pattern: Regular 05-05-2024 14:38-0500 Inhaled oxygen concentration 21 % Manisha Torres LPN [facility], [facility].; [place] [employer]. Comment on above: Room air 05-05-2024 14:38-0500 SaO2% (BldA) [Mass fraction] 96 % Manisha Torres LPN [facility], [facility].; [place] [employer] [facility], [facility]. 05-05-2024 14:38-0500 Systolic blood pressure 112 mm[Hg] Manisha Torres LPN [facility], [facility].; [place] [employer]. Comment on above: Patient Position: Sitting; Cuff Location : Left Arm; Cuff Size: Standard 04-23-2024 13:23-0500 Body height 162.56 cm Jemima Victoria MA [facility], [facility].; [facility], [facility]. 04-23-2024 13:23-0500 Body mass index (BMI) [Ratio] 40.17 kg/m2 Jemima Victoria MA [facility].; [employer] [facility]. 04-23-2024 13:23-0500 Body surface area Derived from formula 2.09 m2 Jemima Victoria MA [facility].; [place] [employer] [facility]. 04-23-2024 13:23-0500 Body weight 106.14 kg Jemima Julien HURTADO [facility].; [place] [employer] [facility]. 04-23-2024 13:23-0500 Diastolic blood pressure 73 mm[Hg] Jemimastephanie Victoria GENESIS [facility].; [place] [employer] [facility]. Comment on above: Patient Position: Sitting; Cuff Location : Left Arm; Cuff Size: Standard 04-23-2024 13:23-0500 Heart rate 80 /min Jemima Julien HURTADO [facility].; [employer]. Comment on above: Pattern: Regular 04-23-2024 13:23-0500 Systolic blood pressure 111 mm[Hg] Jemima Julien HURTADO [facility].; [employer]. Comment on above: Patient Position: Sitting; Cuff Location : Left Arm; Cuff Size: Standard 03-30-2024 10:51-0400 Body height 162.56 cm Eva Ayala RN [facility].; [employer]. 03-30-2024 10:51-0400 Body mass index (BMI) [Ratio] 39.14 kg/m2 Eva Ayala RN [facility] [employer]. 03-30-2024 10:51-0400 Body surface area Derived from formula 2.07 m2 Eva Ayala RN [place] [employer] [facility] [employer]. 03-30-2024 10:51-0400 Body temperature 98.8 [degF] Eva Ayala RN [place] [employer] [facility] [employer]. Comment on above: Method: Tympanic 03-30-2024 10:51-0400 Body weight 103.42 kg Eva Ayala RN [place] [employer] [facility].; [employer]. 03-30-2024 10:51-0400 Diastolic blood pressure 57 mm[Hg] Eva Ayala RN [facility] [employer]. Comment on above: Patient Position: Sitting; Cuff Location : Left Arm; Cuff Size: Standard 03-30-2024 10:51-0400 Heart rate 76 /min Eva Ayala RN [facility] [employer]. Comment on above: Pattern: Regular 03-30-2024 10:51-0400 Systolic blood pressure 100 mm[Hg] Eva Ayala RN [facility].; [employer]. Comment on above: Patient Position: Sitting; Cuff Location : Left Arm; Cuff Size: Standard 03-19-2024 13:47-0400 Body height 162.56 cm Amanda Adorno MA [facility].; [employer] 03-19-2024 13:47-0400 Body mass index (BMI) [Ratio] 38.45 kg/m2 Amanda Adorno MA [facility].; [employer], [employer]. 03-19-2024 13:47-0400 Body surface area Derived from formula 2.05 m2 Amanda Adorno MA [facility].; [employer], [employer]. 03-19-2024 13:47-0400 Body weight 101.61 kg Amanda Adorno MA [facility].; [employer], [employer]. 03-19-2024 13:47-0400 Diastolic blood pressure 69 mm[Hg] Amanda Adorno MA [facility].; [employer]. Comment on above: Patient Position: Sitting; Cuff Location : Left Arm; Cuff Size: Standard 03-19-2024 13:47-0400 Heart rate 93 /min Amanda Adorno MA [facility] [employer]. Comment on above: Pattern: Regular 03-19-2024 13:47-0400 Systolic blood pressure 108 mm[Hg] Amanda Adorno MA [facility] [employer]. Comment on above: Patient Position: Sitting; Cuff Location : Left Arm; Cuff Size: Standard 03-09-2024 13:11-0400 Body height 162.56 cm Jemima Victroia MA [facility], [facility].; [employer], [employer]. 03-09-2024 13:110400 Body mass index (BMI) [Ratio] 38.45 kg/m2 Jemima Victoria MA [facility], [facility].; [place] [employer] 03-09-2024 13:110400 Body surface area Derived from formula 2.05 m2 Jemima Victoria MA [facility] [place] [employer] [facility] 03-09-2024 13:11040 Body weight 101.61 kg Jemima Victoria MA [facility].; [place] [employer] [facility], [facility]. 03-09-2024 13:11040 Diastolic blood pressure 78 mm[Hg] Jemima Victoria MA [facility].; [employer], [employer]. Comment on above: Patient Position: Sitting; Cuff Location : Left Arm; Cuff Size: Standard 03-09-2024 13:110400 Heart rate 92 /min Jemima Victoria MA [facility].; [employer]. Comment on above: Pattern: Regular 03-09-2024 13:110400 Systolic blood pressure 114 mm[Hg] Jemima Victoria MA [facility].; [employer], [employer]. Comment on above: Patient Position: Sitting; Cuff Location : Left Arm; Cuff Size: Standard 10-17-2023 13:310400 Body height 162.56 cm Amanda Adorno MA [facility].; [employer] 10-17-2023 13:31-0400 Body mass index (BMI) [Ratio] 41.02 kg/m2 Amanda Adorno MA [facility].; [employer] 10-17-2023 13:310400 Body surface area Derived from formula 2.11 m2 Amanda Adorno MA [place] [employer] [facility].; [employer] 10-17-2023 13:310400 Body weight 108.41 kg Amanda Adorno MA [place] [employer] [facility].; [employer], [employer]. 10-17-2023 13:31-0400 Diastolic blood pressure 71 mm[Hg] Amanda Adorno MA [facility] [place] [employer] [facility]. Comment on above: Patient Position: Sitting; Cuff Location : Left Arm; Cuff Size: Standard 10-17-2023 13:31-0400 Heart rate 97 /min Amanda Adorno MA [facility] [employer]. Comment on above: Pattern: Regular 10-17-2023 13:31-0400 Systolic blood pressure 100 mm[Hg] Amanda Adorno MA [facility] [employer]. Comment on above: Patient Position: Sitting; Cuff Location : Left Arm; Cuff Size: Standard 10-03-2023 10:30-0400 Body height 162.6 cm Nir Villagomez MD Work Phone: [facility] 10-03-2023 10:30-0400 Body mass index (BMI) [Ratio] 39.96 kg/m2 Nir Villagomez MD Work Phone: [email or web address] 10-03-2023 10:30-0400 Body weight 105.6 kg Nir Villagomez MD Work Phone: [facility] 10-03-2023 10:30-0400 Diastolic blood pressure 82 mm[Hg] Nir Villagomez MD Work Phone: [facility] 10-03-2023 10:30-0400 Heart rate 88 /min Nir Villagomez MD Work Phone: [email or web address] 10-03-2023 10:30-0400 Systolic blood pressure 114 mm[Hg] Nir Villagomez MD Work Phone: [email or web address] 09-02-2023 14:45-0400 Body height 162.56 cm Jemima Victoria MA [facility] [employer] [facility]. 09-02-2023 14:45-0400 Body mass index (BMI) [Ratio] 41.02 kg/m2 Jemima Victoria MA [facility], [facility]. 09-02-2023 14:45-0400 Body surface area Derived from formula 2.11 m2 Jemima Victoria MA [facility].; [facility]. 09-02-2023 14:45-0400 Body weight 108.41 kg Jemima Victoria MA [place] [employer] [facility] [employer]. 09-02-2023 14:45-0400 Diastolic blood pressure 67 mm[Hg] Jemima Victoria MA [facility] [employer]. Comment on above: Patient Position: Sitting; Cuff Location : Left Arm; Cuff Size: Standard 09-02-2023 14:45-0400 Heart rate 85 /min Jemima Victoria MA [place] [employer]. Comment on above: Pattern: Regular 09-02-2023 14:45-0400 Systolic blood pressure 123 mm[Hg] Jemima Victoria MA [place] [employer]. Comment on above: Patient Position: Sitting; Cuff Location : Left Arm; Cuff Size: Standard 07-29-2023 15:49-0500 Body height 162.56 cm Jemima Victoria MA [place] [employer] [facility] [employer]. 07-29-2023 15:49-0500 Body mass index (BMI) [Ratio] 40.68 kg/m2 Jemima Victoria MA [employer] [facility] [employer]. 07-29-2023 15:49-0500 Body surface area Derived from formula 2.1 m2 Jemima Victoria MA [place] [employer] [facility] [employer]. 07-29-2023 15:49-0500 Body weight 107.5 kg Jemima Victoria MA [place] [employer] [facility] [employer]. 07-29-2023 15:49-0500 Diastolic blood pressure 81 mm[Hg] Jemima Victoria MA [employer]. Comment on above: Patient Position: Sitting; Cuff Location : Left Arm; Cuff Size: Standard 07-29-2023 15:49-0500 Heart rate 83 /min Jemima Victoria MA [employer]. Comment on above: Pattern: Regular 07-29-2023 15:49-0500 Systolic blood pressure 119 mm[Hg] Jemima Victoria MA [employer] [facility]. Comment on above: Patient Position: Sitting; Cuff Location : Left Arm; Cuff Size: Standard 07-11-2023 14:18-0500 Body height 162.56 cm Jemiam Victoria MA [facility] [place] [employer] [facility] 07-11-2023 14:18-0500 Body mass index (BMI) [Ratio] 40.68 kg/m2 Jemima Victoria MA [facility] [place] [employer] [facility]. 07-11-2023 14:18-0500 Body surface area Derived from formula 2.1 m2 Jemima Victoria MA [facility] [place] [employer] [facility]. 07-11-2023 14:18050 Body weight 107.5 kg Jemima Victoria MA [facility] [employer]. 07-11-2023 14:18-0500 Diastolic blood pressure 82 mm[Hg] Jemima Victoria MA [facility] [employer]. Comment on above: Patient Position: Sitting; Cuff Location : Left Arm; Cuff Size: Standard 07-11-2023 14:18-0500 Heart rate 99 /min Jemima Victoria MA [facility] [employer]. Comment on above: Pattern: Regular 07-11-2023 14:18-0500 Systolic blood pressure 121 mm[Hg] Jemima Victoria MA [facility] [employer]. Comment on above: Patient Position: Sitting; Cuff Location : Left Arm; Cuff Size: Standard 06-06-2023 10:48-0500 Body height 162.56 cm Amanda Adorno MA [facility] [place] [employer]. 06-06-2023 10:48-0500 Body mass index (BMI) [Ratio] 41.71 kg/m2 Amanda Adorno MA [facility] [place] [employer] 06-06-2023 10:48-0500 Body surface area Derived from formula 2.12 m2 Amanda Adorno MA [facility] [place] [employer] 06-06-2023 10:48-0500 Body temperature 99.6 [degF] Amanda [facility]orno [facility].; [facility]. Comment on above: Method: Tympanic 06-06-2023 10:48-0500 Body weight 110.22 kg Amanda Santosangelica HURTADO [facility].; [place] [employer] 06-06-2023 10:48-0500 Diastolic blood pressure 82 mm[Hg] Amandasun Santosangelica HURTADO [facility].; [facility]. Comment on above: Patient Position: Sitting; Cuff Location : Left Arm; Cuff Size: Standard 06-06-2023 10:48-0500 Heart rate 123 /min Amandasun Santosangelica HURTADO [facility].; [facility]. Comment on above: Pattern: Regular 06-06-2023 10:48-0500 Inhaled oxygen concentration 20 % Amandasun Santosangelica HURTADO [facility].; [place] [employer]. Comment on above: Room air 06-06-2023 10:48-0500 Inhaled oxygen concentration 21 % Amanda Kyree HURTADO [facility].; [place] [employer]. Comment on above: Room air 06-06-2023 10:48-0500 SaO2% (BldA) [Mass fraction] 96 % Amandasun Santosangelica HURTADO [facility].; [place] [employer]. 06-06-2023 10:48-0500 Systolic blood pressure 130 mm[Hg] Amandasun Santosangelica HURTADO [facility].; [place] [employer]. Comment on above: Patient Position: Sitting; Cuff Location : Left Arm; Cuff Size: Standard 02-17-2023 13:31-0400 Diastolic blood pressure 79 mm[Hg] Manisha Torres LPN [facility].; [employer]. Comment on above: Patient Position: Sitting; Cuff Location : Left Arm; Cuff Size: Standard 02-17-2023 13:31-0400 Heart rate 89 /min Manisha Torres LPN [facility].; [employer]. Comment on above: Pattern: Regular 02-17-2023 13:31-0400 Systolic blood pressure 115 mm[Hg] Manisha Torres LPN [facility].; [facility]. Comment on above: Patient Position: Sitting; Cuff Location : Left Arm; Cuff Size: Standard 02-17-2023 13:29-0400 Body height 162.56 cm Manisha Torres LPN [facility], [facility].; [facility]. 02-17-2023 13:29-0400 Body mass index (BMI) [Ratio] 39.82 kg/m2 Manisha Torres LPN [facility].; [facility]. 02-17-2023 13:290400 Body surface area Derived from formula 2.08 m2 Manisha Torres LPN [facility].; [facility]. 02-17-2023 13:29040 Body weight 105.24 kg Manisha Torres LPN [facility].; [facility]. 02-17-2023 13:29-0400 Diastolic blood pressure 70 mm[Hg] Manisha Torres LPN [facility].; [facility], [facility]. Comment on above: Patient Position: Sitting; Cuff Location : Left Arm; Cuff Size: Standard 02-17-2023 13:29-0400 Heart rate 87 /min Manisha Torres LPN [facility].; [facility], [facility]. Comment on above: Pattern: Regular 02-17-2023 13:29-0400 Systolic blood pressure 131 mm[Hg] Manisha Torres LPN [facility].; [facility], [facility]. Comment on above: Patient Position: Sitting; Cuff Location : Left Arm; Cuff Size: Standard 01-10-2023 15:45-0400 Body temperature 97.4 [degF] Amanda Adorno MA [facility].; [facility]. Comment on above: Method: Tympanic 01-10-2023 15:45-0400 Diastolic blood pressure 81 mm[Hg] Amanda Adorno MA [facility].; [facility]. Comment on above: Patient Position: Sitting; Cuff Location : Left Arm; Cuff Size: Standard 01-10-2023 15:45-0400 Heart rate 82 /min Amanda Adorno MA [facility] [employer]. Comment on above: Pattern: Regular 01-10-2023 15:45-0400 Systolic blood pressure 129 mm[Hg] Amanda Adorno MA [facility].; [place] [employer] [facility]. Comment on above: Patient Position: Sitting; Cuff Location : Left Arm; Cuff Size: Standard 12-31-2022 15:57-0400 Body height 162.56 cm Manisha Torres LPN [facility], [facility].; [place] [employer] [facility]. 12-31-2022 15:57-0400 Body mass index (BMI) [Ratio] 41.02 kg/m2 Manisha Torres LPN [facility], [facility].; [place] [employer] [facility]. 12-31-2022 15:57-0400 Body surface area Derived from formula 2.11 m2 Manisha Torres LPN [facility], [facility].; [employer]. 12-31-2022 15:57-0400 Body weight 108.41 kg Manisha Torres LPN [facility], [facility].; [employer]. 12-31-2022 15:57-0400 Diastolic blood pressure 87 mm[Hg] Manisha Torres LPN [facility].; [employer]. Comment on above: Patient Position: Sitting; Cuff Location : Left Arm; Cuff Size: Standard 12-31-2022 15:57-0400 Heart rate 114 /min Manisha Torres LPN [facility] [employer]. Comment on above: Pattern: Regular 12-31-2022 15:57-0400 Systolic blood pressure 128 mm[Hg] Manisha Torres LPN [facility].; [employer]. Comment on above: Patient Position: Sitting; Cuff Location : Left Arm; Cuff Size: Standard 12-20-2022 14:50-0400 Body weight 118.39 kg Manisha Torres LPN [facility], [facility].; [employer]. 12-20-2022 14:50-0400 Diastolic blood pressure 80 mm[Hg] Manisha Torres LPN [facility] [employer]. Comment on above: Patient Position: Sitting; Cuff Location : Left Arm; Cuff Size: Standard 12-20-2022 14:50-0400 Diastolic blood pressure 83 mm[Hg] Manisha Torres LPN [employer].; [employer]. Comment on above: Patient Position: Sitting; Cuff Location : Left Arm; Cuff Size: Standard 12-20-2022 14:50-0400 Heart rate 99 /min Manisha Torres LPN [employer].; [employer]. Comment on above: Pattern: Regular 12-20-2022 14:50-0400 Systolic blood pressure 139 mm[Hg] Manisha Torres LPN [employer]. Comment on above: Patient Position: Sitting; Cuff Location : Left Arm; Cuff Size: Standard 12-20-2022 14:50-0400 Systolic blood pressure 158 mm[Hg] Manisha Torres LPN [employer]. Comment on above: Patient Position: Sitting; Cuff Location : Left Arm; Cuff Size: Standard 12-13-2022 15:19-0400 Body weight 117.03 kg Jemima Victoria MA [employer]. 12-13-2022 15:19-0400 Diastolic blood pressure 79 mm[Hg] Jemima Victoria MA [employer].; [employer]. Comment on above: Patient Position: Sitting; Cuff Location : Left Arm; Cuff Size: Standard 12-13-2022 15:19-0400 Heart rate 79 /min Jemima Victoria MA [employer].; [employer]. Comment on above: Pattern: Regular 12-13-2022 15:19-0400 Systolic blood pressure 123 mm[Hg] Jemima Victoria MA [employer]. Comment on above: Patient Position: Sitting; Cuff Location : Left Arm; Cuff Size: Standard 12-06-2022 15:23-0400 Body weight 117.03 kg Manisha Torres LPN [employer]. 12-06-2022 15:23-0400 Diastolic blood pressure 60 mm[Hg] Manisha Torres LPN [facility].; [facility]. Comment on above: Patient Position: Sitting; Cuff Location : Left Arm; Cuff Size: Standard 12-06-2022 15:23-0400 Heart rate 105 /min Manisha Torres LPN [facility].; [facility]. Comment on above: Pattern: Regular 12-06-2022 15:23-0400 Systolic blood pressure 103 mm[Hg] Manisha Torres LPN [facility].; [facility]. Comment on above: Patient Position: Sitting; Cuff Location : Left Arm; Cuff Size: Standard 12-05-2022 08:04-0400 Body height 162.56 cm Amanda Adorno MA [facility].; [facility]. 12-05-2022 08:04-0400 Body mass index (BMI) [Ratio] 44.63 kg/m2 Amanda Adorno MA [facility].; [facility]. 12-05-2022 08:04-0400 Body surface area Derived from formula 2.19 m2 Amanda Adorno MA [facility].; [facility], [facility]. 12-05-2022 08:04-0400 Body temperature 97.2 [degF] Amanda Adorno MA [facility].; [facility]. Comment on above: Method: Tympanic 12-05-2022 08:04-0400 Body weight 117.94 kg Amanda Adorno MA [facility].; [facility]. 12-05-2022 08:04-0400 Diastolic blood pressure 80 mm[Hg] Amanda Adorno MA [facility].; [place] [employer] [facility]. Comment on above: Patient Position: Sitting; Cuff Location : Left Arm; Cuff Size: Standard 12-05-2022 08:04-0400 Heart rate 102 /min Amanda Adorno MA [facility].; [place] [employer]. Comment on above: Pattern: Regular 12-05-2022 08:04-0400 Systolic blood pressure 133 mm[Hg] Amanda Adorno MA [facility].; [facility]. Comment on above: Patient Position: Sitting; Cuff Location : Left Arm; Cuff Size: Standard 11-22-2022 15:18-0400 Body weight 112.04 kg Manisha Brian AGUSTIN [place] [employer] [facility] [employer]. 11-22-2022 15:18-0400 Diastolic blood pressure 74 mm[Hg] Manisha Torres LPN [place] [employer] [facility] [employer]. Comment on above: Patient Position: Sitting; Cuff Location : Left Arm; Cuff Size: Standard 11-22-2022 15:18-0400 Heart rate 101 /min Manisha Torres LPN [facility] [employer]. Comment on above: Pattern: Regular 11-22-2022 15:18-0400 Systolic blood pressure 101 mm[Hg] Manisha Torres LPN [place] [employer] [facility] [employer]. Comment on above: Patient Position: Sitting; Cuff Location : Left Arm; Cuff Size: Standard 11-01-2022 14:38-0400 Body weight 110.22 kg Jemima Victoria MA [place] [employer] [facility] [employer]. 11-01-2022 14:38-0400 Diastolic blood pressure 79 mm[Hg] Jemima Victoria MA [employer]. Comment on above: Patient Position: Sitting; Cuff Location : Left Arm; Cuff Size: Standard 11-01-2022 14:38-0400 Heart rate 111 /min Jemima Victoria MA [employer] [facility] [employer]. Comment on above: Pattern: Regular 11-01-2022 14:38-0400 Systolic blood pressure 143 mm[Hg] Jemima Victoria MA [employer]. Comment on above: Patient Position: Sitting; Cuff Location : Left Arm; Cuff Size: Standard 10-30-2022 10:46-0400 Body height 162.56 cm Jemima Victoria MA [employer] [facility] [employer]. 10-30-2022 10:46-0400 Body mass index (BMI) [Ratio] 42.23 kg/m2 Jemima Victoria MA [employer] [facility] [employer]. 10-30-2022 10:46-0400 Body surface area Derived from formula 2.14 m2 Jemima Victoria MA [facility].; [place] [employer] [facility]. 10-30-2022 10:46-0400 Body temperature 97.2 [degF] Jemima Victoria MA [facility].; [employer]. 10-30-2022 10:46-0400 Body weight 111.59 kg Jemima Victoria MA [facility].; [place] [employer]. 10-30-2022 10:46-0400 Diastolic blood pressure 79 mm[Hg] Jemima Victoria MA [facility] [employer]. Comment on above: Patient Position: Sitting; Cuff Location : Left Arm; Cuff Size: Standard 10-30-2022 10:46-0400 Heart rate 94 /min Jemima Victoria MA [facility] [employer]. Comment on above: Pattern: Regular 10-30-2022 10:46-0400 Inhaled oxygen concentration 20 % Jemima Victoria MA [facility].; [employer]. Comment on above: Room air 10-30-2022 10:46-0400 Inhaled oxygen concentration 21 % Jemima Victoria MA [facility] [employer]. Comment on above: Room air 10-30-2022 10:46-0400 SaO2% (BldA) [Mass fraction] 98 % Jemima Victoria MA [facility].; [employer]. 10-30-2022 10:46-0400 Systolic blood pressure 145 mm[Hg] Jemima Victoria MA [place] [employer] [facility] [employer]. Comment on above: Patient Position: Sitting; Cuff Location : Left Arm; Cuff Size: Standard 10-11-2022 14:01-0400 Body weight 109.77 kg Dominick Khoury PA-C Work Phone: [facility] [employer]. 10-11-2022 14:01-0400 Diastolic blood pressure 75 mm[Hg] Dominick Khoury PA-C Work Phone: [employer]; [facility]. Comment on above: Patient Position: Sitting; Cuff Location : Left Arm; Cuff Size: Standard 10-11-2022 14:01-0400 Heart rate 112 /min Dominick Khoury PA-C Work Phone: [employer]. Comment on above: Pattern: Regular 10-11-2022 14:01-0400 Systolic blood pressure 132 mm[Hg] Dominick Khoury PA-C Work Phone: [employer]. Comment on above: Patient Position: Sitting; Cuff Location : Left Arm; Cuff Size: Standard 09-12-2022 15:10-0400 Body weight 103.42 kg luma-id [facility] Work Phone: [employer]. 09-12-2022 15:10-0400 Diastolic blood pressure 74 mm[Hg] [facility] Work Phone: [employer]. Comment on above: Patient Position: Sitting; Cuff Location : Left Arm; Cuff Size: Standard 09-12-2022 15:10-0400 Heart rate 98 /min Romy Ovidio LPN Work Phone: [employer]. Comment on above: Pattern: Regular 09-12-2022 15:10-0400 Systolic blood pressure 113 mm[Hg] [facility] Work Phone: [employer]. Comment on above: Patient Position: Sitting; Cuff Location : Left Arm; Cuff Size: Standard 09-02-2022 13:08-0400 Body height 162.56 cm Manisha Adams MA [employer].; [employer]. 09-02-2022 13:08-0400 Body mass index (BMI) [Ratio] 39.99 kg/m2 Manisha Adams MA [employer]. 09-02-2022 13:08-0400 Body surface area Derived from formula 2.09 m2 Manisha Adams MA [facility], [facility].; [facility], [facility]. 09-02-2022 13:08-0400 Body temperature 98.4 [degF] Manisha Adams MA [facility].; [facility], [employer]. Comment on above: Method: Tympanic 09-02-2022 13:08-0400 Body weight 105.69 kg Manisha Adams MA [facility].; [facility], [facility]. 09-02-2022 13:08-0400 Diastolic blood pressure 79 mm[Hg] Manisha Adams MA [facility].; [facility], [facility]. Comment on above: Patient Position: Sitting; Cuff Location : Left Arm; Cuff Size: Standard 09-02-2022 13:08-0400 Heart rate 93 /min Manisha Adams MA [facility].; [facility], [employer]. Comment on above: Pattern: Regular 09-02-2022 13:08-0400 Systolic blood pressure 129 mm[Hg] Manisha Adams MA [facility].; [facility], [employer]. Comment on above: Patient Position: Sitting; Cuff Location : Left Arm; Cuff Size: Standard 08-13-2022 13:07-0400 Body weight 102.97 kg Manisha Torres LPN [facility].; [facility], [facility]. 08-13-2022 13:07-0400 Diastolic blood pressure 64 mm[Hg] Manisha Torres LPN [facility].; [place] [employer]. Comment on above: Patient Position: Sitting; Cuff Location : Left Arm; Cuff Size: Standard 08-13-2022 13:07-0400 Heart rate 125 /min Manisha Torres LPN [facility].; [place] [employer]. Comment on above: Pattern: Regular 08-13-2022 13:07-0400 Systolic blood pressure 132 mm[Hg] Manisha Torres LPN [facility].; [place] [employer]. Comment on above: Patient Position: Sitting; Cuff Location : Left Arm; Cuff Size: Standard 07-16-2022 13:08-0500 Body weight 100.7 kg Manisha Torres LPN [facility].; [employer]. 07-16-2022 13:08-0500 Diastolic blood pressure 78 mm[Hg] Manisha Torres LPN [facility] [employer]. Comment on above: Patient Position: Sitting; Cuff Location : Left Arm; Cuff Size: Standard 07-16-2022 13:08-0500 Heart rate 87 /min Manisha Torres LPN [facility] [employer]. Comment on above: Pattern: Regular 07-16-2022 13:08-0500 Systolic blood pressure 113 mm[Hg] Manisha Torres LPN [facility] [employer]. Comment on above: Patient Position: Sitting; Cuff Location : Left Arm; Cuff Size: Standard 06-11-2022 08:29-0500 Body weight 99.79 kg Jemima Victoria MA [facility] [employer]. 06-11-2022 08:29-0500 Diastolic blood pressure 74 mm[Hg] Jemima Victoria MA [place] [employer] [facility] [employer]. Comment on above: Patient Position: Sitting; Cuff Location : Left Arm; Cuff Size: Standard 06-11-2022 08:29-0500 Heart rate 94 /min Jemima Victoria MA [facility] [employer]. Comment on above: Pattern: Regular 06-11-2022 08:29-0500 Systolic blood pressure 114 mm[Hg] Jemima Victoria MA [place] [employer]. Comment on above: Patient Position: Sitting; Cuff Location : Left Arm; Cuff Size: Standard 05-22-2022 15:050 Body height 162.56 cm No Primary Care Physician [facility] Work Phone: 05-22-2022 15:13050 Body mass index (BMI) [Ratio] 37.8 kg/m2 No Primary Care Physician [facility] Work Phone: 05-22-2022 15:0500 Body temperature 97 [degF] No Primary Care Physician [facility] Work Phone: 05-22-2022 15:13-0500 Body weight 99.79 kg No Primary Care Physician [facility] Work Phone: 05-22-2022 15:13-0500 Diastolic blood pressure 81 mm[Hg] No Primary Care Physician [facility] Work Phone: 05-22-2022 15:13-0500 Heart rate 81 /min No Primary Care Physician [facility] Work Phone: 05-22-2022 15:13-0500 Respiratory rate 15 /min No Primary Care Physician [facility] Work Phone: 05-22-2022 15:13-0500 SaO2% (BldA) [Mass fraction] 100 % No Primary Care Physician [facility] Work Phone: 05-22-2022 15:13-0500 Systolic blood pressure 143 mm[Hg] No Primary Care Physician [facility] Work Phone: 05-20-2022 14:52-0500 Body height 162.56 cm Manisha Adams MA [facility].; [facility]. 05-20-2022 14:52-0500 Body mass index (BMI) [Ratio] 38.62 kg/m2 Manisha Adams MA [facility], [facility].; [facility]. 05-20-2022 14:52-0500 Body surface area Derived from formula 2.06 m2 Manisha Adams MA [facility], [facility].; [facility], [facility]. 05-20-2022 14:52-0500 Body temperature 97.5 [degF] Manisha Adams MA [facility].; [facility], [facility]. Comment on above: Method: Tympanic 05-20-2022 14:52-0500 Body weight 102.06 kg Manisha Adams MA [facility], [facility].; [facility], [facility]. 05-20-2022 14:52-0500 Diastolic blood pressure 72 mm[Hg] Manisha Adams [facility] Comment on above: Patient Position: Sitting; Cuff Location : Left Arm; Cuff Size: Standard 05-20-2022 14:52-0500 Heart rate 94 /min Manisha Adams MA [facility] [place] [employer]. Comment on above: Pattern: Regular 05-20-2022 14:52-0500 Systolic blood pressure 108 mm[Hg] Manisha Adams MA [facility] [place] [employer]. Comment on above: Patient Position: Sitting; Cuff Location : Left Arm; Cuff Size: Standard 05-17-2022 08:04-0500 Body weight 101.61 kg Jemima Victoria [facility] [place] [employer]. 05-17-2022 08:04-0500 Diastolic blood pressure 77 mm[Hg] Jemima Victoria MA [facility] [employer] Comment on above: Patient Position: Sitting; Cuff Location : Left Arm; Cuff Size: Standard 05-17-2022 08:04-0500 Heart rate 86 /min Jemima Victoria MA [facility] [employer]. Comment on above: Pattern: Regular 05-17-2022 08:04-0500 Systolic blood pressure 119 mm[Hg] Jemima Victoria MA [facility] [place] [employer]. Comment on above: Patient Position: Sitting; Cuff Location : Left Arm; Cuff Size: Standard 04-11-2022 14:22-050 Body height 162.56 cm No Primary Care Physician [facility] Work Phone: 04-11-2022 14:22-0500 Body mass index (BMI) [Ratio] 38.1 kg/m2 No Primary Care Physician [facility] Work Phone: 04-11-2022 14:22-0500 Body temperature 98.2 [degF] No Primary Care Physician [facility] Work Phone: 04-11-2022 14:22-0500 Body weight 100.81 kg No Primary Care Physician [facility] Work Phone: 04-11-2022 14:22-0500 Diastolic blood pressure 72 mm[Hg] No Primary Care Physician [facility] Work Phone: 04-11-2022 14:22-0500 Heart rate 77 /min No Primary Care Physician [facility] Work Phone: 04-11-2022 14:22-0500 Respiratory rate 16 /min No Primary Care Physician [facility] Work Phone: 04-11-2022 14:22-0500 SaO2% (BldA) [Mass fraction] 98 % No Primary Care Physician [facility] Work Phone: 04-11-2022 14:22-0500 Systolic blood pressure 110 mm[Hg] No Primary Care Physician [facility] Work Phone: 01-01-2022 14:23-0400 Body height 162.56 cm Manisha Torres LPN [facility], [facility].; [facility], [facility]. 01-01-2022 14:23-0400 Body mass index (BMI) [Ratio] 37.42 kg/m2 Manisha Torres LPN [facility], [facility].; [facility], [facility]. 01-01-2022 14:23-0400 Body surface area Derived from formula 2.03 m2 Manisha Torres LPN [facility], [facility].; [place] [employer] [facility], [facility]. 01-01-2022 14:23-0400 Body weight 98.88 kg Manisha Torres LPN [facility], [facility]. 01-01-2022 14:23-0400 Diastolic blood pressure 80 mm[Hg] Manisha Torres LPN [facility], [facility].; [employer] across [employer] [facility], [facility]. Comment on above: Patient Position: Sitting; Cuff Location : Left Arm; Cuff Size: Standard 01-01-2022 14:23-0400 Heart rate 88 /min Manisha Torres LPN [facility], [facility].; [employer]. Comment on above: Pattern: Regular 01-01-2022 14:23-0400 Systolic blood pressure 122 mm[Hg] Manisha Torres LPN [facility], [facility].; [employer] [facility] Comment on above: Patient Position: Sitting; Cuff Location : Left Arm; Cuff Size: Standard 12-31-2021 10:06-0400 Body height 162.56 cm Eva Ayala RN [place] [employer].; [place] [employer] [facility] 12-31-2021 10:06-0400 Body mass index (BMI) [Ratio] 37.76 kg/m2 Eva Ayala RN [facility] [employer]. 12-31-2021 10:06-0400 Body surface area Derived from formula 2.04 m2 Eva Ayala RN [place] [employer] [employer]. 12-31-2021 10:06-040 Body temperature 98.3 [degF] Eva Ayala RN [facility].; [facility]. Comment on above: Method: Tympanic 12-31-2021 10:060400 Body weight 99.79 kg Eva Ayala RN [place] [employer] [facility]. 12-31-2021 10:06-0400 Diastolic blood pressure 67 mm[Hg] Eva Ayala RN [place] [employer] [facility] [employer]. Comment on above: Patient Position: Sitting; Cuff Location : Left Arm; Cuff Size: Standard 12-31-2021 10:06-0400 Heart rate 72 /min Eva Ayala RN [place] [employer] [facility]. Comment on above: Pattern: Regular 12-31-2021 10:06-0400 Inhaled oxygen concentration 20 % Eva Ayala RN [place] [employer] [facility]. Comment on above: Room air 12-31-2021 10:06-0400 Inhaled oxygen concentration 21 % Eva Ayala RN [place] [employer] [facility] [employer]. Comment on above: Room air 12-31-2021 10:06-0400 SaO2% (BldA) [Mass fraction] 98 % Eva Ayala RN [place] [employer]. 12-31-2021 10:06-0400 Systolic blood pressure 108 mm[Hg] Eva Ayala RN [facility], [facility]. Comment on above: Patient Position: Sitting; Cuff Location : Left Arm; Cuff Size: Standard 12-06-2021 08:30-0400 Body height 162.56 cm Shruti Fragoso [facility], [facility].; [facility]. 12-06-2021 08:30-0400 Body mass index (BMI) [Ratio] 36.73 kg/m2 Shrutifernando Fragoso [facility], [facility].; [facility]. 12-06-2021 08:30-0400 Body surface area Derived from formula 2.01 m2 Shruti Fragoso [facility], [facility].; [facility], [facility]. 12-06-2021 08:30-0400 Body weight 97.07 kg Shrutifernando Fragoso [facility], [facility].; [facility]. 12-06-2021 08:30-0400 Diastolic blood pressure 69 mm[Hg] Shruti Fragoso [facility].; [place] [employer] [facility], [employer]. 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 Comment on above: Pattern: Regular 12-06-2021 08:30-0400 Systolic blood pressure 109 mm[Hg] [facility] [place] [employer] [facility], [employer]. Comment on above: Patient Position: Sitting; Cuff Location : Left Arm; Cuff Size: Standard 11-01-2021 08:27-0400 Body height 162.56 cm Manisha Torres LPN [facility], [facility].; [facility], [facility]. 11-01-2021 08:27-0400 Body mass index (BMI) [Percentile] Per age and sex 97 % Manisha Torres LPN [facility], [facility].; [place] [employer] [facility], [facility]. 11-01-2021 08:27-0400 Body mass index (BMI) [Ratio] 36.39 kg/m2 Manisha Torres LPN [facility], [facility].; [facility], [facility]. 11-01-2021 08:27-0400 Body surface area Derived from formula 2.01 m2 Manisha Torres LPN [facility], [facility].; [facility], [facility]. 11-01-2021 08:27-0400 Body weight 96.16 kg Manisha Torres LPN [facility], [facility].; [facility], [facility]. 11-01-2021 08:27-0400 Diastolic blood pressure 67 mm[Hg] Manisha Torres LPN [facility], [facility].; [facility], [facility]. Comment on above: Patient Position: Sitting; Cuff Location : Left Arm; Cuff Size: Standard 11-01-2021 08:27-0400 Heart rate 82 /min Manisha Torres LPN [facility], [facility].; [place] [employer] [facility], [facility]. Comment on above: Pattern: Regular 11-01-2021 08:27-0400 Systolic blood pressure 103 mm[Hg] Mnaisha Torres LPN [facility], [facility].; [place] [employer] [facility], [facility]. Comment on above: Patient Position: Sitting; Cuff Location : Left Arm; Cuff Size: Standard 10-04-2021 10:49-0400 Body height 162.56 cm Shruti Fragoso LPN [facility], [facility].; [facility], [facility]. 10-04-2021 10:49-0400 Body mass index (BMI) [Percentile] Per age and sex 98 % Shruti Fragoso LPN [facility], [facility].; [facility], [facility]. 10-04-2021 10:49-0400 Body mass index (BMI) [Ratio] 37.08 kg/m2 Shruti Fragoso LPN [facility], [facility].; [facility], [facility]. 10-04-2021 10:49-0400 Body surface area Derived from formula 2.02 m2 Shruti Fragoso LPN [facility], [facility].; [place] [employer] [facility], [facility]. 10-04-2021 10:49-0400 Body weight 97.98 kg Shruti Fragoso LPN [facility], [facility].; [facility]. 10-04-2021 10:49-0400 Diastolic blood pressure 72 mm[Hg] Shruti Fragoso LPN [place] [employer] [facility]. Comment on above: Patient Position: Sitting; Cuff Location : Left Arm; Cuff Size: Standard 10-04-2021 10:49-0400 Heart rate 79 /min Shruti Fragoso LPN [place] [employer] [facility], [employer].; [facility]. Comment on above: Pattern: Regular 10-04-2021 10:49-0400 Systolic blood pressure 109 mm[Hg] Shruti Fragoso LPN [employer].; [facility]. Comment on above: Patient Position: Sitting; Cuff Location : Left Arm; Cuff Size: Standard 07-27-2021 14:02-0500 Body height 162.56 cm Eva Ayala RN [place] [employer] [facility]. 07-27-2021 14:02-0500 Body mass index (BMI) [Percentile] Per age and sex 97 % Eva Ayala RN [place] [employer]. 07-27-2021 14:02-0500 Body mass index (BMI) [Ratio] 35.19 kg/m2 Eva Ayala RN [place] [employer] [facility]. 07-27-2021 14:02-0500 Body surface area Derived from formula 1.98 m2 Eva Ayala RN [place] [employer] [facility]. 07-27-2021 14:020500 Body temperature 98.6 [degF] Eva Ayala RN [employer] [facility]. Comment on above: Method: Tympanic 07-27-2021 14:020500 Body weight 92.99 kg Eva Ayala RN [place] [employer] [facility]. 07-27-2021 14:02-0500 Diastolic blood pressure 71 mm[Hg] Eva Ayala RN [employer] [facility]. Comment on above: Patient Position: Sitting; Cuff Location : Left Arm; Cuff Size: Standard 07-27-2021 14:02-0500 Heart rate 86 /min Eva Ayala RN [facility].; [place] [employer] [facility]. Comment on above: Pattern: Regular 07-27-2021 14:02-0500 Inhaled oxygen concentration 20 % Eva Ayala RN [facility].; [place] [employer]. Comment on above: Room air 07-27-2021 14:02-0500 Inhaled oxygen concentration 21 % Eva Ayala RN [facility] [place] [employer]. Comment on above: Room air 07-27-2021 14:02-0500 SaO2% (BldA) [Mass fraction] 98 % Eva Ayala RN [facility].; [place] [employer] [facility] 07-27-2021 14:02-0500 Systolic blood pressure 110 mm[Hg] Eva Ayala RN [facility].; [employer]. Comment on above: Patient Position: Sitting; Cuff Location : Left Arm; Cuff Size: Standard 07-23-2021 13:15-0500 Body height 162.56 cm Manisha Torres LPN [facility], [facility].; [place] [employer] [facility], [facility]. 07-23-2021 13:15-0500 Body mass index (BMI) [Percentile] Per age and sex 97 % Manisha Torres LPN [facility], [facility].; [facility], [facility]. 07-23-2021 13:15-0500 Body mass index (BMI) [Ratio] 35.19 kg/m2 Manisha Torres LPN [facility], [facility].; [place] [employer] [facility], [facility]. 07-23-2021 13:15-0500 Body surface area Derived from formula 1.98 m2 Manisha Torres LPN [facility], [facility].; [place] [employer] [facility] 07-23-2021 13:15-0500 Body temperature 97.7 [degF] Manisha Torres LPN [facility], [facility].; [employer]. Comment on above: Method: Tympanic 07-23-2021 13:15-0500 Body weight 92.99 kg Manisha Torres LPN [facility], [facility].; [employer] [facility] 07-23-2021 13:15-0500 Diastolic blood pressure 81 mm[Hg] Manisha Torres LPN [facility].; [employer] [facility], [employer]. Comment on above: Patient Position: Sitting; Cuff Location : Left Arm; Cuff Size: Standard 07-23-2021 13:15-0500 Heart rate 92 /min Manisha Torres LPN [facility], [facility].; [employer]. Comment on above: Pattern: Regular 07-23-2021 13:15-0500 Inhaled oxygen concentration 20 % Manisha Torres LPN [facility], [facility].; [employer] [facility] Comment on above: Room air 07-23-2021 13:15-0500 Inhaled oxygen concentration 21 % Manisha Torres LPN [facility], [employer], [employer]. Comment on above: Room air 07-23-2021 13:15-0500 SaO2% (BldA) [Mass fraction] 97 % Manisha Torres LPN [facility], [facility].; [employer], [employer]. 07-23-2021 13:15-0500 Systolic blood pressure 125 mm[Hg] Manisha Torres LPN [facility], [facility].; [employer], [employer]. Comment on above: Patient Position: Sitting; Cuff Location : Left Arm; Cuff Size: Standard Encounters Encounter Date Encounter Type Care Provider Facility Start: 11-23-2024 End: 11-23-2024 Refill Harris Jackson MD Work Phone: [facility] Comment on above: Refill Request Start: 11-04-2024 End: 11-04-2024 ambulatory ARMEN GODWIN Facility:[id number] Start: 11-04-2024 End: 11-04-2024 Patient encounter procedure Armen Godwin MD Work Phone: [facility] Comment on above: Status post discecto my Start: 10-29-2024 End: 10-29-2024 Telephone encounter Armen Godwin MD Work Phone: [facility] Start: 10-27-2024 End: 10-27-2024 Telephone follow-up Dominick RODRIGUEZ-C Work Phone: [employer] Start: 10-24-2024 End: 10-24-2024 Evaluation and management of inpatient ARMEN GODWIN Facility:[id number] Start: 10-19-2024 ambulatory LULÚ EDMONDS Facility: [id number] Start: 10-19-2024 End: 10-19-2024 ambulatory LULÚ EDMONDS Facility:[id number] Start: 10-08-2024 End: 10-08-2024 Telephone follow-up Dominick RODRIGUEZ-C Work Phone: [employer] Start: 10-05-2024 End: 10-05-2024 Orders Only Armen Godwin MD Work Phone: [facility] Comment on above: S/P lumbar microdisc ectomy (Primary Dx) Start: 09-30-2024 End: 10-06-2024 Evaluation and management of inpatient MELVIN JAMES (HIST) KARI III Facility:[id number] Start: 09-30-2024 ambulatory JASON THAO MD Facility:A Start: 09-30-2024 End: 09-30-2024 Emergency department patient visit DOMINICK KHOURY [facility] Start: 09-21-2024 End: 09-21-2024 Office outpatient visit 15 minutes Dominick Khoury PA-C Work Phone: [employer] Start: 09-21-2024 Admission to [facility] Dominick Khoury PA-C Work Phone: [employer] Start: 09-21-2024 End: 09-21-2024 Historical Summary Dominick Khoury PA-C Work Phone: [employer] Start: 08-10-2024 ambulatory Glo Lopes Facility :[facility] Start: 08-06-2024 End: 08-06-2024 Office outpatient visit 15 minutes Dominick Khoury PA-C Work Phone: [facility]. Start: 07-20-2024 End: 07-20-2024 ambulatory Glo Ghazoul Facility:[facility] Start: 07-07-2024 End: 07-07-2024 ambulatory Glo Ghazoul Facility:[facility] Start: 06-23-2024 End: 06-23-2024 ambulatory Glo Ghazoul Facility:[facility] Start: 06-15-2024 End: 06-15-2024 ambulatory Glo Ghazoul Facility:[facility] Start: 06-10-2024 ambulatory Glo Ghazoul Facility :[facility] Start: 06-10-2024 End: 06-10-2024 ambulatory Glo Ghazoul Facility:[facility] Start: 06-08-2024 End: 06-08-2024 ambulatory Glo Ghazoul Facility:[facility] Start: 06-07-2024 End: 06-07-2024 Office outpatient visit 15 minutes Dominick Khoury PA-C Work Phone: [facility]. Start: 06-07-2024 End: 06-07-2024 Preprocedural examination done Dominick Khoury PA-C Work Phone: [facility].; [facility] Start: 05-24-2024 End: 05-24-2024 ambulatory Glo Ghazoul Facility:[facility] Start: 05-05-2024 Review Dominick Khoury P A-C Work Phone: [facility]. Start: 05-05-2024 End: 05-05-2024 Office outpatient visit 10 minutes Dominick Khoury PA-C Work Phone: [facility]. Start: 05-04-2024 End: 05-04-2024 ambulatory Glo Ghazoul Facility:[facility] Start: 04-26-2024 ambulatory [facility] Start: 04-23-2024 End: 04-23-2024 Office outpatient visit 25 minutes Dominick Khoury PA-C [facility] Phone: [facility] Start: 03-30-2024 End: 03-30-2024 Office outpatient visit 15 minutes Dominick Khoury PA-C Work Phone: [facility] Start: 03-30-2024 Review Dominick Khoury P A-C Work Phone: [facility]. Start: 03-25-2024 End: 03-25-2024 Medication Dominick Khoury PA-C Work Phone: [facility] Start: 03-19-2024 End: 03-19-2024 Office outpatient visit 15 minutes Dominick Khoury PA-C Work Phone: [facility] Start: 03-18-2024 End: 03-18-2024 ambulatory YAHYA [facility]DALIEH [facility] Start: 03-18-2024 End: 03-18-2024 Subsequent hospital visit by physician Sonny Quesada MD Work Phone: [facility] Comment on above: Arrived Start: 03-15-2024 End: 03-15-2024 ambulatory YAHYA [facility] Start: 03-15-2024 End: 03-15-2024 Subsequent hospital visit by physician Sonny Quesada MD Work Phone: [facility] Comment on above: Arrived Start: 03-10-2024 End: 03-10-2024 ambulatory YAHYA BAKDALIEH [facility] Start: 03-10-2024 End: 03-10-2024 Subsequent hospital visit by physician Sonny Quesada MD Work Phone: [facility] Comment on above: Arrived Start: 03-09-2024 End: 03-09-2024 Office outpatient visit 25 minutes Dominick Khoury PA-C [facility] Start: 03-08-2024 End: 03-08-2024 ambulatory YAHYA [facility] Start: 03-08-2024 End: 03-08-2024 Subsequent hospital visit by physician Sonny Quesada MD Work Phone: [facility] Comment on above: Arrived Start: 03-05-2024 End: 03-05-2024 ambulatory YAHYA EMILLIEH [facility] Start: 03-05-2024 End: 03-05-2024 Subsequent hospital visit by physician Sonny Quesada MD Work Phone: [facility] Comment on above: Arrived Start: 03-01-2024 End: 03-01-2024 ambulatory YAHYA EMILLIEH [facility] Start: 03-01-2024 End: 03-01-2024 Subsequent hospital visit by physician Sonny Quesada MD Work Phone: [facility] Comment on above: Arrived Start: 02-27-2024 End: 02-27-2024 ambulatory YAHYA EMILLIEH [facility] Start: 02-27-2024 End: 02-27-2024 Subsequent hospital visit by physician Sonny Quesada MD Work Phone: [facility] Comment on above: Arrived Start: 02-26-2024 ambulatory YAHYA BAKDALIEH [facility] Start: 02-23-2024 ambulatory YAHYA BAKDALIEH [facility] Start: 02-19-2024 End: 02-19-2024 ambulatory YAHYA EMILLIEH [facility] Start: 02-19-2024 End: 02-19-2024 Subsequent hospital visit by physician Sonny Quesada MD Work Phone: [facility] Comment on above: Arrived Start: 02-16-2024 End: 02-16-2024 ambulatory YAHYA BAKDALIEH [facility] Start: 02-16-2024 End: 02-16-2024 Subsequent hospital visit by physician Sonny Quesada MD Work Phone: [facility] Comment on above: Arrived Start: 02-12-2024 ambulatory YABETHA VARINDEREH [facility] Start: 02-10-2024 ambulatory YAHYA VARINDEREH [facility] Start: 02-06-2024 End: 02-06-2024 ambulatory ARICA JANES [facility] Start: 02-06-2024 End: 02-06-2024 Subsequent hospital visit by physician Sonny Quesada MD Work Phone: [facility] Comment on above: Arrived Start: 02-05-2024 End: 02-05-2024 ambulatory ARICA JANES [facility] Start: 02-05-2024 End: 02-05-2024 Subsequent hospital visit by physician Sonny Quesada MD Work Phone: [facility] Comment on above: Arrived Start: 02-03-2024 End: 02-03-2024 ambulatory Glo Lopes Facility:[facility] Start: 01-30-2024 End: 01-30-2024 ambulatory ARICA JNAES [facility] Start: 01-30-2024 End: 01-30-2024 Subsequent hospital visit by physician Sonny Quesada MD Work Phone: [facility] Comment on above: Arrived Start: 01-15-2024 ambulatory ARICA JANES [facility] Start: 12-31-2023 End: 12-31-2023 Subsequent hospital visit by physician Sonny Quesada MD Work Phone: [facility] Comment on above: Chronic bilateral lo w back pain without sciatica Start: 12-31-2023 End: 12-31-2023 ambulatory YAHYA JANES [facility] Start: 12-19-2023 End: 12-19-2023 Telephone follow-up Dominick Khoury PA-C Work Phone: [facility] Start: 12-16-2023 End: 12-16-2023 Emergency department patient visit WILEY VANCE [facility] Start: 12-15-2023 End: 12-15-2023 Telephone follow-up Dominick Khoury PA-C Work Phone: [facility] Start: 12-12-2023 End: 12-12-2023 Emergency department patient visit MELVIN Skelton KARI [facility] Start: 11-03-2023 End: 11-03-2023 Telephone follow-up Dominick Khoury PA-C Work Phone: [facility] Start: 10-28-2023 End: 10-29-2023 Emergency department patient visit NATTY PHILLIPS [facility] Start: 10-24-2023 Review Dominick Khoury P A-C Work Phone: [facility] Start: 10-17-2023 End: 10-17-2023 Office outpatient visit 25 minutes Dominick Khoury PA-C Work Phone: [facility] Start: 10-17-2023 Follow-up encounter Dominick Be an PA-C Work Phone: [employer] Start: 10-16-2023 Review Dominick Khoury P A-C Work Phone: [facility] Start: 10-03-2023 End: 10-03-2023 ambulatory NIR VILLAGOMEZ [facility] Start: 10-03-2023 End: 10-03-2023 Office outpatient new 30 minutes Nir Villagomez MD Work Phone: [facility] Comment on above: Macromastia (Primary Dx); Developmental breast asymmetry Start: 09-16-2023 End: 09-16-2023 Medication Dominick Khoury PA-C Work Phone: [facility] Start: 09-09-2023 End: 09-09-2023 Orders Dominick Khoury PA-C Work Phone: [facility] Start: 09-02-2023 End: 09-02-2023 Office outpatient visit 15 minutes Dominick Khoury PA-C Work Phone: [facility] Start: 08-15-2023 ambulatory Ruperto Friend Facility :[facility] Start: 08-12-2023 End: 08-12-2023 Patient encounter procedure Dominick Khoury PA-C Work Phone: [facility] Start: 07-29-2023 End: 07-29-2023 Office outpatient visit 15 minutes Dominick Khoury PA-C Work Phone: [facility] Start: 07-11-2023 End: 07-11-2023 Office outpatient visit 15 minutes Dominick Khoury PA-C Work Phone: [facility] Start: 07-11-2023 End: 07-11-2023 Preprocedural examination done Dominick Khoury PA-C Work Phone: [facility]; [facility] Start: 06-06-2023 End: 06-06-2023 Office outpatient visit 15 minutes Dominick Khoury PA-C Work Phone: [facility] Start: 02-25-2023 End: 02-25-2023 Orders Dominick Khoury PA-C Work Phone: [facility] Start: 02-17-2023 End: 02-18-2023 Office outpatient visit 25 minutes Dominick Khoury PA-C Work Phone: [facility] Start: 01-10-2023 End: 01-10-2023 Office outpatient visit 15 minutes Dominick Khoury PA-C Work Phone: [facility] Start: 12-31-2022 End: 01-01-2023 Office outpatient visit 15 minutes Dominick Khoury PA-C Work Phone: [facility] Start: 12-31-2022 End: 01-01-2023 Orders Dominick Khoury PA-C Work Phone: [facility] Start: 12-22-2022 End: 12-22-2022 Orders Dominick Khoury PA-C Work Phone: [facility] Start: 12-20-2022 End: 12-20-2022 Office outpatient visit 15 minutes Dominick Khoury PA-C Work Phone: [facility] Start: 12-13-2022 End: 12-15-2022 Office outpatient visit 15 minutes Dominick Khoury PA-C Work Phone: [facility] Start: 12-06-2022 End: 12-06-2022 Office outpatient visit 15 minutes Dominick Khoury PA-C Work Phone: [facility] Start: 12-05-2022 End: 12-05-2022 Office outpatient visit 15 minutes Dominick Khoury PA-C Work Phone: [facility] Start: 11-22-2022 End: 11-22-2022 Office outpatient visit 15 minutes Dominick Khoury PA-C Work Phone: [facility] Start: 11-01-2022 End: 11-01-2022 Office outpatient visit 15 minutes Dominick Khoury PA-C Work Phone: [facility] Start: 10-30-2022 End: 10-30-2022 Office outpatient visit 10 minutes Dominick Khoury PA-C Work Phone: [facility] Start: 10-11-2022 End: 10-11-2022 Office outpatient visit 15 minutes Dominick Khoury PA-C Work Phone: [facility] Start: 09-13-2022 End: 09-13-2022 Orders Dominick Khoury PA-C Work Phone: [facility] Start: 09-12-2022 End: 09-12-2022 Patient encounter procedure Dominick Khoury PA-C Work Phone: [facility] Start: 09-02-2022 End: 09-02-2022 Office outpatient visit 15 minutes Dominick Khoury PA-C Work Phone: [facility] Start: 08-16-2022 End: 08-16-2022 Orders Dominick Khoury PA-C Work Phone: [facility]. Start: 08-13-2022 End: 08-13-2022 Office outpatient visit 15 minutes Dominick Khoury PA-C Work Phone: [facility] Start: 07-16-2022 End: 07-16-2022 Office outpatient visit 15 minutes Dominick Khoury PA-C Work Phone: [facility] Start: 06-13-2022 End: 06-13-2022 Historical Summary Dominick Khoury PA-C Work Phone: [facility] Start: 06-11-2022 End: 06-11-2022 Office outpatient visit 15 minutes Dominick Khoury PA-C Work Phone: [facility] Start: 05-22-2022 End: 05-22-2022 Emergency department patient visit No Primary Care Physician [facility]Emergency Department Start: 05-20-2022 End: 05-20-2022 Office outpatient visit 15 minutes Dominick Khoury PA-C Work Phone: [facility] Start: 05-17-2022 End: 05-17-2022 Office outpatient visit 15 minutes Dominick Khoury PA-C Work Phone: [facility]. Start: 04-16-2022 End: 04-16-2022 ambulatory No Primary Care Physician [facility] Work Phone: Start: 04-16-2022 End: 04-16-2022 Patient encounter procedure No Primary Care Physician [facility]Nuclear Medicine, [facility] Start: 04-11-2022 End: 04-11-2022 Patient encounter procedure No Primary Care Physician [facility] [facility] Start: 03-08-2022 End: 03-08-2022 Patient encounter procedure No Primary Care Physician [facility]-Laboratory Start: 03-08-2022 End: 03-08-2022 Patient encounter procedure No Primary Care Physician [facility] Start: 03-07-2022 End: 03-07-2022 Patient encounter procedure Dominick Khoury PA-C Work Phone: [facility]. Start: 01-11-2022 End: 01-11-2022 Orders Dominick Khoury PA-C Work Phone: [facility] Start: 01-01-2022 End: 01-01-2022 Office outpatient visit 15 minutes Dominick Khoury PA-C Work Phone: [facility] Start: 12-31-2021 End: 12-31-2021 Office outpatient visit 25 minutes Dominick Khoury PA-C Work Phone: [facility] Start: 12-10-2021 End: 12-10-2021 Patient encounter procedure Dominick Khoury PA-C Work Phone: [facility] Start: 12-06-2021 End: 12-06-2021 Office outpatient visit 25 minutes Dominick Khoury PA-C Work Phone: [facility] Start: 11-01-2021 End: 11-01-2021 Periodic preventive med est patient 18-39 yrs Dominick Khoury PA-C Work Phone: [facility] Start: 11-01-2021 End: 11-01-2021 Physical examination Dominick Khoury PA-C Work Phone: [facility]; [facility]. Start: 10-10-2021 End: 10-10-2021 Medication Dominick Khoury PA-C Work Phone: [facility] Start: 10-04-2021 End: 10-04-2021 Office outpatient visit 15 minutes Dominick Khoury PA-C Work Phone: [facility] Start: 07-27-2021 End: 07-27-2021 Office outpatient visit 15 minutes Dominick Khoury PA-C Work Phone: [facility]. Start: 07-23-2021 End: 07-23-2021 Office outpatient new 30 minutes Dominick Khoury PA-C Work Phone: [facility]. Start: 04-28-2021 End: 04-28-2021 Emergency department patient visit Jessy Landa Facility:[facility] Start: 09-01-2019 End: 09-01-2019 Patient encounter procedure Provider [facility] Start: 09-01-2019 Results Only Provider [facility] Department Admission to same da y surgery [place] Dominick Khoury PA-C Work Phone: [employer] Admission to same da y surgery [place] Jemima Victoria [facility].; [employer] - teamwork across global offices [facility], [facility]. Admission to same da y surgery center Amanda Adorno MA [employer] - teamwork across global offices [facility].; [employer] teamwork across global offices [facility], Inc[facility] Admission to same da y surgery center Jemima Victoria MA [employer] [facility].; [employer] teamwork across global offices [facility], [facility]. Admission to same da y surgery center Amanda Adorno MA [facility].; [employer] teamwork across global offices [facility], Inc[facility] Admission to same da y surgery center Eva Ayala RN [facility].; [employer] teamwork across global offices [facility], [facility] Admission to same da y surgery center Jemima Victoria MA [employer] teamwork across global offices [facility].; [employer]. Admission to same da y surgery [place] Manisha Torres LPN [employer] [facility].; [employer] teamwork across global offices [facility], Inc[facility] Follow-up encounter Dominick forrest PA-C Work Phone: [employer] [facility].; [employer] Follow-up encounter Amanda Adorno MA [facility] [employer] [facility].; [employer] Procedures Date Procedure Procedure Detail Performing Clinician Start: 09-30-2024 Urinalysis MELVIN JANE Comment on above: Result Comment: URIN ALYSIS Performed By: #### [id number] #### [facility],[address] [place] [address] Start: 07-22-2023 End: 07-22-2023 Left lumbar 5- sacral 1 laminotomy, discectomy Jeimma Victoria MA Start: 02-17-2023 End: 02-17-2023 Screening for depression performed Crystal K Uptain CNM Work Phone: Start: 01-10-2023 End: 01-10-2023 Ketorolac tromethamine inj Erik friend PA-C Work Phone: Start: 12-20-2022 End: 12-20-2022 Ob care antepartum vag dlvr & Crystal K Uptain CNM Work Phone: Start: 12-13-2022 End: 12-15-2022 Ob care antepartum vag dlvr & Crystal K Uptain CNM Work Phone: Start: 12-06-2022 End: 12-06-2022 Ob care antepartum vag dlvr & Crystal K Uptain CNM Work Phone: Start: 11-22-2022 End: 11-22-2022 Ob care antepartum vag dlvr & Crystal K Uptain CNM Work Phone: Start: 11-01-2022 End: 11-01-2022 Ob care antepartum vag dlvr & Crystal K Uptain CNM Work Phone: Start: 10-11-2022 End: 10-11-2022 Ob care antepartum vag dlvr & Crystal K Uptain CNM Work Phone: Start: 09-12-2022 End: 09-13-2022 Us preg uterus after 1st trimest 06/02 gestation Jacky Munoz MD Work Phone: Start: 09-12-2022 End: 09-12-2022 Ob care antepartum vag dlvr & Jacky Munoz MD Work Phone: Start: 08-13-2022 End: 08-13-2022 Ob care antepartum vag dlvr & Crystal K Uptain CNM Work Phone: Start: 07-16-2022 End: 07-16-2022 Ob care antepartum vag dlvr & Crystal K Uptain CNM Work Phone: Start: 06-11-2022 End: 06-14-2022 uterus 14 wk transabdl 06/02 gestat Crystal K Uptain CNM Work Phone: Start: 06-11-2022 End: 06-11-2022 Ob care antepartum vag dlvr & Crystal K Uptain CNM Work Phone: Start: 05-17-2022 End: 05-20-2022 uterus 14 wk transabdl 06/02 gestat Crystal K Uptain CNM Work Phone: Start: 05-17-2022 End: 05-17-2022 Ob care antepartum vag dlvr & Crystal K Uptain CNM Work Phone: Start: 04-16-2022 Radionuclide imaging of liver and/or biliary tract using radioactive isotope No Primary Care Physician Start: 11-01-2021 End: 11-01-2021 Depression screening Dominick Khoury PA-C Work Phone: Start: 11-01-2021 End: 11-01-2021 Scr dep neg, no plan reqd Dominick Khoury PA-C Work Phone: Start: 10-04-2021 End: 10-10-2021 Ct abdomen & pelvis w/contrast material Dominick Khoury PA-C Work Phone: Start: 09-01-2019 HEMOGLOBIN A1C WITH EAG Provider [facility] Start: 09-01-2019 LIPID PANEL BASIC Provi leo [facility] Start: 06-02-2019 End: 06-02-2019 wisdom teeth Manisha Torres LPN Start: 06-02-2013 End: 06-02-2013 Tonsillectomy Manisha Torres LPN Start: 06-02-2010 End: 06-02-2010 Appendectomy Manisha Torres LPN H/O: section S/P Ariana Torres LPN H/O: section S/P Lorri daniels Peng PA-C Work Phone: H/O: section S/P Lorri daniels Khoury PA-C Work Phone: H/O: section S/P Kevin Adorno MA H/O: section S/P Mady Victoria MA H/O: section S/P Mady Victoria MA H/O: section S/P Kevin Adorno MA H/O: section S/P Mady Victoria MA H/O: section S/P Kevin albert Adorno MA H/O: section S/P Jorje Ayala RN H/O: section S/P Mady Victoria MA H/O: section 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 H/O: section S/P Mady Victoria MA H/O: section S/P Kevin Adorno MA Microscopic examinat ion of cervical Papanicolaou smear Manisha Torres LPN Comment on above: never Microscopic examinat ion of cervical Papanicolaou smear Jemima Victoria MA Comment on above: never Microscopic examinat ion of cervical Papanicolaou smear Jemima Victoria MA Comment on above: never Microscopic examinat ion of cervical Papanicolaou smear Jemima Victoria MA Comment on above: never Microscopic examinat ion of cervical Papanicolaou smear Jemima Victoria MA Comment on above: never Microscopic examinat ion of cervical Papanicolaou smear Jemima Victoria MA Comment on above: never Microscopic examinat ion of cervical Papanicolaou smear Jemima Victoria MA Comment on above: never Plan of Treatment Date Care Activity Detail Author Start: 2061 RSV Immunization aged 60 or older (1 - 1-dose 60+ series) RSV Immunization aged 60 or older (1 - 1-dose 60+ series) [facility] Start: 11-16-2051 Zoster Vaccines (1 of 2) Zoster Vaccines (1 of 2) [facility] Start: 11-22-2032 Administration of diphtheria + tetanus + acellular pertussis vaccine DTAP/TDAP/TD VACCINE (7 - Td or Tdap) [facility] Start: 11-22-2032 DTaP/Tdap/Td Vaccines (7 - Td or Tdap) DTaP/Tdap/Td Vaccines (7 - Td or Tdap) [facility] Start: 11-22-2032 Urine microalbumin profile DTaP,Tdap,Td Vaccine (7 - Td or Tdap) [facility] Start: 01-31-2025 Influenza vaccination Influenza Vaccine (Season Ended) [facility] Start: 12-01-2024 End: 12-01-2024 Patient encounter procedure 12/01/2024 1:00 PM EDT Office Visit [facility] [address] [place] [address] [address] CAST[address] [place] [address] Armen Godwin MD [address] [place] [address] lumbar microdiscectomy [facility] Comment on above: lumbar microdiscectomy Start: 11-04-2024 End: 11-04-2024 Patient encounter procedure 11/04/2024 2:00 PM EDT Office Visit [facility] [address] [place] [address] [address] CASTANO SH[address] [place] [address] Armen Godwin MD [address] [place] [address] lumbar microdiscectomy [facility] Comment on above: lumbar microdiscectomy Start: 10-19-2024 End: 10-19-2024 Patient encounter procedure 10/19/2024 10:45 AM EDT Office Visit [facility] [address] [place] [address] DR OMAIRA [address]HE [address] [place] [address] Lulú Edmonds, PHARMACY AFFAIRS ASSISTANT.E MERCHANT [address] [place] [address] [place] [address] lumbar microdiscectomy-SX 10/05/2024 [facility] Comment on above: lumbar microdiscectomy-SX 10/05/2024 Start: 10-05-2024 End: 10-05-2024 Lamot prtl ffd exc disc reexpl 1 ntrspc lumbar OPEN HEMILAMINECTOMY LUMBAR W/ DECOMPRESS W/ PART DISC EXC 1 INTRSPACE Lumbar radiculopathy 10/05/2024 9:15 AM EDT MR OR Start: 06-07-2024 Patient encounter procedure Medical; EXTENDED RTN - pre-op 06/18 breast reduction (pt has form) [facility] Start: 07-Jun-2024 09:50-05:00 ANÍBAL Khoury [facility]ment [facility] Start: 04-23-2024 End: 04-27-2024 Polysom 6/>yrs sleep 4/> addl elizabeth attnd [facility]; [facility] Start: 03-25-2024 End: 03-25-2024 Patient encounter procedure 03/25/2024 2:40 PM EDT Office Visit [facility] [address] [facility] [place] [address] Sonny Quesada MD [address] [place] [address] Porfirio Brar, E MERCHANT [address] [place] [address] Discharge Disposition: Home or Self Care [facility] Start: 03-18-2024 End: 03-18-2024 Patient encounter procedure 03/18/2024 12:00 PM EDT Appointment [facility] [address] [place] [address] Sonny Quesada MD [address] [place] [address] Jolie Birch, PT [facility] Start: 03-15-2024 End: 03-15-2024 Patient encounter procedure 03/15/2024 12:30 PM EDT Appointment [facility] [address] [place] [address] Sonny Quesada MD [address] [place] [address] Blake Looney2, Yuly, AIR CREW MEMBER Discharge Disposition: Home or Self Care [facility] Start: 03-10-2024 End: 03-10-2024 Patient encounter procedure 03/10/2024 1:30 PM EDT Appointment [facility] [address] [place] [address] Sonny Quesada MD [address] [place] [address] [place] [id number], August, [facility] Start: 03-08-2024 End: 03-08-2024 Patient encounter procedure [facility] Start: 03-05-2024 End: 03-05-2024 Patient encounter procedure 03/05/2024 12:30 PM EDT Appointment [facility] [address] [facility] [place] [address] [place] [address] [place] [id number] Donavon Valdivia, PT [facility] Start: 03-01-2024 End: 03-01-2024 Patient encounter procedure 03/01/2024 1:30 PM EDT Appointment [facility] [address] [place] [address] [place] [address] [place] [id number] Jolie Birch PT Discharge Disposition: Home or Self Care [facility] Start: 02-27-2024 End: 02-27-2024 Patient encounter procedure 02/27/2024 12:00 PM EDT Appointment [facility] [address] [place] [address] Sonny Quesada MD [address] [place] [address] Jolie Birch, PT [facility] Start: 02-26-2024 End: 02-26-2024 Patient encounter procedure [facility] Start: 02-23-2024 End: 02-23-2024 Patient encounter procedure [facility] Start: 02-19-2024 End: 02-19-2024 Patient encounter procedure 02/19/2024 11:30 AM EDT Appointment [facility] [address] [facility] [address] [facility] [place] [address] Sonny Quesada MD [address] [place] [address] Jolie Birch, PT [facility] Start: 02-16-2024 End: 02-16-2024 Patient encounter procedure 02/16/2024 1:00 PM EDT Appointment [facility] [address] [facility] [place] [address] Sonny Quesada MD [address] [place] [address] Yuly Zafar, AIR CREW MEMBER Discharge Disposition: Home or Self Care [facility] Start: 02-12-2024 End: 02-12-2024 Patient encounter procedure 02/12/2024 11:30 AM EDT Appointment [facility] [address] [facility] [address] [facility] [place] [address] Sonny Quesada MD [address] [facility] [place] [address] Jolie Birhc, PT [facility] Start: 02-10-2024 End: 02-10-2024 Patient encounter procedure 02/10/2024 12:30 PM EDT Appointment [facility] [address] [facility] [address] Sonny Quesada MD [address] [place] [address] Kwabena Box, [facility] Start: 02-06-2024 End: 02-06-2024 Patient encounter procedure 02/06/2024 11:30 AM EDT Appointment [facility] [address] [place] [address] Sonny Quesada MD [address] [place] [address] Kwabena Box PTA [facility] Start: 02-05-2024 End: 02-05-2024 Patient encounter procedure 02/05/2024 11:30 AM EDT Appointment [facility] [address] [place] [address] Sonny Quesada MD [address] [place] [address] [place] [id number], [facility] Start: 02-01-2024 COVID-19 VACCINE ( season) COVID-19 VACCINE ( season) [facility] Start: 02-01-2024 Covid-19 Vaccine ( season) Covid-19 Vaccine ( season) [facility] Start: 02-01-2024 Influenza vaccination Influenza Vaccine (Season Ended) [facility] Start: 02-01-2024 Influenza vaccination given INFLUENZA VACCINE (#1) [facility] Start: 01-09-2024 End: 01-09-2024 Patient encounter procedure 01/09/2024 11:00 AM EDT Office Visit [facility] [address] [place] [id number] Leela Ugalde PA-C [address] [facility] [address] [place], [place] [id number] [facility] Start: 11-24-2023 25 hydroxy includes fractions if performed Vitamin D, 25-Hydroxy, LC/MS/MS (94150) Start: 24-Nov-2023 Request [facility]; [facility] Start: 11-24-2023 Blood count complete auto&auto difrntl wbc CBC, PLATELETS & AUT DIFF (F) (83680) Start: 24-Nov-2023 Request [facility]; [facility] Start: 11-24-2023 Nursing evaluation of patient and report Medical; Nurse visit - labs-RJB [facility] Start: 24-Nov-2023 13:00-04:00 NURSE, FLOAT Appointment [facility] Start: 10-17-2023 Patient encounter procedure Medical; EXTENDED RTN - rtn for meds [facility] Start: 17-Oct-2023 13:10-04:00 ANÍBAL Khoury Appointment Request [facility] Start: 09-02-2023 25 hydroxy includes fractions if performed Vitamin D, 25-Hydroxy, LC/MS/MS (35422) Start: 02-Sep-2023 15:02-04:00 Request [facility]; [facility] Start: 09-02-2023 Cyanocobalamin vitamin b-12 VITAMIN B-12 SERUM (77014) Start: 02-Sep-2023 15:02-04:00 Request [facility]; [facility] Start: 09-02-2023 Assay of thyroid stimulating hormone tsh TSH W/ REFL FREE T4 (83844,14685) ([id number]) Start: 02-Sep-2023 15:02-04:00 [facility] Start: 09-02-2023 Assay of ferritin IRON DEFICIENCY PROFILE (18437,[id number]) Start: 02-Sep-2023 15:02-04:00 Request [facility] [employer] Start: 09-02-2023 Hemoglobin glycosylated a1c HEMOGLOBIN A1C* (39498) Start: 02-Sep-2023 15:02-04:00 Request [facility] [employer] Start: 09-02-2023 Comprehensive metabolic panel CMP w/ GFR* (28997) Start: 02-Sep-2023 15:01-04:00 Request [facility] [employer] Start: 09-02-2023 Blood count complete auto&auto difrntl wbc CBC, PLATELETS & AUT DIFF (F) (09938) Start: 02-Sep-2023 15:01-04:00 Request [facility] [employer] Start: 07-29-2023 Culture bacterial quanttative colony count urine Urine Culture (04461) Start: 29-Jul-2023 14:58-05:00 Request [facility] [employer] Start: 07-11-2023 Patient encounter procedure Medical; EXTENDED RTN - pre-op 07/22 Dr Muniz [employer] Start: 11-Jul-2023 14:20 ANÍBAL Khoury Appointment Request [facility]. Start: 01-31-2023 COVID-19 Vaccine () COVID-19 Vaccine () [facility] Start: 2022 Screening for malignant neoplasm of cervix [facility] Start: 11-02-2022 ANNUAL WELLNESS VISIT ANNUAL WELLNESS VISIT [facility] Start: 09-13-2022 Assay of free thyroxine [facility] [employer] Start: 05-22-2022 [facility] Work Phone: Start: 11-16-2019 Anxiety Screening Anxiety Screening [facility] Start: 11-16-2019 Depression Screening Depression Screening [facility] Start: 11-16-2019 GC (Gonorrhea) Screening (18-24) GC (Gonorrhea) Screening (18-24) [facility] Start: 11-16-2019 Hepatitis C screening Hepatitis C Screening [facility] Start: 11-16-2019 HIV screening HIV Screening [facility] Start: 11-16-2019 Screening for Chlamydia trachomatis Chlamydia Screening (18-24) [facility] Start: 2017 Meningococcal B Vaccine (1 of 2 - Standard) Meningococcal B Vaccine (1 of 2 - Standard) [facility] Start: 2017 Screening for Chlamydia trachomatis CHLAMYDIA SCREENING [facility] Start: 2016 HPV Vaccine (1 - 3-dose series) HPV Vaccine (1 - 3-dose series) [facility] Start: 2016 HPV Vaccines (1 - 3-dose series) [facility] Start: 11-16-2015 Peds To Adult Transition Annual Assessment Peds To Adult Transition Annual Assessment [facility] Start: 2013 Depression Screening Depression Screening [facility] Start: 2013 Depression screening using PHQ-9 (Patient Health Questionnaire 9) score DEPRESSION SCREENING [facility] Start: 2013 Peds To Adult Transition Initial Discussion Peds To Adult Transition Initial Discussion [facility] Start: 11-16-2007 Pneumococcal Vaccine: Pediatrics (0 to 5 Years) and At-Risk Patients (6 to 64 Years) (1 of 2 - PCV) Pneumococcal Vaccine: Pediatrics (0 to 5 Years) and At-Risk Patients (6 to 64 Years) (1 of 2 - PCV) [facility] Start: 2001 HIV screening HIV Screening [facility] Start: 2001 Lipid panel Lipid Panel [facility] Start: 2001 Screening for malignant neoplasm of cervix PAP SMEAR [facility] Bacteria identified in Urine by Culture Urine Culture [facility] Work Phone: C reactive protein [Mass/volume] in Serum or Plasma [facility] Work Phone: Elastase, pancreatic (el-1), fecal; quantitative [facility] Work Phone: Fat [Presence] in Stool [facility] Work Phone: Helicobacter pylori Ag [Presence] in Stool by Immunoassay [facility] Work Phone: Lactoferrin [Presenc e] in Stool by Immunoassay [facility] Work Phone: Patient Education ED Abdominal P ain Unkn Cause Fem ED Lower GI Bleeding (Stable) ED Vomiting (Adult) [facility] Work Phone: Patient referral [facility] Work Phone: Protein measurement [facility] Work Phone: End: 11-04-2025 XR Lumbar spine AP and Lateral XR LUMBAR LIMITED 2V AP/LAT Radiology Routine S/P lumbar microdiscectomy 1 Occurrences starting 10/05/2024 until 11/04/2025 [facility] Work Phone: Comment on above: 1 Occurrences starting 10/05/2024 until 11/04/2025 End: 12-31-2023 XR Lumbar spine Views W flexion and W extension [facility] Work Phone: Comment on above: 1 Occurrences starting 12/31/2023 until 12/31/2023 Immunizations Immunization Date Immunization Notes Care Provider Benjamin boyd 11-22-2022 tetanus toxoid, redu sigifredo diphtheria toxoid, and acellular pertussis vaccine, adsorbed Dominick Khoury PA-C Work Phone: [employer]; [facility]. Comment on above: Site: Left ArmVIS Gi chevy: * Tdap (01/05/21) 01-19-2007 diphtheria, tetanus toxoids and acellular pertussis vaccine Dominick Khoury PA-C Work Phone: [employer]; [facility] 01-19-2007 measles, mumps, rubella, and varicella virus vaccine Dominick Khoury PA-C Work Phone: [employer]; [facility] 01-19-2007 poliovirus vaccine, inactivated Dominick Khoury PA-C Work Phone: [employer]; [facility] 04-22-2005 haemophilus influenz ae type b vaccine, PRP-T conjugate Dominick Khoury PA-C Work Phone: [facility] 04-22-2005 varicella virus vaccine Nevin cca Khoury PA-C Work Phone: [facility] 07-19-2003 diphtheria, tetanus toxoids and acellular pertussis vaccine Dominick Khoury PA-C Work Phone: [facility] 07-19-2003 poliovirus vaccine, inactivated Dominick Khoury PA-C Work Phone: [facility] 11-25-2002 hepatitis B vaccine, pediatric or pediatric/adolescent dosage Dominick Khoury PA-C Work Phone: [facility] 11-25-2002 measles, mumps and rubella virus vaccine Dominick Khoury PA-C Work Phone: [facility] 07-22-2002 diphtheria, tetanus toxoids and acellular pertussis vaccine Dominick Khoury PA-C Work Phone: [facility] 07-22-2002 diphtheria, tetanus toxoids and acellular pertussis vaccine, unspecified formulation Nir Villagomez MD Work Phone: [facility] 07-22-2002 haemophilus influenz ae type b vaccine, conjugate unspecified formulation Nir Villagomez MD Work Phone: [facility] 07-22-2002 haemophilus influenz ae type b vaccine, PRP-T conjugate Dominick Khoury PA-C Work Phone: [facility].; [facility] 04-27-2002 diphtheria, tetanus toxoids and acellular pertussis vaccine Dominick Khoury PA-C Work Phone: [facility].; [facility] 04-27-2002 diphtheria, tetanus toxoids and acellular pertussis vaccine, unspecified formulation Nir Villagomez MD Work Phone: [facility] 04-27-2002 haemophilus influenz ae type b vaccine, conjugate unspecified formulation Nir Villagomez MD Work Phone: [facility] 04-27-2002 haemophilus influenz ae type b vaccine, PRP-T conjugate Dominick Khoury PA-C Work Phone: [facility].; [facility] 04-27-2002 poliovirus vaccine, inactivated Dominick Khoury PA-C Work Phone: [facility]; [facility] 01-22-2002 diphtheria, tetanus toxoids and acellular pertussis vaccine Dominick Khoury PA-C Work Phone: [facility].; [facility] 01-22-2002 diphtheria, tetanus toxoids and acellular pertussis vaccine, unspecified formulation Nir Villagomez MD Work Phone: [facility] 01-22-2002 haemophilus influenz ae type b conjugate and Hepatitis B vaccine Dominick Khoury PA-C Work Phone: [facility].; [facility] 01-22-2002 poliovirus vaccine, inactivated Dominick Khoury PA-C Work Phone: [facility].; [facility] 2001 hepatitis B vaccine, pediatric or pediatric/adolescent dosage Dominick Khoury PA-C Work Phone: [facility].; [facility] Payers Date Payer Category Payer Medicaid [id number] 2022 Medicaid [id number] 2021 Self-pay 2021 Unknown [id number] 2001 Unknown [id number] 2.16. 840.1.285027.3.579.2.297 2001 Unknown [id number] 2.16. 840.1.196104.3.579.2.297 2001 Unknown [id number] 2.16. 840.1.307879.3.579.2.297 2001 Unknown [id number] 2.16. 840.1.388522.3.579.2.297 2001 Unknown [id number] 2.16. 840.1.629609.3.579.2.297 2001 Unknown [id number] 2.16. 840.1.433876.3.579.2.297 2001 Unknown [id number] 2.16. 840.1.835247.3.579.2.297 2001 Unknown [id number] 2.16. 840.1.202318.3.579.2.297 2001 Unknown [id number] 2.16. 840.1.883897.3.579.2.297 2001 Unknown [id number] 2.16. 840.1.461311.3.579.2.297 2001 Unknown [id number] 2.16. 840.1.042793.3.579.2.297 2001 Unknown [id number] 2.16. 840.1.085610.3.579.2.297 2001 Unknown [id number] 2.16. 840.1.795502.3.579.2.297 2001 Unknown [id number] 2.16. 840.1.732992.3.579.2.297 2001 Unknown [id number] 2.16. 840.1.370359.3.579.2.297 2001 Unknown [id number] 2.16. 840.1.558456.3.579.2.297 2001 Unknown [id number] 2.16. 840.1.598644.3.579.2.297 2001 Unknown [id number] 2.16. 840.1.181670.3.579.2.297 2001 Unknown [id number] 2.16. 840.1.691335.3.579.2.297 2001 Unknown [id number] 2.16.8 40.1.802639.3.579.2.627 2001 Unknown [id number] 2.16.8 40.1.384982.3.579.2.651 2001 Unknown [id number] 2.16.8 40.1.514105.3.579.2.651 2001 Unknown [id number] 2.16.8 40.1.122970.3.579.2.651 2001 Unknown [id number] 2.16.8 40.1.677158.3.579.2.651 2001 Unknown [id number] 2.16.8 40.1.042238.3.579.2.651 Private Health Insurance [employer] [id number] Unknown [id number] 2.16.8 40.1.294068.3.579.2.921 Unknown [id number] 2.16.8 40.1.523927.3.579.2.462 Unknown [id number] 2.16.8 40.1.214311.3.579.2.462 Unknown [id number] 2.16.8 40.1.124110.3.579.2.462 Unknown [id number] 2.16.8 40.1.306623.3.579.2.462 Unknown [id number] 2.16.8 40.1.967417.3.579.2.462 Unknown [id number] 2.16.8 40.1.687035.3.579.2.462 Unknown [id number] 2.16.8 40.1.897151.3.579.2.462 Unknown [id number] 2.16.8 40.1.154760.3.579.2.462 Unknown [id number] 2.16.8 40.1.506087.3.579.2.462 Unknown [id number] 2.16.8 40.1.706553.3.579.2.462 Unknown [id number] 2.16.8 40.1.767532.3.579.2.462 Unknown [id number] 2.16.8 40.1.887288.3.579.2.462 Social History Date Type Detail Facility Tobacco smoking stat us HIIS Unknown if ever smoked [facility] Start: 2001 Sex Assigned At Not on file [facility] Start: 04-11-2022 End: 05-22-2022 Tobacco smoking status NHIS Unknown if ever smoked [facility] Work Phone: Start: 2001 Sex Assigned At Female [facility] Start: 10-03-2023 End: 09-30-2024 Child(garo) Child(garo) [facility]. Start: 12-31-2019 End: 12-31-2023 Tobacco smoking status HIIS Smokes tobacco daily [facility] Start: 12-31-2019 History of tobacco use Cigarette Smoker [facility] Start: 10-03-2023 End: 09-30-2024 Tobacco use panel [facility] Start: 09-26-2023 Gender identity Identifies as female gender (finding) [facility] Start: 09-26-2023 Sexual orientation Bisexual (finding) [facility] Start: 12-31-2023 Tobacco use and exposure Smokeless tobacco non-user [facility] Start: 12-31-2023 Alcoholic beverage intake Lifetime non-drinker (finding) [facility] Start: 10-05-2024 End: 11-04-2024 Alcoholic beverage intake Current non-drinker of alcohol (finding) [facility] Has the [employer] oil, or water company threatened to shut off services in your home in past 12Mo No [facility] (I/We) worried wheth er (my/our) food would run out before (I/we) got money to buy more. Never true [facility] In the past 12 month s, has lack of transportation kept you from medical appointments or from getting medications? No [facility] Functional Status Date Assessment Result Facility 10-24-2024 Are you deaf, or do you have serious difficulty hearing No 10/24/2024 6:18 PM EDT Amanda Mcmanus RN No [facility] 10-24-2024 Are you blind, or do you have serious difficulty seeing, even when wearing glasses No 10/24/2024 6:18 PM EDT Amanda Mcmanus, REY No [facility] 10-24-2024 Do you have serious difficulty walking or climbing stairs No 10/24/2024 6:18 PM EDT Amanda Mcmanus RN No [facility] 10-24-2024 Do you have difficul ty dressing or bathing No 10/24/2024 6:18 PM EDT Amanda Mcmanus, RN No [facility] 10-24-2024 Because of a physica l, mental, or emotional condition, do you have difficulty doing errands alone such as visiting a physician's office or shopping No 10/24/2024 6:18 PM EDT Amanda Mcmanus, RN No [facility] Mental Status Date Assessment Result Facility 10-24-2024 Because of a physica l, mental, or emotional condition, do you have serious difficulty concentrating, remembering, or making decisions No 10/24/2024 6:18 PM EDT Amanda Mcmanus RN No [facility] Clinical Notes 10-03-2023 to 11-23-2024 Telephone Encounter - Dionna Zuniga MA - 11/23/2024 9:09 AM EDTTelephone Encounter - Dionna Zuniga MA - 11/23/2024 9:09 AM Armen Moralez MD - 11/04/2024 3:06 PM EDT Note Date & Type Note Facility 11-23-2024 Telephone encounter Note error [facility] 11-23-2024 Miscellaneous Notes error documented in this encounter [facility] 11-04-2024 Note HNO ID: [id number] Author: ARMEN GODWIN MD Service: ? Author Type: Physician Type: Progress Notes Filed: 11/04/2024 15:11 Note Text: Armen Godwin MD Orthopaedic Spine Surgery [facility], [address], [place] [address] FAX: [phone] Spine Surgery Post-op Follow-up Service Date: 11/04/2024 Surgery Date: 10/24/2024 Surgery(ies): Revision R L4-5 discectomy Pre-operative Symptoms: Right sided radicular pain, right ankle weakness HPI: Ivy Crews is seen for 2 week post operative follow up. She is doing well. Radicular pain has improved, but not resolved. Numbness has improved. Endorses continued pain in the lumbar spine. Strength has improved. ALLERGIES Allergen Reactions Penicillin G Hives Current Outpatient Medications Medication Sig Dispense Refill oxyCODONE IR (ROXICODONE) 5 mg immediate release tablet Take 1 tablet by mouth every 6 hours as needed for pain for up to 7 days. 28 tablet 0 methocarbamol (ROBAXIN) 500 mg tablet Take 1 tablet by mouth three times a day. 21 tablet 0 acetaminophen (TYLENOL) 325 mg tablet Take 2 tablets by mouth every 6 hours as needed for pain. 100 tablet 0 lidocaine (SALONPAS) 4 % patch Apply 1 patch as directed once daily. 5 patch 0 naloxone 4 mg/actuation nasal spray (NARCAN) Use 1 spray in one nostril as needed for overdose. May repeat every 2 to 3 min in alternating nostrils until medical assistance is available 2 each 0 hydrOXYzine pamoate (VISTARIL) 25 mg capsule Take 25 mg by mouth three times a day as needed for anxiety. traZODone (DESYREL) 100 mg tablet Take 100 mg by mouth daily at bedtime. No current facility-administered medications for this visit. Physical Examination: Vital Signs: Ht 162.6 cm (5' 4) Wt 99.8 kg (220 lb) BMI 37.76 kg/m? General Appearance: Well nourished, well developed, and no apparent distress. Incision: Clean, dry, and intact. No active drainage. No erythema. Sensory: Sensation intact to light touch in L1-S1 dermatomes. Altered in right L5 dermatome. Motor: Lower Extremities Right Left Psoas (L2) 5 5 Quadriceps (L3) 5 5 Dorsiflexion (L4) 5 5 EHL (L5) 5 5 Plantarflexion (S1) 5 5 Long Tract Signs: No clonus. No Hoffmanns. Reflexes: Symmetric, non-brisk. Imaging No new imaging. Assessment 23 year old female who presents 2 weeks status-post revision right L4-5 microdiscectomy: recovering well. Plan Suture removed at today's visit. Pain medication refills provided. Continue with activity restrictions. Follow-up in 4 weeks. Advised to call the office if symptoms worsen or new symptoms develop. Patient expressed understanding and is in agreement with plan. Armen Godwin MD Orthopaedic Spine Surgery This note was generated all or in part using [employer] voice recognition software and [employer] Dictation software. Please excuse any minor errors in spelling, grammar, or punctuation. [facility] 11-04-2024 History of Presen t illness Narrative Images from the original note were not included. Armen Godwin MD Orthopaedic Spine Surgery [address] [place] [address], [address], [place] [address] FAX: [phone] Spine Surgery Post-op Follow-up Service Date: 11/04/2024 Surgery Date: 10/24/2024 Surgery(ies): Revision R L4-5 discectomy Pre-operative Symptoms: Right sided radicular pain, right ankle weakness HPI: Ivy Crews is seen for 2 week post operative follow up. She is doing well. Radicular pain has improved, but not resolved. Numbness has improved. Endorses continued pain in the lumbar spine. Strength has improved. ALLERGIES Allergen Reactions Penicillin G Hives Current Outpatient Medications Medication Sig Dispense Refill oxyCODONE IR (ROXICODONE) 5 mg immediate release tablet Take 1 tablet by mouth every 6 hours as needed for pain for up to 7 days. 28 tablet 0 methocarbamol (ROBAXIN) 500 mg tablet Take 1 tablet by mouth three times a day. 21 tablet 0 acetaminophen (TYLENOL) 325 mg tablet Take 2 tablets by mouth every 6 hours as needed for pain. 100 tablet 0 lidocaine (SALONPAS) 4 % patch Apply 1 patch as directed once daily. 5 patch 0 naloxone 4 mg/actuation nasal spray (NARCAN) Use 1 spray in one nostril as needed for overdose. May repeat every 2 to 3 min in alternating nostrils until medical assistance is available 2 each 0 hydrOXYzine pamoate (VISTARIL) 25 mg capsule Take 25 mg by mouth three times a day as needed for anxiety. traZODone (DESYREL) 100 mg tablet Take 100 mg by mouth daily at bedtime. No current facility-administered medications for this visit. Physical Examination: Vital Signs: Ht 162.6 cm (5' 4) Wt 99.8 kg (220 lb) BMI 37.76 kg/m General Appearance: Well nourished, well developed, and no apparent distress. Incision: Clean, dry, and intact. No active drainage. No erythema. Sensory: Sensation intact to light touch in L1-S1 dermatomes. Altered in right L5 dermatome. Motor: Lower Extremities Right Left Psoas (L2) 5 5 Quadriceps (L3) 5 5 Dorsiflexion (L4) 5 5 EHL (L5) 5 5 Plantarflexion (S1) 5 5 Long Tract Signs: No clonus. No Hoffmanns. Reflexes: Symmetric, non-brisk. Imaging No new imaging. Assessment 23 year old female who presents 2 weeks status-post revision right L4-5 microdiscectomy: recovering well. Plan Suture removed at today's visit. Pain medication refills provided. Continue with activity restrictions. Follow-up in 4 weeks. Advised to call the office if symptoms worsen or new symptoms develop. Patient expressed understanding and is in agreement with plan. Armen Godwin MD Orthopaedic Spine Surgery This note was generated all or in part using [employer] voice recognition software and [employer] Dictation software. Please excuse any minor errors in spelling, grammar, or punctuation. 23 y/o female presents to office for a routine post op after a lumbar microdiscectomy on 10/24/2024. Patient presents for suture removal. The wound is well healed without signs of infection.The sutures were removed. documented in this encounter [facility] 11-04-2024 Note HNO ID: [id number] Author: DIONNA ZUNIGA MA Service: ? Author Type: [employer] Type: Progress Notes Filed: 11/04/2024 15:11 Note Text: 23 y/o female presents to office for a routine post op after a lumbar microdiscectomy on 10/24/2024. Patient presents for suture removal. The wound is well healed without signs of infection.The sutures were removed. [facility] 10-29-2024 Telephone encounter Note LVM for Ivy to complete xrays prior to her appointment on 11/04/2024 [facility] 10-29-2024 Miscellaneous Notes LVM for Ivy to complete xrays prior to her appointment on 11/04/2024 documented in this encounter [facility] 10-24-2024 Note HNO ID: [id number] Author: ARMEN GODWIN MD Service: Orthopaedic Surgery Author Type: Physician Type: Progress Notes Filed: 10/24/2024 17:12 Note Text: Orthopaedic Spine Surgery Progress Note Patient seen and examined. Pain well-controlled. Pre-op numbness, paresthesias, and pain significantly improved. Strength improved. Motor function 5/5 in all myotomes, improved from pre-op. Patient hopeful for discharge to home this evening. Reviewed activity limitations. Reviewed use of LSO brace. Will observe 1-2 hours and if pain still well-controlled plan for discharge home tonight with follow-up in 2 weeks. Armen Godwin MD Orthopaedic Spine Surgery [facility] 10-24-2024 Note HNO ID: [id number] Author: IVY CHAVES APRN.FISH BIN TENDER Service: Anesthesiology Author Type: Nurse Boom Boss Type: Anesthesia Procedure Notes Filed: 10/24/2024 13:25 Note Text: ANESTHESIOLOGY PROCEDURE NOTE PIV General Information Procedure Start Time/Medication Administration: 10/24/2024 1:20 PM Procedure End Time: 10/24/2024 1:21 PM Patient Location: OR Staffing FISH BIN TENDER: Ivy Chaves APRN.FISH BIN TENDER Performed by: FISH BIN TENDER Preparation Sterility Preparation: hand hygiene performed prior to procedure, surgical cap used, mask used, skin prep agent completely dried prior to procedure Sterility Technique Not Completely Performed Due to Extreme Emergency: No Site Prep: alcohol Procedure Details Indication: need for IV access Needle Size/Type: 20 gauge angiocath Orientation: Left Location: Hand Imaging Guidance Used: No SIGNATURE: Ivy Chaves APRN.FISH BIN TENDER PATIENT NAME: Ivy Crews DATE: October 24, 2024 TIME: 1:24 PM CSN: [id number] [facility] 10-24-2024 Note HNO ID: [id number] Author: IVY CHAVES APRN.FISH BIN TENDER Service: Anesthesiology Author Type: Nurse Boom Boss Type: Anesthesia Procedure Notes Filed: 10/24/2024 13:33 Note Text: ANESTHESIOLOGY PROCEDURE NOTE Airway General Information Procedure Start Time/Medication Administration: 10/24/2024 12:39 PM Procedure End Time: 10/24/2024 12:44 AM Patient location during procedure: OR Timeout Performed Pre-procedure: timeout performed Consent Obtained: Yes Patient identity confirmed: arm band Staffing Anesthesiologist: Antoine Reynaga DO FISH BIN TENDER: Ivy Chaves APRN.FISH BIN TENDER Performed by: anesthesiologist and FISH BIN TENDER Indications and Patient Condition Indications for airway management: anesthesia Preoxygenated: yes anesthesia circuit Patient position: sniffing Method: asleep Final Airway Details Final airway type: endotracheal airway Final Endotracheal Airway: ETT Successful intubation technique: video laryngoscopy Devices used: Innovalight Endotracheal tube insertion site: oral Blade size: #3 ETT size (mm): 7.0 Measured from: lips Measurement (cm): 22 Placement verified by: chest auscultation and capnometry Cormack-Lehane Classification: grade I - full view of glottis Number of attempts at approach: 1 SIGNATURE: Ivy Chaves APRN.CRNA PATIENT NAME: Ivy Crews DATE: October 24, 2024 TIME: 12:45 PM CSN: [id number] [facility] 10-24-2024 Note HNO ID: [id number] Author: ROSA ISELA BECK, REY Service: Nursing Author Type: Registered Nurse Type: Nursing Progress Note Filed: 10/24/2024 10:45 Note Text: Jasper consult called at this time for LSO brace. [facility] 10-19-2024 Note HNO ID: [id number] Author: DONALD RAMIREZ RT(R) Service: ? Author Type: Technologist Type: Progress Notes Filed: 10/19/2024 13:29 Note Text: Radiology Service Progress Note PATIENT NAME: Ivy Crews DATE OF SERVICE: October 19, 2024 TIME: 1:17 PM PATIENT IDENTITY VERIFICATION COMPLETED USING TWO (2) IDENTIFIERS: Name and Date of confirmed by patient verbally. FALL SCREENING: Has the patient had 2 falls in the last year or 1 fall with injury or currently using an Ambulatory Assistive Device (Walker, Cane, Wheelchair, Crutches, etc.)? No PATIENT GENDER DATA: Assigned female at . status: : No status: NO. PATIENT RELEVANT IMPLANT DATA REVIEWED: Yes PATIENT PRESENTS WITH AN IMPLANTABLE OR ATTACHED HOG RIBBER: No RADIOLOGY DEPARTMENT: MR; Exam(s) Completed: Spine: Lumbar spine. Lavender Administered: No PERIPHERAL IV DATA: Not applicable SIGNED BY: RT Olga Lidia(R) October 19, 2024 1:[address] [facility] 10-19-2024 Note HNO ID: [id number] Author: LULÚ EDMONDS APRN.E MERCHANT Service: ? Author Type: Nurse Practitioner Type: Progress Notes Filed: 10/19/2024 12:01 Note Text: Lulú Edmonds APRN Orthopaedic Spine Surgery [address] [place] [address], [address], [place] [address] FAX: [phone] Spine Surgery Post-op Follow-up Service Date: 10/19/2024 Surgery Date: 10/05/24 Surgery(ies): Right L4-5 microdiscectomy Pre-operative Symptoms: lumbar radiculopathy HPI: Ivy Crews is seen for 14 day post operative follow up. She continues to experience pain, numbness, and weakness in her right lower leg. Overall she has experienced minimal relief since surgery. ALLERGIES Allergen Reactions Penicillin G Hives Current Outpatient Medications Medication Sig Dispense Refill ibuprofen (MOTRIN) 800 mg tablet TK 1 T PO TID WF OR MILK PRN hydrOXYzine pamoate (VISTARIL) 25 mg capsule Take 25 mg by mouth three times a day as needed for anxiety. traZODone (DESYREL) 100 mg tablet Take 100 mg by mouth daily at bedtime. lidocaine (SALONPAS) 4 % patch Apply 1 patch as directed once daily. (Patient not taking: Reported on 10/19/2024) 5 patch 0 naloxone 4 mg/actuation nasal spray (NARCAN) Use 1 spray in one nostril as needed for overdose. May repeat every 2 to 3 min in alternating nostrils until medical assistance is available (Patient not taking: Reported on 10/19/2024) 2 each 0 No current facility-administered medications for this visit. Physical Examination: Vital Signs: Pulse 87 Ht 162.6 cm (5' 4.02) Wt 98.4 kg (217 lb) SpO2 97% BMI 37.23 kg/m? General Appearance: Well nourished, well developed, and no apparent distress. Incision: Clean, dry, and intact. No active drainage. No erythema. Sensory: Sensation intact to light touch in C5-T1 and L1-S1 dermatomes. Mildly diminished over L5-S1 dermatone along right leg. Motor: Upper Extremities Right Left Lower Extremities Right Left Psoas (L2) 5 5 Quadriceps (L3) 4 5 Dorsiflexion (L4) 4 5 EHL (L5) 4 5 Plantarflexion (S1) 4 5 Long Tract Signs: No clonus. Reflexes: Symmetric, non-brisk. Imaging No results found for this or any previous visit (from the past 36 hours). Assessment 23 year old female who presents post-op status-post Right L4-5 microdiscectomy : recovering but with persistent radicular symptoms and weakness in right leg. Plan PM will start on medrol dose pack and refill percoset Recommend updating MRI of lumbar spine due to persistent pain and weakness Follow-up once MRI is completed . Advised to call the office if symptoms worsen or new symptoms develop. Patient expressed understanding and is in agreement with plan. Lulú Edmonds [facility] 10-06-2024 Note . MICRO - Microbiology PROCEDURE: Blood Culture (bacterial) [*1] SOURCE: Blood BODY SITE: COLLECTED DATE/TIME: 09/30/2024 15:29 EDT RECEIVED DATE/TIME: 10/01/2024 16:09 EDT START DATE/TIME: 10/01/2024 16:09 EDT FREE TEXT SOURCE: [id number]; MR [id number]; lab [id number] FINAL REPORTS Final Report [] Verified Date/Time/Personnel: 10/06/2024 16:59 EDT Blood Culture: No Growth at 5 days. PRELIMINARY REPORTS Preliminary Report [] Verified Date/Time/Personnel: 10/01/2024 17:00 EDT Culture has been received in lab and is no growth to date. Routine cultures are held for 5 days. Performing Locations *1: This test was performed at: [address], [facility] , [facility] 10-06-2024 Note HNO ID: [id number] Author: THIAGO WATERMAN RN Service: Care Management Author Type: Registered Nurse Type: Care Mgt Progress Note Filed: 10/06/2024 10:50 Note Text: CARE MANAGEMENT DISCHARGE NOTE SERVICE DATE: October 06, 2024 SERVICE TIME: 10:49 AM Admission Date: 09/30/2024 LOS: 4 days Discharge Arrangement Discharge Arrangement: Home with Self Care Services Arranged Medical Services: Other: See Comment (NONE) Caregiver Assessment Caregiver is ready, willing and able to meet the patient's needs as recommended by the inter-professional team: No Caregiver needed Transportation Arrangements Transportation Arrangements: Uber/Lyft (through insurance [employer]) (patient given instructions on how to utilize [employer] for Hospital discharge, she is agreeable to setting this up herself.) Additional Information: PENDING PT Clearance, Patient to discharge this date to Home with Self Care and outpatient therapy. Patient to set Transport through her [employer], or to transport if after work hours. Patient instructed on how to use [employer] and is agreeable to this plan to arrange herself. No other needs identified. Case closed. SIGNATURE: Thiago Waterman RN PATIENT NAME: Ivy Crews DATE: October 06, 2024 TIME: 10:49 AM [phone] [facility] 10-05-2024 Note . MICRO - Microbiology PROCEDURE: Blood Culture (bacterial) [*1] SOURCE: Blood BODY SITE: COLLECTED DATE/TIME: 09/30/2024 11:25 EDT RECEIVED DATE/TIME: 09/30/2024 17:03 EDT START DATE/TIME: 09/30/2024 17:04 EDT FREE TEXT SOURCE: FINAL REPORTS Final Report [] Verified Date/Time/Personnel: 10/05/2024 17:59 EDT Blood Culture: No Growth at 5 days. PRELIMINARY REPORTS Preliminary Report [] Verified Date/Time/Personnel: 09/30/2024 17:59 EDT Culture has been received in lab and is no growth to date. Routine cultures are held for 5 days. Performing Locations *1: This test was performed at: [facility], [address] [place] [address], [facility] , [facility] 10-05-2024 Note HNO ID: [id number] Author: ARMEN GODWIN MD Service: Orthopaedic Surgery Author Type: Physician Type: Progress Notes Filed: 10/05/2024 17:35 Note Text: Orthopaedic Surgery Inpatient Progress Note Patient seen and examined at bedside. Pain in lumbar spine well-controlled. Pre-operative radicular pain resolved. Some residual numbness in the right great toe. Strength improved with 5/5 strength in all myotomes. Anxious to discharge home. Reviewed bending, twisting, and lifting restrictions with the patient. Okay for discharge to home from orthopaedic spine surgery standpoint with pain medication (no anti-inflammatories). May shower starting POD #2 and remove dressing on POD #5. Follow-up in 2 weeks (office will contact). Please call/page with questions. Armen Godwin MD Orthopaedic Spine Surgery [facility] 10-05-2024 Note HNO ID: [id number] Author: ANGELICA ROMERO MD Service: General Internal Medicine Author Type: Physician Type: Progress Notes Filed: 10/05/2024 13:44 Note Text: INPATIENT PROGRESS NOTE SERVICE DATE: 10/05/2024 SERVICE TIME: 1:43 PM PRIMARY SERVICE: Hospital Medicine Subjective Patient seen and examined bedside this morning. Understands patient has spinal surgery planned today. Current Facility-Administered Medications Medication Dose Route Frequency ondansetron (PF) 4 mg injection (ZOFRAN) 4 mg INTRAVENOUS q 6 H PRN oxyCODONE IR 10 mg tab(s) (ROXICODONE) 10 mg ORAL q 4 H PRN cyclobenzaprine 5 mg tab(s) (FLEXERIL) 5 mg ORAL TID PRN NaCl 0.9% iv flush bag 20 mL INTRAVENOUS PRN aluminum-magnesium hydroxide-simethicone 200-200-20 mg/5 mL 30 mL 30 mL ORAL DAILY PRN hydrOXYzine pamoate 25 mg cap(s) (VISTARIL) 25 mg ORAL TID PRN traZODone 100 mg tab(s) (DESYREL) 100 mg ORAL AT BEDTIME lidocaine 4 % 1 patch (SALONPAS) 1 patch TRANSDERMAL DAILY AT 9 PM And lidocaine patch - REMOVE OTHER DAILY And lidocaine - VERIFY PATCH OTHER q 8 H acetaminophen 1,000 mg tab(s) (TYLENOL) 1,000 mg ORAL q 8 H bisacodyl EC 10 mg tab(s) (DULCOLAX) 10 mg ORAL DAILY PRN senna-docusate 8.6-50 mg 1 tablet (SENNA-S) 1 tablet ORAL BID PRN HYDROmorphone 1 mg injection (DILAUDID) 1 mg INTRAVENOUS q 3 H PRN ceFAZolin iv piggyback 2 g in D5W (iso-osmotic) 100 mL (ANCEF) 2 g INTRAVENOUS q 8 HR Objective PHYSICAL EXAM: BP 129/73 Pulse 94 Temp (Src) 99 (Temporal) Resp 16 Ht 5' 4 (1.63m) Wt 217 lb 13 oz (98.8kg) SpO2 93% BMI 37.37 kg/(m2). O2 Therapy: Room Air, Liters (Numeric Only): 6 GENERAL: Obese, Moderate Distress, Cooperative SKIN: Skin color, texture, turgor normal. No rashes or lesions. HEAD/SINUSES: No significant findings LUNGS: Lungs clear to auscultation, Good diaphragmatic excursion CARDIAC: Normal S1 and S2; no rubs, murmurs, or gallops ABDOMEN: Abdomen soft, non-tender, BS normal, No masses or organomegaly EXTREMITIES: Extremities normal, no deformities, edema, clubbing or skin discoloration. Good capillary refill., No ulcers DATA: LABORATORY TESTS: CBC: Recent Labs 10/05/24 0710/04/24 0610/02/24 0749 WBC 9.86 14.37* 9.02 HB 13.5 15.0 13.9 PLT 193 204 230 MCV 93.5 93.2 95.1 NEUTP 66.1 81.5 43.8 ABSNEUT 6.51 11.71* 3.95 LYMPHP 21.4 13.4 45.2 EODINP 2.5 0.8 0.6 CHEM: Recent Labs 10/05/24 0719 10/04/24 0628 10/02/24 0749 10/01/24 0644 NA 137 137 140 140 K 3.9 -- 4.6 4.6 CA 9.2 9.6 8.5 9.8 ANION 4* 9 <3* 7 CHLOR 104 103 109* 105 CO2 29 25 30 28 GLUC 108* 98 140* 131* BUN 9 8 13 12 CREAT 0.71 0.64 0.70 0.62 HEPATIC: No results for input(s): ALT, AST, TBILI, ALKPHOS, ALB, TPROT, LIPASE in the last 168 hours. URINALYSIS: Recent Labs 10/04/24 0620 SPGR 1.015 UBACTERIA Rare* LEUKEST Negative UWBC 0-5 /HPF URBC 0-3 /HPF UHB Negative UPROT Negative UGLUC Negative UKET Negative COAG: No results for input(s): APTT, INR in the last 168 hours. CARDIAC: No results for input(s): CKMB, CKMBP, TROPT, PBNP in the last 168 hours. DATA: Diagnostic tests reviewed for today's visit: Most recent labs and imaging results. Most recent EKG Urine Culture: Positive Micro-30 Days No results found for the last 720 hours. Blood Culture: Positive Micro-30 Days No results found for the last 720 hours. Medication and Non-Pharmacologic VTE Prophylaxis/Anticoagulants 09/30/24 2300 activity - mobilize patient (al,oh) VTE Prophylaxis: VTE prophylaxis appropriate Sign of note: Admitted for severe back pain, MRI reviewed, spinal surgery to perform surgery today. Probably home tomorrow after PT OT. 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 -Continues to have severe intractable pain, intermittently, receiving IV pain medications intermittently. -Spine surgery consulted, ordered MRI lumbar spine without contrast, which shows right L4-5 paracentral disc extrusion with lateral recess stenosis and compression of the traversing L5 nerve root. Moderate left L5-S1 foraminal stenosis. -Spine surgery offered surgical options, patient discussed with her family and would like to proceed with surgery. Surgery planned today. - Continue scheduled Tylenol 1 g 3 times daily, Toradol 10 mg twice daily, continue as needed Multimodal pain regimen with IV Dilaudid as needed, Oxy IR 10 mg every 4 hours as needed, lidocaine patches, Flexeril as needed. -Continue PT OT Intractable nausea and vomiting, resolved Lactic acidosis, resolved Leukocytosis -Symptoms and leukocytosis resolved. Continue supportive management. Chronic co (more content not included)... [facility] 10-05-2024 Note HNO ID: [id number] Author: HOWARD MACKENZIE APRN.FISH BIN TENDER Service: Anesthesiology Author Type: Nurse Boom Boss Type: Anesthesia Procedure Notes Filed: 10/05/2024 09:54 Note Text: ANESTHESIOLOGY PROCEDURE NOTE PIV General Information Procedure Start Time/Medication Administration: 10/05/2024 9:42 AM Procedure End Time: 10/05/2024 9:45 AM Patient Location: OR Staffing FISH BIN TENDER: Howard Mackenzie APRN.FISH BIN TENDER Performed by: FISH BIN TENDER Preparation Sterility Preparation: hand hygiene performed prior to procedure, sterile gloves, drapes, and procedure tray, surgical cap used, mask used, skin prep agent completely dried prior to procedure Site Prep: alcohol Procedure Details Indication: need for IV access Needle Size/Type: 20 gauge angiocath Orientation: Right Location: Hand Imaging Guidance Used: No SIGNATURE: Howard Mackenzie APRN.CRNA PATIENT NAME: Ivy Crews DATE: October 05, 2024 TIME: 9:53 AM CSN: [id number] [facility] 10-05-2024 Note HNO ID: [id number] Author: HOWARD MACKENZIE APRN.CRNA Service: Anesthesiology Author Type: Nurse Boom Boss Type: Anesthesia Procedure Notes Filed: 10/05/2024 09:52 Note Text: ANESTHESIOLOGY PROCEDURE NOTE Airway General Information Procedure Start Time/Medication Administration: 10/05/2024 9:21 AM Procedure End Time: 10/05/2024 9:24 AM Patient location during procedure: OR Timeout Performed Pre-procedure: timeout performed Consent Obtained: Yes Patient identity confirmed: arm band and patient Staffing FISH BIN TENDER: Howard Mackenzie APRN.FISH BIN TENDER Performed by: JONATHAN Indications and Patient Condition Indications for airway management: anesthesia Preoxygenated: yes anesthesia circuit Patient position: sniffing Method: asleep Cricoid Pressure: No Manual In-Line Stabilization: No Difficult Mask: No Final Airway Details Final airway type: endotracheal airway Final Endotracheal Airway: ETT Cuffed: yes Successful intubation technique: direct laryngoscopy Devices used: intubating stylet Endotracheal tube insertion site: oral Blade: Tawanda Blade size: #3 ETT size (mm): 7.0 Measured from: lips Measurement (cm): 22 Placement verified by: chest auscultation and capnometry Cormack-Lehane Classification: grade IIa - partial view of glottis Number of attempts at approach: 1 Airway not difficult SIGNATURE: Howard Mackenzie APRN.CRNA PATIENT NAME: Ivy Crews DATE: October 05, 2024 TIME: 9:52 AM CSN: [id number] [facility] 10-04-2024 Note HNO ID: [id number] Author: THIAGO WATERMAN RN Service: Care Management Author Type: Registered Nurse Type: Care Mgt Progress Note Filed: 10/04/2024 16:45 Note Text: CARE MANAGEMENT PROGRESS NOTE SERVICE DATE: 10/04/2024 SERVICE TIME: 4:41 PM LOS: 2 days Needs Prior to Discharge: OT/PT Evaluation, Procedure Chart reviewed. Patient is AANDOX4 from Home with , daughter AND disabled mother, admitted for back pain. Ortho spine, internal med, PT/OT Following. Patient reports they're functionally independent with all ADLs and IADLs including driving at baseline. Reports TLSO brace as DME use. Current with PCP on chart and has Medical Coverage. Patient reports no concerns for safety or ability to provided basic necessities. Patient has no Advance Directives on file, per [place] law, LNOK is Aravind (Spouse) . Patient was educated on who their LNOK would be should the need arise and declined to fill out HCPOA paperwork at this time. Patient was admitted on 09/30 due to back pain, Ortho consulted, completed MRI, patient stated she wanted to avoid surgery and continue with conservative management. On 10/02 patient continued to have extreme pain and wished to proceed with surgical interventions. Patient was to go to OR today 10/04, surgery has now been pushed ot 10/05 due to nausea and vomiting this date. Plan: Surgery on 10/05 w/ Ortho/Spine, PT/OT evals post-op, wants to return home with family, has transport home. No needs currently. CM will continue to follow for d/c planning and needs. Please reach out if plan changes. SIGNATURE: Thiago Waterman RN PATIENT NAME: Ivy Crews DATE: October 04, 2024 TIME: 4:41 PM [phone] [facility] 10-04-2024 Note HNO ID: [id number] Author: ANGELICA ROMERO MD Service: General Internal Medicine Author Type: Physician Type: Progress Notes Filed: 10/04/2024 15:52 Note Text: INPATIENT PROGRESS NOTE SERVICE DATE: 10/04/2024 SERVICE TIME: 3:49 PM PRIMARY SERVICE: Hospital Medicine Subjective Patient seen and examined bedside this morning. Apparently last night patient experienced nausea and vomiting, night team ordered sepsis workup. This morning patient reports reduced vomiting. Continues to have back pains intermittently. Current Facility-Administered Medications Medication Dose Route Frequency ondansetron (PF) 4 mg injection (ZOFRAN) 4 mg INTRAVENOUS q 6 H PRN oxyCODONE IR 10 mg tab(s) (ROXICODONE) 10 mg ORAL q 4 H PRN HYDROmorphone HCl 1 mg injection (DILAUDID) 1 mg INTRAVENOUS q 3 H PRN cyclobenzaprine 5 mg tab(s) (FLEXERIL) 5 mg ORAL TID PRN NaCl 0.9% iv flush bag 20 mL INTRAVENOUS PRN aluminum-magnesium hydroxide-simethicone 200-200-20 mg/5 mL 30 mL 30 mL ORAL DAILY PRN hydrOXYzine pamoate 25 mg cap(s) (VISTARIL) 25 mg ORAL TID PRN traZODone 100 mg tab(s) (DESYREL) 100 mg ORAL AT BEDTIME lidocaine 4 % 1 patch (SALONPAS) 1 patch TRANSDERMAL DAILY AT 9 PM And lidocaine patch - REMOVE OTHER DAILY And lidocaine - VERIFY PATCH OTHER q 8 H acetaminophen 1,000 mg tab(s) (TYLENOL) 1,000 mg ORAL q 8 H keTORolac 10 mg tab(s) (Toradol) 10 mg ORAL BID bisacodyl EC 10 mg tab(s) (DULCOLAX) 10 mg ORAL DAILY PRN Objective PHYSICAL EXAM: BP 110/63 Pulse 97 Temp (Src) 99.4 (Oral) Resp 18 Ht 5' 4 (1.63m) Wt 217 lb 13 oz (98.8kg) SpO2 97% BMI 37.37 kg/(m2). O2 Therapy: Room Air GENERAL: Obese, Moderate Distress, Cooperative SKIN: Skin color, texture, turgor normal. No rashes or lesions. HEAD/SINUSES: No significant findings LUNGS: Lungs clear to auscultation, Good diaphragmatic excursion CARDIAC: Normal S1 and S2; no rubs, murmurs, or gallops ABDOMEN: Abdomen soft, non-tender, BS normal, No masses or organomegaly EXTREMITIES: Extremities normal, no deformities, edema, clubbing or skin discoloration. Good capillary refill., No ulcers DATA: LABORATORY TESTS: CBC: Recent Labs 10/04/24 0628 10/02/24 0749 10/01/24 0644 WBC 14.37* 9.02 17.39* HB 15.0 13.9 15.8* PLT 204 230 301 MCV 93.2 95.1 92.2 NEUTP 81.5 43.8 86.7 ABSNEUT 11.71* 3.95 15.07* LYMPHP 13.4 45.2 6.7 EODINP 0.8 0.6 0.1 CHEM: Recent Labs 10/04/24 0628 10/02/24 0749 10/01/24 0644 NA 137 140 140 K -- 4.6 4.6 CA 9.6 8.5 9.8 ANION 9 <3* 7 CHLOR 103 109* 105 CO2 25 30 28 GLUC 98 140* 131* BUN 8 13 12 CREAT 0.64 0.70 0.62 HEPATIC: No results for input(s): ALT, AST, TBILI, ALKPHOS, ALB, TPROT, LIPASE in the last 168 hours. URINALYSIS: Recent Labs 10/04/24 0620 SPGR 1.015 UBACTERIA Rare* LEUKEST Negative UWBC 0-5 /HPF URBC 0-3 /HPF UHB Negative UPROT Negative UGLUC Negative UKET Negative COAG: No results for input(s): APTT, INR in the last 168 hours. CARDIAC: No results for input(s): CKMB, CKMBP, TROPT, PBNP in the last 168 hours. DATA: Diagnostic tests reviewed for today's visit: Most recent labs and imaging results. Most recent EKG Urine Culture: Positive Micro-30 Days No results found for the last 720 hours. Blood Culture: Positive Micro-30 Days No results found for the last 720 hours. 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 -Continues to have severe intractable pain, intermittently, receiving IV pain medications intermittently. -Spine surgery consulted, ordered MRI lumbar spine without contrast, which shows right L4-5 paracentral disc extrusion with lateral recess stenosis and compression of the traversing L5 nerve root. Moderate left L5-S1 foraminal stenosis. -Spine surgery offered surgical options, patient discussed with her family and would like to proceed with surgery. Likely surgery tomorrow. - Continue scheduled Tylenol 1 g 3 times daily, Toradol 10 mg twice daily, continue as needed Multimodal pain regimen with IV Dilaudid as needed, Oxy IR 10 mg every 4 hours as needed, lidocaine patches, Flexeril as needed. -Continue PT OT Intractable nausea and vomiting Lactic acidosis, resolved Leukocytosis -Apparently last night patient started having nausea and vomiting, KUB and chest x-ray no acute findings. This morning patient reports improvement in vomiting. - Repeat lactic negative. S/p 500 cc bolus. - Extensive sepsis workup including procalcitonin, (more content not included)... [facility] 10-04-2024 Note HNO ID: [id number] Author: ARMEN GODWIN MD Service: Orthopaedic Surgery Author Type: Physician Type: Progress Notes Filed: 10/04/2024 12:12 Note Text: Orthopaedic Surgery Inpatient Progress Note Patient febrile this morning and with elevated lactate. Infection work-up ordered per primary team. Patient seen and examined and with no change in symptoms or examination. Will post-pone surgery until tomorrow to allow for all infection labs to be completed. Discussed with patient who is in agreement. Armen Godwin MD Orthopaedic Spine Surgery [facility] 10-04-2024 Note SARS-COV-2 (AGENT OF COVID-19) RNA: Not detected INFLUENZA A RNA: Not detected INFLUENZA B RNA: Not detected RESPIRATORY SYNCYTIAL VIRUS (RSV) RNA: Not detected [facility] Comment on above: Performed By: #### 2 4321-2 #### [facility] CLIA [id number] [address] [place] [address] [place] 10-03-2024 Note HNO ID: [id number] Author: RIENA HSAH LSW Service: Care Management Author Type: Hot Saw Operator Type: Care Mgt Initial Assessment Filed: 10/03/2024 11:19 Note Text: CARE MANAGEMENT: ASSESSMENT AND DISCHARGE PLAN SERVICE DATE: October 03, 2024 SERVICE TIME: 11:14 AM PCP: SAMANTHA MARIA MD, DO Primary Contact: Extended Emergency Contact Information Primary Emergency Contact: Aravind Grimaldo Mobile Relation: Spouse Admission Status: Inpatient Insurance Provider: JOVITA Ginny MEDICAID Discharge Planning requested by: Per Department Practice Potential Transition Plans Home Advance Directives Current Advance Directive: None Police Artist Attempted to Assist with AD Completion: Yes Action: Education Provided, Patient Unwilling Current Living Arrangements and Support Lives with: Children, Spouse/significant other, Parent Type of Residence: Private Residence (House) Does the patient have to climb stairs at home?: Yes, stairs outside the home, stairs within the home Support: Children, Family members, Friends/neighbors, Spouse/significant other, Parent How do you manage to accomplish the following: Independent: Ambulation, Transportation to appointments/community, Bathe/Shower, Dress, Meals/Meal Prep, Going to the bathroom, Medication Management Current Services/Equipment Current Post-Acute Service(s): None Discharge Planning Patient Goal(s): Better mobility, Better management of chronic pain, Less pain, Be able to go home, General wellness [place] of Choice Explained: [place] of [place] Given: No Reason Not Given: No placements necessary Are you interested in bedside delivery of your medications? No Discharge Planning Participant(s): Patient Patient/Family Comments: No specific comment made Caregiver Assessment: Caregiver is ready, willing and able to meet the patient's needs as recommended by the inter-professional team: No Caregiver needed Intimate Partner Violence We have begun to talk to patients about safe and healthy relationships because it can have a large impact on your health. Do you feel safe around your partner or ex-partner?: Yes Food Insecurity Within the past 12 months, you worried that your food would run out before you got the money to buy more.: Never true Within the past 12 months, the food you bought just didn't last and you didn't have money to get more.: Never true Transportation Needs In the past 12 months, has lack of transportation kept you from medical appointments or from getting medications?: No In the past 12 months, has lack of transportation kept you from meetings, work, or from getting things needed for daily living?: No Housing Stability In the last 12 months, was there a time when you were not able to pay the mortgage or rent on time?: No In the past 12 months, how many times have you moved where you were living?: 0 At any time in the past 12 months, were you homeless or living in a custodial (including now)?: No Utilities In the past 12 months has the Hurricane Party, gas, oil, or water [employer] threatened to shut off services in your home?: No Social Information Financial Resources: Disabled Transport at Discharge: Transportation Arrangements: Car Destination: Home Needs Prior to Discharge: Needs Prior to Discharge: To Be Determined, Procedure, Discharge Transportation Procedure Needed: awaiting ortho spine c/s for possible OR Post-Acute Discharge Plan: Patient admitted to for intractable back pain, acute R sided lumbar radiculopathy, L4-L5 paracentral disc extrusion. Patient on RA, up to chair, pain control, ortho spine c/s - initially patient refused surgery but now interested, PT/OT evals pend, reg diet, s/p MRI lumbar spine. Met with patient at bedside to complete IA. Patient from home with , daughter and disabled mother, independent with ADLs and IADLs prior to admission, has a TLSO brace from back surgery prior but uses no other DME, +PCP - sees yearly, +insurance - no issues with coverage or obtaining prescriptions, still drives. Discharge plan TBD - likely home once medically stable, anticipate no needs. Will watch for surgery schedule and PT/OT evals postop. Continue to follow. SIGNATURE: BRAYAN Escalante PATIENT NAME: Ivy Crews DATE: October 03, 2024 TIME: 11:[address] [facility] 10-03-2024 Note HNO ID: [id number] Author: ANGELICA ROMERO MD Service: General Internal Medicine Author Type: Physician Type: Progress Notes Filed: 10/03/2024 10:37 Note Text: INPATIENT PROGRESS NOTE SERVICE DATE: 10/03/2024 SERVICE TIME: 10:35 AM PRIMARY SERVICE: Hospital Medicine Subjective Patient seen and examined bedside this morning. Continues to report severe back pains, radiating to right leg along with tingling and numbness in the right leg intermittently. Patient receiving IV Dilaudid which took the pain edge off. During my interaction later in the day, patient reports improvement in pains however continues to have them intermittently Current Facility-Administered Medications Medication Dose Route Frequency ondansetron (PF) 4 mg injection (ZOFRAN) 4 mg INTRAVENOUS q 6 H PRN oxyCODONE IR 10 mg tab(s) (ROXICODONE) 10 mg ORAL q 4 H PRN HYDROmorphone HCl 1 mg injection (DILAUDID) 1 mg INTRAVENOUS q 3 H PRN cyclobenzaprine 5 mg tab(s) (FLEXERIL) 5 mg ORAL TID PRN NaCl 0.9% iv flush bag 20 mL INTRAVENOUS PRN aluminum-magnesium hydroxide-simethicone 200-200-20 mg/5 mL 30 mL 30 mL ORAL DAILY PRN hydrOXYzine pamoate 25 mg cap(s) (VISTARIL) 25 mg ORAL TID PRN traZODone 100 mg tab(s) (DESYREL) 100 mg ORAL AT BEDTIME lidocaine 4 % 1 patch (SALONPAS) 1 patch TRANSDERMAL DAILY AT 9 PM And lidocaine patch - REMOVE OTHER DAILY And lidocaine - VERIFY PATCH OTHER q 8 H acetaminophen 1,000 mg tab(s) (TYLENOL) 1,000 mg ORAL q 8 H keTORolac 10 mg tab(s) (Toradol) 10 mg ORAL BID Objective PHYSICAL EXAM: BP 127/78 Pulse 86 Temp (Src) 98.2 (Oral) Resp 16 Ht 5' 4 (1.63m) Wt 217 lb 13 oz (98.8kg) SpO2 98% BMI 37.37 kg/(m2). O2 Therapy: Room Air GENERAL: Obese, Moderate Distress, Cooperative SKIN: Skin color, texture, turgor normal. No rashes or lesions. HEAD/SINUSES: No significant findings LUNGS: Lungs clear to auscultation, Good diaphragmatic excursion CARDIAC: Normal S1 and S2; no rubs, murmurs, or gallops ABDOMEN: Abdomen soft, non-tender, BS normal, No masses or organomegaly EXTREMITIES: Extremities normal, no deformities, edema, clubbing or skin discoloration. Good capillary refill., No ulcers DATA: LABORATORY TESTS: CBC: Recent Labs 10/02/24 0749 10/01/24 0644 WBC 9.02 17.39* HB 13.9 15.8* PLT 230 301 MCV 95.1 92.2 NEUTP 43.8 86.7 ABSNEUT 3.95 15.07* LYMPHP 45.2 6.7 EODINP 0.6 0.1 CHEM: Recent Labs 10/02/24 0749 10/01/24 0644 NA 140 140 K 4.6 4.6 CA 8.5 9.8 ANION <3* 7 CHLOR 109* 105 CO2 30 28 GLUC 140* 131* BUN 13 12 CREAT 0.70 0.62 HEPATIC: No results for input(s): ALT, AST, TBILI, ALKPHOS, ALB, TPROT, LIPASE in the last 168 hours. URINALYSIS:No results for input(s): SPGR, UBACTERIA, LEUKEST, SSA, UWBC, URBC, UHB, UPROT, UGLUC, UKET in the last 168 hours. Invalid input(s): NITR COAG: No results for input(s): APTT, INR in the last 168 hours. CARDIAC: No results for input(s): CKMB, CKMBP, TROPT, PBNP in the last 168 hours. DATA: Diagnostic tests reviewed for today's visit: Most recent labs and imaging results. Most recent EKG Urine Culture: Positive Micro-30 Days No results found for the last 720 hours. Blood Culture: Positive Micro-30 Days No results found for the last 720 hours. 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 -Continues to have severe intractable pain, intermittently, receiving IV pain medications intermittently. -Spine surgery consulted, ordered MRI lumbar spine without contrast, which shows right L4-5 paracentral disc extrusion with lateral recess stenosis and compression of the traversing L5 nerve root. Moderate left L5-S1 foraminal stenosis. -Spine surgery offered surgical options, patient discussed with her family and would like to proceed with surgery. Surgical team notified. - Continue scheduled Tylenol 1 g 3 times daily, Toradol 10 mg twice daily, continue as needed Multimodal pain regimen with IV Dilaudid as needed, Oxy IR 10 mg every 4 hours as needed, lidocaine patches, Flexeril as needed. -Continue PT OT Chronic conditions: Anxiety/depression Obesity -Continue Flexeril 5 mg as needed Exogenous Class 2 Obesity Plan of care discussed with: Provider, RN, Patient. Discharge disposition: Pending likely surgery in 1 to 2 days pending PT OT consultation, . Disclaimer This dictation was created using voice recognition software. Phonetic and/or minor grammatical errors may exist. SIGNA (more content not included)... [facility] 10-02-2024 Note HNO ID: [id number] Author: ANGELICA ROMERO MD Service: General Internal Medicine Author Type: Physician Type: Progress Notes Filed: 10/02/2024 11:38 Note Text: INPATIENT PROGRESS NOTE SERVICE DATE: 10/02/2024 SERVICE TIME: 11:34 AM PRIMARY SERVICE: Hospital Medicine Subjective Patient seen and examined bedside this morning. Continues to report severe back pains, radiating to right leg along with tingling and numbness in the right leg intermittently. Apparently patient was screaming in pain this morning, nurse provided IV Dilaudid which took the pain edge off. During my interaction later in the day, patient reports improvement in pains however continues to have them intermittently Current Facility-Administered Medications Medication Dose Route Frequency ondansetron (PF) 4 mg injection (ZOFRAN) 4 mg INTRAVENOUS q 6 H PRN oxyCODONE IR 10 mg tab(s) (ROXICODONE) 10 mg ORAL q 4 H PRN HYDROmorphone HCl 1 mg injection (DILAUDID) 1 mg INTRAVENOUS q 3 H PRN cyclobenzaprine 5 mg tab(s) (FLEXERIL) 5 mg ORAL TID PRN NaCl 0.9% iv flush bag 20 mL INTRAVENOUS PRN aluminum-magnesium hydroxide-simethicone 200-200-20 mg/5 mL 30 mL 30 mL ORAL DAILY PRN hydrOXYzine pamoate 25 mg cap(s) (VISTARIL) 25 mg ORAL TID PRN traZODone 100 mg tab(s) (DESYREL) 100 mg ORAL AT BEDTIME lidocaine 4 % 1 patch (SALONPAS) 1 patch TRANSDERMAL DAILY AT 9 PM And lidocaine patch - REMOVE OTHER DAILY And lidocaine - VERIFY PATCH OTHER q 8 H acetaminophen 1,000 mg tab(s) (TYLENOL) 1,000 mg ORAL q 8 H keTORolac 10 mg tab(s) (Toradol) 10 mg ORAL BID Objective PHYSICAL EXAM: BP 124/63 Pulse 73 Temp (Src) 97.5 (Oral) Resp 19 Ht 5' 4 (1.63m) Wt 217 lb 13 oz (98.8kg) SpO2 99% BMI 37.37 kg/(m2). O2 Therapy: Room Air GENERAL: Obese, Moderate Distress, Cooperative SKIN: Skin color, texture, turgor normal. No rashes or lesions. HEAD/SINUSES: No significant findings LUNGS: Lungs clear to auscultation, Good diaphragmatic excursion CARDIAC: Normal S1 and S2; no rubs, murmurs, or gallops ABDOMEN: Abdomen soft, non-tender, BS normal, No masses or organomegaly EXTREMITIES: Extremities normal, no deformities, edema, clubbing or skin discoloration. Good capillary refill., No ulcers DATA: LABORATORY TESTS: CBC: Recent Labs 10/02/24 0749 10/01/24 0644 WBC 9.02 17.39* HB 13.9 15.8* PLT 230 301 MCV 95.1 92.2 NEUTP 43.8 86.7 ABSNEUT 3.95 15.07* LYMPHP 45.2 6.7 EODINP 0.6 0.1 CHEM: Recent Labs 10/02/24 0749 10/01/24 0644 NA 140 140 K 4.6 4.6 CA 8.5 9.8 ANION <3* 7 CHLOR 109* 105 CO2 30 28 GLUC 140* 131* BUN 13 12 CREAT 0.70 0.62 HEPATIC: No results for input(s): ALT, AST, TBILI, ALKPHOS, ALB, TPROT, LIPASE in the last 168 hours. URINALYSIS:No results for input(s): SPGR, UBACTERIA, LEUKEST, SSA, UWBC, URBC, UHB, UPROT, UGLUC, UKET in the last 168 hours. Invalid input(s): NITR COAG: No results for input(s): APTT, INR in the last 168 hours. CARDIAC: No results for input(s): CKMB, CKMBP, TROPT, PBNP in the last 168 hours. DATA: Diagnostic tests reviewed for today's visit: Most recent labs and imaging results. Most recent EKG Urine Culture: Positive Micro-30 Days No results found for the last 720 hours. Blood Culture: Positive Micro-30 Days No results found for the last 720 hours. Medication and Non-Pharmacologic VTE Prophylaxis/Anticoagulants 09/30/24 2300 activity - mobilize patient ([place]) VTE Prophylaxis: VTE prophylaxis appropriate Assesment: Intractable back pain, acute right-sided lumbar radiculopathy History of discectomy -Patient presented with intractable back pain radiating down right leg, associated with numbness and tingling. -Continues to have intractable pain, intermittently. -Spine surgery consulted, ordered MRI lumbar spine without contrast, which shows right L4-5 paracentral disc extrusion with lateral recess stenosis and compression of the traversing L5 nerve root. Moderate left L5-S1 foraminal stenosis. -Spine surgery offered surgical option, patient deferred initially to outpatient however today with worsening pains patient would like to consider inpatient surgical options. Surgical team notified. -Will schedule Tylenol 1 g 3 times daily, Toradol 10 mg twice daily, continue as needed Multimodal pain regimen with Dilaudid as needed, Oxy IR 10 mg every 4 hours as needed, lidocaine patches, Flexeril as needed. -Continue PT OT Chronic conditions: Anxiety/depression Obesity -Continue Flexeril 5 mg as needed Exogenous Class 2 Obesity Plan of care discussed with: Provider, RN, Patient. Discharge disposition: Pending surgical clearance, PT OT Disclaimer This dictation was created using voice recognition software. Phonetic and/or minor grammatical errors may exist. SIGNATURE: Angelica Romero MD PATIENT NAME: Ivy Crews DATE: October 02, 2024 MRN: [id number] (more content not included)... [facility] 10-01-2024 Note HNO ID: [id number] Author: CIELO DERAS RT(R) Service: Radiology Author Type: Technologist Type: Progress Notes Filed: 10/01/2024 12:30 Note Text: Summary: MRI Radiology Service Progress Note PATIENT NAME: Ivy Crews DATE OF SERVICE: October 01, 2024 TIME: 12:29 PM PATIENT IDENTITY VERIFICATION COMPLETED USING TWO (2) IDENTIFIERS: Name and Date of confirmed by patient verbally. FALL SCREENING: Has the patient had 2 falls in the last year or 1 fall with injury or currently using an Ambulatory Assistive Device (Walker, Cane, Wheelchair, Crutches, etc.)? Inpatient: Screened on floor PATIENT GENDER DATA: Assigned female at . status: : No status: NO. PATIENT RELEVANT IMPLANT DATA REVIEWED: Yes PATIENT PRESENTS WITH AN IMPLANTABLE OR ATTACHED HOG RIBBER: No RADIOLOGY DEPARTMENT: MR; Exam(s) Completed: Spine: Lumbar spine. Lavender Administered: No PERIPHERAL IV DATA: Inpatient: see LDA documentation SIGNED BY: RT Henok(R)(MR) October 01, 2024 12:[address] [facility] 10-01-2024 Note HNO ID: [id number] Author: ANGELICA ROMERO MD Service: General Internal Medicine Author Type: Physician Type: Progress Notes Filed: 10/01/2024 12:27 Note Text: INPATIENT PROGRESS NOTE SERVICE DATE: 10/01/2024 SERVICE TIME: 12:24 PM PRIMARY SERVICE: Hospital Medicine Subjective Patient seen and examined bedside this morning. Continues to report back spasms with radiating down towards her right leg. Reports tingling and numbness in the lower right leg. Current Facility-Administered Medications Medication Dose Route Frequency acetaminophen 650 mg tab(s) (TYLENOL) 650 mg ORAL q 6 H PRN ondansetron (PF) 4 mg injection (ZOFRAN) 4 mg INTRAVENOUS q 6 H PRN oxyCODONE IR 10 mg tab(s) (ROXICODONE) 10 mg ORAL q 4 H PRN HYDROmorphone HCl 1 mg injection (DILAUDID) 1 mg INTRAVENOUS q 3 H PRN cyclobenzaprine 5 mg tab(s) (FLEXERIL) 5 mg ORAL TID PRN lidocaine 4 % 1 patch (SALONPAS) 1 patch TRANSDERMAL DAILY AT 9 PM And lidocaine patch - REMOVE OTHER DAILY And lidocaine - VERIFY PATCH OTHER q 8 H NaCl 0.9% iv flush bag 20 mL INTRAVENOUS PRN aluminum-magnesium hydroxide-simethicone 200-200-20 mg/5 mL 30 mL 30 mL ORAL DAILY PRN Objective PHYSICAL EXAM: BP 112/49 Pulse 74 Temp (Src) 98.3 (Oral) Resp 17 Ht 5' 4 (1.63m) Wt 217 lb 13 oz (98.8kg) SpO2 96% BMI 37.37 kg/(m2). GENERAL: Obese, Moderate Distress, Cooperative SKIN: Skin color, texture, turgor normal. No rashes or lesions. HEAD/SINUSES: No significant findings LUNGS: Lungs clear to auscultation, Good diaphragmatic excursion CARDIAC: Normal S1 and S2; no rubs, murmurs, or gallops ABDOMEN: Abdomen soft, non-tender, BS normal, No masses or organomegaly EXTREMITIES: Extremities normal, no deformities, edema, clubbing or skin discoloration. Good capillary refill., No ulcers DATA: LABORATORY TESTS: CBC: Recent Labs 10/01/24 0644 WBC 17.39* HB 15.8* PLT 301 MCV 92.2 NEUTP 86.7 ABSNEUT 15.07* LYMPHP 6.7 EODINP 0.1 CHEM: Recent Labs 10/01/24 0644 NA 140 K 4.6 CA 9.8 ANION 7 CHLOR 105 CO2 28 GLUC 131* BUN 12 CREAT 0.62 HEPATIC: No results for input(s): ALT, AST, TBILI, ALKPHOS, ALB, TPROT, LIPASE in the last 168 hours. URINALYSIS:No results for input(s): SPGR, UBACTERIA, LEUKEST, SSA, UWBC, URBC, UHB, UPROT, UGLUC, UKET in the last 168 hours. Invalid input(s): NITR COAG: No results for input(s): APTT, INR in the last 168 hours. CARDIAC: No results for input(s): CKMB, CKMBP, TROPT, PBNP in the last 168 hours. DATA: Diagnostic tests reviewed for today's visit: Most recent labs and imaging results. Most recent EKG Urine Culture: Positive Micro-30 Days No results found for the last 720 hours. Blood Culture: Positive Micro-30 Days No results found for the last 720 hours. Medication and Non-Pharmacologic VTE Prophylaxis/Anticoagulants 09/30/24 2300 activity - mobilize patient ([place]) VTE Prophylaxis: VTE prophylaxis appropriate Assesment: Intractable back pain, acute right-sided lumbar radiculopathy History of discectomy Patient presented with intractable back pain for 1 day radiating down right leg, associated with weakness and numbness. Continues to have intractable pain. Ortho surgery consulted, ordered MRI lumbar spine without contrast, patient input. Multimodal pain regimen with Tylenol as needed, Dilaudid as needed, Oxy IR 10 mg every 4 hours as needed PT OT consult Chronic conditions: Anxiety/depression Obesity Continue Flexeril 5 mg as needed Exogenous Class 2 Obesity Plan of care discussed with: Provider, RN, Patient. Discharge disposition: Pending MRI spine imaging and surgical clearance Disclaimer This dictation was created using voice recognition software. Phonetic and/or minor grammatical errors may exist. SIGNATURE: Angelica Romero MD PATIENT NAME: Ivy Crews DATE: October 01, 2024 TIME: 12:[address] [facility] 10-01-2024 Note HNO ID: [id number] Author: RONALD AZEVEDO RT(R) Service: ? Author Type: Technologist Type: Progress Notes Filed: 10/01/2024 11:13 Note Text: Summary: MRI RADIOLOGY SERVICE PROGRESS NOTE DATE OF SERVICE: October 01, 2024 TIME OF SERVICE: 1113 EVENT: NEED MRI SCREENING FORM ADDITIONAL EVENT DETAILS: N/A SIGNATURE: VLADIMIR Raymundo) PATIENT NAME: Ivy Crews DATE: October 01, 2024 TIME: 11:13 AM PAGER/CONTACT #: [facility] 06-10-2024 Note [facility] Medical Records Department [address] [place] [address] History Physical Exam 06/10/24 0717 MR#: [id number] Acct: [id number] Name: IVY CREWS Rep #: [id number] : 2000 23 From: Glo Lopes MD PCP: JENNIFER Torrez Status:[facility] Location: [place] [address] History and Physical Date of Admission: 06/10/24 The pt is examined and there are no changes to the H P dated 06/07/24. Informed consent obtained Pt marked in the pre-op area. Pt for bilateral breast reduction. Assessment Plan Assessment/Plan (1) Macromastia: (2) Breast asymmetry: (3) Chronic pain in left shoulder: (4) Chronic pain in right shoulder: PLAN: Plan Pt for bilateral breast reduction 06/10/24 0718 Cosigner Signature (if applicable): CC: Dr. Glo Lopes MD; JENNIFER Torrez Signed [facility] 03-18-2024 Miscellaneous Notes Images from the original note were not included. [facility] [address] [facility] [address] Physical Therapy Daily Note / D/C Summary Patient Name: Ivy Crews 2000 Physician: Sonny Quesada MD Medical Dx: Chronic bilateral low back pain without sciatica Therapy Purpose: Rehabilitative Subjective: Patient reports she had a bad night with her child. She states she has good and bad days based on her child's care needs. Patient states she needs to get on a regular schedule of doing her HEP and if she did so, she'd be fine. Patient would like to d/c d/t time and vehicle restrictions. Objective: Reassessment Visit: Yes PT Rationale for Treatment PT Rationale For Treatment: Increase ROM, Increase Strength, Decrease Pain, Increase Flexibility PT Activities PT Activity1: reassessment PT Activity3: self care; HEP Oswestry Disability Index Pain intensity : 1 Personal Care (e.g. washing, dressing): 0 Liftin Walkin Sittin Standin Sleepin Social Life: 1 Travelin Employment/Homemakin Oswestry Disability Index Total Score: 13 OSWESTRY Disability Interpretation %: 26 Patient Specific Functional Scale: PATIENT IDENTIFIED ACTIVITY 1:: 6 (picking up kids) PATIENT IDENTIFIED ACTIVITY 2:: 4 (standing a long time) PATIENT IDENTIFIED ACTIVITY 3:: 3 (bending) Patient Specific Functional Scale: 4.33 Assessment: Patient has made progress since IE. She has focused on core stabilization and performs well when in gravity-eliminated postures. She still is challenged with upright, dynamic posturing and managing anterior loads. The patient is self-selecting d/c at this time. She was informed should she need continued PT after her f/u with referring, she could return with a new referral. Plan: D/C Summary Jolie Birch, [id number], PT March 18, 2024 Physical Therapy Number of Visits: 05/13 Per Insurance: [place] documented in this encounter [facility] 03-18-2024 Progress note Formatting of t his note is different from the original. Images from the original note were not included. [facility] [address] [facility] [id number] Physical Therapy Daily Note / D/C Summary Patient Name: Ivy Crews 2000 Physician: Sonny Quesada MD Medical Dx: Chronic bilateral low back pain without sciatica Therapy Purpose: Rehabilitative Subjective: Patient reports she had a bad night with her child. She states she has good and bad days based on her child's care needs. Patient states she needs to get on a regular schedule of doing her HEP and if she did so, she'd be fine. Patient would like to d/c d/t time and vehicle restrictions. Objective: Reassessment Visit: Yes PT Rationale for Treatment PT Rationale For Treatment: Increase ROM, Increase Strength, Decrease Pain, Increase Flexibility PT Activities PT Activity1: reassessment PT Activity3: self care; HEP Oswestry Disability Index Pain intensity : 1 Personal Care (e.g. washing, dressing): 0 Liftin Walkin Sittin Standin Sleepin Social Life: 1 Travelin Employment/Homemakin Oswestry Disability Index Total Score: 13 OSWESTRY Disability Interpretation %: 26 Patient Specific Functional Scale: PATIENT IDENTIFIED ACTIVITY 1:: 6 (picking up kids) PATIENT IDENTIFIED ACTIVITY 2:: 4 (standing a long time) PATIENT IDENTIFIED ACTIVITY 3:: 3 (bending) Patient Specific Functional Scale: 4.33 Assessment: Patient has made progress since IE. She has focused on core stabilization and performs well when in gravity-eliminated postures. She still is challenged with upright, dynamic posturing and managing anterior loads. The patient is self-selecting d/c at this time. She was informed should she need continued PT after her f/u with referring, she could return with a new referral. Plan: D/C Summary Jolie Birch, [id number], PT March 18, 2024 Physical Therapy Number of Visits: 05/13 Per Insurance: [place] [employer] 03-15-2024 Miscellaneous Notes Images from the original note were not included. [facility] [address] [facility] [address] Physical Therapy Daily Note Patient Name: Ivy Crews 2000 Physician: Sonny Quesada MD Medical Dx: Chronic bilateral low back pain without sciatica Therapy Purpose: Rehabilitative Subjective: Pain Assessment Pain Rating 1 (on scale of 0 - 10): 0/10 Pain Location 1: LB Upon arrival patient walk in with out complaints, reports today is a really good day but she has good and bad days. She is doing well with her HEP. Objective: Reassessment Visit: No PT Rationale for Treatment PT Rationale For Treatment: Increase ROM, Increase Strength, Decrease Pain, Increase Flexibility PT Activities PT Activity1: Nustep: L4 x 5' (seat 8/UE 9) PT Activity3: Standing Row PT Activity4: -high red x10 x5sec hold PT Activity5: -mid red x10, 5 hold PT Activity6: -low shoulder ext [id number] PT Activity8: Paloff red x5'' x10 B PT Activity9: Unsupported sitting luciano disc feet/buttock 2# ball PT [id number]: overhead x10 PT [id number]: -lateral x5 PT Home Exercise Program PT Handout 1: red Assessment: Patient tolerated session with some complaints of stiffness. Verbal cues for techniques and core stabilization. Progressed strengthening exercises and red theraband given for HEP. Patient fatigued and increasing difficulty sitting on luciano disc, increasing pain reported with lateral chops, discontinued at 5reps. Patient reports 6/10 pain post treatment. Encouraged patient to continue HEP. Plan: Continue per plan Mariel Burnett PTA March 15, 2024 Physical Therapy Number of Visits: 04/13 Per Insurance: [place] documented in this encounter [facility] 03-15-2024 Progress note Formatting of t his note is different from the original. Images from the original note were not included. [facility] [address] [facility] [address] Physical Therapy Daily Note Patient Name: Ivy Crews 2000 Physician: Sonny Quesada MD Medical Dx: Chronic bilateral low back pain without sciatica Therapy Purpose: Rehabilitative Subjective: Pain Assessment Pain Rating 1 (on scale of 0 - 10): 0/10 Pain Location 1: LB Upon arrival patient walk in with out complaints, reports today is a really good day but she has good and bad days. She is doing well with her HEP. Objective: Reassessment Visit: No PT Rationale for Treatment PT Rationale For Treatment: Increase ROM, Increase Strength, Decrease Pain, Increase Flexibility PT Activities PT Activity1: Nustep: L4 x 5' (seat 8/UE 9) PT Activity3: Standing Row PT Activity4: -high red x10 x5sec hold PT Activity5: -mid red x10, 5 hold PT Activity6: -low shoulder ext [id number] PT Activity8: Paloff red x5'' x10 B PT Activity9: Unsupported sitting luciano disc feet/buttock 2# ball PT [id number]: overhead x10 PT [id number]: -lateral x5 PT Home Exercise Program PT Handout 1: red Assessment: Patient tolerated session with some complaints of stiffness. Verbal cues for techniques and core stabilization. Progressed strengthening exercises and red theraband given for HEP. Patient fatigued and increasing difficulty sitting on luciano disc, increasing pain reported with lateral chops, discontinued at 5reps. Patient reports 6/10 pain post treatment. Encouraged patient to continue HEP. Plan: Continue per plan Mariel Burnett, LANEY March 15, 2024 Physical Therapy Number of Visits: 04/13 Per Insurance: [place] [employer] [facility] 03-08-2024 Miscellaneous Notes Images from the original note were not included. [facility] [address] [employer] [facility] [address] Physical Therapy Daily Note Patient Name: Ivy Crews 2000 Physician: Sonny Quesada MD Medical Dx: Chronic bilateral low back pain without sciatica Therapy Purpose: Rehabilitative Subjective: Pain Assessment Pain Rating 1 (on scale of 0 - 10): 7/10 Pain Location 1: R LB No new c/o. No new reports since previous visit. Patient tolerated previous treatment well. Objective: Reassessment Visit: No PT Rationale for Treatment PT Rationale For Treatment: Increase ROM, Increase Strength, Decrease Pain, Increase Flexibility PT Activities PT Activity1: Nustep: L3 x 5' (seat 8/UE 9) PT Activity2: HL alt. PPT/APT: x 10 PT Activity3: Bridges: 10 x 2 PT Activity4: HL windshield wipers (alt. hip IR/ER): x 10 PT Activity5: B LTR: 3 x 20 PT Activity6: SL open book stretch: 3 x 20, B PT Activity7: QPED alt. LE ext: x 10 PT Activity8: QPED knee lifts: x 10, B PT Activity9: QPED cat/cow: x 10 Assessment: Overall patient tolerates treatment well. Patient reports decreased ROM during SL open book stretch to L vs. R. Patient notes increased restriction during cow phase of cat/cow as well. Patient indicates discomfort with most ex. via facial grimacing however she is able to complete. Plan: Continue per PT POC Yuly Lozano [id number], [employer] March 08, 2024 Physical Therapy Number of Visits: 02/11 Per Insurance: Jovita documented in this encounter [facility] 03-08-2024 Progress note Formatting of t his note is different from the original. Images from the original note were not included. [facility] [address] [address] [facility] [address] Physical Therapy Daily Note Patient Name: Ivy Crews 2000 Physician: Sonny Quesada MD Medical Dx: Chronic bilateral low back pain without sciatica Therapy Purpose: Rehabilitative Subjective: Pain Assessment Pain Rating 1 (on scale of 0 - 10): 12/09 Pain Location 1: R LB No new c/o. No new reports since previous visit. Patient tolerated previous treatment well. Objective: Reassessment Visit: No PT Rationale for Treatment PT Rationale For Treatment: Increase ROM, Increase Strength, Decrease Pain, Increase Flexibility PT Activities PT Activity1: Nustep: L3 x 5' (seat 8/UE 9) PT Activity2: HL alt. PPT/APT: x 10 PT Activity3: Bridges: 10 x 2 PT Activity4: HL windshield wipers (alt. hip IR/ER): x 10 PT Activity5: B LTR: 3 x 20 PT Activity6: SL open book stretch: 3 x 20, B PT Activity7: QPED alt. LE ext: x 10 PT Activity8: QPED knee lifts: x 10, B PT Activity9: QPED cat/cow: x 10 Assessment: Overall patient tolerates treatment well. Patient reports decreased ROM during SL open book stretch to L vs. R. Patient notes increased restriction during cow phase of cat/cow as well. Patient indicates discomfort with most ex. via facial grimacing however she is able to complete. Plan: Continue per PT POC Yuly Lozano [id number], [employer] March 08, 2024 Physical Therapy Number of Visits: 02/11 Per Insurance: Jovita [facility] 03-05-2024 Miscellaneous Notes Images from the original note were not included. [facility] [address] [facility] [address] Physical Therapy Daily Note Patient Name: Ivy Crews 2000 Physician: Sonny Quesada MD Medical Dx: Chronic bilateral low back pain without sciatica Therapy Purpose: Rehabilitative Subjective: Pain Assessment Pain Rating 1 (on scale of 0 - 10): 09/09 Pain Location 1: LB and right hip A little improvement in pain since onset of physical therapy 01/30/2024. Objective: Reassessment Visit: No PT Rationale for Treatment PT Rationale For Treatment: Increase Strength, Decrease Pain, Increase ROM PT Activities PT Activity1: NuStep L3x5' PT Activity2: lower dissociation x10 PT Activity3: SKTC 3x20 PT Activity5: B ball pull backs promoting multi seg flex in gravity eliminated posturing 2x10 PT Activity7: supine, marching x10, B PT Activity9: HL adduction with blue ball, hold 3, x10 PT [id number]: mini squat x5 PT Home Exercise Program PT Handout 1: mini squats as tolerated Assessment: Patient tolerated interventions well with no adverse events. Interventions performed today to address patient impairments. Squats required some cueing for technique. Interventions performed to tolerance. Patient would benefit from continued skilled physical therapy. Plan: Cont established POC Donavon Valdivia, PT March 05, 2024 Physical Therapy Number of Visits: 01/11 Per Insurance: Jovita documented in this encounter [facility] 03-05-2024 Progress note Formatting of t his note is different from the original. Images from the original note were not included. [facility] [address] [facility] [address] Physical Therapy Daily Note Patient Name: Ivy Crews 2000 Physician: Sonny Quesada MD Medical Dx: Chronic bilateral low back pain without sciatica Therapy Purpose: Rehabilitative Subjective: Pain Assessment Pain Rating 1 (on scale of 0 - 10): 10 Pain Location 1: LB and right hip A little improvement in pain since onset of physical therapy 01/30/2024. Objective: Reassessment Visit: No PT Rationale for Treatment PT Rationale For Treatment: Increase Strength, Decrease Pain, Increase ROM PT Activities PT Activity1: NuStep L3x5' PT Activity2: lower dissociation x10 PT Activity3: SKTC 3x20 PT Activity5: B ball pull backs promoting multi seg flex in gravity eliminated posturing 2x10 PT Activity7: supine, marching x10, B PT Activity9: HL adduction with blue ball, hold 3, x10 PT [id number]: mini squat x5 PT Home Exercise Program PT Handout 1: mini squats as tolerated Assessment: Patient tolerated interventions well with no adverse events. Interventions performed today to address patient impairments. Squats required some cueing for technique. Interventions performed to tolerance. Patient would benefit from continued skilled physical therapy. Plan: Cont established POC Donavon Valdivia, PT March 05, 2024 Physical Therapy Number of Visits: 01/11 Per Insurance: [place] [facility] 03-01-2024 Miscellaneous Notes Images from the original note were not included. [facility] [address] [facility] [address] Physical Therapy Daily Note Patient Name: Ivy Crews 2000 Physician: Sonny Quesada MD Medical Dx: Chronic bilateral low back pain without sciatica Therapy Purpose: Rehabilitative Subjective: Patient reports she has been compliant with HEP and states it helps, especially in the mornings. Patient reports she is still having difficulty after waking up and feels stiff. She reports she still is having difficulty picking up her 2 y.o. from the floor. Patient reports bending is problematic. She states it feels like stabbing in the back and stretching. Patient reports a f/u with referring post-physical therapy. Objective: Reassessment Visit: Yes PT Rationale for Treatment PT Rationale For Treatment: Increase Strength, Decrease Pain, Increase ROM PT Activities PT Activity2: lower dissociation x10 PT Activity3: SKTC 3x20 PT Activity5: B ball pull backs promoting multi seg flex in gravity eliminated posturing 2x10 PT Activity7: supine, marching x10, B Short Term Goals: Short Term Goal 1: In 2 weeks, patient will be independent in HEP. Goal 1 Met ?: Yes Short Term Goal 2: In 2 weeks, patient will report improved pain rating from 7/10 to 5/10 or less in order to be more comfortable throughout the day. Goal 2 Met ?: No Short Term Goal 3: In 8 visits, patient will demonstrate improved top-tier SFMA multi seg flex from DP to DN or better in order to bend forward and retreive objects from the floor more easily. Goal 3 Met ?: No Short Term Goal 4: In 8 visits, patient will demonstrate improved ability to participate in LE myotomal testing R L2/L3. Goal 4 Met ?: Yes Patient Specific Functional Scale: PATIENT IDENTIFIED ACTIVITY 1:: 6 (picking up the kids (20#)) PATIENT IDENTIFIED ACTIVITY 2:: 5 (5 (standing for a long time 30 mins)) PATIENT IDENTIFIED ACTIVITY 3:: 3 (bending) Patient Specific Functional Scale: 4.67 Oswestry Disability Index Pain intensity : 0 Personal Care (e.g. washing, dressing): 1 Liftin Walkin Sittin Standin Sleepin Social Life: 2 Travelin Employment/Homemakin Oswestry Disability Index Total Score: 16 OSWESTRY Disability Interpretation %: 32 Assessment: The patient presented to this reevaluation with continued but slightly improved signs and symptoms associated with the initial physical therapy evaluation. Patient demonstrates ongoing top-tier SFMA DP movement patterns during multi-segmental flexion. Patient demo myotomal sensitization and central sensitization of the lumbar spine impacting ADLs, child welfare assistant, and sleeping. These factors continue to impact movement competency and the patient will continue to benefit from skilled physical therapy for the remainder of this POC to continue to improve upon these deficits and restore movement competency through manual therapy, NMR, and therapeutic/corrective interventions. Plan: Assess and progress as appropriate by utilizing therapeutic exercise, therapeutic activities, manual therapy, and neuromuscular reeducation. Jolie Birch, [id number], PT March 01, 2024 Physical Therapy Number of Visits: 12/11 Per Insurance: Jovita documented in this encounter [facility] 03-01-2024 Progress note Formatting of t his note is different from the original. Images from the original note were not included. [facility] [address] [employer] [facility] [address] Physical Therapy Daily Note Patient Name: Ivy Crews 2000 Physician: Sonny Quesada MD Medical Dx: Chronic bilateral low back pain without sciatica Therapy Purpose: Rehabilitative Subjective: Patient reports she has been compliant with HEP and states it helps, especially in the mornings. Patient reports she is still having difficulty after waking up and feels stiff. She reports she still is having difficulty picking up her 2 y.o. from the floor. Patient reports bending is problematic. She states it feels like stabbing in the back and stretching. Patient reports a f/u with referring post-physical therapy. Objective: Reassessment Visit: Yes PT Rationale for Treatment PT Rationale For Treatment: Increase Strength, Decrease Pain, Increase ROM PT Activities PT Activity2: lower dissociation x10 PT Activity3: SKTC 3x20 PT Activity5: B ball pull backs promoting multi seg flex in gravity eliminated posturing 2x10 PT Activity7: supine, marching x10, B Short Term Goals: Short Term Goal 1: In 2 weeks, patient will be independent in HEP. Goal 1 Met ?: Yes Short Term Goal 2: In 2 weeks, patient will report improved pain rating from 7/10 to 5/10 or less in order to be more comfortable throughout the day. Goal 2 Met ?: No Short Term Goal 3: In 8 visits, patient will demonstrate improved top-tier SFMA multi seg flex from DP to DN or better in order to bend forward and retreive objects from the floor more easily. Goal 3 Met ?: No Short Term Goal 4: In 8 visits, patient will demonstrate improved ability to participate in LE myotomal testing R L2/L3. Goal 4 Met ?: Yes Patient Specific Functional Scale: PATIENT IDENTIFIED ACTIVITY 1:: 6 (picking up the kids (20#)) PATIENT IDENTIFIED ACTIVITY 2:: 5 (5 (standing for a long time 30 mins)) PATIENT IDENTIFIED ACTIVITY 3:: 3 (bending) Patient Specific Functional Scale: 4.67 Oswestry Disability Index Pain intensity : 0 Personal Care (e.g. washing, dressing): 1 Liftin Walkin Sittin Standin Sleepin Social Life: 2 Travelin Employment/Homemakin Oswestry Disability Index Total Score: 16 OSWESTRY Disability Interpretation %: 32 Assessment: The patient presented to this reevaluation with continued but slightly improved signs and symptoms associated with the initial physical therapy evaluation. Patient demonstrates ongoing top-tier SFMA DP movement patterns during multi-segmental flexion. Patient demo myotomal sensitization and central sensitization of the lumbar spine impacting ADLs, child welfare assistant, and sleeping. These factors continue to impact movement competency and the patient will continue to benefit from skilled physical therapy for the remainder of this POC to continue to improve upon these deficits and restore movement competency through manual therapy, NMR, and therapeutic/corrective interventions. Plan: Assess and progress as appropriate by utilizing therapeutic exercise, therapeutic activities, manual therapy, and neuromuscular reeducation. Jolie Birch, [id number], PT March 01, 2024 Physical Therapy Number of Visits: 12/11 Per Insurance: Jovita [facility] 02-27-2024 Miscellaneous Notes Images from the original note were not included. [facility] [address] [facility] [address] Physical Therapy Daily Note Patient Name: Ivy Crews 2000 Physician: Sonny Quesada MD Medical Dx: Chronic bilateral low back pain without sciatica Therapy Purpose: Rehabilitative Subjective: Pain Assessment Pain Rating 1 (on scale of 0 - 10): 0/10 Pain Location 1: LB and right hip Patient reports no pain at onset. She states she slept great last evening. Objective: Reassessment Visit: No PT Rationale for Treatment PT Rationale For Treatment: Increase Strength, Decrease Pain, Increase ROM PT Activities PT Activity1: NuStep L3x5' PT Activity2: lower dissociation x10 PT Activity3: SKTC 3x20 PT Activity5: tall kneeling with arms push/pull , multi rounds, 2# wate bar PT Activity6: half kneeling, chop with 2# wate bar Assessment: Patient completes flow for improved activation of glutes. Patient adv from tall to half kneeling. Patient was unable to use eye tracking with chop d/t instability but improved with chop movement only. Plan: Assess and progress as appropriate by utilizing therapeutic exercise, therapeutic activities, manual therapy, and neuromuscular reeducation. Jolie Birch, [id number], PT February 27, 2024 Physical Therapy Number of Visits: 11/11 Per Insurance: Jovita documented in this encounter [facility] 02-27-2024 Progress note Formatting of t his note is different from the original. Images from the original note were not included. [facility] [address] [facility] [address] Physical Therapy Daily Note Patient Name: Ivy Crews 2000 Physician: Sonny Quesada MD Medical Dx: Chronic bilateral low back pain without sciatica Therapy Purpose: Rehabilitative Subjective: Pain Assessment Pain Rating 1 (on scale of 0 - 10): 0/10 Pain Location 1: LB and right hip Patient reports no pain at onset. She states she slept great last evening. Objective: Reassessment Visit: No PT Rationale for Treatment PT Rationale For Treatment: Increase Strength, Decrease Pain, Increase ROM PT Activities PT Activity1: NuStep L3x5' PT Activity2: lower dissociation x10 PT Activity3: SKTC 3x20 PT Activity5: tall kneeling with arms push/pull , multi rounds, 2# wate bar PT Activity6: half kneeling, chop with 2# wate bar Assessment: Patient completes flow for improved activation of glutes. Patient adv from tall to half kneeling. Patient was unable to use eye tracking with chop d/t instability but improved with chop movement only. Plan: Assess and progress as appropriate by utilizing therapeutic exercise, therapeutic activities, manual therapy, and neuromuscular reeducation. Jolie Birch, [id number], PT February 27, 2024 Physical Therapy Number of Visits: 11/11 Per Insurance: Jovita [facility] 02-19-2024 Miscellaneous Notes Images from the original note were not included. [facility] [address] [facility] [address] Physical Therapy Daily Note Patient Name: Ivy Crews 2000 Physician: Sonny Quesada MD Medical Dx: Chronic bilateral low back pain without sciatica Therapy Purpose: Rehabilitative Subjective: Patient reports her back is pretty painful at onset. Patient states she feels PT is helping because she has been able to start doing things at home now. Objective: Reassessment Visit: No PT Rationale for Treatment PT Rationale For Treatment: Increase Strength, Decrease Pain, Increase ROM PT Activities PT Activity1: NuStep L3x5' PT Activity2: lower dissociation x10 PT Activity3: SKTC 3x20 PT Activity5: tall kneeling with arms push/pull 4x5, SBA x1 for safety PT Activity6: std, global flex/ext patterning with diaphragmatic breathing, to rickey Assessment: Patient focused on SMCD at trunk/pelvis this date. Patient req some Tcs for safety during tall kneeling. With repetition, patient continues to show improvement with stabilization. Patient completed session with global flex/ext patterning for improved spinal mobility. Plan: Assess and progress as appropriate by utilizing therapeutic exercise, therapeutic activities, manual therapy, and neuromuscular reeducation. Jolie Birch, [id number], PT February 19, 2024 Physical Therapy Number of Visits: 10/11 Per Insurance: Jovita documented in this encounter [facility] 02-19-2024 Progress note Formatting of t his note is different from the original. Images from the original note were not included. [facility] [address] [facility] [address] Physical Therapy Daily Note Patient Name: Ivy Crews 2000 Physician: Sonny Quesada MD Medical Dx: Chronic bilateral low back pain without sciatica Therapy Purpose: Rehabilitative Subjective: Patient reports her back is pretty painful at onset. Patient states she feels PT is helping because she has been able to start doing things at home now. Objective: Reassessment Visit: No PT Rationale for Treatment PT Rationale For Treatment: Increase Strength, Decrease Pain, Increase ROM PT Activities PT Activity1: NuStep L3x5' PT Activity2: lower dissociation x10 PT Activity3: SKTC 3x20 PT Activity5: tall kneeling with arms push/pull 4x5, SBA x1 for safety PT Activity6: std, global flex/ext patterning with diaphragmatic breathing, to rickey Assessment: Patient focused on SMCD at trunk/pelvis this date. Patient req some Tcs for safety during tall kneeling. With repetition, patient continues to show improvement with stabilization. Patient completed session with global flex/ext patterning for improved spinal mobility. Plan: Assess and progress as appropriate by utilizing therapeutic exercise, therapeutic activities, manual therapy, and neuromuscular reeducation. Jolie Birch, [id number], PT February 19, 2024 Physical Therapy Number of Visits: 10/11 Per Insurance: [place] [facility] 02-16-2024 Miscellaneous Notes Images from the original note were not included. [facility] [address] [facility] [address] Physical Therapy Daily Note Patient Name: Ivy Crews 2000 Physician: Sonny Quesada MD Medical Dx: Chronic bilateral low back pain without sciatica Therapy Purpose: Rehabilitative Subjective: The patient states she is hurting today. Endorses PT is going well. Objective: Reassessment Visit: No PT Rationale for Treatment PT Rationale For Treatment: Increase Strength, Decrease Pain, Increase ROM PT Activities PT Activity1: lower dissociation B, x10 5 hold PT Activity2: SKTC 3x20 PT Activity4: bridging with ball at knees, x10 PT Activity5: HL alt KFO x10 PT Activity6: Mod piriformis stretch 3x20 PT Activity9: HL DLS : PT [id number]: - TA contraction 10x 5 sec hold PT [id number]: - TA with march 10x CRAIG PT [id number]: squat to rickey x10 Assessment: Patient focused on core stabilization / activation this date. Patient cued throughout for improved respiratory control. Patient intro to weight shifting in suspended position to improve TA control. Patient completed squat to rickey with cuing from chair and Vcs to improve mechanics. Plan: Assess and progress as appropriate by utilizing therapeutic exercise, therapeutic activities, manual therapy, and neuromuscular reeducation. Jolie Birch, [id number], PT February 16, 2024 Physical Therapy Number of Visits: 09/11 Per Insurance: [place] documented in this encounter [facility] 02-16-2024 Progress note Formatting of t his note is different from the original. Images from the original note were not included. [facility] [address] [facility] [address] Physical Therapy Daily Note Patient Name: Ivy Crews 2000 Physician: Sonny Quesada MD Medical Dx: Chronic bilateral low back pain without sciatica Therapy Purpose: Rehabilitative Subjective: The patient states she is hurting today. Endorses PT is going well. Objective: Reassessment Visit: No PT Rationale for Treatment PT Rationale For Treatment: Increase Strength, Decrease Pain, Increase ROM PT Activities PT Activity1: lower dissociation B, x10 5 hold PT Activity2: SKTC 3x20 PT Activity4: bridging with ball at knees, x10 PT Activity5: HL alt KFO x10 PT Activity6: Mod piriformis stretch 3x20 PT Activity9: HL DLS : PT [id number]: - TA contraction 10x 5 sec hold PT [id number]: - TA with july CRAIG PT [id number]: squat to rickey x10 Assessment: Patient focused on core stabilization / activation this date. Patient cued throughout for improved respiratory control. Patient intro to weight shifting in suspended position to improve TA control. Patient completed squat to rickey with cuing from chair and Vcs to improve mechanics. Plan: Assess and progress as appropriate by utilizing therapeutic exercise, therapeutic activities, manual therapy, and neuromuscular reeducation. Jolie Birch, [id number], PT February 16, 2024 Physical Therapy Number of Visits: 09/11 Per Insurance: Jovita [facility] 02-06-2024 Miscellaneous Notes Images from the original note were not included. [facility] [address] [employer] [facility] [address] Physical Therapy Daily Note Patient Name: Ivy Crews 2000 Physician: Sonny Quesada MD Medical Dx: Chronic bilateral low back pain without sciatica Therapy Purpose: Rehabilitative Subjective: Pain Assessment Pain Rating 1 (on scale of 0 - 10): 5/10 Pain Location 1: LB and right hip Always a 5/10. Tired due to child not sleeping much last night. Objective: Reassessment Visit: No PT Rationale for Treatment PT Rationale For Treatment: Increase Strength, Decrease Pain, Increase ROM PT Activities PT Activity1: supine HS stretch with towel 3x 20sec CRAIG PT Activity2: LTR 5x10 PT Activity3: SKTC 3x20 PT Activity4: Mod piriformis stretch 3x20 PT Activity7: NuStep L2x5' PT Activity9: HL DLS : PT [id number]: - TA contraction 10x 5 sec hold PT [id number]: - TA with july 10x CRAIG Assessment: Rx as above. Tried to increase reps as able. Pt with min to mod verbal cues for tech with ex. Pt reminded to not push into or through pain during Rx. Pt did not appear to have limited ROM this Rx. Pt exited feeling about the same after Rx. Did some DLS ex this Rx to help with core strengthening in neutral spine. Plan: Continue per plan of care. Kwabena Marc [id number], [employer] February 06, 2024 Physical Therapy Number of Visits: 08/11 Per Insurance: Jovita documented in this encounter [facility] 02-06-2024 Progress note Formatting of t his note is different from the original. Images from the original note were not included. [facility] [address] [employer] [facility] [address] Physical Therapy Daily Note Patient Name: Ivy Crews 2000 Physician: Sonny Quesada MD Medical Dx: Chronic bilateral low back pain without sciatica Therapy Purpose: Rehabilitative Subjective: Pain Assessment Pain Rating 1 (on scale of 0 - 10): 5/10 Pain Location 1: LB and right hip Always a 5/10. Tired due to child not sleeping much last night. Objective: Reassessment Visit: No PT Rationale for Treatment PT Rationale For Treatment: Increase Strength, Decrease Pain, Increase ROM PT Activities PT Activity1: supine HS stretch with towel 3x 20sec CRAIG PT Activity2: LTR 5x10 PT Activity3: SKTC 3x20 PT Activity4: Mod piriformis stretch 3x20 PT Activity7: NuStep L2x5' PT Activity9: HL DLS : PT [id number]: - TA contraction 10x 5 sec hold PT [id number]: - TA with march 10x CRAIG Assessment: Rx as above. Tried to increase reps as able. Pt with min to mod verbal cues for tech with ex. Pt reminded to not push into or through pain during Rx. Pt did not appear to have limited ROM this Rx. Pt exited feeling about the same after Rx. Did some DLS ex this Rx to help with core strengthening in neutral spine. Plan: Continue per plan of care. Kwabena Marc [id number], [employer] February 06, 2024 Physical Therapy Number of Visits: 08/11 Per Insurance: Jovita [facility] 02-05-2024 Miscellaneous Notes Images from the original note were not included. [facility] [id number] [facility] [id number] Physical Therapy Daily Note Patient Name: Ivy Crews 2000 Physician: Sonny Quesada MD Medical Dx: Chronic bilateral low back pain without sciatica Therapy Purpose: Rehabilitative Subjective: Pain Assessment Pain Rating 1 (on scale of 0 - 10): 5/10 Pain Location 1: LBP Pt arrives with 5/10 pain in low back. Denies changes since last session. Reports compliance with HEP. Objective: Reassessment Visit: No PT Rationale for Treatment PT Rationale For Treatment: Increase Strength, Decrease Pain, Increase ROM PT Activities PT Activity1: seated HS stretch 3x20 PT Activity2: LTR 5x10 PT Activity3: SKTC 3x20 PT Activity4: Mod piriformis stretch 3x20 PT Activity5: bridge and gluteal squeeze 3x20 PT Activity6: Qped kick backs x10 alt craig PT Activity7: NuStep L2x5' General Modalities Moist Hot Pack: Performed min: 10' body part: low back Assessment: Pt rickey tx well. MHP provided during mat table ther ex with appropriate layers. Worked through flow with good tolerance and denies increased pain throughout. Pt reports feeling great post tx but reports increased 6.5/10 pain at exit. Plan: Continue per PT POC. August, [employer] February 05, 2024 Physical Therapy Number of Visits: 07/14 Per Insurance: Jovita documented in this encounter [facility] 02-05-2024 Progress note Formatting of t his note is different from the original. Images from the original note were not included. [facility] [address] [facility] [id number] Physical Therapy Daily Note Patient Name: Ivy Crews 2000 Physician: Sonny Quesada MD Medical Dx: Chronic bilateral low back pain without sciatica Therapy Purpose: Rehabilitative Subjective: Pain Assessment Pain Rating 1 (on scale of 0 - 10): 5/10 Pain Location 1: LBP Pt arrives with 5/10 pain in low back. Denies changes since last session. Reports compliance with HEP. Objective: Reassessment Visit: No PT Rationale for Treatment PT Rationale For Treatment: Increase Strength, Decrease Pain, Increase ROM PT Activities PT Activity1: seated HS stretch 3x20 PT Activity2: LTR 5x10 PT Activity3: SKTC 3x20 PT Activity4: Mod piriformis stretch 3x20 PT Activity5: bridge and gluteal squeeze 3x20 PT Activity6: Qped kick backs x10 alt craig PT Activity7: NuStep L2x5' General Modalities Moist Hot Pack: Performed min: 10' body part: low back Assessment: Pt rickey tx well. MHP provided during mat table ther ex with appropriate layers. Worked through flow with good tolerance and denies increased pain throughout. Pt reports feeling great post tx but reports increased 6.5/10 pain at exit. Plan: Continue per PT POC. August, [employer] February 05, 2024 Physical Therapy Number of Visits: 07/14 Per Insurance: Jovita [employer] [facility] 01-30-2024 Miscellaneous Notes Images from the original note were not included. [facility] [id number] [address] [facility] [id number] PHYSICAL THERAPY LUMBAR EVALUATION Brief Summary Patient Name: Ivy Crews Date of : 2000 Age: 23 y.o. Sex: female Physician: Sonny Quesada MD Evaluation Date: 01/30/2024 Onset: chronic Follow up: ~mid-March 2024 Treatment Order: eval and treat Therapy Purpose: Rehabilitative Medical Diagnosis: Chronic bilateral low back pain without sciatica Therapy Diagnosis/Impression: poor movement competency per top-tier SFMA with SMCD at trunk/pelvis, functional limitations, pain, difficulty squatting, decreased strength Comments/Summary/Assessment: The patient is a 23 y.o. female presenting to physical therapy with a pathoanatomical diagnosis of chronic B LBP from referring provider Dr. Sonny Quesada. The patient presented and took part with a general medical screening exam which indicated appropriateness for skilled PT. FOMs completed prior to this exam. Physical therapy examination reveals sign and symptoms consistent with pathoanatomical diagnosis and include therapy diagnosis/impression contributing to disorganized and dysfunctional end range movement patterns. The patient denied bowel/bladder changes, saddle paresthesia, night pain, unexpected weight changes, blurred/double vision, AVALOS/nausea/dizziness, or fever/flu like symptoms. Patient will benefit from skilled physical therapy in order to improve upon these deficits and return to improved functional ADLs/activities as well as aid in pain reduction through the utilization of manual interventions, therapeutic exercise, and neuromuscular reeducation. Patient educated on current status and POC; no further questions upon cessation of visit. Recommendations: Frequency: 2 times weekly Duration: 12 visits Rehab potential: good for goals Length of Treatment: 30 mins Comorbidities: has no past medical history on file. Barriers to achieve goals: none Certified through: insurance Patient Goals: reduce pain Short Term Goals: Short Term Goal 1: In 2 weeks, patient will be independent in HEP. Short Term Goal 2: In 2 weeks, patient will report improved pain rating from 7/10 to 5/10 or less in order to be more comfortable throughout the day. Short Term Goal 3: In 8 visits, patient will demonstrate improved top-tier SFMA multi seg flex from DP to DN or better in order to bend forward and retreive objects from the floor more easily. Short Term Goal 4: In 8 visits, patient will demonstrate improved ability to participate in LE myotomal testing R L2/L3. Seismographer Goals: Correction Goal 1: In 10-12 visits, patient will report improved FLOWER FOM score from to in order to demonstrate improvement with functional limitations. Correction Goal 2: In 10-12 visits, patient will report improved PSFS FOM score from 60 to 40 or less in order to demonstrate improvement with self-selected functional limitations. Correction Goal 3: In 10-12 visits, patient will report improved ability for prolonged standing from standing 30 mins with pain to standing 30 mins or more with 50% less familiar pain in order to complete community tasks better. Correction Goal 4: In 10-12 visits, patient will demonstrate repetitive functional hip hinging with 20# with 50% less pain and good mechanics in order to care for her child more comfortably. PHYSICAL IMPAIRMENT OF BODY STRUCTURES AND FUNCTIONS: Decreased Range of Motion, Decreased Muscular Strength, and Pain: Rating 7 Location Other (Comment) lumbar region ACTIVITY AND PARTICIPATION RESTRICTIONS: Self-care, Sleeping, Decreased Standing Tolerance, Decreased Sitting Tolerance, Decreased Walking Tolerance, Home Management, Household Ambulation, and Community Activity STABILITY: Stable: no significant concerns with progression/healing COMPLEXITY: low CARELON AUTHORIZATION: Did the patient have a surgical procedure in the last three (3) months related to the conditions for which services are being requested? NO Select all conditions expected to impact treatment: None of these apply RECOMMENDED TREATMENT PLAN: Modalities: Heat/Cold Therapeutic Exercise: PROM/AAROM/AROM (13645, 18278), Stretching (00411), Strengthening (92238), Proprioception (42808), Neuro Re-education (68972), and Trunk Stabilization (58946) Patient Education/Functional Training (79512, 31937, 30745): Posture, Home Exercise Program, Functional Activities, and Symptom Management Manual Techniques (61781): Soft Tissue Mobilization and Joint Mobilization Physician Comments: I certify the need for these services, based on the Medical and Treatment diagnosis, furnished under this plan of treatment while under my care. Physician Signature (If not electronically signed): Date Physical Therapy Lumbar Evaluation Fall Risk Assessment: no risk Subjective: The patient presents to this initial evaluation with a chief c/o LBP. Patient reports hx of 2 herniations followed by surgical intervention. Endorses laminectomy at L1-L5 in 07/2023. Patient states the pain is still present and has not gone away. Patient reports rx pain medication that is not providing relief. Patient reports some recent tingling in the R hip. 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 She states she had an alignment on Friday and it didn't really help. Patient rates pain at this visit as 7/10 (current) PLOF indicates independence with all activities. CLOF indicates difficulty with picking up her child (20#), standing for a long time, bending Neurological assessment: Dermatomal assessment: LE DTRs: L3/L4: B, 1+ S1: B1+ SFMA Assessment: Multi seg flex: DP Multi seg ext: DP Multi seg ROT R: DP Multi seg ROT L: DP Myotomal Assessment: all segements 5/5 unless otherwise noted: R L2 3/5 L3 3-/5 (sig increase in pain immediately, d/c) -Sacral springing is hypomobile -Clean, well-healed incision lower lumbar from laminectomy Behavior/Presentation: A&Ox4 participatory, cooperative Comorbidities: has no past medical history on file. Increases/decreases symptoms: Bending Increases, Sitting Increases, Standing Increases, Walking Increases, and Lying Decreases Posture: Forward Head and Rounded Shoulders Gait: normalized Repeated Motions: Flexion/Stand: Increases in pain Extension/Stand: Increases in pain Flexion/Supine: No Change Extension/Prone: NT Joint Mobility/Pelvic Joint alignment: symmetrical Neural Tension (SLR/prone knee ?): unprovoked Functional Outcome Tool Utilized: Patient Specific Functional Scale: PATIENT IDENTIFIED ACTIVITY 1:: 3 (picking up kinds (20#)) PATIENT IDENTIFIED ACTIVITY 2:: 2 (standing long time (30 mins)) PATIENT IDENTIFIED ACTIVITY 3:: 1 (bending) Patient Specific Functional Scale: 2 Oswestry Disability Index Pain intensity : 4 Personal Care (e.g. washing, dressing): 2 Liftin Walkin Sittin Standin Sleepin Social Life: 3 Travelin Employment/Homemakin Oswestry Disability Index Total Score: 30 OSWESTRY Disability Interpretation %: 60 Plan for next session: Assess and progress as appropriate by utilizing therapeutic exercise, therapeutic activities, manual therapy, and neuromuscular reeducation. Continue with current regimen. Initiate: -LE stretching -glute activation, suspended/Qped positioning kick backs if rickey -NuStep In my professional opinion, skilled therapy is medically necessary for this patient to address the problems and achieve the goals outlined in this plan of care. This patient and/or patient's family/caregiver have been made aware of the objective findings from their evaluation. Discussion regarding their functional prognosis and plan of care were conducted, as well as risks and benefits of participation and non-participation in therapy. Patient will be discharged if goals are met, progress plateaus, if medical conditions warrant discharge, if patient is non-compliant or if patient referral source(s) requests. Jolie Queta, [id number], PT January 30, 2024 Physical Therapy Number of Visits: 06/13 documented in this encounter [employer] [facility] 01-30-2024 Progress note Formatting of t his note is different from the original. Images from the original note were not included. [facility] [address] [employer] [facility] [address] PHYSICAL THERAPY LUMBAR EVALUATION Brief Summary Patient Name: Ivy Crews Date of : 2000 Age: 23 y.o. Sex: female Physician: Sonny Quesada MD Evaluation Date: 01/30/2024 Onset: chronic Follow up: ~mid-March 2024 Treatment Order: eval and treat Therapy Purpose: Rehabilitative Medical Diagnosis: Chronic bilateral low back pain without sciatica Therapy Diagnosis/Impression: poor movement competency per top-tier SFMA with SMCD at trunk/pelvis, functional limitations, pain, difficulty squatting, decreased strength Comments/Summary/Assessment: The patient is a 23 y.o. female presenting to physical therapy with a pathoanatomical diagnosis of chronic B LBP from referring provider Dr. Sonny Quesada. The patient presented and took part with a general medical screening exam which indicated appropriateness for skilled PT. FOMs completed prior to this exam. Physical therapy examination reveals sign and symptoms consistent with pathoanatomical diagnosis and include therapy diagnosis/impression contributing to disorganized and dysfunctional end range movement patterns. The patient denied bowel/bladder changes, saddle paresthesia, night pain, unexpected weight changes, blurred/double vision, AVALOS/nausea/dizziness, or fever/flu like symptoms. Patient will benefit from skilled physical therapy in order to improve upon these deficits and return to improved functional ADLs/activities as well as aid in pain reduction through the utilization of manual interventions, therapeutic exercise, and neuromuscular reeducation. Patient educated on current status and POC; no further questions upon cessation of visit. Recommendations: Frequency: 2 times weekly Duration: 12 visits Rehab potential: good for goals Length of Treatment: 30 mins Comorbidities: has no past medical history on file. Barriers to achieve goals: none Certified through: insurance Patient Goals: reduce pain Short Term Goals: Short Term Goal 1: In 2 weeks, patient will be independent in HEP. Short Term Goal 2: In 2 weeks, patient will report improved pain rating from 7/10 to 5/10 or less in order to be more comfortable throughout the day. Short Term Goal 3: In 8 visits, patient will demonstrate improved top-tier SFMA multi seg flex from DP to DN or better in order to bend forward and retreive objects from the floor more easily. Short Term Goal 4: In 8 visits, patient will demonstrate improved ability to participate in LE myotomal testing R L2/L3. Correction Goals: Seismographer Goal 1: In 10-12 visits, patient will report improved FLOWER FOM score from to in order to demonstrate improvement with functional limitations. Correction Goal 2: In 10-12 visits, patient will report improved PSFS FOM score from 60 to 40 or less in order to demonstrate improvement with self-selected functional limitations. Correction Goal 3: In 10-12 visits, patient will report improved ability for prolonged standing from standing 30 mins with pain to standing 30 mins or more with 50% less familiar pain in order to complete community tasks better. Seismographer Goal 4: In 10-12 visits, patient will demonstrate repetitive functional hip hinging with 20# with 50% less pain and good mechanics in order to care for her child more comfortably. PHYSICAL IMPAIRMENT OF BODY STRUCTURES AND FUNCTIONS: Decreased Range of Motion, Decreased Muscular Strength, and Pain: Rating 7 Location Other (Comment) lumbar region ACTIVITY AND PARTICIPATION RESTRICTIONS: Self-care, Sleeping, Decreased Standing Tolerance, Decreased Sitting Tolerance, Decreased Walking Tolerance, Home Management, Household Ambulation, and Community Activity STABILITY: Stable: no significant concerns with progression/healing COMPLEXITY: low CARELON AUTHORIZATION: Did the patient have a surgical procedure in the last three (3) months related to the conditions for which services are being requested? NO Select all conditions expected to impact treatment: None of these apply RECOMMENDED TREATMENT PLAN: Modalities: Heat/Cold Therapeutic Exercise: PROM/AAROM/AROM (36379, 63044), Stretching (69443), Strengthening (49700), Proprioception (62040), Neuro Re-education (72919), and Trunk Stabilization (86099) Patient Education/Functional Training (73015, 54544, 22981): Posture, Home Exercise Program, Functional Activities, and Symptom Management Manual Techniques (38294): Soft Tissue Mobilization and Joint Mobilization Physician Comments: I certify the need for these services, based on the Medical and Treatment diagnosis, furnished under this plan of treatment while under my care. Physician Signature (If not electronically signed): Date Physical Therapy Lumbar Evaluation Fall Risk Assessment: no risk Subjective: The patient presents to this initial evaluation with a chief c/o LBP. Patient reports hx of 2 herniations followed by surgical intervention. Endorses laminectomy at L1-L5 in 07/2023. Patient states the pain is still present and has not gone away. Patient reports rx pain medication that is not providing relief. Patient reports some recent tingling in the R hip. 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 She states she had an alignment on Friday and it didn't really help. Patient rates pain at this visit as 7/10 (current) PLOF indicates independence with all activities. CLOF indicates difficulty with picking up her child (20#), standing for a long time, bending Neurological assessment: Dermatomal assessment: LE DTRs: L3/L4: B, 1+ S1: B1+ SFMA Assessment: Multi seg flex: DP Multi seg ext: DP Multi seg ROT R: DP Multi seg ROT L: DP Myotomal Assessment: all segements 10/04 unless otherwise noted: R L2 3/5 L3 3-/5 (sig increase in pain immediately, d/c) -Sacral springing is hypomobile -Clean, well-healed incision lower lumbar from laminectomy Behavior/Presentation: A&Ox4 participatory, cooperative Comorbidities: has no past medical history on file. Increases/decreases symptoms: Bending Increases, Sitting Increases, Standing Increases, Walking Increases, and Lying Decreases Posture: Forward Head and Rounded Shoulders Gait: normalized Repeated Motions: Flexion/Stand: Increases in pain Extension/Stand: Increases in pain Flexion/Supine: No Change Extension/Prone: NT Joint Mobility/Pelvic Joint alignment: symmetrical Neural Tension (SLR/prone knee ?): unprovoked Functional Outcome Tool Utilized: Patient Specific Functional Scale: PATIENT IDENTIFIED ACTIVITY 1:: 3 (picking up kinds (20#)) PATIENT IDENTIFIED ACTIVITY 2:: 2 (standing long time (30 mins)) PATIENT IDENTIFIED ACTIVITY 3:: 1 (bending) Patient Specific Functional Scale: 2 Oswestry Disability Index Pain intensity : 4 Personal Care (e.g. washing, dressing): 2 Liftin Walkin Sittin Standin Sleepin Social Life: 3 Travelin Employment/Homemakin Oswestry Disability Index Total Score: 30 OSWESTRY Disability Interpretation %: 60 Plan for next session: Assess and progress as appropriate by utilizing therapeutic exercise, therapeutic activities, manual therapy, and neuromuscular reeducation. Continue with current regimen. Initiate: -LE stretching -glute activation, suspended/Qped positioning kick backs if rickey -NuStep In my professional opinion, skilled therapy is medically necessary for this patient to address the problems and achieve the goals outlined in this plan of care. This patient and/or patient's family/caregiver have been made aware of the objective findings from their evaluation. Discussion regarding their functional prognosis and plan of care were conducted, as well as risks and benefits of participation and non-participation in therapy. Patient will be discharged if goals are met, progress plateaus, if medical conditions warrant discharge, if patient is non-compliant or if patient referral source(s) requests. Jolie Birch, [id number], PT January 30, 2024 Physical Therapy Number of Visits: 06/13 [facility] 10-03-2023 History of Presen t illness Narrative Family History of Cancer [] Breast Cancer: [] Ovarian Cancer: [x] Colon Cancer: Grandfather may have - Patient unsure [] Pancreatic Cancer: [] Prostate Cancer: [] Other Cancer: [x] Children: 1 [] Future Pregnancies: [] Breast Feeding: No [x] Weight Stability: currently [] Last Mammogram: Breast Measurements: Right Left Sternal Notch to Nipple 35.5 35 IMF to Nipple 15 11 Midline to Nipple 13.5 14.5 Areolar Diameter 8.5 8.5 Ptosis Grade Breast Base 30 cm bilaterally New Nipple Location 27 bilaterally Current Bra Size Right is 36 DDD Left is smaller in size and width. Patient claims C cup Larger Breast Right breast Additional Comments: Back problems, Rash under breast managed by diaper creams, baby powders. Inverted nipples bilaterally. Major asymmetry noted. Right: [x] Dense fibronodular tissue [] Masses [x] No Masses [] Lumps [x] No Lumps [] Palpable lymph nodes in axilla [x] No palpable lymph nodes in axilla Left: [x] Dense fibronodular tissue [] Masses [x] No Masses [] Lumps [x] No Lumps [] Palpable lymph nodes in axilla [x] No palpable lymph nodes in axilla Gilma López LPN Reduction Mammaplasty: Chief Complaint: Chief Complaint Patient presents with New Patient HPI: Ms. Crews is a very pleasant 22 y.o. 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 She also reports a discrepancy in size of the breasts with the right breast being significantly larger than the left (at least 1 cup size larger). She has a significant history of lower back pain. She recently had surgery on her back few months ago. She She states that her bra size is 36 DDD She is No obstetric history on file. Ms. Crews's denies any personal or family history of breast cancer. She endorses family history of colon cancer in her paternal grandfather/uncle. ROS: The Review of Systems is per the electronic chart and patient information sheet. Review of Systems Constitutional: Negative. HENT: Negative. Eyes: Negative. Respiratory: Negative. Cardiovascular: Negative. Gastrointestinal: Negative. Endocrine: Negative. Genitourinary: Negative. Musculoskeletal: Positive for back pain, neck pain and neck stiffness. Skin: Negative. Allergic/Immunologic: Negative. Neurological: Negative. Hematological: Negative. Psychiatric/Behavioral: Negative. Past Medical and Surgical History: History reviewed. No pertinent past medical history. History reviewed. No pertinent surgical history. Medications: No current outpatient medications ALLERGIES: Allergies Allergen Reactions Penicillins Hives Social History: Social History Socioeconomic History Marital status: Single Social History Tobacco Use Smoking Status Not on file Smokeless Tobacco Not on file Family History: No family history on file. The Medication, Surgical, Medical, Allergies, Social and Family histories were reviewed with the patient during this visit. Physical Examination: BP 114/82 Pulse 88 Ht 5' 4 (1.626 m) Wt 232 lb 12.8 oz (106 kg) BMI 39.96 kg/m Body mass index is 39.96 kg/m . General Appearance: Obese Eyes: conjunctiva/corneas clear, PERRLA, EOMI ENT: ENT exam normal, no neck nodes or sinus tenderness Respiratory: appears well, vitals normal, no respiratory distress, acyanotic, normal RR, ear and throat exam is normal, neck free of mass or lymphadenopathy, chest clear, no wheezing, crepitations, rhonchi, normal symmetric air entry Lymphatic: No abnormally enlarged lymph nodes. Musculoskeletal: negative Breasts: A comprehensive breast exam was performed and is as follows: On exam, she had grade 3 ptosis on the right and grade 3 ptosis on the left. Her right breast was significantly larger than her left breast. This discrepancy is pretty significant to the extent that the patient does not have any chance being symmetrical in her bra. Examination of bilateral breasts reveals dense fibronodular tissue with no palpable masses or lumps. Examination of bilateral axilla reveals no palpable lymphadenopathy. Breast measurements: Family History of Cancer [] Breast Cancer: [] Ovarian Cancer: [x] Colon Cancer: Grandfather may have - Patient unsure [] Pancreatic Cancer: [] Prostate Cancer: [] Other Cancer: [x] Children: 1 [] Future Pregnancies: [] Breast Feeding: No [x] Weight Stability: currently [] Last Mammogram: Breast Measurements: Right Left Sternal Notch to Nipple 35.5 35 IMF to Nipple 15 11 Midline to Nipple 13.5 14.5 Areolar Diameter 8.5 8.5 Ptosis Grade Breast Base 30 cm bilaterally New Nipple Location 27 bilaterally Current Bra Size Right is 36 DDD Left is smaller in size and width. Patient claims C cup Larger Breast Right breast Additional Comments: Back problems, Rash under breast managed by diaper creams, baby powders. Inverted nipples bilaterally. Major asymmetry noted. Right: [x] Dense fibronodular tissue [] Masses [x] No Masses [] Lumps [x] No Lumps [] Palpable lymph nodes in axilla [x] No palpable lymph nodes in axilla Left: [x] Dense fibronodular tissue [] Masses [x] No Masses [] Lumps [x] No Lumps [] Palpable lymph nodes in axilla [x] No palpable lymph nodes in axilla Estimated weight of tissue to be removed per breast is 750 g. Technique used will be vertical reduction technique. Impression and Plan: I think that Ms. Crews certainly would benefit from breast reduction surgery from a symptomatic standpoint. We also discussed at length some of the risks of surgery including wound complications, nipple-areolar complex numbness, and loss changes that can happen to the breast postoperatively in the event of and/or as well as weight change. In general, breast feeding is possible in approximately 60% of patients after breast reduction. or weight gain can permanently increase the size of the breast, causing recurrent symptoms of macromastia. She will consider all this information in deciding whether she wishes to pursue breast reduction. I would estimate the total amount of breast removed from each side to be 750 g from the right and 750 g from the left. Thank you very much for allowing to help care for this charming patient. I will be sure to update you on her progress postoperatively. Patient's current Body mass index is 39.96 kg/m . I have recommended pursuing weight loss prior to her breast reduction surgery despite the benefits due to the increased risk of wound healing issues. We should target a BMI of 35. We discussed healthy lifestyle modifications incorporating healthy diet and exercise. Orders were obtained. Please disregard any typographical errors. This note was partially dictated using voice recognition software. documented in this encounter [facility] Evaluation note Diagnosis Onset Date Chronic neck pain chronic Chronic thoracic back pain c hronic Intertrigo chronic Macromastia chronic Shoulder pain chronic [facility] Work Phone: Evaluation note* Diagnosis Macromastia- Primary Hypertrophy of breast Developmental breast asymmetry [facility] [place] [facility] Diagnosis Chronic bilateral low back pain without sciatica [facility] Diagnosis S/P lumbar microdiscectomy- Primary Other postprocedural status documented in this [facility] [place] [facility] Diagnosis Status post discectomy Other postprocedural status documented in this encounter [facility] note* Diagnosis Status post discectomy Other postprocedural status documented in this encounter [facility] Summary Purpose Family History Relationship Condition Age at Onset Recorded Date/T keshia Not Specified Cardiac disease Unknown Stomach Cancer Status:Active Comments:Paterna l Grandfather. Stomach Cancer Status:Active Comments:Paterna l Grandfather. Stomach Cancer Status:Active Comments:Paterna l Grandfather. Stomach Cancer Status:Active Comments:Paterna l Grandfather. Stomach Cancer Status:Active Comments:Paterna l Grandfather. Stomach Cancer Status:Active Comments:Paterna l Grandfather. Stomach Cancer Status:Active Comments:Paterna l Grandfather. Stomach Cancer Status:Active Comments:Paterna l Grandfather. Stomach Cancer Status:Active Comments:Paterna l Grandfather. Stomach Cancer Status:Active Comments:Paterna l Grandfather. Stomach Cancer Status:Active Comments:Paterna l Grandfather. Stomach Cancer Status:Active Comments:Paterna l Grandfather. Stomach Cancer Status:Active Comments:Paterna l Grandfather. Stomach Cancer Status:Active Comments:Paterna l Grandfather. Stomach Cancer Status:Active Comments:Paterna l Grandfather. Stomach Cancer Status:Active Comments:Paterna l Grandfather. Stomach Cancer Status:Active Comments:Paterna l Grandfather. Stomach Cancer Status:Active Comments:Paterna l Grandfather. Stomach Cancer Status:Active Comments:Paterna l Grandfather. Stomach Cancer Status:Active Comments:Paterna l Grandfather. Stomach Cancer Status:Active Comments:Paterna l Grandfather. Stomach Cancer Status:Active Comments:Paterna l Grandfather. Stomach Cancer Status:Active Comments:Paterna l Grandfather. Stomach Cancer Status:Active Comments:Paterna l Grandfather. Stomach Cancer Status:Active Comments:Paterna l Grandfather. Stomach Cancer Status:Active Comments:Paterna l Grandfather. Stomach Cancer Status:Active Comments:Paterna l Grandfather. Stomach Cancer Status:Active Comments:Paterna l Grandfather. Stomach Cancer Status:Active Comments:Paterna l Grandfather. Stomach Cancer Status:Active Comments:Paterna l Grandfather. Stomach Cancer Status:Active Comments:Paterna l Grandfather. Stomach Cancer Status:Active Comments:Paterna l Grandfather. Stomach Cancer Status:Active Comments:Paterna l Grandfather. Stomach Cancer Status:Active Comments:Paterna l Grandfather. Stomach Cancer Status:Active Comments:Paterna l Grandfather. Stomach Cancer Status:Active Comments:Paterna l Grandfather. Stomach Cancer Status:Active Comments:Paterna l Grandfather. Stomach Cancer Status:Active Comments:Paterna l Grandfather. Stomach Cancer Status:Active Comments:Paterna l Grandfather. Stomach Cancer Status:Active Comments:Paterna l Grandfather. Stomach Cancer Status:Active Comments:Paterna l Grandfather. Stomach Cancer Status:Active Comments:Paterna l Grandfather. Stomach Cancer Status:Active Comments:Paterna l Grandfather. Stomach Cancer Status:Active Comments:Paterna l Grandfather. Stomach Cancer Status:Active Comments:Paterna l Grandfather. Stomach Cancer Status:Active Comments:Paterna l Grandfather. Stomach Cancer Status:Active Comments:Paterna l Grandfather. Stomach Cancer Status:Active Comments:Paterna l Grandfather. Stomach Cancer Status:Active Comments:Paterna l Grandfather. Stomach Cancer Status:Active Comments:Paterna l Grandfather. Stomach Cancer Status:Active Comments:Paterna l Grandfather. Stomach Cancer Status:Active Comments:Paterna l Grandfather. Stomach Cancer Status:Active Comments:Paterna l Grandfather. Stomach Cancer Status:Active Comments:Paterna l Grandfather. Stomach Cancer Status:Active Comments:Paterna l Grandfather. Stomach Cancer Status:Active Comments:Paterna l Grandfather. Stomach Cancer Status:Active Comments:Paterna l Grandfather. Stomach Cancer Status:Active Comments:Paterna l Grandfather. Stomach Cancer Status:Active Comments:Paterna l Grandfather. Stomach Cancer Status:Active Comments:Paterna l Grandfather. Stomach Cancer Status:Active Comments:Paterna l Grandfather. Stomach Cancer Status:Active Comments:Paterna l Grandfather. Stomach Cancer Status:Active Comments:Paterna l Grandfather. Stomach Cancer Status:Active Comments:Paterna l Grandfather. Stomach Cancer Status:Active Comments:Paterna l Grandfather. Stomach Cancer Status:Active Comments:Paterna l Grandfather. Stomach Cancer Status:Active Comments:Paterna l Grandfather. Stomach Cancer Status:Active Comments:Paterna l Grandfather. Stomach Cancer Status:Active Comments:Paterna l Grandfather. Stomach Cancer Status:Active Comments:Paterna l Grandfather. Stomach Cancer Status:Active Comments:Paterna l Grandfather. Stomach Cancer Status:Active Comments:Paterna l Grandfather. Stomach Cancer Status:Active Comments:Paterna l Grandfather. Stomach Cancer Status:Active Comments:Mary Jona l Grandfather. Advance Directives Advance Directive Response Recorded Date/ Time Living Will No February 16, 2021 11:07pm Power of Book Publisher No January 11:07pm Advance Directive Response Recorded Date/ Time Living Will No May 22, 2 022 3:18pm Power of Book Publisher No May 22, 2022 3:18pm Date Activated Date Inactivated Comments 09/30/2024 10:51 PM Question Answer Comments Full Code Order Discussed With: Patient Date Activated Date Inactivated Comments 10/24/2024 9:36 AM 10/24/2024 9:20 PM Question Answer Comments Full Code Order Discussed With: Patient Date Activated Date Inactivated Comments 09/30/2024 10:51 PM 10/06/2024 6:18 PM Question Answer Comments Full Code Order Discussed With: Patient Chief Complaint and Reason for Visit Chief Complaint CHRONIC NAUSEA E ORDER Consult NAUSEA Reason for Visit Chronic neck pain Chronic thoracic back pain Intertrigo Macromastia Shoulder pain Chief Complaint CHRONIC NAUSEA E ORDER Consult NAUSEA abd pain Reason for Visit Chronic neck pain Chronic thoracic back pain Intertrigo Macromastia Shoulder pain Additional Source Comments Source Comments (unrecognize d section and content) In the event this informatio n is protected by the Federal Confidentiality of Alcohol and Drug Abuse Patient Records regulations: The Federal rules restrict any use of the information to criminally investigate or prosecute any alcohol or drug abuse patient.[facility] the event this information is protected by the Federal Confidentiality of Alcohol and Drug Abuse Patient Records regulations: The Federal rules restrict any use of the information to criminally investigate or prosecute any alcohol or drug abuse patient.[facility] the event this information is protected by the Federal Confidentiality of Alcohol and Drug Abuse Patient Records regulations: The Federal rules restrict any use of the information to criminally investigate or prosecute any alcohol or drug abuse patient.[facility] System[facility] the event this information is protected by the Federal Confidentiality of Alcohol and Drug Abuse Patient Records regulations: The Federal rules restrict any use of the information to criminally investigate or prosecute any alcohol or drug abuse patient.[facility] the event this information is protected by the Federal Confidentiality of Alcohol and Drug Abuse Patient Records regulations: The Federal rules restrict any use of the information to criminally investigate or prosecute any alcohol or drug abuse patient.[facility] System[facility] the event this information is protected by the Federal Confidentiality of Alcohol and Drug Abuse Patient Records regulations: The Federal rules restrict any use of the information to criminally investigate or prosecute any alcohol or drug abuse patient.[facility] INFORMATION SOURCE (unrecogn ized section and content) DATE CREATED AUTHOR 05/04/2021 [facility] ([place]) DATE CREATED AUTHOR AUTHOR'S ORGANIZ ATION 10/04/2023 [facility] DATE CREATED AUTHOR AUTHOR'S ORGANIZ ATION 11/28/2023 [facility] DATE CREATED AUTHOR AUTHOR'S ORGANIZ ATION 03/11/2024 [facility] DATE CREATED AUTHOR AUTHOR'S ORGANIZ ATION 04/05/2024 [facility] DATE CREATED AUTHOR AUTHOR'S ORGANIZ ATION 08/10/2024 [facility] DATE CREATED AUTHOR AUTHOR'S ORGANIZ ATION 10/08/2024 [facility] DATE CREATED AUTHOR AUTHOR'S ORGANIZ ATION 10/08/2024 [facility] DATE CREATED AUTHOR AUTHOR'S ORGANIZ ATION 11/05/2024 [facility] nter Goals (unrecognized section and content) Goals may be documented in a n alternate sectionGoals may be documented in an alternate section Reason for Visit (unrecogniz ed section and content) Reason Onset Date Comments Outpatient Physical Therapy 01/30/2024 Specialty Diagnoses / Procedures Referred By Janna t Referred To Contact Physical Therapy Diagnoses Chronic bilateral low back pain without sciatica Sonny Quesada MD [address] [place] [address] [facility] Physical Therapy [address] [place] [address] Referral ID Status Reason Start Date Expiration Date Visits Requested Visits Authorized [id number] Authorized Specialty Services Required 12/31/2023 05/01/2024 11 11 Reason Onset Date Comments Outpatient Physical Therapy 02/06/2024 Referral ID Status Reason Start Date Expiration Date Visits Requested Visits Authorized [id number] Authorized Specialty Services Required 12/31/2023 05/01/2024 12 12 Reason Onset Date Comments Outpatient Physical Therapy 02/05/2024 Reason Onset Date Comments Outpatient Physical Therapy 03/15/2024 Reason Onset Date Comments Outpatient Physical Therapy 03/10/2024 Reason Onset Date Comments Outpatient Physical Therapy 03/08/2024 Reason Comments New Patient Specialty Diagnoses / Procedures Referred By Contac t Referred To Contact Plastic and Reconstructive Surgery / Plastic Surgery Diagnoses Hypertrophy of breast Cervicalgia Other chronic pain Pain in thoracic spine Erythema intertrigo Pain in unspecified shoulder Striae atrophicae Procedures [place] OFFICE/OUTPATIENT NEW HIGH MDM 60 MINUTES Dominick Khoury [address] [facility] [place] [address] [place] [address] Referral ID Status Reason Start Date Expiration Date Visits Requested Visits Authorized [id number] Pending Review Eval and Treat 08/13/2023 08/12/2024 1 1 Reason Onset Date Comments Outpatient Physical Therapy 03/05/2024 Specialty Diagnoses / Procedures Referred By Contac t Referred To Contact Physical Therapy Diagnoses Chronic bilateral low back pain without sciatica Sonny Quesada MD [address] [place] [address] [facility] Physical Therapy [address] [place] [address] Referral ID Status Reason Start Date Expiration Date V isits Requested Visits Authorized [id number] Closed Specialty Services Required 12/31/2023 05/01/2024 12 12 Reason Comments Post Op Sx 10/24/24 Reason Onset Date Comments Refill Request 11/23/2024 Care Teams (unrecognized sec tion and content) [employer] Relationship Specialty Start Date End Date BirchMilagro olmedoa, PT Physical Therapy 01/30/24 [employer] Relationship Specialty Start Date End Date Birch, Jolie, PT Physical Therapy 01/30/24 [employer] Relationship Specialty Start Date End Date Birch, Jolie, PT Physical Therapy 01/30/24 [employer] Relationship Specialty Start Date End Date Birch, Jolie, PT Physical Therapy 01/30/24 [employer] Relationship Specialty Start Date End Date Birch, Jolie, PT Physical Therapy 01/30/24 [employer] Relationship Specialty Start Date End Date Dominick Khoury [address] [place] [address] PCP - General Family Medicine 01/01/22 [employer] Relationship Specialty Start Date End Date Dominick Khoury [address] [facility] [place] [address] PCP - General Family Medicine 01/01/22 [employer] Relationship Specialty Start Date End Date Dominick Khoury [address] [facility] [place] [address] PCP - General Family Medicine 01/01/22 [employer] Relationship Specialty Start Date End Date Dominick Khoury [address] [place] [address] PCP - General Family Medicine 01/01/22 [employer] Relationship Specialty Start Date End Date Dominick Khoury [address] [facility] [place] [place] [address] PCP - General Family Medicine 8/2/22 FOR RECORDS PERTAINING TO PATIENTS WHO ARE OR HAVE BEEN ENROLLED IN A CHEMICAL DEPENDENCY/SUBSTANCEABUSE PROGRAM, SOME INFORMATION MAY BE OMITTED. This clinical summary was aggregated from multiple sources. Caution should be exercised in using it in the provision of clinical care. This summary normalizes information from multiple sources, and as a consequence, information in this document may materially change the coding, format and clinical context of patient data. In addition, data may be omitted in some cases. CLINICAL DECISIONS SHOULD BE BASED ON THE PRIMARY CLINICAL RECORDS. [facility]. provides no warranty or guarantee of the accuracy or completeness of information in this document.
[2024-11-25 22:49] LABS: Mucous, Urine 0 SEEN /hpf (<or=2+)
--- NOTE | 2024-11-25 22:49 | EX.ED.DYSGE1 ---
HPI History of Present Illness Chief Complaint: Weakness Narrative Narrative: Chief complaint and HPI: Lightheadedness, nausea, vomiting. 24-year-old female with past medical history of chronic back pain, borderline personality disorder, marijuana abuse presents for evaluation of lightheadedness, nausea, vomiting. Patient states last month she had back surgery. States she was given oxycodone. Patient states that she is still using her oxycodone periodically. She states yesterday she took her oxycodone in which she felt lightheaded, nauseous, vomiting. She states the symptoms resolved. She states she was fine until this evening approximately an hour after taking her oxycodone she developed lightheadedness, nausea, vomiting. Triage note states confusion however patient denies this to me she states it is more like a brain fog. Triage note also states weakness however patient denies this to me she states it is more like a heaviness. She denies any fever, chills, URI symptoms, cough, shortness of breath, chest pain, abdominal pain, diarrhea, constipation, dysuria. States she does not believe herself to be as she had a tubal ligation. She denies any sick contacts. She denies any worsening back pain or new numbness or tingling that her baseline. Patient states [facility] went to [facility], but they were too busy so she left. Review of systems: See HPI Medications: As listed on the chart Allergies: As listed on the chart PFSH: Per chart Vital signs: As listed on the chart. Reviewed. Physical exam: Gen: A&O x3, NAD Head: Normocephalic, atraumatic Eyes: No sclera icterus, injected conjunctive bilaterally, PERRL, EOMI ENT: Moist mucous membranes Neck: Trachea midline, No JVD CV: RRR, no murmurs, no peripheral edema Resp: Lungs CTA BL, no w/r/c GI: Abd soft, non-distended, non-tender, no r/r/g Musc: Full ROM, no deformity, strength +5/5 in all extremities, no midline spinal tenderness Skin: Warm, dry, intact Neuro: Alert, oriented, grossly intact, sensation intact, no focal deficits Psych: Cooperative, appropriate mood and affect PFS PFS Medical History Borderline personality disorder Marijuana use Back pain Former smoker Asthma Shortness of breath on exertion Leg cramps History of gastroesophageal reflux (GERD) Chronic pain in left shoulder Chronic pain in right shoulder Striae Gave to child recently Intertrigo Chronic thoracic back pain Chronic neck pain Macromastia GERD (gastroesophageal reflux disease) Back problem Allergies Nausea Depression Home Medications ?Medication ?Instructions ?Recorded ?Last Taken ?Type trazodone 100 mg tablet 100 mg PO QHS 05/04/24 06/09/24 History hydroxyzine pamoate 25 mg capsule 25 mg PO Q6H PRN PRN anxiety 06/04/24 Unknown History tizanidine 4 mg tablet 4 mg PO QHS 06/15/24 Unknown History silver sulfadiazine 1 % topical 1 applic topical DAILY #20 grams 07/07/24 Unknown Rx cream (Silvadene) ondansetron 4 mg disintegrating 4 mg PO Q8H PRN PRN Nausea #10 tabs 11/26/24 Unknown Rx tablet Allergy/AdvReac Type Severity Reaction Status Date / Time Penicillins Allergy Anaphylaxis Verified 11/25/24 19:52 Seasonal Allergies: Uncoded Allergy Other Verified 11/25/24 19:52 Family History Mother Heart disease Surgical History History of lumbar laminectomy History of tubal ligation Hx of section [place] teeth removed History of tonsillectomy and adenoidectomy History of appendectomy Social History Smoking Status: Current every day smoker tobacco type: cigarettes how long ago did patient quit smoking: quit 1 year ago alcohol intake: never substance use type: does not use additional social history: Does Take Aspirin As Needed Does Take Ibuprofen As Needed denies vaping, denies edibles Uses marijuana-last used 3 weeks ago. EXAM Physical Exam Const Vital Signs: 11/25/24 19:51 11/25/24 22:56 11/25/24 23:07 Temperature 97 F L Temperature Source Temporal Pulse Rate 82 82 Pulse Rate [Lying] 72 Pulse Rate [Sitting (for 1 minute prior to obtaining)] 75 Pulse Rate [Standing (for 1 minute prior to obtaining)] 93 Respiratory Rate 14 15 Blood Pressure 142/84 H 131/62 H Blood Pressure [Lying] 126/59 H Blood Pressure [Sitting (for 1 minute prior to obtaining)] 126/59 H Blood Pressure [Standing (for 1 minute prior to obtaining)] 131/62 H Blood Pressure Mean 103 85 Blood Pressure Mean [Lying] 81 Blood Pressure Mean [Sitting (for 1 minute prior to obtaining)] 81 Blood Pressure Mean [Standing (for 1 minute prior to obtaining)] 85 Pulse Ox 98 98 Oxygen Delivery Method Room Air Room Air 11/26/24 00:09 Temperature 98.3 F Temperature Source Pulse Rate 80 Pulse Rate [Lying] Pulse Rate [Sitting (for 1 minute prior to obtaining)] Pulse Rate [Standing (for 1 minute prior to obtaining)] Respiratory Rate 19 H Blood Pressure 125/60 H Blood Pressure [Lying] Blood Pressure [Sitting (for 1 minute prior to obtaining)] Blood Pressure [Standing (for 1 minute prior to obtaining)] Blood Pressure Mean 81 Blood Pressure Mean [Lying] Blood Pressure Mean [Sitting (for 1 minute prior to obtaining)] Blood Pressure Mean [Standing (for 1 minute prior to obtaining)] Pulse Ox 98 Oxygen Delivery Method MDM MDM MDM Narrative Medical decision making narrative: 24-year-old female with past medical history of chronic back pain, borderline personality disorder, marijuana abuse presents for evaluation of lightheadedness, nausea, vomiting, brain fogginess, heaviness. Symptoms start shortly after taking oxycodone. See physical exam findings. Differential diagnosis includes but is not limited to adverse effect from oxycodone, dehydration, TARIQ, UTI, , substance intoxication. NS bolus and Zofran ordered. Laboratory workup ordered. I do not think any imaging is needed at this time. CBC without leukocytosis or anemia. Platelets unremarkable. CMP unremarkable without electrolyte abnormality or TARIQ. No transaminitis. Lipase unremarkable. UA positive for leukocyte esterase, 5-10 WBC, and +1 bacteria however this is not a clean sample with 25-50 squamous epithelial cells. Patient not endorsing any UTI symptoms therefore will not treat with antibiotics at this time however will send for culture. Urine negative. Drug screen positive for oxycodone. Alcohol level unremarkable. On reevaluation, patient states her symptoms have improved. She ambulated to the bathroom without difficulty. Suspect her symptoms are secondary to oxycodone. Recommended not taking this. Patient stable to discharge home. Follow-up with PCP. She confirmed understanding the plan. Zofran as needed for nausea and vomiting. Impression: 1. Lightheadedness 2. Brain fogginess 3. Nausea/vomiting 4. Concern for adverse effects from oxycodone Lab Data Labs: Laboratory Results - last 24 hr 11/25/24 11/25/24 22:15 22:18 WBC 6.5 RBC 4.38 Hgb 14.0 Hct 41.0 MCV 93.6 MCH 32.0 MCHC 34.1 RDW Std Deviation 42.6 RDW Coeff of Al 12.3 Plt Count 283 MPV 10.3 Immature Gran % (Auto) 0.300 Neut % (Auto) 49.3 Lymph % (Auto) 38.6 [place] % (Auto) 8.9 Eos % (Auto) 2.0 Baso % (Auto) 0.9 Absolute Neuts (auto) 3.2 Absolute Lymphs (auto) 2.51 Nucleated RBC % 0 Sodium 140 Potassium 3.9 Chloride 103 Carbon Dioxide 25.2 Anion Gap 12 BUN 12 Creatinine 0.77 Estim Creat Clear Calc 134.29 Est GFR (MDRD) Non-Af 111 BUN/Creatinine Ratio 16.0 Glucose 90 Calcium 9.7 Total Bilirubin 0.76 AST 25 ALT 23 Alkaline Phosphatase 74 Total Protein 7.2 Albumin 4.5 Globulin 2.7 Albumin/Globulin Ratio 1.6 Lipase 15 Urine Color Yellow Urine Clarity Clear Urine pH 7.0 Ur Specific [place] 1.010 Urine Protein Negative Urine Glucose (UA) Normal Urine Ketones Negative Urine Occult Blood 10 H Urine Nitrite Negative Urine Bilirubin Negative Urine Urobilinogen Normal Ur Leukocyte Esterase 25 H Urine RBC 0-5 SEEN Urine WBC 5-10 SEEN Ur Squamous Epith Cells 25-50 SEEN Urine Bacteria 1+ Urine Mucus 0 SEEN Urine Test Negative Urine Opiates Screen NEGATIVE U Buprenorphine Qual NEGATIVE Ur Oxycodone Screen PRESUMPTIVE POSITIVE Urine Methadone Screen NEGATIVE Urine Fentanyl Screen NEGATIVE Ur Barbiturates Screen NEGATIVE Ur Phencyclidine Scrn NEGATIVE Ur Amphetamines Screen NEGATIVE U Benzodiazepines Scrn NEGATIVE Urine Cocaine Screen NEGATIVE U Cannabinoids Screen NEGATIVE Ethyl Alcohol < 10.1 Discharge Plan Triage Chief Complaint: Weakness ED Provider: Fredo Rice Dx/Rx/DC Orders Clinical Impression: Nausea & vomiting, Episodic lightheadedness, Medication side effect Instructions: Self-Care for Vomiting and Diarrhea, ED Dizziness, Uncertain Cause Prescriptions: New ondansetron 4 mg tablet,disintegrating 4 mg PO Q8H PRN PRN (Reason: Nausea) Qty: 10 0RF No Action trazodone 100 mg tablet 100 mg PO QHS tizanidine 4 mg tablet 4 mg PO QHS silver sulfadiazine [Silvadene] 1 % cream 1 applic topical DAILY Qty: 20 2RF Rx Instructions: apply a thin layer over the affected sites 1 x a day hydroxyzine pamoate 25 mg capsule 25 mg PO Q6H PRN PRN (Reason: anxiety) Primary Care Provider: Mi Cee Referrals: Mi Cee PA [Primary Care Provider] - 3-5 Days Activity Restrictions/Additional Instructions: Recommend stop taking oxycodone on as this is likely contributing to your symptoms. Zofran as needed for nausea and vomiting. Return back to the ED if symptoms change or worsen. Follow-up with your primary care physician. Print Language: Japanese Disposition Disposition: Home, Self Care Discharge Date/Time: 11/26/24 00:11
[2024-11-25 22:55] LABS: Absolute Lymphocyte Count 2.51 X10^3/uL (0.83-4.51); Absolute Neutrophil Count 3.2 X10^3/uL (2.0-7.7); Basophil# 0.06 X10^3/uL; Basophil% 0.9 % (0-1); Eosinophil# 0.13 X10^3/uL; Lymphocyte # 2.51 X10^3/ul (0.83-4.51); Lymphocyte % 38.6 % (19-41); Mean Corp Hgb Conc 34.1 g/dL (32-36); Mean Corpuscular Volume 93.6 fL (81-99); Mean Platelet Vol. 10.3 fl (6.2-12.0); Monocyte# 0.58 X10^3/uL; Monocyte% 8.9 % (0-10); NRBC Flagged by Analyzer 0 % (0-5); Neutrophil # 3.21 X10^3/uL (2.7-7.7); Neutrophil % 49.3 % (47-70); Platelet Count 283 K/mm3 (150-450); RBC Distribution Width CV 12.3 % (11.6-14.6); RBC Distribution Width SD 42.6 fl (35.1-43.9); Red Blood Count 4.38 M/mm3 (4.2-5.4); White Blood Count 6.5 K/mm3 (4.4-11.0)
[2024-11-25 22:56] VITALS: BP 126/59; BP 131/62; PULSE 72; PULSE 75; PULSE 93
[2024-11-25 22:56] LABS: Color, Urine Yellow (Yellow); Glucose, Dipstick Normal (Normal); Ketone-Dipstick Negative (Negative); Leukocyte Esterase-Dipstick 25 /ul (Negative); Nitrite-Dipstick Negative (Negative); Occult Blood-Urine 10 /ul (Negative); Protein-Dipstick Negative (Negative); Urine Bilirubin Dipstick Negative (Negative); Urine Clarity Clear (Clear); Urine Urobilinogen Normal (Normal)
[2024-11-25 22:59] LABS: Internal QC Validated? YES +Cl - CLEAR BKGD; Pregnancy, Urine Negative Negative
[2024-11-25] MEDS: Ondansetron 4 MG/2 ML Vial IV (23:05)
[2024-11-25] MEDS: 0.9% Normal Saline (1000mL) 1,000 ML 1000 ML IV (23:05)
[2024-11-25 23:07] VITALS: BP 131/62; PULSE 82; RESP 15; O2SAT 98
[2024-11-25 23:08] LABS: ALB/GLOB Ratio 1.6 RATIO (0.9-2.4); AST(SGOT) 25 U/L (<=31); Alanine Aminotransfer ALT/SGPT 23 U/L (<=34); Albumin, Serum 4.5 g/dL (3.5-5.0); Alkaline Phosphatase 74 U/L (35-104); Anion Gap 12 (5-15); BUN 12 mg/dL (4-19); Calcium,Total 9.7 mg/dL (7.6-11.0); Carbon Dioxide 25.2 mmol/L (21.0-32.0); Chloride 103 mmol/L (98-108); Creatinine, Serum 0.77 mg/dL (0.70-1.20); EST Glomerular Filtration Rate 111 (>60); Estimated Creatinine Clearance 134.29 ml/min (50-250); Globulin 2.7 g/dL (2.2-4.2); Glucose 90 mg/dL (70-99); Lipase 15 U/L (13-75); Potassium 3.9 mmol/L (3.3-5.1); Protein, Total 7.2 g/dL (5.9-8.4); Sodium Level 140 mmol/L (133-145); Total Bilirubin 0.76 mg/dL (0.00-1.30)
[2024-11-25 23:10] LABS: Alcohol, Blood (Medical)-Serum < 10.1 mg/dL (<=10.0)
[2024-11-25 23:28] LABS: Squamous Epithelial Cells - UA 25-50 SEEN /hpf (5-10); White Blood Cells 5-10 SEEN /hpf (0-5)
[2024-11-25 23:29] LABS: Bacteria 1+ /hpf (None Seen); Red Blood Cells-Urine 0-5 SEEN /hpf (0-5)
[2024-11-25 23:42] LABS: Amphetamine Urine NEGATIVE (<1000 ng/mL); Barbiturate Urine NEGATIVE (< 200 ng/mL); Benzodiazepine Urine NEGATIVE (< 200 ng/mL); Buprenorphine Urine NEGATIVE (< 200 ng/mL); Cocaine Urine NEGATIVE (< 300 ng/mL); Fentanyl, Urine NEGATIVE; Methadone Urine NEGATIVE (< 300 ng/mL); Opiates Urine NEGATIVE (< 300 ng/mL); Oxycodone, Urine PRESUMPTIVE POSITIVE (< 100 ng/mL); PCP Urine NEGATIVE (< 25 ng/mL); THC Urine NEGATIVE (< 50 ng/mL)
[2024-11-26 00:09] VITALS: BP 125/60; PULSE 80; RESP 19; TEMP 36.8; O2SAT 98
== END 2024-11-26 00:11 | disposition home or self-care (01) ==
PROVIDERS: Emergency Provider Surgery; Visit Provider Surgery
DX: R53.1 Weakness (principal); R11.2 Nausea with vomiting, unspecified; R42 Dizziness and giddiness; Z98.51 Tubal ligation status; Z90.49 Acquired absence of other specified parts of digestive tract; F17.210 Nicotine dependence, cigarettes, uncomplicated; T40.2X5A Adverse effect of other opioids, initial encounter
CPT/HCPCS: 80053; 80307; 81001; 81025; 82077; 83690; 85025; 87086; 87088; 96361; 96374; 99285; A4216; J2405